=== PATIENT | male | born 1945 | race Hispanic/Latino ===

== ENCOUNTER → 2017-02-19 | Day surgery (SDC) | payer MEDICARE ==
[2017-02-13 12:33] LABS: BASOPHILS % 0.8 % (0.0-1.0); EOSINOPHILS # (AUTO) 0.1 (0.0-0.4); EOSINOPHILS % 2.3 % (0.0-6.0); HEMATOCRIT 42.3 % (38.2-49.6); HEMOGLOBIN 14.8 g/dL (14.0-18.0); LYMPHOCYTES # (AUTO) 1.1 (1.0-3.2); LYMPHOCYTES % 19.9 % (18.0-39.1); MEAN CORPUSCULAR HEMOGLOBIN 33.3 pg (28-32); MEAN CORPUSCULAR VOLUME 95.1 fL (81-99); MONOCYTES # (AUTO) 0.8 (0.2-0.8); MONOCYTES % 14.4 % (4.4-11.3); NEUTROPHILS # (AUTO) 3.3 (2.1-6.9); NEUTROPHILS % 61.8 % (38.7-80.0); PLATELET COUNT 112 x10e3/uL (140-360); RED BLOOD COUNT 4.45 x10e6/uL (4.3-5.7); RED CELL DISTRIBUTION WIDTH 12.9 % (11.7-14.4)
--- NOTE | 2017-02-13 13:04 | Diagnostic Imaging Report ---
PROCEDURE:CHEST 2 VIEWS TECHNIQUE:PA chest INDICATION:Preoperative evaluation for prostate surgery. COMPARISON:None. FINDINGS: Bibasilar subsegmental atelectasis. Upper lung zones are clear. Normal heart size, mediastinal contour, and pulmonary vasculature. Intact skeleton. CONCLUSION: No acute abnormality. Dictated by: Vikram Burnette M.D. on 02/13/2017 at 13:13 Electronically approved by: Vikram Burnette M.D. on 02/13/2017 at 13:13
[~2017-02-19] MED LIST: BELLADONNA/OPIUM 60 MG SUPP PR ONE; BUPROPION HCL100 MG PO; CEFTRIAXONE SOD 1 GM VIAL ONE; DEXAMETHASONE SOD PHOS INJ 4 MG/ML VIAL ONE; FENTANYL CITRATE/PF 100MCG/2 ML INJ ONE; GENTAMICIN 80MG/NS 100 ML 100 ML IV ONE; IOPAMIDOL 610MG/1ML 300 MG/ML VIAL IV ONE; LATUDA40 MG PO; LIDOCAINE HCL 2% LOCAL INJ 5 ML SDV VIAL INJ ONE; LORATADINE10 MG PO; METOCLOPRAMIDE10 MG PO; MIDAZOLAM HCL 2 MG/2 ML VIAL ONE; OMEPRAZOLE40 MG PO; ONDANSETRON HCL INJ 2 MG/ML VIAL ONE; PROPOFOL IV EMULSION 10 MG/ML 20 ML VIAL ONE; SEVOFLURANE INHAL SOLN 250 ML PEN BTL ONE; TAMSULOSIN HCL0.4 MG PO; TRAZODONE HCL50 MG PO; TYLENOL WITH C1 EACH PO
--- NOTE | 2017-04-22 06:51 | Operative Report ---
DATE OF PROCEDURE: February 19, 2017 PREOPERATIVE DIAGNOSES 1. Obstructive BPH. 2. Urinary tract infections. 3. History of urolithiasis. POSTOPERATIVE DIAGNOSES 1. Obstructive BPH. 2. Urinary tract infections. 3. History of urolithiasis. 4. Lesions of the prostatic urethra. OPERATIONS PERFORMED 1. Cystourethroscopy with biopsy of prostatic urethra lesion (separate procedure performed for the prostatic urethral lesion). 2. Cystourethroscopy with bilateral ureteral catheterization and retrograde ureteropyelography (separate procedure performed to evaluate the upper tracts in light of the urinary tract infections and urolithiasis). 3. Interpretation of retrograde ureteropyelography. 4. Supervision of fluoroscopy. No radiologist present. 5. Cystourethroscopy with photoselective vaporization of the prostate (separate staged procedure performed for the regrowth of BPH). ANESTHESIA: General. COMPLICATIONS: None. CLINICAL SUMMARY: Elva Lamar is a 71-year-old man with the above preoperative diagnoses. He has had previous transurethral resection of the prostate remotely and has regrowth within the prostate bed. The patient is on maximum medical therapy with Proscar and Flomax. He is brought for the above procedures. He is aware of the risks of bleeding, infection, injury to adjacent structures, need additional procedures and elected to proceed. OPERATIVE PROCEDURE IN DETAIL: Informed consent was verified. Elva Lamar was properly identified, taken to the operating room, placed on the cystoscopy table in supine position. Anesthesia was uneventfully begun. The patient was then carefully and gently repositioned in dorsal lithotomy position with all pressure points well padded. His genitalia were prepared and draped in usual sterile fashion. A 22.5-Swedish cystoscope sheath with visual obturator in place was atraumatically inserted in the patient's urethra, was guided down an unremarkable distal urethra through the normal sphincteric region into the prostate bed where we identified some nodular prostatic regrowth. The bladder neck itself was opened. There was a papillary lesion just proximal to the verumontanum that required excisional biopsy. Panendoscopy of the urinary bladder revealed grade 2 trabeculations, but no tumors, no stones and no diverticula. No suspicious mucosal lesions were identified. An 8-Swedish catheter was used to cannulate each ureter and retrograde ureteral pyelograms were performed. Interpretation retrograde ureteropyelography: Contrast was instilled in a retrograde fashion bilaterally. There were no tumors, no stones and no diverticula. Unobstructed drainage was observed bilaterally fluoroscopically. 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 Photoselective vaporization the prostate was then carried out. We lasered the residual obstructive BPH tissue. We lasered from the bladder neck tube, but never past the verumontanum. After delivering 79,145 joules of energy over a total laser time of 11 minutes and 44 seconds, the patient had a wide open prostatic bed with excellent hemostasis. The cystoscope was withdrawn. Wilburn catheter was placed. It was irrigated to and fro to ensure it worked properly and the patient was uneventfully reversed from anesthesia and taken to recovery room in stable condition. There were no complications during the procedure. He tolerated the procedure well. Plans will be to follow the patient up in the office at which point in time, we will perform uroflowmetry and bladder ultrasonography. Job#: [id number] cc:DARIEN CHOE MD
== END | disposition home or self-care (01) ==
LOC: OR 05:51
PROVIDERS: ATTEND Urology
DX: N40.1 Benign prostatic hyperplasia with lower urinary tract symptoms (principal); N36.8 Other specified disorders of urethra; N13.8 Other obstructive and reflux uropathy; N32.89 Other specified disorders of bladder; N30.80 Other cystitis without hematuria; I45.10 Unspecified right bundle-branch block; G47.33 Obstructive sleep apnea (adult) (pediatric); F17.210 Nicotine dependence, cigarettes, uncomplicated; Z01.810 Encounter for preprocedural cardiovascular examination; Z01.812 Encounter for preprocedural laboratory examination; Z01.818 Encounter for other preprocedural examination; Z87.442 Personal history of urinary calculi
CPT/HCPCS: 36415; 52005; 52204; 52648; 71020; 74420; 85025; 88305; 93005; C1758; J0696; J1100; J1580; J2001; J2250; J2405; Q9967

== ENCOUNTER → 2018-08-21 | Day surgery (SDC) | payer MEDICARE ==
[2018-08-18 14:29] LABS: BASOPHILS % 0.7 % (0.0-1.0); EOSINOPHILS # (AUTO) 0.2 (0.0-0.4); EOSINOPHILS % 3.3 % (0.0-6.0); HEMATOCRIT 41.6 % (38.2-49.6); HEMOGLOBIN 14.7 g/dL (14.0-18.0); LYMPHOCYTES # (AUTO) 1.1 (1.0-3.2); LYMPHOCYTES % 23.1 % (18.0-39.1); MEAN CORPUSCULAR HGB CONC 35.3 g/dL (31-35); MEAN CORPUSCULAR VOLUME 93.3 fL (81-99); MONOCYTES # (AUTO) 0.4 (0.2-0.8); NEUTROPHILS # (AUTO) 2.9 (2.1-6.9); NEUTROPHILS % 63.5 % (38.7-80.0); PLATELET COUNT 155 x10e3/uL (140-360); RED BLOOD COUNT 4.46 x10e6/uL (4.3-5.7); RED CELL DISTRIBUTION WIDTH 12.4 % (11.7-14.4)
[2018-08-18 14:43] LABS: ALBUMIN 3.5 g/dL (3.5-5.0); ALBUMIN/GLOBULIN RATIO 1.2 (0.8-2.0); ANION GAP 14.4 mmol/L (8-16); CREATININE, SERUM 1.45 mg/dL (0.72-1.25); POTASSIUM 3.4 mmol/L (3.5-5.1)
--- NOTE | 2018-08-18 15:54 | Diagnostic Imaging Report ---
EXAM: CHEST 2 VIEWS, PA and lateral DATE: 08/18/2018 Time stamp on exam: 2:14 PM INDICATION: Preoperative, history of renal stones COMPARISON: None FINDINGS: LINES/TUBES: None LUNGS: No consolidations or edema. PLEURA: No effusions or pneumothorax. HEART AND MEDIASTINUM: Normal size and contour. Calcification within the aorta. BONES AND SOFT TISSUES: No acute findings. Degenerative changes of the spine. IMPRESSION: No acute thoracic abnormality. Signed by: Dr. Yaya Quinonez DO on 08/18/2018 3:50 PM
--- NOTE | 2018-08-18 16:41 | Diagnostic Imaging Report ---
Abdomen, 2 views. History: Stones. Findings: The intestinal gas pattern is nonobstructive. There are small stones that overlie the lower pole of the right kidney and upper pole of the left kidney. There no masses. . Degenerative changes of the spine. IMPRESSION: Small bilateral stones. Signed by: Dr. Yaya Quinonez DO on 08/18/2018 4:38 PM
[~2018-08-21] MED LIST changes: +BELLADONNA/OPIUM 30 MG SUPP RC ONE; -BELLADONNA/OPIUM 60 MG SUPP PR ONE; -CEFTRIAXONE SOD 1 GM VIAL ONE; +CEFTRIAXONE SOD 1 GM/NS 50 ML 50 ML IV ONE; -FENTANYL CITRATE/PF 100MCG/2 ML INJ ONE; +FLOMAX0.4 MG PO; -GENTAMICIN 80MG/NS 100 ML 100 ML IV ONE; +HYDROCHLOROTHIA25 MG PO; +IBUPROFEN400 MG PO; +MECLIZINE HCL12.5 MG PO; -ONDANSETRON HCL INJ 2 MG/ML VIAL ONE; +ONDANSETRON HCL INJ 2MG/ML 2ML 2 MG/ML VIAL ONE
--- OUTSIDE RECORDS SUMMARY | 2018-08-21 09:49 | XMS REPORT | Continuity of Care Document ---
Author Author [facility] Organization [facility] Address Unknown Phone Unavailable Care Team Providers Care Mobile Engineer Name Role Phone [employer] Unavailable Unavailable Problems Problem Status Onset Date Classification Date Reported Comments Source ABDOMINAL PAIN Active 02/07/2017 [facility] FALL FROM STANDING, CLOSED FRACTURE OF M Active 02/07/2017 [facility] ABD PAIN Active 03/16/2016 [facility] ABDOMINAL PAIN, ACUTE, BILATERAL LOWER Q Active 03/16/2016 [facility] CHEST PAIN Active 10/25/2015 [facility] Discharge Diagnosis: Migraine headache 07/15/2015 07/18/2015 [facility] HEADACHE Active 07/14/2015 [facility] VOMITING, ABD PAIN Active 01/14/2015 [facility] ABDOMINAL PAIN, SYMPTOMATIC CHOLELITHIAS Active 01/14/2015 [facility] DIZZINESS Active 01/27/2014 [facility] TRANSIENT VISUAL LOSS AND TONGUE NUMBNES Active 01/27/2014 [facility] Atypical chest pain1 Active 03/23/2013 Problem 02/11/2017 Data migrated from [employer] on 07/23/14. [facility] Body mass index 30+ - obesity3 Active 03/23/2013 Problem 02/11/2017 Data migrated from [employer] on 07/23/14. [facility] Otitis externa9, 10 Resolved 03/23/2013 Problem 02/11/2017 Data migrated from [employer] on 09/10/14. Data migrated from [employer] on 09/09/14. [facility] Sleep apnea11 Active 03/23/2013 Problem 02/11/2017 Data migrated from [employer] on 07/23/14. [facility] EXERTIONAL CHEST PAIN Active 03/13/2013 [facility] CHEST PAIN/LEFT SIDE PAIN Active 03/13/2013 [facility] Cobalamin deficiency4 Active 12/09/2012 Problem 02/11/2017 Data migrated from [employer] on 07/23/14. [facility] Fatigue7 Active 12/09/2012 Problem 02/11/2017 Data migrated from [employer] on 07/23/14. [facility] Thrombocytopenic [id number] Active 12/09/2012 Problem 02/11/2017 Data migrated from [employer] on 07/23/14. [facility] Vitamin D [email or web address] Active 12/09/2012 Problem 02/11/2017 Data migrated from [employer] on 07/23/14. [facility] Cramp in lower limb5 Active 10/30/2012 Problem 02/11/2017 Data migrated from [employer] on 07/23/14. [facility] Electrolyte imbalance6 Active 10/30/2012 Problem 02/11/2017 Data migrated from [employer] on 07/23/14. [facility] TIA Active 04/13/2012 [facility] ARM/SHOULDER PAIN Active 06/01/2011 [facility] URINATION PROBLEMS Active 12/07/2010 [facility] Depression Active Problem 04/19/2012 [facility] Flank pain Active Problem 04/19/2012 [facility] Hematuria Active Problem 04/19/2012 [facility] Nausea Active Problem 04/19/2012 [facility] Stent Active Problem 04/19/2012 [facility] Vomiting Active Problem 04/19/2012 [facility] Depression Active Problem 02/11/2017 [facility] Flank pain Active Problem 02/11/2017 [facility] Hematuria Active Problem 02/11/2017 [facility] Nausea Active Problem 02/11/2017 [facility] Sleep apnea Resolved Problem 01/31/2014 [facility] Stent Active Problem 02/11/2017 [facility] Vomiting Active Problem 02/11/2017 [facility] Benign prostatic hypertrophy with outflow obstruction2 Active Problem 02/11/2017 Data migrated from [employer] on 07/23/14. [facility] Depression Resolved Problem 02/11/2017 [facility] Hyperlipidemia8 Active Problem 02/11/2017 Data migrated from [employer] on 07/23/14. [facility] TRANS CEREB ISCHEMIA NEC Active [facility] CHEST PAIN NOS Active [facility] UNSPECIFIED FALL, INITIAL ENCOUNTER Active [facility] MULTIPLE FRACTURES OF RIBS, UNSP SIDE, I Active [facility] PLEURODYNIA Active [facility] Medications Medication Details Route Status Patient Instructions Ordering Provider Order Date Source Acetaminophen 300 MG / Codeine Phosphate 30 MG Oral Tablet 1 tab, PO, Q4H, PRN Pain, X 7 day, # 42 tab, 0 Refill(s) Active 02/08/2017 [facility] morphine Sulfate 12 mg, 6 mL, Route: PO, Drug form: SOLN, Q4H, PRN Pain Score 7-10, Start date: 02/08/17 3:04:00 ORNAMENT STAPLER, Duration: 30 day, Stop date: 03/10/17 3:03:00 CSTNotes: (Same as:MORPhine Sulfate) Inactive 02/08/2017 [facility] Enoxaparin 30 mg, 0.3 mL, Route: SUB-Q, Drug form: INJ, [id number], Dosing Weight 125, kg, Start date: 02/08/17 3:00:00 ORNAMENT STAPLER, Stop date: 03/09/17 15:00:00 CSTNotes: (Same as: Lovenox) Inactive 02/08/2017 [facility] Saline Flush 0.9% 10 ml, Route: IVP, Drug Form: INJ, Dosing Weight 125, kg, PRN, PRN Line Flush, Start date: 02/08/17 2:42:00 ORNAMENT STAPLER, Duration: 30 day, Stop date: 03/10/17 2:41:00 CSTNotes: (Same as: BD Posiflush) Inactive 02/08/2017 [facility] Ondansetron 4 mg, 2 mL, Route: IVP, Drug form: INJ, Q6H, Dosing Weight 125, kg, PRN Nausea & Vomiting, Start date: 02/08/17 2:42:00 ORNAMENT STAPLER, Duration: 30 day, Stop date: 03/10/17 2:41:00 CSTNotes: (Same as: Zofran) MEDICATION WASTE Product Size: 4 mg Product Wasted: ___ mg Inactive 02/08/2017 [facility] Acetaminophen 650 mg, 2 tab, Route: PO, Drug form: TAB, Q4H, Dosing Weight 125, kg, PRN Pain 1-3/Temp > 100.4 F, Start date: 02/08/17 2:42:00 ORNAMENT STAPLER, Duration: 30 day, Stop date: 03/10/17 2:41:00 CSTNotes: Do not exc eed 4 gm/day. (Same as: Tylenol) Inactive 02/08/2017 [facility] Acetaminophen 325 MG / Hydrocodone Bitartrate 5 MG Oral Tablet 1 tab, Route: PO, Drug Form: TAB, Dosing Weight 125, kg, Q4H, PRN Pain Score 4-6, Start date: 02/08/17 2:42:00 ORNAMENT STAPLER, Duration: 30 day, Stop date: 03/10/17 2:41:00 CSTNotes: (Same as: [place] 325/5) Do not exceed 4gm/day of acetaminophen. Inactive 02/08/2017 [facility] Morphine 4 mg, Route: IVP, Q4H, Dosing Weight 125, kg, PRN Pain Score 7-10, Start date: 02/08/17 2:42:00 ORNAMENT STAPLER, Duration: 30 day, Stop date: 03/10/17 2:41:00 ORNAMENT STAPLER Inactive 02/08/2017 [facility] Trazodone Hydrochloride 100 MG Oral Tablet 100 mg=1 tab, PO, Bedtime, # 30 tab, 0 Refill(s) No Longer Active 02/08/2017 [facility] Metoclopramide 10 MG Oral Tablet 10 mg=1 tab, PO, Daily, 0 Refill(s) No Longer Active 02/08/2017 [facility] predniSONE 10 mg oral tablet 10 mg=1 tab, PO, Daily, # 30 tab, 3 Refill(s) No Longer Active 02/08/2017 [facility] omeprazole 40 mg oral delayed release capsule 40 mg=1 cap, PO, Daily, # 30 cap, 0 Refill(s) Active 02/08/2017 [facility] Bupropion 200 mg, PO, Daily, 0 Refill(s) No Longer Active 02/08/2017 [facility] tamsulosin 0.4 mg oral capsule 0.4 mg=1 cap, PO, BID, 0 Refill(s) Active 02/08/2017 [facility] Zofran 4 mg, Route: IVP, Drug form: INJ, ONCE, Dosing Weight 113.636, kg, Priority: STAT, Start date: 02/07/17 20:11:00 ORNAMENT STAPLER, Stop date: 02/07/17 20:11:00 ORNAMENT STAPLER Inactive 02/08/2017 [facility] Fentanyl 100 microgram, Route: IVP, ONCE, Dosing Weight 113.636, kg, Priority: STAT, Start date: 02/07/17 20:11:00 ORNAMENT STAPLER, Stop date: 02/07/17 20:11:00 ORNAMENT STAPLER Inactive 02/08/2017 [facility] Morphine 6 mg, Route: IVP, ONCE, Dosing Weight 113.636, kg, Priority: STAT, Start date: 02/07/17 18:39:00 ORNAMENT STAPLER, Stop date: 02/07/17 18:39:00 ORNAMENT STAPLER Inactive 02/08/2017 [facility] Morphine 6 mg, Route: IVP, ONCE, Dosing Weight 113.636, kg, Priority: STAT, Start date: 02/07/17 15:58:00 ORNAMENT STAPLER, Stop date: 02/07/17 15:58:00 ORNAMENT STAPLER Inactive 02/07/2017 [facility] Sodium Chloride 0.9% (Bolus) IV 1,000 mL, Infuse Over: 1 hr, Route: IV, ONCE, Priority: STAT, Dosing Weight 113.636 kg, Start date: 02/07/17 15:55:00 ORNAMENT STAPLER, Stop date: 02/07/17 15:55:00 ORNAMENT STAPLER Inactive 02/07/2017 [facility] Latuda 120 mg, Route: PO, Drug form: TAB, After Dinner, Dosing Weight 117.273, kg, Start date: 03/17/16 17:00:00 ORNAMENT STAPLER, Duration: 30 day, Stop date: 04/15/16 17:00:00 ORNAMENT STAPLER Inactive 03/17/2016 [facility] Latuda 120mg Latuda 120mg, 1 tab, Drug form: MISC, Route: PO, After Dinner, 03/17/16 17:00:00 ORNAMENT STAPLER, Duration: 30 day, Stop date: 04/15/16 17:00:00 ORNAMENT STAPLER Inactive 03/17/2016 [facility] tamsulosin 0.4 mg oral capsule 0.4 mg=1 cap, PO, Daily, # 30 cap, 0 Refill(s) Active 03/17/2016 [facility] Levofloxacin 500 MG Oral Tablet [Levaquin] 500 mg=1 tab, PO, Q24H, # 30 tab, 0 Refill(s) Active 03/17/2016 [facility] Escitalopram 10 mg, 1 tab, Route: PO, Drug form: TAB, Daily, Dosing Weight 117.273, kg, Start date: 03/17/16 9:00:00 ORNAMENT STAPLER, Duration: 30 day, Stop date: 04/15/16 9:00:00 CSTNotes: (Same as: Lexapro) Inactive 03/17/2016 [facility] Levaquin 500 mg, Route: PO, Drug form: TAB, [id number], Dosing Weight 117.273, kg, Start date: 03/17/16 9:00:00 ORNAMENT STAPLER, Duration: 30 day, Stop date: 04/15/16 9:00:00 ORNAMENT STAPLER No Longer Active 03/17/2016 [facility] Simvastatin 20 mg, 1 tab, Route: PO, Drug form: TAB, Bedtime, Dosing Weight 117.273, kg, Start date: 03/16/16 21:00:00 ORNAMENT STAPLER, Duration: 30 day, Stop date: 04/14/16 21:00:00 CSTNotes: (Same as: Zocor) No Longer Active 03/17/2016 [facility] ZyrTEC 10 mg, 1 tab, Route: PO, Drug form: TAB, PRN, PRN Allergies, Start date: 03/16/16 19:21:00 ORNAMENT STAPLER, Duration: 30 day, Stop date: 04/15/16 19:20:00 CSTNotes: (Same As: Zyrtec) No Longer Active 03/17/2016 [facility] Trazodone 75 mg, 1.5 tab, Route: PO, Drug form: TAB, Bedtime, Dosing Weight 117.273, kg, PRN Insomnia, Start date: 03/16/16 19:13:00 ORNAMENT STAPLER, Duration: 30 day, Stop date: 04/15/16 19:12:00 CSTNotes: (Same As: Desyrel) No Longer Active 03/17/2016 [facility] Loratadine 10 mg, Route: PO, Drug form: TAB, PRN, Dosing Weight 117.273, kg, PRN as needed for allergy symptoms, Start date: 03/16/16 19:12:00 ORNAMENT STAPLER, Duration: 30 day, Stop date: 04/15/16 19:11:00 ORNAMENT STAPLER Inactive 03/17/2016 [facility] Sodium Chloride 0.154 MEQ/ML Injectable Solution 1,000 mL, 500 ml/hr, Infuse Over: 2 hr, Route: IV, 1,000, Drug form: INJ, ONCE, Priority: STAT, Dosing Weight 117.273 kg, Start date: 03/16/16 19:11:00 ORNAMENT STAPLER, Duration: 1 doses or times, Stop date: 03/16/16 19:11:00 ORNAMENT STAPLER Inactive 03/17/2016 [facility] Levaquin 500 mg, 2 tab, Route: PO, Drug form: TAB, [id number], Dosing Weight 117.273, kg, Start date: 03/16/16 13:00:00 ORNAMENT STAPLER, Duration: 30 day, Stop date: 04/14/16 13:00:00 CSTNotes: Do not give w/antacids, dairy pdt & minerals Take 1 hr before or 2 hr after dairy pdt (Same as:Levaquin) No Longer Active 03/16/2016 [facility] Finasteride 5 mg, 1 tab, Route: PO, Drug form: TAB, Daily, Dosing Weight 117.273, kg, Start date: 03/16/16 9:00:00 ORNAMENT STAPLER, Stop date: 04/14/16 9:00:00 CSTNotes: (Same as: Proscar) "Do Not Crush" Women of c hildbearing age should not touch or handle broken tablets No Longer Active 03/16/2016 [facility] Flomax 0.4 mg, 1 cap, Route: PO, Drug form: CAP, After Breakfast, Dosing Weight 117.273, kg, Start date: 03/16/16 8:30:00 ORNAMENT STAPLER, Duration: 30 day, Stop date: 04/14/16 8:30:00 CSTNotes: (Same As: Flomax) "Do Not Crush" No Longer Active 03/16/2016 [facility] Allergy (Loratadine) 10 mg oral tablet 10 mg=1 tab, PO, PRN, 0 Refill(s) Active 03/16/2016 [facility] Ondansetron 4 mg, 2 mL, Route: IVP, Drug form: INJ, Q6H, Dosing Weight 117.273, kg, PRN Nausea & Vomiting, Start date: 03/16/16 6:02:00 ORNAMENT STAPLER, Duration: 30 day, Stop date: 04/15/16 6:01:00 CSTNotes: (Same as: Zofran) MEDICATION WASTE Product Size: 4 mg Product Wasted: ___ mg No Longer Active 03/16/2016 [facility] Acetaminophen 325 mg, 1 tab, Route: PO, Drug form: TAB, Q4H, Dosing Weight 117.273, kg, PRN Pain Score 4-6, Start date: 03/16/16 6:02:00 ORNAMENT STAPLER, Duration: 30 day, Stop date: 04/15/16 6:01:00 CSTNotes: Do not exceed 4 gm/day. (Same as: Tylenol) No Longer Active 03/16/2016 [facility] Rocephin 1 gm, Route: IVPB, Drug form: PDR/INJ, ONCE, Dosing Weight 117.273, kg, Priority: STAT, Start date: 03/16/16 3:01:00 ORNAMENT STAPLER, Stop date: 03/16/16 3:01:00 ORNAMENT STAPLER Inactive 03/16/2016 [facility] Zofran 8 mg, Route: IVP, Drug form: INJ, ONCE, Dosing Weight 117.273, kg, Priority: STAT, Start date: 03/16/16 3:00:00 ORNAMENT STAPLER, Stop date: 03/16/16 3:00:00 ORNAMENT STAPLER Inactive 03/16/2016 [facility] Sodium Chloride 0.154 MEQ/ML Injectable Solution 1,000 mL, Infuse Over: 1 hr, Route: IV, ONCE, Priority: STAT, Dosing Weight 117.273 kg, Start date: 03/16/16 3:00:00 ORNAMENT STAPLER, Duration: 1 doses or times, Stop date: 03/16/16 3:00:00 ORNAMENT STAPLER Inactive 03/16/2016 [facility] Dilaudid 1 mg, Route: IVP, ONCE, Dosing Weight 117.273, kg, Priority: STAT, Start date: 03/16/16 3:00:00 ORNAMENT STAPLER, Stop date: 03/16/16 3:00:00 ORNAMENT STAPLER Inactive 03/16/2016 [facility] Acetaminophen 650 mg, Route: PO, Drug form: TAB, ONCE, Dosing Weight 117.273, kg, Start date: 03/16/16 2:54:00 ORNAMENT STAPLER, Stop date: 03/16/16 2:54:00 ORNAMENT STAPLER Inactive 03/16/2016 [facility] Saline Flush 0.9% 10 mL, Route: IVP, Drug Form: INJ, Dosing Weight 117.273, kg, PRN, PRN Line Flush, Start date: 03/16/16 2:54:00 ORNAMENT STAPLER, Duration: 30 day, Stop date: 04/15/16 2:53:00 CSTNotes: (Same as: BD Posiflush) No Longer Active 03/16/2016 [facility] simvastatin 20 mg oral tablet 20 mg=1 tab, PO, Bedtime, # 30 tab, 0 Refill(s) Active 10/27/2015 [facility] Aspirin 81 MG Enteric Coated Tablet 81 mg=1 tab, PO, Daily, 0 Refill(s) Active 10/27/2015 [facility] Proscar 5 mg, 1 tab, Route: PO, Drug form: TAB, Daily, Start date: 10/27/15 9:00:00 CDT, Duration: 30 day, Stop date: 11/25/15 9:00:00 CDTNotes: (Same as: Proscar) "Do Not Crush" Women of childbearing age should not touch or handle broken tablets Inactive 10/27/2015 [facility] ergocalciferol 50,000 IntlUnit, 1 cap, Route: PO, Drug form: CAP, Daily, Dosing Weight 119.631, kg, Start date: 10/27/15 9:00:00 CDT, Duration: 3 day, Stop date: 10/29/15 9:00:00 CDTNotes: (Same as: Vitamin D) "Do Not Crush" Inactive 10/27/2015 [facility] Dutasteride 0.5 mg, Route: PO, Drug form: CAP, Daily, Dosing Weight 119.631, kg, Start date: 10/27/15 9:00:00 CDT, Duration: 30 day, Stop date: 11/25/15 9:00:00 CDT No Longer Active 10/27/2015 [facility] Escitalopram 10 mg, 1 tab, Route: PO, Drug form: TAB, Daily, Dosing Weight 119.631, kg, Start date: 10/27/15 9:00:00 CDT, Duration: 30 day, Stop date: 11/25/15 9:00:00 CDTNotes: (Same as: Lexapro) Inactive 10/27/2015 [facility] Zocor 20 mg, 1 tab, Route: PO, Drug form: TAB, Bedtime, Dosing Weight 119.631, kg, Start date: 10/26/15 21:00:00 CDT, Duration: 30 day, Stop date: 11/24/15 21:00:00 CDTNotes: (Same as: Zocor) No Longer Active 10/27/2015 [facility] Trazodone 150 mg, 3 tab, Route: PO, Drug form: TAB, Bedtime, Dosing Weight 119.631, kg, Start date: 10/26/15 21:00:00 CDT, Duration: 30 day, Stop date: 11/24/15 21:00:00 CDTNotes: (Same As: Desyrel) No Longer Active 10/27/2015 [facility] Lovenox 40 mg, 0.4 mL, Route: SUB-Q, Drug form: INJ, [id number], Dosing Weight 119.631, kg, Start date: 10/26/15 12:00:00 CDT, Duration: 30 day, Stop date: 11/24/15 12:00:00 CDTNotes: (Same as: Lovenox) No Longer Active 10/26/2015 [facility] Metoprolol 5 mg, 5 mL, Route: IV, Drug form: INJ, Q2H, Dosing Weight 119.631, kg, PRN Tachycardia, Start date: 10/26/15 9:46:00 CDT, Duration: 30 day, Stop date: 11/25/15 9:45:00 CDTNotes: (Same as: Lopressor) Push over 2 minutes No Longer Active 10/26/2015 [facility] Nitroglycerin 0.4 MG Sublingual Tablet [Nitrostat] 0.4 mg, 1 tab, Route: SL, Drug form: TAB, Q5Min, Dosing Weight 119.631, kg, PRN Chest Pain, Start date: 10/26/15 9:46:00 CDT, Duration: 3 doses or times, Stop date: Limited # of timesNotes: (Same as:Nitroquick, Nitrostat) "Do Not Crush" Sublingual tablet No Longer Active 10/26/2015 [facility] Morphine 2 mg, 1 mL, Route: IVP, Drug form: INJ, Q2H, Dosing Weight 119.631, kg, PRN Chest Pain, Start date: 10/26/15 9:45:00 CDT, Duration: 30 day, Stop date: 11/25/15 9:44:00 CDTNotes: (Same as:MORPhine Sulfate) No Longer Active 10/26/2015 [facility] Hydralazine 10 mg, 0.5 mL, Route: IV, Drug form: INJ, Q4H, Dosing Weight 119.631, kg, PRN Hypertension, Start date: 10/26/15 9:45:00 CDT, Duration: 30 day, Stop date: 11/25/15 9:44:00 CDTNotes: (Same as: Apresoline) Push over 5 minutes No Longer Active 10/26/2015 [facility] Aspirin 81 mg, 1 tab, Route: PO, Drug form: ECTAB, Daily, Dosing Weight 119.631, kg, Priority: NOW, Start date: 10/26/15 9:42:00 CDT, Duration: 30 day, Stop date: 11/25/15 9:00:00 CDTNotes: Do not crush or chew. (Same As: Ecotrin) No Longer Active 10/26/2015 [facility] Streptococcus pneumoniae serotype 1 capsular antigen diphtheria [id number] protein conjugate vaccine / Streptococcus pneumoniae serotype 14 capsular antigen diphtheria [id number] protein conjugate vaccine / Streptococcus pneumoniae serotype 18C capsular antigen d 0.5 mL, Route: IM, Daily, Start date: 10/26/15 9:00:00 CDT, Duration: 1 doses or times, Stop date: 10/26/15 9:00:00 CDT No Longer Active 10/26/2015 [facility] Ondansetron 4 mg, 2 mL, Route: IVP, Drug form: INJ, Q6H, Dosing Weight 119.631, kg, PRN Nausea & Vomiting, Start date: 10/25/15 21:28:00 CDT, Duration: 30 day, Stop date: 11/24/15 21:27:00 CDTNotes: (Same as: Zofran) MEDICATION WASTE Product Size: 4 mg Product Wasted: ___ mg No Longer Active 10/26/2015 [facility] Morphine 2 mg, 1 mL, Route: IVP, Drug form: INJ, Q4H, Dosing Weight 119.631, kg, PRN Pain Score 7-10, Start date: 10/25/15 21:28:00 CDT, Duration: 30 day, Stop date: 11/24/15 21:27:00 CDTNotes: (Same as:MORPhine Sulfate) No Longer Active 10/26/2015 [facility] Docusate 100 mg, 1 cap, Route: PO, Drug form: CAP, BID, Dosing Weight 119.631, kg, PRN Constipation, Start date: 10/25/15 21:28:00 CDT, Duration: 30 day, Stop date: 11/24/15 21:27:00 CDTNotes: (Same as: Colace) (Do Not Crush) No Longer Active 10/26/2015 [facility] Acetaminophen 650 mg, 2 tab, Route: PO, Drug form: TAB, Q4H, Dosing Weight 119.631, kg, PRN Pain 1-3/Temp > 100.4 F, Start date: 10/25/15 21:28:00 CDT, Duration: 30 day, Stop date: 11/24/15 21:27:00 CDTNotes: Do not exceed 4 gm/day. (Same as: Tylenol) No Longer Active 10/26/2015 [facility] dutasteride-tamsulosin 0.5 mg-0.4 mg oral capsule 1 cap, PO, Daily, 0 Refill(s) Active 10/26/2015 [facility] escitalopram 10 mg oral tablet 10 mg=1 tab, PO, Daily, # 30 tab, 0 Refill(s) Active 10/26/2015 [facility] Zofran 4 mg, Route: IVP, Drug form: INJ, ONCE, Dosing Weight 118.182, kg, Priority: STAT, Start date: 10/25/15 20:31:00 CDT, Stop date: 10/25/15 20:31:00 CDT Inactive 10/26/2015 [facility] Morphine 4 mg, Route: IVP, ONCE, Dosing Weight 118.182, kg, Priority: STAT, Start date: 10/25/15 20:31:00 CDT, Stop date: 10/25/15 20:31:00 CDT Inactive 10/26/2015 [facility] Aspirin 325 MG Oral Tablet 325 mg, Route: PO, Drug form: TAB, ONCE, Dosing Weight 118.182, kg, Priority: STAT, Start date: 10/25/15 18:41:00 CDT, Stop date: 10/25/15 18:41:00 CDT Inactive 10/25/2015 [facility] Aspirin 81 MG Chewable Tablet 324 mg, 4 tab, Route: CHEW, Drug form: CHEWTAB, ONCE, Dosing Weight 118.182, kg, Priority: STAT, Start date: 10/25/15 18:25:00 CDT, Stop date: 10/25/15 18:25:00 CDTNotes: Take with food. Inactive 10/25/2015 [facility] Saline Flush 0.9% 10 mL, Route: IVP, Drug Form: INJ, Dosing Weight 109.091, kg, PRN, PRN Line Flush, Start date: 10/25/15 16:29:00 CDT, Duration: 30 day, Stop date: 11/24/15 16:28:00 CDTNotes: (Same as: BD Posiflush) Inactive 10/25/2015 [facility] Benadryl 12.5 mg, Route: IVP, ONCE, Dosing Weight 109.091, kg, Priority: STAT, Start date: 07/15/15 0:25:00 CDT, Stop date: 07/15/15 0:25:00 CDT Inactive 07/15/2015 [facility] Reglan 5 mg, Route: IVP, Drug form: INJ, ONCE, Dosing Weight 109.091, kg, Priority: STAT, Start date: 07/15/15 0:25:00 CDT, Stop date: 07/15/15 0:25:00 CDT Inactive 07/15/2015 [facility] Tylenol 975 mg, Route: PO, Drug form: TAB, ONCE, Dosing Weight 109.091, kg, Priority: STAT, Start date: 07/15/15 0:25:00 CDT, Stop date: 07/15/15 0:25:00 CDT Inactive 07/15/2015 [facility] Sodium Chloride 0.154 MEQ/ML Injectable Solution 1,000 mL, 1,000 ml/hr, Infuse Over: 1 hr, Route: IV, ONCE, Priority: STAT, Dosing Weight 109.091 kg, Start date: 07/15/15 0:24:00 CDT, Duration: 1 doses or times, Stop date: 07/15/15 0:24:00 CDT Inactive 07/15/2015 [facility] potassium phosphate + Sodium Chloride 0.9% IV 250 mL 10 mmol, 3.33 mL, Route: IVPB, ONCE, Dosing Weight 105.455, kg, Start date: 01/16/15 7:55:00, Stop date: 01/16/15 7:55:00Notes: (Same as: K Phosphate.) 1 mMol phoshate has 1.47 mEq potassium Infuse over 4 hours Inactive 01/16/2015 [facility] potassium phosphate 10 mEq, Route: IVPB, ONCE, Dosing Weight 105.455, kg, Start date: 01/16/15 7:07:00, Stop date: 01/16/15 7:07:00 Inactive 01/16/2015 [facility] Latuda 120mg pt's own med Latuda 120mg pt's own med, 1 tablet, Drug form: MISC, Route: PO, Bedtime, 01/15/15 21:00:00, Duration: 30 day, Stop date: 02/13/15 21:00:00 No Longer Active 01/16/2015 [facility] Latuda 120 mg, Route: PO, Drug form: TAB, Bedtime, Dosing Weight 105.455, kg, Start date: 01/15/15 21:00:00, Duration: 30 day, Stop date: 02/13/15 21:00:00 Inactive 01/16/2015 [facility] Trazodone 150 mg, 3 tab, Route: PO, Drug form: TAB, Bedtime, Dosing Weight 105.455, kg, Start date: 01/15/15 21:00:00, Duration: 30 day, Stop date: 02/13/15 21:00:00Notes: (Same As: Desyrel) No Longer Active 01/16/2015 [facility] Dilaudid 2 mg, 2 mL, Route: IVP, Drug form: INJ, Q3H, Dosing Weight 105.455, kg, PRN Pain Score 7-10, Start date: 01/15/15 15:58:00, Duration: 30 day, Stop date: 02/14/15 15:57:00 No Longer Active 01/15/2015 [facility] Acetaminophen 325 MG / Hydrocodone Bitartrate 5 MG Oral Tablet 1 tab, Route: PO, Drug Form: TAB, Dosing Weight 105.455, kg, Q4H, PRN Pain Score 1-5, Start date: 01/15/15 15:58:00, Stop date: 02/14/15 15:57:00Notes: (Same as: [place] 325/5) Do not exceed 4gm/day of acetaminophen. No Longer Active 01/15/2015 [facility] Ondansetron 4 mg, 2 mL, Route: IVP, Drug form: INJ, Q6H, Dosing Weight 105.455, kg, PRN Nausea & Vomiting, Start date: 01/15/15 15:58:00, Duration: 30 day, Stop date: 02/14/15 15:57:00Notes: (Same as: Alce) MEDICATION WASTE Product Size: 4 mg Product Wasted: ___ mg No Longer Active 01/15/2015 [facility] Hydromorphone 1 mg, 1 mL, Route: IVP, Drug form: INJ, Q3H, Dosing Weight 105.455, kg, PRN Pain Score 4-6, Start date: 01/15/15 15:58:00, Duration: 30 day, Stop date: 02/14/15 15:57:00 No Longer Active 01/15/2015 [facility] Calcium Chloride 0.0014 MEQ/ML / Potassium Chloride 0.004 MEQ/ML / Sodium Chloride 0.103 MEQ/ML / Sodium Lactate 0.028 MEQ/ML Injectable Solution 1,000 mL, Rate: 75 ml/hr, Infuse over: 13.3 hr, Route: IV, Dosing Weight 105.455 kg, Total Volume: 1,000, Start date: 01/15/15 15:58:00, Duration: 30 day, Stop date: 02/14/15 15:57:00 No Longer Active 01/15/2015 [facility] Acetaminophen 325 MG / Hydrocodone Bitartrate 10 MG Oral Tablet [Flint 10/325] 1 tab, Route: PO, Drug Form: TAB, Dosing Weight 105.455, kg, Q4H, PRN Pain, Start date: 01/15/15 15:49:00, Duration: 30 day, Stop date: 02/14/15 15:48:00 Inactive 01/15/2015 [facility] Ofirmev 1,000 mg, Route: IV, Drug form: INJ, ONCE, Dosing Weight 105.455, kg, PRN Pain, for > or=50 kg, Start date: 01/15/15 15:49:00 Inactive 01/15/2015 [facility] Naloxone 0.04 mg, Route: IVP, Q2MIN, Dosing Weight 105.455, kg, PRN Narcotic Reversal, Start date: 01/15/15 15:49:00, Duration: 8 doses or times, Stop date: Limited # of times Inactive 01/15/2015 [facility] Flumazenil 0.2 mg, Route: IVP, PRN, Dosing Weight 105.455, kg, PRN Benzodiazepine Reversal, Initial dose, Start date: 01/15/15 15:49:00, Duration: 30 day, Stop date: 02/14/15 15:48:00 Inactive 01/15/2015 [facility] Hydromorphone 0.5 mg, Route: IVP, Q5Min, Dosing Weight 105.455, kg, PRN Pain Score 7-10, Start date: 01/15/15 15:49:00, Duration: 4 doses or times, Stop date: Limited # of times Inactive 01/15/2015 [facility] Fentanyl 25 microgram, Route: IVP, Q5Min, Dosing Weight 105.455, kg, PRN Pain Score 4-6, Start date: 01/15/15 15:49:00, Duration: 4 doses or times, Stop date: Limited # of times Inactive 01/15/2015 [facility] Meperidine 12.5 mg, Route: IVP, Q30Min, Dosing Weight 105.455, kg, PRN Other -See Comment, For shivering, Start date: 01/15/15 15:49:00, Duration: 2 doses or times, Stop date: Limited # of times Inactive 01/15/2015 [facility] Oxycodone 5 mg, Route: PO, Drug form: TAB, Q4H, Dosing Weight 105.455, kg, PRN Pain Score 4-6, Start date: 01/15/15 15:49:00, Duration: 30 day, Stop date: 02/14/15 15:48:00 Inactive 01/15/2015 [facility] Ondansetron 4 mg, Route: IVP, ONCE, Dosing Weight 105.455, kg, PRN Nausea & Vomiting, Start date: 01/15/15 15:49:00 Inactive 01/15/2015 [facility] Cefoxitin 20 MG/ML Injectable Solution 2 gm, Route: IV, ONCE, Dosing Weight 105.455, kg, Start date: 01/15/15 14:30:00, Stop date: 01/15/15 14:30:00 Inactive 01/15/2015 [facility] Flagyl 500 mg, 100 mL, Route: IVPB, Drug form: INJ, [id number], Dosing Weight 105.455, kg, Start date: 01/15/15 9:00:00, Duration: 30 day, Stop date: 02/14/15 1:00:00Notes: (Same as: Flagyl) Avoid alcohol. No Longer Active 01/15/2015 [facility] Levaquin 750 mg, 150 mL, Route: IVPB, Drug form: SOLN, [id number], Dosing Weight 105.455, kg, Start date: 01/15/15 9:00:00, Duration: 30 day, Stop date: 02/13/15 9:00:00Notes: (Same as:Levaquin) No Longer Active 01/15/2015 [facility] Enoxaparin 40 mg, 0.4 mL, Route: SUB-Q, Drug form: INJ, [id number], Dosing Weight 105.455, kg, Start date: 01/15/15 9:00:00, Duration: 30 day, Stop date: 02/13/15 9:00:00Notes: (Same as: Lovenox) No Longer Active 01/15/2015 [facility] Bupropion 150 mg, 1 tab, Route: PO, Drug form: ERTAB, Daily, Dosing Weight 105.455, kg, Start date: 01/15/15 9:00:00, Duration: 30 day, Stop date: 02/13/15 9:00:00Notes: (Same as: Wellbutrin XL) "Do Not Crush" No Longer Active 01/15/2015 [facility] Zofran 4 mg, 2 mL, Route: IV, Drug form: INJ, Q8H, Dosing Weight 105.455, kg, PRN Nausea, Start date: 01/15/15 8:26:00, Duration: 30 day, Stop date: 02/14/15 8:25:00Notes: (Same as: Zofran) MEDICATION WASTE Product Size: 4 mg Product Wasted: ___ mg No Longer Active 01/15/2015 [facility] Miralax 17 gm, 1 pkt, Route: PO, Drug form: PWDR, Daily, Dosing Weight 105.455, kg, PRN Constipation, Start date: 01/15/15 8:25:00, Duration: 30 day, Stop date: 02/14/15 8:24:00Notes: Dissolve in 8 oz of water or juice. (Same as: Miralax) No Longer Active 01/15/2015 [facility] Lurasidone Hydrochloride 120 MG Oral Tablet [Latuda] 120 mg=1 tab, PO, Bedtime, 0 Refill(s) Active 01/15/2015 [facility] POLYETHYLENE GLYCOL 3350 142 MG/ML Oral Solution [Miralax] 17 gm, PO, Daily, PRN Constipation, 0 Refill(s) Active 01/15/2015 [facility] buPROPion 150 mg/24 hours oral extended release tablet 150 mg=1 tab, PO, Daily, # 30 tab, 0 Refill(s) Active 01/15/2015 [facility] trazodone 150 mg oral tablet 150 mg=1 tab, PO, Bedtime, # 30 tab, 0 Refill(s) Active 01/15/2015 [facility] Sodium Chloride 0.154 MEQ/ML Injectable Solution 1,000 mL, Rate: 125 ml/hr, Infuse over: 8 hr, Route: IV, Dosing Weight 105.455 kg, Total Volume: 1,000, Start date: 01/14/15 22:44:00, Duration: 30 day, Stop date: 02/13/15 22:43:00 No Longer Active 01/15/2015 [facility] Saline Flush 0.9% 10 ml, Route: IVP, Drug Form: INJ, Dosing Weight 105.455, kg, PRN, PRN Line Flush, Start date: 01/14/15 22:44:00, Duration: 30 day, Stop date: 02/13/15 22:43:00Notes: (Same as: BD Posiflush) No Longer Active 01/15/2015 [facility] Ondansetron 4 mg, 2 mL, Route: IVP, Drug form: INJ, Q6H, Dosing Weight 105.455, kg, PRN Nausea & Vomiting, Start date: 01/14/15 22:44:00, Duration: 30 day, Stop date: 02/13/15 22:43:00Notes: (Same as: Alec) MEDICATION WASTE Product Size: 4 mg Product Wasted: ___ mg No Longer Active 01/15/2015 [facility] Morphine 2 mg, 1 mL, Route: IVP, Drug form: INJ, Q4H, Dosing Weight 105.455, kg, PRN Pain Score 7-10, Start date: 01/14/15 22:44:00, Duration: 30 day, Stop date: 02/13/15 22:43:00Notes: (Same as:MORPhine Sulfate) No Longer Active 01/15/2015 [facility] Docusate 100 mg, 1 cap, Route: PO, Drug form: CAP, BID, Dosing Weight 105.455, kg, PRN Constipation, Start date: 01/14/15 22:44:00, Duration: 30 day, Stop date: 02/13/15 22:43:00Notes: (Same as: Colace) (Do Not Crush) No Longer Active 01/15/2015 [facility] Acetaminophen 325 mg, 1 tab, Route: PO, Drug form: TAB, Q4H, Dosing Weight 105.455, kg, PRN Pain Score 4-6, Start date: 01/14/15 22:44:00, Duration: 30 day, Stop date: 02/13/15 22:43:00Notes: Do not exceed 4 gm/day. (Same as: Tylenol) No Longer Active 01/15/2015 [facility] Tylenol 975 mg, Route: PO, Drug form: TAB, ONCE, Dosing Weight 105.455, kg, Priority: STAT, Start date: 01/14/15 20:13:00, Stop date: 01/14/15 20:13:00 Inactive 01/15/2015 [facility] Zofran 4 mg, 2 mL, Route: IVP, Drug form: INJ, ONCE, Dosing Weight 105.455, kg, Priority: STAT, Start date: 01/14/15 19:33:00, Stop date: 01/14/15 19:33:00Notes: (Same as: Zofran) MEDICATION WASTE Product Size: 4 mg Product Wasted: ___ mg Inactive 01/15/2015 [facility] Morphine 4 mg, 2 mL, Route: IVP, Drug form: INJ, ONCE, Dosing Weight 105.455, kg, Priority: STAT, Start date: 01/14/15 16:56:00, Stop date: 01/14/15 16:56:00Notes: (Same as:MORPhine Sulfate) Inactive 01/14/2015 [facility] Zofran 4 mg, 2 mL, Route: IVP, Drug form: INJ, ONCE, Dosing Weight 105.455, kg, Priority: STAT, Start date: 01/14/15 16:31:00, Stop date: 01/14/15 16:31:00Notes: (Same as: Zofran) MEDICATION WASTE Product Size: 4 mg Product Wasted: ___ mg Inactive 01/14/2015 [facility] Sodium Chloride 0.154 MEQ/ML Injectable Solution 1,000 mL, 1000 ml/hr, Infuse Over: 1 hr, Route: IV, 1,000, Drug form: INJ, ONCE, Priority: STAT, Dosing Weight 105.455 kg, Start date: 01/14/15 16:30:00, Duration: 1 doses or times, Stop date: 01/14/15 16:30:00 Inactive 01/14/2015 [facility] Saline Flush 0.9% 10 mL, Route: IVP, Drug Form: INJ, Dosing Weight 105.455, kg, PRN, PRN Line Flush, Start date: 01/14/15 14:36:00, Duration: 30 day, Stop date: 02/13/15 14:35:00Notes: Same as: BD Posiflush Sterile Inactive 01/14/2015 [facility] Pt's own med LATUDA (Lurasidone ) 120 MG TAB Pt's own med LATUDA (Lurasidone ) 120 MG TAB, 1 tab, Drug form: MISC, Route: PO, Daily, 01/29/14 9:00:00, Duration: 30 day, Stop date: 02/27/14 9:00:00 No Longer Active 01/29/2014 [facility] Latuda 120 mg, Route: PO, Drug form: TAB, Daily, Dosing Weight 107.727, kg, Start date: 01/29/14 9:00:00, Duration: 30 day, Stop date: 02/27/14 9:00:00 No Longer Active 01/29/2014 [facility] Lexapro 10 mg, 1 tab, Route: PO, Drug form: TAB, Daily, Dosing Weight 107.727, kg, Start date: 01/29/14 9:00:00, Duration: 30 day, Stop date: 02/27/14 9:00:00Notes: (Same as: Lexapro) No Longer Active 01/29/2014 [facility] Trazodone 300 mg, 3 tab, Route: PO, Drug form: TAB, Bedtime, Dosing Weight 107.727, kg, Start date: 01/28/14 21:00:00, Duration: 30 day, Stop date: 02/26/14 21:00:00Notes: (Same As: Desyrel) Inactive 01/29/2014 [facility] Bupropion 150 mg, 1 tab, Route: PO, Drug form: ERTAB, Bedtime, Dosing Weight 107.727, kg, Start date: 01/28/14 21:00:00, Duration: 30 day, Stop date: 02/26/14 21:00:00Notes: (Same as: Wellbutrin XL) "Do Not Crush" Inactive 01/29/2014 [facility] RN- Bring pt's LATUDA to pharmacy for labeling. RN- Bring pt's LATUDA to pharmacy for labeling., 1, Drug form: MISC, Route: MISC, QSHIFT, 01/28/14 16:00:00, Duration: 30 day, Stop date: 02/27/14 8:00:00 Inactive 01/28/2014 [facility] Saline Flush 0.9% 10 ml, Route: IVP, Drug Form: INJ, Dosing Weight 107.727, kg, Q12H, Start date: 01/28/14 9:00:00, Duration: 30 day, Stop date: 02/26/14 21:00:00Notes: (Same as: BD Posiflush) Inactive 01/28/2014 [facility] aspirin 81 mg, 1 tab, Route: PO, Drug form: ECTAB, Daily, Dosing Weight 107.727, kg, Start date: 01/28/14 9:00:00, Duration: 30 day, Stop date: 02/26/14 9:00:00Notes: Do not crush or chew. (Same As: Ecotrin) Inactive 01/28/2014 [facility] Saline Flush 0.9% 10 ml, Route: IVP, Drug Form: INJ, Dosing Weight 107.727, kg, PRN, PRN Line Flush, Start date: 01/28/14 5:33:00, Duration: 30 day, Stop date: 02/27/14 5:32:00Notes: (Same as: BD Posiflush) Inactive 01/28/2014 [facility] Nitroglycerin 0.4 MG Sublingual Tablet 0.4 mg, 1 tab, Route: SL, Drug form: TAB, Q5Min, Dosing Weight 107.727, kg, PRN Chest Pain, Start date: 01/27/14 22:30:00, Duration: 30 day, Stop date: 02/26/14 22:29:00Notes: (Same as:Nitroquick, Nitrostat) "Do Not Crush" Sublingual tablet No Longer Active 01/28/2014 [facility] Atropine 0.5 mg, 5 mL, Route: IVP, Drug form: INJ, PRN, Dosing Weight 107.727, kg, PRN Bradycardia, Start date: 01/27/14 22:30:00, Duration: 30 day, Stop date: 02/26/14 22:29:00 No Longer Active 01/28/2014 [facility] buPROPion 150 mg/24 hours oral extended release tablet 150 mg=1 tab, PO, Bedtime On Hold 01/28/2014 [facility] Lurasidone Hydrochloride 120 MG Oral Tablet [Latuda] 120 mg=1 tab, PO, Daily On Hold 01/28/2014 [facility] Lexapro 10 mg, 1 tab, Route: PO, Drug form: TAB, Daily, Dosing Weight 110.909, kg, Start date: 03/15/13 9:00:00, Duration: 30 day, Stop date: 04/13/13 9:00:00(Same as: Lexapro) No Longer Active [facility] 03/15/2013 [facility] atorvastatin 10 mg, 1 tab, Route: PO, Drug form: TAB, QPM, Dosing Weight 110.909, kg, Start date: 03/14/13 17:00:00, Duration: 30 day, Stop date: 04/12/13 17:00:00(Same As: Lipitor) Inactive [facility] 03/14/2013 [facility] trazodone 150 mg, 3 tab, Route: PO, Drug form: TAB, Bedtime, Dosing Weight 110.909, kg, PRN Sleep, Start date: 03/14/13 12:02:00, Duration: 30 day, Stop date: 04/13/13 12:01:00, INSOM(Same As: Desyrel) Inactive [facility] 03/14/2013 [facility] ZyrTEC 10 mg, 2 tab, Route: PO, Drug form: TAB, Daily, Dosing Weight 110.909, kg, PRN Allergies, Start date: 03/14/13 11:59:00, Duration: 30 day, Stop date: 04/13/13 11:58:00(Same As: Zyrtec) Inactive [facility] 03/14/2013 [facility] pneumococcal 23-valent vaccine 0.5 ml, Route: IM, Drug Form: INJ, Start date: 03/14/13 9:00:00, Stop date: 03/14/13 9:00:00 Inactive [facility] 03/14/2013 [facility] Saline Flush 0.9% 5 ml, Route: IVP, Drug Form: INJ, Dosing Weight 110.909, kg, Q12H, Start date: 03/14/13 9:00:00, Duration: 30 day, Stop date: 04/12/13 21:00:00Same as: BD Posiflush Sterile Inactive [facility] 03/14/2013 [facility] lisinopril 5 mg, 1 tab, Route: PO, Drug form: TAB, Daily, Dosing Weight 110.909, kg, Start date: 03/14/13 9:00:00, Duration: 30 day, Stop date: 04/12/13 9:00:00(Same as: Prinivil, Zestril) Inactive [facility] 03/14/2013 [facility] aspirin 81 mg tablet, enteric coated 81 mg, 1 tab, Route: PO, Drug form: ECTAB, Daily, Dosing Weight 110.909, kg, Start date: 03/14/13 9:00:00, Duration: 30 day, Stop date: 04/12/13 9:00:00Do not crush or chew. (Same As: Ecotrin) Inactive [facility] 03/14/2013 [facility] cholecalciferol 5,000 IntlUnit, 5 tab, Route: PO, Drug form: TAB, Daily, Dosing Weight 110.909, kg, Start date: 03/14/13 9:00:00, Duration: 30 day, Stop date: 04/12/13 9:00:00Same as : Vitamin D3 Inactive [facility] 03/14/2013 [facility] Plavix 75 mg, 1 tab, Route: PO, Drug form: TAB, Daily, Dosing Weight 110.909, kg, Start date: 03/14/13 9:00:00, Duration: 30 day, Stop date: 04/12/13 9:00:00(Same As: Plavix) Inactive [facility] 03/14/2013 [facility] buPROPion 450 mg, Route: PO, Drug form: ERTAB, QAM, Dosing Weight 110.909, kg, Start date: 03/14/13 9:00:00, Duration: 30 day, Stop date: 04/12/13 9:00:00 No Longer Active [facility] 03/14/2013 [facility] Saline Flush 0.9% 5 ml, Route: IVP, Drug Form: INJ, Dosing Weight 110.909, kg, PRN, PRN Line Flush, Start date: 03/13/13 21:48:00, Duration: 30 day, Stop date: 04/12/13 21:47:00Same as: BD Posiflush Sterile No Longer Active [facility] 03/14/2013 [facility] nitroglycerin SL Tab 0.4 mg, Route: SL, Drug form: TAB, Q5Min, Dosing Weight 110.909, kg, PRN Chest Pain, Start date: 03/13/13 21:48:00, Duration: 3 doses or times, Stop date: Limited # of times Inactive [facility] 03/14/2013 [facility] aspirin 325 mg tablet 325 mg, Route: PO, Drug form: TAB, ONCE, Dosing Weight 110.909, kg, Start date: 03/13/13 21:48:00, Stop date: 03/13/13 21:48:00 Inactive [facility] 03/14/2013 [facility] atropine 0.5 mg, 5 mL, Route: IVP, Drug form: INJ, PRN, PRN Bradycardia, Start date: 03/13/13 21:38:00, Duration: 30 day, Stop date: 04/12/13 21:37:00 No Longer Active [facility] 03/14/2013 [facility] trazodone 150 mg oral tablet 150 mg=1 tab, PO, Bedtime, as needed for sleep, # 30 tab, 0 Refill(s) Active [facility] 03/14/2013 [facility] Latuda 20 mg oral tablet 20 mg=1 tab, PO, Bedtime, 0 Refill(s) Inactive 03/14/2013 [facility] Vitamin B6 100 mg oral tablet 100 mg=1 tab, PO, Daily, # 10 tab, 0 Refill(s) Inactive 03/14/2013 [facility] Lexapro 10 mg oral tablet 10 mg=1 tab, PO, Daily, # 30 tab, 0 Refill(s) Active [facility] 03/14/2013 [facility] Coreg 3.125 mg, 1 tab, Route: PO, Drug form: TAB, Q12H, Dosing Weight 110.909, kg, Start date: 03/13/13 21:00:00, Duration: 30 day, Stop date: 04/12/13 9:00:00Give with food. (Same As: Coreg) No Longer Active [facility] 03/14/2013 [facility] enoxaparin 40 mg, 0.4 mL, Route: SUB-Q, Drug form: INJ, [id number], Dosing Weight 110.909, kg, Start date: 03/13/13 21:00:00, Duration: 30 day, Stop date: 04/11/13 21:00:00(Same as: Lovenox) No Longer Active [facility] 03/14/2013 [facility] SEROquel 150 mg, 1.5 tab, Route: PO, Drug form: TAB, Bedtime, Dosing Weight 110.909, kg, Start date: 03/13/13 21:00:00, Duration: 30 day, Stop date: 04/11/13 21:00:00(Same as: SEROquel) Inactive [facility] 03/14/2013 [facility] Nitrostat 0.4 mg sublingual tablet 0.4 mg, 1 tab, Route: SL, Drug form: TAB, Q5Min, Dosing Weight 110.909, kg, PRN Chest Pain, Start date: 03/13/13 20:05:00, Duration: 3 doses or times, Stop date: Limited # of times(Same as:Nitroquick, Nitrostat) "Do Not Crush" Sublingual tablet No Longer Active [facility] 03/14/2013 [facility] morphine Sulfate 2 mg, 1 mL, Route: IVP, Drug form: INJ, Q2H, Dosing Weight 110.909, kg, PRN Chest Pain, Start date: 03/13/13 20:05:00, Duration: 30 day, Stop date: 04/12/13 20:04:00(Same as:MORPhine Sulfate) No Longer Active [facility] 03/14/2013 [facility] hydrALAZINE 10 mg, 0.5 mL, Route: IV, Drug form: INJ, Q4H, Dosing Weight 110.909, kg, PRN Hypertension, Start date: 03/13/13 20:05:00, Duration: 30 day, Stop date: 04/12/13 20:04:00(Same as: Apresoline) Push over 5 minutes No Longer Active [facility] 03/14/2013 [facility] metoprolol 5 mg/5 ml INJ 2.5 mg, 2.5 mL, Route: IV, Drug form: INJ, PRN, Dosing Weight 110.909, kg, PRN Tachycardia, Start date: 03/13/13 20:05:00, Duration: 30 day, Stop date: 04/12/13 20:04:00(Same as: Lopressor) Push over 2 minutes No Longer Active [facility] 03/14/2013 [facility] aspirin 324 mg, Route: CHEW, Drug form: CHEWTAB, ONCE, Dosing Weight 110.909, kg, Priority: STAT, Start date: 03/13/13 19:17:00, Stop date: 03/13/13 19:17:00 Inactive [facility] 03/14/2013 [facility] Saline Flush 0.9% 5 mL, Route: IVP, Drug Form: INJ, Dosing Weight 110.909, kg, Q8H, PRN Line Flush, Start date: 03/13/13 17:24:00, Duration: 30 day, Stop date: 04/12/13 17:23:00, Administer at least once every 8 hoursAdminister at least once every 8 hoursSame as: BD Posiflush Sterile Inactive [facility] 03/13/2013 [facility] Seroquel 150 mg, 1.5 tab, Route: PO, Drug form: TAB, Bedtime, Dosing Weight 106.364, kg, Start date: 04/17/12 21:00:00, Duration: 30 day, Stop date: 05/16/12 21:00:00 PO No Longer Active [facility] 04/18/2012 [facility] influenza virus vaccine, inactivated 0.5 ml, Route: IM, Drug Form: INJ, Start date: 04/17/12 9:00:00, Stop date: 04/17/12 9:00:00 Inactive [facility] 04/17/2012 [facility] pneumococcal 23-valent vaccine 0.5 ml, Route: IM, Drug Form: INJ, Start date: 04/17/12 9:00:00, Stop date: 04/17/12 9:00:00 Inactive [facility] 04/17/2012 [facility] buPROPion 450 mg, 3 tab, Route: PO, Drug form: ERTAB, QAM, Dosing Weight 106.364, kg, Start date: 04/17/12 9:00:00, Duration: 30 day, Stop date: 05/16/12 9:00:00 PO No Longer Active [facility] 04/17/2012 [facility] enoxaparin 40 mg, 0.4 mL, Route: SUB-Q, Drug form: INJ, [id number], Dosing Weight 106.364, kg, Start date: 04/17/12 2:00:00, Duration: 30 day, Stop date: 05/16/12 2:00:00 SUB-Q No Longer Active [facility] 04/17/2012 [facility] pantoprazole 40 mg, Route: IVP, Drug form: INJ, Before Dinner, Dosing Weight 100, kg, Start date: 04/16/12 16:30:00, Duration: 30 day, Stop date: 05/15/12 16:30:00 IVP No Longer Active [facility] 04/16/2012 [facility] nitroglycerin 0.4 mg sublingual tablet 0.4 mg, 1 tab, Route: SL, Drug form: TAB, Q5Min, PRN Chest Pain, Start date: 04/16/12 14:03:00, Duration: 30 day, Stop date: 05/16/12 15:02:00 SL No Longer Active [facility] 04/16/2012 [facility] atropine 0.5 mg, 5 mL, Route: IVP, Drug form: INJ, PRN, PRN Bradycardia, Start date: 04/16/12 14:02:00, Duration: 30 day, Stop date: 05/16/12 15:01:00 IVP No Longer Active [facility] 04/16/2012 [facility] Saline Flush 0.9% 5 ml, Route: IVP, Drug Form: INJ, Dosing Weight 100, kg, Q12H, Start date: 04/16/12 9:00:00, Duration: 30 day, Stop date: 05/15/12 21:00:00 IVP No Longer Active [facility] 04/16/2012 [facility] aspirin 325 mg tablet, enteric coated 325 mg, 1 tab, Route: PO, Drug form: ECTAB, Daily, Dosing Weight 100, kg, Start date: 04/16/12 9:00:00, Duration: 30 day, Stop date: 05/15/12 9:00:00 PO No Longer Active [facility] 04/16/2012 [facility] Saline Flush 0.9% 5 ml, Route: IVP, Drug Form: INJ, Dosing Weight 100, kg, PRN, PRN Line Flush, Start date: 04/16/12 5:07:00, Duration: 30 day, Stop date: 05/16/12 6:06:00 IVP No Longer Active [facility] 04/16/2012 [facility] labetalol 10 mg, 2 mL, Route: IVP, Drug form: INJ, Q10Min, Dosing Weight 100, kg, PRN Hypertension, Start date: 04/16/12 5:07:00, Duration: 30 day, Stop date: 05/16/12 6:06:00, For SBP > 180mmHg and/or DBP > 1 05mmHg IVP No Longer Active [facility] 04/16/2012 [facility] aspirin 325 mg, Route: PO, Drug form: TAB, ONCE, Dosing Weight 100, kg, Priority: STAT, Start date: 04/15/12 19:10:00, Stop date: 04/15/12 19:10:00 PO No [facility] Saline Flush 0.9% 5 ml, Route: IVP, Drug Form: INJ, Dosing Weight 100, kg, PRN, PRN Line Flush, Start date: 04/15/12 17:34:00, Duration: 30 day, Stop date: 05/15/12 18:33:00 IVP No Longer Active [facility] 04/15/2012 [facility] predniSONE 20 mg oral tablet 40 mg, 2 tab, PO, Daily, 10 tab, Substitution Allowed PO Active [facility] 06/02/2011 [facility] methylPREDNISolone SODium SUCCinate 125 mg, 2 mL, Route: IM, Drug form: INJ, ONCE, Priority: STAT, Start date: 06/02/11 4:37:00, Stop date: 06/02/11 4:37:00 IM No Longer Active [facility] 06/02/2011 [facility] Phenergan 25 mg oral tablet 25 mg, 1 tab, PO, Q6H, PRN, 15 tab, Nausea, Substitution Allowed PO Active [facility] 06/02/2011 [facility] Tylenol with Codeine #3 oral tablet 1 tab, PO, Q6H, PRN, 20 tab, for pain, Substitution Allowed, Maintenance PO Active [facility] 06/02/2011 [facility] promethazine 25 mg, 1 tab, Route: PO, Drug form: TAB, ONCE, Priority: STAT, Start date: 06/02/11 1:30:00, Stop date: 06/02/11 1:30:00 PO No Longer Active [facility] 06/02/2011 [facility] acetaminophen-codeine #3 1 tab, Route: PO, Drug Form: TAB, ONCE, STAT, Start date: 06/02/11 1:30:00, Stop date: 06/02/11 1:30:00 PO No Longer Active [facility] 06/02/2011 [facility] Vicodin 5/500 oral tablet 1 tab, PO, Q4-6H, PRN, 15 tab, for Pain, Substitution Allowed, Maintenance PO Active [facility] 12/07/2010 [facility] Ceftin 500 mg oral tablet 500 mg, 1 tab, PO, BID, 30 tab, Substitution Allowed PO Active [facility] 12/07/2010 [facility] ceftriaxone 1 gm, Route: IVPB, Drug form: PDR/INJ, ONCE, Priority: STAT, Start date: 12/07/10 18:55:00, Stop date: 12/07/10 18:55:00 IVPB No Longer Active [facility] 12/07/2010 [facility] buPROPion 150 mg oral tablet, extended release 450 mg, 3 tab, PO, QAM, Substitution Allowed PO Active 12/07/2010 [facility] Seroquel 50 mg oral tablet 150 mg, 3 tab, PO, Bedtime, Substitution Allowed PO Active 12/07/2010 [facility] ondansetron 4 mg, 2 mL, Route: IVP, Drug form: INJ, ONCE, Priority: STAT, Start date: 12/07/10 16:11:00, Stop date: 12/07/10 16:11:00 IVP No Longer Active [facility] 12/07/2010 [facility] morphine Sulfate 4 mg, 2 mL, Route: IVP, Drug form: INJ, ONCE, Priority: STAT, Start date: 12/07/10 16:11:00, Stop date: 12/07/10 16:11:00 IVP No Longer Active [facility] 12/07/2010 [facility] Sodium Chloride 0.9% (Bolus) IV 500 mL 500 mL, Rate: 500 ml/hr, Infuse over: 1 hr, Route: IV, Total Volume: 500, Bolus Dose, Priority: STAT, Start date: 12/07/10 16:10:00, Duration: 1 doses or times, Stop date: 12/07/10 17:09:00 IV No Longer Active [facility] 12/07/2010 [facility] pneumococcal 23-valent vaccine 0.5 ml, Route: IM, Drug Form: INJ, Start date: 09/29/10 9:00:00, Stop date: 09/29/10 9:00:00 Inactive [facility] 09/29/2010 [facility] Allergies, Adverse Reactions, Alerts No Known Medication Allergies Immunizations Immunization Date Given Site Status Last Updated Comments Source pneumococcal 13-valent vaccine 02/08/2017 Not Given [facility] influenza virus vaccine, inactivated 11/29/2014 completed [facility] pneumococcal 23-valent vaccine 03/14/2013 completed [facility] pneumococcal 23-valent vaccine 03/14/2013 Left Deltoid completed [facility] influenza virus vaccine, inactivated<sup>1</sup> 12/09/2012 Left Deltoid completed [facility] Result Comment: fluzone (>3 yrs.) [[id number]]. Migrated from OBS ; Data migrated from [facility] on 03/28/2015. [facility] [facility], inactivated<sup>2</sup> 12/09/2012 Left Deltoid completed GE Result Comment: fluzone (>3 yrs.) [[id number]]. Migrated from OBS ; Data migrated from [employer] on 03/28/2015. [facility] influenza virus vaccine, inactivated 04/17/2012 Not Given [facility] pneumococcal 23-valent vaccine 04/17/2012 completed [facility] pneumococcal 23-valent vaccine 04/17/2012 Left deltoid completed [facility] pneumococcal 23-valent vaccine<sup>2</sup> 12/03/2011 completed GE Result Comment: 12-03-2011. Migrated from OBS ; Data migrated from [employer] on 03/28/2015. [facility] Hx influenza vaccine-unspecified<sup>3</sup> 12/03/2011 completed GE Result Comment: 12-03-2011. Migrated from OBS ; Data migrated from [employer] on 03/28/2015. [facility] Hx influenza vaccine-unspecified<sup>1</sup> 12/03/2011 completed GE Result Comment: 12-03-2011. Migrated from OBS ; Data migrated from GE [employer] on 03/28/2015. [facility] pneumococcal 23-valent vaccine<sup>3</sup> 12/03/2011 completed GE Result Comment: 12-03-2011. Migrated from OBS ; Data migrated from [employer] on 03/28/2015. [facility] pneumococcal 23-valent vaccine 09/29/2010 Not Given [facility] Results Order Name Results Value Reference Range Date Interpretation Comments Source CHEM PANEL BUN 14 7 - 22 02/08/2017 [facility] CHEM PANEL Glucose Lvl 114 70 - 99 02/08/2017 [facility] CHEM PANEL Potassium Lvl 4.4 3.5 - 5.1 02/08/2017 [facility] CHEM PANEL Sodium Lvl 140 135 - 145 02/08/2017 [facility] CHEM PANEL Creatinine Lvl 0.60 0.50 - 1.40 02/08/2017 [facility] CHEM PANEL Calcium Lvl 8.7 8.5 - 10.5 02/08/2017 [facility] CHEM PANEL Chloride Lvl 103 95 - 109 02/08/2017 [facility] CHEM PANEL CO2 29 24 - 32 02/08/2017 [facility] CHEM PANEL eGFR 101 02/08/2017 Result Comment: The eGFR is calculated using the CKD-EPI formula. In most young, healthy individuals the eGFR will be >90 mL/min/1.73m2. The eGFR declines with age. An eGFR of 60-89 may be normal in some populations, particularly the elderly, for whom the CKD-EPI formula has not been extensively validated. Use of the eGFR is not recommended in the following populations:

Individuals with unstable creatinine concentrations, including patients and those with serious co-morbid conditions.

Patients with extremes in muscle mass or diet.

The data above are obtained from the National Kidney Disease Education Program (NKDEP) which additionally recommends that when the eGFR is used in patients with extremes of body mass index for purposes of drug dosing, the eGFR should be multiplied by the estimated BMI. [facility] CHEM PANEL AGAP 12.4 10.0 - 20.0 02/08/2017 [facility] HEMATOLOGY Segs 79.1 45.0 - 75.0 02/08/2017 [facility] Lymphocytes 11.5 20.0 - 40.0 02/08/2017 [facility] Eosinophils 0.1 0.0 - 4.0 02/08/2017 [facility] Monocytes 8.9 2.0 - 12.0 02/08/2017 [facility] HEMATOLOGY Basophils 0.4 0.0 - 1.0 02/08/2017 [facility] Segs-Bands # 5.8 1.5 - 8.1 02/08/2017 [facility] Monocytes # 0.7 0.0 - 0.8 02/08/2017 [facility] Lymphocytes # 0.8 1.0 - 5.5 02/08/2017 [facility] MCH 32.8 27.0 - 31.0 02/08/2017 [facility] RDW 14.0 11.5 - 14.5 02/08/2017 [facility] MCHC 34.2 32.0 - 36.0 02/08/2017 [facility] Platelet 127 133 - 450 02/08/2017 [facility] MPV 8.2 7.4 - 10.4 02/08/2017 [facility] WBC 7.4 3.7 - 10.4 02/08/2017 [facility] RBC 4.57 4.70 - 6.10 02/08/2017 [facility] Hgb 15.0 14.0 - 18.0 02/08/2017 [facility] Hct 43.8 42.0 - 54.0 02/08/2017 [facility] MCV 95.8 80.0 - 94.0 02/08/2017 [facility] CHEM PANEL eGFR 94 02/08/2017 Result Comment: The eGFR is calculated using the CKD-EPI formula. In most young, healthy individuals the eGFR will be >90 mL/min/1.73m2. The eGFR declines with age. An eGFR of 60-89 may be normal in some populations, particularly the elderly, for whom the CKD-EPI formula has not been extensively validated. Use of the eGFR is not recommended in the following populations:

Individuals with unstable creatinine concentrations, including patients and those with serious co-morbid conditions.

Patients with extremes in muscle mass or diet.

The data above are obtained from the National Kidney Disease Education Program (NKDEP) which additionally recommends that when the eGFR is used in patients with extremes of body mass index for purposes of drug dosing, the eGFR should be multiplied by the estimated BMI. [facility] CHEM PANEL Chloride Lvl 103 95 - 109 02/08/2017 [facility] CHEM PANEL CO2 28 24 - 32 02/08/2017 [facility] CHEM PANEL BUN 15 7 - 22 02/08/2017 [facility] CHEM PANEL Creatinine Lvl 0.73 0.50 - 1.40 02/08/2017 [facility] CHEM PANEL AGAP 11.6 10.0 - 20.0 02/08/2017 [facility] CHEM PANEL Sodium Lvl 138 135 - 145 02/08/2017 [facility] CHEM PANEL Potassium Lvl 4.6 3.5 - 5.1 02/08/2017 [facility] CHEM PANEL Calcium Lvl 8.2 8.5 - 10.5 02/08/2017 [facility] CHEM PANEL Glucose Lvl 127 70 - 99 02/08/2017 [facility] HEMATOLOGY Segs 79.3 45.0 - 75.0 02/08/2017 [facility] HEMATOLOGY Lymphocytes 10.7 20.0 - 40.0 02/08/2017 [facility] HEMATOLOGY Monocytes 9.4 2.0 - 12.0 02/08/2017 [facility] HEMATOLOGY Eosinophils 0.1 0.0 - 4.0 02/08/2017 [facility] HEMATOLOGY Basophils 0.5 0.0 - 1.0 02/08/2017 [facility] HEMATOLOGY Segs-Bands # 6.9 1.5 - 8.1 02/08/2017 [facility] HEMATOLOGY Lymphocytes # 0.9 1.0 - 5.5 02/08/2017 [facility] HEMATOLOGY Monocytes # 0.8 0.0 - 0.8 02/08/2017 [facility] HEMATOLOGY RBC 4.74 4.70 - 6.10 02/08/2017 [facility] HEMATOLOGY MCV 95.9 80.0 - 94.0 02/08/2017 [facility] HEMATOLOGY Hct 45.4 42.0 - 54.0 02/08/2017 [facility] HEMATOLOGY MCHC 34.7 32.0 - 36.0 02/08/2017 [facility] MCH 33.3 27.0 - 31.0 02/08/2017 [facility] HEMATOLOGY Platelet 134 133 - 450 02/08/2017 [facility] HEMATOLOGY RDW 13.7 11.5 - 14.5 02/08/2017 [facility] HEMATOLOGY MPV 8.5 7.4 - 10.4 02/08/2017 [facility] HEMATOLOGY WBC 8.7 3.7 - 10.4 02/08/2017 [facility] HEMATOLOGY Hgb 15.8 14.0 - 18.0 02/08/2017 [facility] CARDIAC ENZYMES Troponin-I <0.02 0.00 - 0.40 02/07/2017 [facility] CARDIAC ENZYMES CK MB 3.4 0.5 - 3.6 02/07/2017 [facility] CARDIAC ENZYMES Total CK 776 12 - 191 02/07/2017 [facility] URINE AND STOOL UA Hyal Cast 4 0 - 2 02/07/2017 [facility] URINE AND STOOL UA Bacteria Occasional /HPF None Seen /HPF 02/07/2017 [facility] URINE AND STOOL UA RBC 6 0 - 2 02/07/2017 [facility] URINE AND STOOL UA Color Ester 02/07/2017 [facility] URINE AND STOOL UA WBC 2 0 - 5 02/07/2017 [facility] URINE AND STOOL UA Sq Epi Occasional /LPF Few /LPF 02/07/2017 [facility] URINE AND STOOL UA Leuk Est Negative (02/07/17 12:56 PM) Negative 02/07/2017 [facility] URINE AND STOOL UA pH 6.0 5.0 - 8.0 02/07/2017 [facility] URINE AND STOOL UA Spec Grav 1.028 <=1.030 02/07/2017 [facility] URINE AND STOOL UA Turbidity Clear (02/07/17 12:56 PM) Clear 02/07/2017 [facility] URINE AND STOOL UA Protein 30 mg/dL Negative mg/dL 02/07/2017 [facility] URINE AND STOOL UA Glucose Negative mg/dL Negative mg/dL 02/07/2017 [facility] URINE AND STOOL UA Nitrite Negative (02/07/17 12:56 PM) Negative 02/07/2017 [facility] URINE AND STOOL UA Urobilinogen 4.0 0.1 - 1.0 02/07/2017 [facility] URINE AND STOOL UA Bili Negative *NA* (02/07/17 12:56 PM) Negative 02/07/2017 [facility] URINE AND STOOL UA Blood Small *ABN* (02/07/17 12:56 PM) Negative 02/07/2017 [facility] URINE AND STOOL UA Ketones Trace mg/dL Negative mg/dL 02/07/2017 [facility] CHEM PANEL eGFR 64 02/07/2017 Result Comment: The eGFR is calculated using the CKD-EPI formula. In most young, healthy individuals the eGFR will be >90 mL/min/1.73m2. The eGFR declines with age. An eGFR of 60-89 may be normal in some populations, particularly the elderly, for whom the CKD-EPI formula has not been extensively validated. Use of the eGFR is not recommended in the following populations:

Individuals with unstable creatinine concentrations, including patients and those with serious co-morbid conditions.

Patients with extremes in muscle mass or diet.

The data above are obtained from the National Kidney Disease Education Program (NKDEP) which additionally recommends that when the eGFR is used in patients with extremes of body mass index for purposes of drug dosing, the eGFR should be multiplied by the estimated BMI. [facility] CHEM PANEL Glucose Lvl 150 70 - 99 02/07/2017 [facility] CHEM PANEL BUN 17 7 - 22 02/07/2017 [facility] CHEM PANEL Creatinine Lvl 1.15 0.50 - 1.40 02/07/2017 [facility] CHEM PANEL Chloride Lvl 101 95 - 109 02/07/2017 [facility] CHEM PANEL Potassium Lvl 3.7 3.5 - 5.1 02/07/2017 [facility] CHEM PANEL CO2 27 24 - 32 02/07/2017 [facility] CHEM PANEL Total Protein 7.2 6.4 - 8.4 02/07/2017 [facility] CHEM PANEL Calcium Lvl 8.3 8.5 - 10.5 02/07/2017 [facility] CHEM PANEL Sodium Lvl 137 135 - 145 02/07/2017 [facility] CHEM PANEL Albumin Lvl 3.8 3.5 - 5.0 02/07/2017 [facility] CHEM PANEL ALT 53 0 - 65 02/07/2017 [facility] CHEM PANEL AST 40 0 - 37 02/07/2017 [facility] CHEM PANEL Bili Total 1.2 0.2 - 1.3 02/07/2017 [facility] CHEM PANEL Alk Phos 140 39 - 136 02/07/2017 [facility] CHEM PANEL B/C Ratio 15 6 - 25 02/07/2017 [facility] CHEM PANEL A/G Ratio 1.1 0.7 - 1.6 02/07/2017 [facility] CHEM PANEL Globulin 3.4 2.7 - 4.2 02/07/2017 [facility] CHEM PANEL AGAP 12.7 10.0 - 20.0 02/07/2017 [facility] HEMATOLOGY Basophils # 0.1 0.0 - 0.2 02/07/2017 [facility] HEMATOLOGY Monocytes # 0.9 0.0 - 0.8 02/07/2017 [facility] HEMATOLOGY Basophils 0.5 0.0 - 1.0 02/07/2017 [facility] HEMATOLOGY Lymphocytes 13.7 20.0 - 40.0 02/07/2017 [facility] HEMATOLOGY Monocytes 8.9 2.0 - 12.0 02/07/2017 [facility] HEMATOLOGY Lymphocytes # 1.4 1.0 - 5.5 02/07/2017 [facility] HEMATOLOGY Segs-Bands # 7.8 1.5 - 8.1 02/07/2017 [facility] HEMATOLOGY Eosinophils 0.4 0.0 - 4.0 02/07/2017 [facility] HEMATOLOGY Segs 76.5 45.0 - 75.0 02/07/2017 [facility] HEMATOLOGY Platelet 148 133 - 450 02/07/2017 [facility] MCHC 34.2 32.0 - 36.0 02/07/2017 [facility] RDW 13.8 11.5 - 14.5 02/07/2017 [facility] HEMATOLOGY Hct 46.8 42.0 - 54.0 02/07/2017 [facility] Hgb 16.0 14.0 - 18.0 02/07/2017 [facility] HEMATOLOGY MCV 95.1 80.0 - 94.0 02/07/2017 [facility] RBC 4.93 4.70 - 6.10 02/07/2017 [facility] MPV 8.4 7.4 - 10.4 02/07/2017 [facility] MCH 32.5 27.0 - 31.0 02/07/2017 [facility] HEMATOLOGY WBC 10.2 3.7 - 10.4 02/07/2017 [facility] CHEM PANEL Phosphorus 1.7 2.5 - 4.5 03/17/2016 [facility] CHEM PANEL Magnesium Lvl 2.0 1.8 - 2.4 03/17/2016 [facility] HEMATOLOGY Eosinophils # 0.1 0.0 - 0.5 03/17/2016 [facility] HEMATOLOGY Monocytes # 0.6 0.0 - 0.8 03/17/2016 [facility] HEMATOLOGY Lymphocytes # 0.5 1.0 - 5.5 03/17/2016 [facility] HEMATOLOGY Plt Morph Normal (03/17/16 3:50 AM) 03/17/2016 [facility] HEMATOLOGY Basophils 0.5 0.0 - 1.0 03/17/2016 [facility] HEMATOLOGY Eosinophils 1.9 0.0 - 4.0 03/17/2016 [facility] HEMATOLOGY Segs-Bands # 2.1 1.5 - 8.1 03/17/2016 [facility] HEMATOLOGY Monocytes 19.4 2.0 - 12.0 03/17/2016 [facility] HEMATOLOGY Lymphocytes 13.6 20.0 - 40.0 03/17/2016 [facility] HEMATOLOGY Segs 64.6 45.0 - 75.0 03/17/2016 [facility] HEMATOLOGY MPV 8.4 7.4 - 10.4 03/17/2016 [facility] HEMATOLOGY RDW 14.1 11.5 - 14.5 03/17/2016 [facility] HEMATOLOGY WBC 3.3 3.7 - 10.4 03/17/2016 [facility] HEMATOLOGY Hct 40.7 42.0 - 54.0 03/17/2016 [facility] MCHC 34.3 32.0 - 36.0 03/17/2016 [facility] MCH 31.9 27.0 - 31.0 03/17/2016 [facility] HEMATOLOGY Hgb 14.0 14.0 - 18.0 03/17/2016 [facility] HEMATOLOGY RBC 4.38 4.70 - 6.10 03/17/2016 [facility] HEMATOLOGY MCV 93.0 80.0 - 94.0 03/17/2016 [facility] HEMATOLOGY Platelet See Note 1 (03/17/16 3:50 AM) 133 - 450 03/17/2016 Result Comment: Platelet [id number];decreased on 03/17/2016 04:40 by vicki. [facility] HEMATOLOGY PTT 33.2 22.9 - 35.8 03/16/2016 [facility] HEMATOLOGY PT 16.3 12.0 - 14.7 03/16/2016 [facility] HEMATOLOGY INR 1.29 0.85 - 1.17 03/16/2016 [facility] CARDIAC ENZYMES CK MB Index <0.4 0.0 - 2.5 03/16/2016 [facility] CARDIAC ENZYMES Troponin-I <0.02 0.00 - 0.40 03/16/2016 [facility] CARDIAC ENZYMES CK MB <0.5 0.5 - 3.6 03/16/2016 [facility] CARDIAC ENZYMES Total CK 121 12 - 191 03/16/2016 [facility] CHEM PANEL Procalcitonin Lvl <0.05 ng/mL 0.00 - 0.10 03/16/2016 [facility] CHEM PANEL Lactic Acid Lvl 1.7 0.5 - 2.2 03/16/2016 [facility] CHEM PANEL Alk Phos 128 39 - 136 03/16/2016 [facility] CHEM PANEL Bili Total 0.9 0.2 - 1.3 03/16/2016 [facility] CHEM PANEL eGFR 78 03/16/2016 Result Comment: The eGFR is calculated using the CKD-EPI formula. In most young, healthy individuals the eGFR will be >90 mL/min/1.73m2. The eGFR declines with age. An eGFR of 60-89 may be normal in some populations, particularly the elderly, for whom the CKD-EPI formula has not been extensively validated. Use of the eGFR is not recommended in the following populations:

Individuals with unstable creatinine concentrations, including patients and those with serious co-morbid conditions.

Patients with extremes in muscle mass or diet.

The data above are obtained from the National Kidney Disease Education Program (NKDEP) which additionally recommends that when the eGFR is used in patients with extremes of body mass index for purposes of drug dosing, the eGFR should be multiplied by the estimated BMI. [facility] CHEM PANEL AST 36 0 - 37 03/16/2016 [facility] CHEM PANEL Albumin Lvl 3.9 3.5 - 5.0 03/16/2016 [facility] CHEM PANEL ALT 59 0 - 65 03/16/2016 [facility] CHEM PANEL Total Protein 7.2 6.4 - 8.4 03/16/2016 [facility] CHEM PANEL Calcium Lvl 8.6 8.5 - 10.5 03/16/2016 [facility] CHEM PANEL CO2 22 24 - 32 03/16/2016 [facility] CHEM PANEL Sodium Lvl 135 135 - 145 03/16/2016 [facility] CHEM PANEL Potassium Lvl 4.0 3.5 - 5.1 03/16/2016 [facility] CHEM PANEL Glucose Lvl 145 70 - 99 03/16/2016 [facility] CHEM PANEL BUN 10 7 - 22 03/16/2016 [facility] CHEM PANEL Creatinine Lvl 0.98 0.50 - 1.40 03/16/2016 [facility] CHEM PANEL Chloride Lvl 104 95 - 109 03/16/2016 [facility] CHEM PANEL B/C Ratio 10 6 - 25 03/16/2016 [facility] CHEM PANEL Globulin 3.3 2.7 - 4.2 03/16/2016 [facility] CHEM PANEL A/G Ratio 1.2 0.7 - 1.6 03/16/2016 [facility] CHEM PANEL AGAP 13.0 10.0 - 20.0 03/16/2016 [facility] HEMATOLOGY Lymphocytes # 0.4 1.0 - 5.5 03/16/2016 [facility] HEMATOLOGY Segs-Bands # 4.3 1.5 - 8.1 03/16/2016 [facility] HEMATOLOGY Basophils 0.8 0.0 - 1.0 03/16/2016 [facility] HEMATOLOGY Eosinophils 1.3 0.0 - 4.0 03/16/2016 [facility] HEMATOLOGY Monocytes 13.8 2.0 - 12.0 03/16/2016 [facility] HEMATOLOGY Monocytes # 0.8 0.0 - 0.8 03/16/2016 [facility] HEMATOLOGY Lymphocytes 6.4 20.0 - 40.0 03/16/2016 [facility] HEMATOLOGY Segs 77.7 45.0 - 75.0 03/16/2016 [facility] HEMATOLOGY Eosinophils # 0.1 0.0 - 0.5 03/16/2016 [facility] HEMATOLOGY Platelet 99 133 - 450 03/16/2016 [facility] RDW 14.0 11.5 - 14.5 03/16/2016 [facility] HEMATOLOGY MCV 92.8 80.0 - 94.0 03/16/2016 [facility] MCHC 34.5 32.0 - 36.0 03/16/2016 [facility] MCH 32.1 27.0 - 31.0 03/16/2016 [facility] MPV 8.8 7.4 - 10.4 03/16/2016 [facility] HEMATOLOGY Hct 46.0 42.0 - 54.0 03/16/2016 [facility] Hgb 15.9 14.0 - 18.0 03/16/2016 [facility] HEMATOLOGY RBC 4.95 4.70 - 6.10 03/16/2016 [facility] HEMATOLOGY WBC 5.5 3.7 - 10.4 03/16/2016 [facility] URINE AND STOOL UA Glucose Negative mg/dL Negative mg/dL 03/16/2016 [facility] URINE AND STOOL UA Spec Grav 1.016 <=1.030 03/16/2016 [facility] URINE AND STOOL UA Leuk Est Negative (03/16/16 3:01 AM) Negative 03/16/2016 [facility] URINE AND STOOL UA Sq Epi Occasional /LPF Few /LPF 03/16/2016 [facility] URINE AND STOOL UA Nitrite Negative (03/16/16 3:01 AM) Negative 03/16/2016 [facility] URINE AND STOOL UA Bili Negative *NA* (03/16/16 3:01 AM) Negative 03/16/2016 [facility] URINE AND STOOL UA Blood Moderate *ABN* (03/16/16 3:01 AM) Negative 03/16/2016 [facility] URINE AND STOOL UA Color Ester 03/16/2016 [facility] URINE AND STOOL UA Urobilinogen <=1.0 mg/dL 0.1 - 1.0 03/16/2016 [facility] URINE AND STOOL UA Mucus Few /LPF None Seen /LPF 03/16/2016 [facility] URINE AND STOOL UA RBC 34 0 - 2 03/16/2016 [facility] URINE AND STOOL UA WBC 2 0 - 5 03/16/2016 [facility] URINE AND STOOL UA Turbidity Clear (03/16/16 3:01 AM) Clear 03/16/2016 [facility] URINE AND STOOL UA pH 5.0 5.0 - 8.0 03/16/2016 [facility] URINE AND STOOL UA Ketones 20 mg/dL Negative mg/dL 03/16/2016 [facility] URINE AND STOOL UA Protein Negative mg/dL Negative mg/dL 03/16/2016 [facility] CHEM PANEL ALT 31 0 - 65 10/27/2015 [facility] CHEM PANEL Total Protein 6.1 6.4 - 8.4 10/27/2015 [facility] CHEM PANEL Albumin Lvl 3.2 3.5 - 5.0 10/27/2015 [facility] CHEM PANEL A/G Ratio 1.1 0.7 - 1.6 10/27/2015 [facility] CHEM PANEL Bili Indirect 0.5 0.0 - 1.0 10/27/2015 [facility] CHEM PANEL Globulin 2.9 2.7 - 4.2 10/27/2015 [facility] CHEM PANEL Bili Total 0.6 0.2 - 1.3 10/27/2015 [facility] CHEM PANEL Bili Direct 0.1 0.0 - 0.3 10/27/2015 [facility] CHEM PANEL AST 17 0 - 37 10/27/2015 [facility] CHEM PANEL Alk Phos 100 39 - 136 10/27/2015 [facility] CARDIAC ENZYMES CK MB Index 2.3 0.0 - 2.5 10/26/2015 [facility] CARDIAC ENZYMES CK MB 1.3 0.5 - 3.6 10/26/2015 [facility] CARDIAC ENZYMES Total CK 57 12 - 191 10/26/2015 [facility] CARDIAC ENZYMES Troponin-I <0.02 0.00 - 0.40 10/26/2015 [facility] CHEM PANEL Uric Acid 4.9 3.8 - 8.0 10/26/2015 [facility] CHEM PANEL Vitamin D, 25-OH, Total 27 30 - 100 10/26/2015 [facility] CHEM PANEL Phosphorus 3.3 2.5 - 4.5 10/26/2015 [facility] CHEM PANEL Magnesium Lvl 2.0 1.8 - 2.4 10/26/2015 [facility] IMMUNOLOGY Homocyst Tot 4.9 3.7 - 13.9 10/26/2015 [facility] LIPIDS Trig 67 <=149 mg/dL 10/26/2015 [facility] LIPIDS Chol 175 <=199 mg/dL 10/26/2015 [facility] LIPIDS CHD Risk 2.65 4.00 - 7.30 10/26/2015 [facility] LIPIDS HDL 66 >=61 mg/dL 10/26/2015 [facility] LIPIDS LDL (Calculated) 96 <=99 mg/dL 10/26/2015 [facility] LIPIDS VLDL 13 10/26/2015 [facility] LIPIDS VLDL 13 10/26/2015 [facility] LIPIDS LDL (Calculated) 100 <=99 mg/dL 10/26/2015 [facility] LIPIDS CHD Risk 2.79 4.00 - 7.30 10/26/2015 [facility] LIPIDS HDL 63 >=61 mg/dL 10/26/2015 [facility] LIPIDS Chol 176 <=199 mg/dL 10/26/2015 [facility] LIPIDS Trig 67 <=149 mg/dL 10/26/2015 [facility] SPECIAL CHEMISTRY Hgb A1C 4.6 <=5.6 % 10/26/2015 [facility] CARDIAC ENZYMES Troponin-I <0.02 0.00 - 0.40 10/26/2015 [facility] CARDIAC ENZYMES Total CK 62 12 - 191 10/26/2015 [facility] CARDIAC ENZYMES Troponin-I <0.02 0.00 - 0.40 10/26/2015 [facility] CARDIAC ENZYMES CK MB 0.9 0.5 - 3.6 10/26/2015 [facility] CARDIAC ENZYMES CK MB Index 1.5 0.0 - 2.5 10/26/2015 [facility] ELECTROLYTES AGAP 10.0 10.0 - 20.0 10/26/2015 [facility] ELECTROLYTES eGFR 90 10/26/2015 Result Comment: The eGFR is calculated using the CKD-EPI formula. In most young, healthy individuals the eGFR will be >90 mL/min/1.73m2. The eGFR declines with age. An eGFR of 60-89 may be normal in some populations, particularly the elderly, for whom the CKD-EPI formula has not been extensively validated. Use of the eGFR is not recommended in the following populations:

Individuals with unstable creatinine concentrations, including patients and those with serious co-morbid conditions.

Patients with extremes in muscle mass or diet.

The data above are obtained from the National Kidney Disease Education Program (NKDEP) which additionally recommends that when the eGFR is used in patients with extremes of body mass index for purposes of drug dosing, the eGFR should be multiplied by the estimated BMI. [facility] ELECTROLYTES Calcium Lvl 8.3 8.5 - 10.5 10/26/2015 [facility] ELECTROLYTES CO2 26 24 - 32 10/26/2015 [facility] ELECTROLYTES Chloride Lvl 107 95 - 109 10/26/2015 [facility] ELECTROLYTES Potassium Lvl 4.0 3.5 - 5.1 10/26/2015 [facility] ELECTROLYTES Creatinine Lvl 0.81 0.50 - 1.40 10/26/2015 [facility] ELECTROLYTES Glucose Lvl 87 70 - 99 10/26/2015 [facility] ELECTROLYTES BUN 10 7 - 22 10/26/2015 [facility] ELECTROLYTES Sodium Lvl 139 135 - 145 10/26/2015 [facility] HEMATOLOGY WBC 5.3 3.7 - 10.4 10/26/2015 [facility] HEMATOLOGY Platelet 102 133 - 450 10/26/2015 [facility] MCH 31.1 27.0 - 31.0 10/26/2015 [facility] HEMATOLOGY RDW 14.4 11.5 - 14.5 10/26/2015 [facility] MCHC 34.0 32.0 - 36.0 10/26/2015 [facility] MPV 8.5 7.4 - 10.4 10/26/2015 [facility] HEMATOLOGY MCV 91.4 80.0 - 94.0 10/26/2015 [facility] HEMATOLOGY Hct 40.8 42.0 - 54.0 10/26/2015 [facility] Hgb 13.9 14.0 - 18.0 10/26/2015 [facility] HEMATOLOGY RBC 4.47 4.70 - 6.10 10/26/2015 [facility] HEMATOLOGY Eosinophils # 0.2 0.0 - 0.5 10/26/2015 [facility] HEMATOLOGY Segs-Bands # 3.4 1.5 - 8.1 10/26/2015 [facility] HEMATOLOGY Lymphocytes # 1.2 1.0 - 5.5 10/26/2015 [facility] HEMATOLOGY Monocytes # 0.5 0.0 - 0.8 10/26/2015 [facility] HEMATOLOGY Basophils 0.9 0.0 - 1.0 10/26/2015 [facility] HEMATOLOGY Eosinophils 3.5 0.0 - 4.0 10/26/2015 [facility] HEMATOLOGY Segs 64.1 45.0 - 75.0 10/26/2015 [facility] HEMATOLOGY Lymphocytes 22.4 20.0 - 40.0 10/26/2015 [facility] HEMATOLOGY Monocytes 9.1 2.0 - 12.0 10/26/2015 [facility] CARDIAC ENZYMES CK MB 1.2 0.5 - 3.6 10/26/2015 [facility] CARDIAC ENZYMES Total CK 94 12 - 191 10/26/2015 [facility] CARDIAC ENZYMES CK MB Index 1.3 0.0 - 2.5 10/26/2015 [facility] CARDIAC ENZYMES BNP 38 <=100 pg/mL 10/25/2015 [facility] CHEM PANEL Total Protein 6.7 6.4 - 8.4 10/25/2015 [facility] CHEM PANEL Albumin Lvl 3.6 3.5 - 5.0 10/25/2015 [facility] CHEM PANEL A/G Ratio 1.2 0.7 - 1.6 10/25/2015 [facility] CHEM PANEL Globulin 3.1 2.7 - 4.2 10/25/2015 [facility] CHEM PANEL B/C Ratio 11 6 - 25 10/25/2015 [facility] CHEM PANEL ALT 35 0 - 65 10/25/2015 [facility] CHEM PANEL Bili Total 0.6 0.2 - 1.3 10/25/2015 [facility] CHEM PANEL Alk Phos 107 39 - 136 10/25/2015 [facility] CHEM PANEL AST 20 0 - 37 10/25/2015 [facility] CHEM PANEL AGAP 9.8 10.0 - 20.0 10/25/2015 [facility] CHEM PANEL eGFR 79 10/25/2015 Result Comment: The eGFR is calculated using the CKD-EPI formula. In most young, healthy individuals the eGFR will be >90 mL/min/1.73m2. The eGFR declines with age. An eGFR of 60-89 may be normal in some populations, particularly the elderly, for whom the CKD-EPI formula has not been extensively validated. Use of the eGFR is not recommended in the following populations:

Individuals with unstable creatinine concentrations, including patients and those with serious co-morbid conditions.

Patients with extremes in muscle mass or diet.

The data above are obtained from the National Kidney Disease Education Program (NKDEP) which additionally recommends that when the eGFR is used in patients with extremes of body mass index for purposes of drug dosing, the eGFR should be multiplied by the estimated BMI. [facility] CHEM PANEL BUN 11 7 - 22 10/25/2015 [facility] CHEM PANEL Creatinine Lvl 0.97 0.50 - 1.40 10/25/2015 [facility] CHEM PANEL Sodium Lvl 139 135 - 145 10/25/2015 [facility] CHEM PANEL Glucose Lvl 112 70 - 99 10/25/2015 [facility] CHEM PANEL Chloride Lvl 105 95 - 109 10/25/2015 [facility] CHEM PANEL Potassium Lvl 3.8 3.5 - 5.1 10/25/2015 [facility] CHEM PANEL CO2 28 24 - 32 10/25/2015 [facility] CHEM PANEL Calcium Lvl 8.8 8.5 - 10.5 10/25/2015 [facility] HEMATOLOGY Lymphocytes 20.2 20.0 - 40.0 10/25/2015 [facility] HEMATOLOGY Eosinophils 2.3 0.0 - 4.0 10/25/2015 [facility] HEMATOLOGY Monocytes 11.2 2.0 - 12.0 10/25/2015 [facility] HEMATOLOGY Basophils 1.1 0.0 - 1.0 10/25/2015 [facility] HEMATOLOGY Segs-Bands # 3.4 1.5 - 8.1 10/25/2015 [facility] HEMATOLOGY Lymphocytes # 1.0 1.0 - 5.5 10/25/2015 [facility] HEMATOLOGY Monocytes # 0.6 0.0 - 0.8 10/25/2015 [facility] HEMATOLOGY Segs 65.2 45.0 - 75.0 10/25/2015 [facility] HEMATOLOGY Eosinophils # 0.1 0.0 - 0.5 10/25/2015 [facility] HEMATOLOGY Basophils # 0.1 0.0 - 0.2 10/25/2015 [facility] HEMATOLOGY MCHC 33.1 32.0 - 36.0 10/25/2015 [facility] HEMATOLOGY RDW 14.3 11.5 - 14.5 10/25/2015 [facility] HEMATOLOGY MPV 8.5 7.4 - 10.4 10/25/2015 [facility] HEMATOLOGY Platelet 112 133 - 450 10/25/2015 [facility] MCH 30.9 27.0 - 31.0 10/25/2015 [facility] HEMATOLOGY Hgb 14.3 14.0 - 18.0 10/25/2015 [facility] HEMATOLOGY WBC 5.2 3.7 - 10.4 10/25/2015 [facility] HEMATOLOGY MCV 93.3 80.0 - 94.0 10/25/2015 [facility] HEMATOLOGY Hct 43.2 42.0 - 54.0 10/25/2015 [facility] RBC 4.64 4.70 - 6.10 10/25/2015 [facility] ELECTROLYTES AGAP 8.4 10.0 - 20.0 07/15/2015 [facility] ELECTROLYTES eGFR 87 07/15/2015 Result Comment: The eGFR is calculated using the CKD-EPI formula. In most young, healthy individuals the eGFR will be >90 mL/min/1.73m2. The eGFR declines with age. An eGFR of 60-89 may be normal in some populations, particularly the elderly, for whom the CKD-EPI formula has not been extensively validated. Use of the eGFR is not recommended in the following populations:

Individuals with unstable creatinine concentrations, including patients and those with serious co-morbid conditions.

Patients with extremes in muscle mass or diet.

The data above are obtained from the National Kidney Disease Education Program (NKDEP) which additionally recommends that when the eGFR is used in patients with extremes of body mass index for purposes of drug dosing, the eGFR should be multiplied by the estimated BMI. [facility] ELECTROLYTES Calcium Lvl 9.0 8.5 - 10.5 07/15/2015 [facility] ELECTROLYTES CO2 26 24 - 32 07/15/2015 [facility] ELECTROLYTES BUN 13 7 - 22 07/15/2015 [facility] ELECTROLYTES Chloride Lvl 107 95 - 109 07/15/2015 [facility] ELECTROLYTES Glucose Lvl 55 70 - 99 07/15/2015 [facility] ELECTROLYTES Sodium Lvl 138 135 - 145 07/15/2015 [facility] ELECTROLYTES Potassium Lvl 3.4 3.5 - 5.1 07/15/2015 [facility] ELECTROLYTES Creatinine Lvl 0.89 0.50 - 1.40 07/15/2015 [facility] HEMATOLOGY MPV 8.4 7.4 - 10.4 07/15/2015 [facility] HEMATOLOGY MCHC 33.3 32.0 - 36.0 07/15/2015 [facility] HEMATOLOGY MCH 31.0 27.0 - 31.0 07/15/2015 [facility] HEMATOLOGY MCV 93.1 80.0 - 94.0 07/15/2015 [facility] HEMATOLOGY Platelet 106 133 - 450 07/15/2015 [facility] HEMATOLOGY RDW 14.3 11.5 - 14.5 07/15/2015 [facility] HEMATOLOGY WBC 4.8 3.7 - 10.4 07/15/2015 [facility] HEMATOLOGY Hct 44.6 42.0 - 54.0 07/15/2015 [facility] HEMATOLOGY Hgb 14.8 14.0 - 18.0 07/15/2015 [facility] HEMATOLOGY RBC 4.79 4.70 - 6.10 07/15/2015 [facility] HEMATOLOGY Basophils # 0.1 0.0 - 0.2 07/15/2015 [facility] HEMATOLOGY Eosinophils # 0.2 0.0 - 0.5 07/15/2015 [facility] HEMATOLOGY Monocytes # 0.5 0.0 - 0.8 07/15/2015 [facility] HEMATOLOGY Basophils 1.2 0.0 - 1.0 07/15/2015 [facility] HEMATOLOGY Lymphocytes # 1.2 1.0 - 5.5 07/15/2015 [facility] HEMATOLOGY Segs-Bands # 2.8 1.5 - 8.1 07/15/2015 [facility] HEMATOLOGY Eosinophils 3.9 0.0 - 4.0 07/15/2015 [facility] HEMATOLOGY Monocytes 11.0 2.0 - 12.0 07/15/2015 [facility] HEMATOLOGY Lymphocytes 25.3 20.0 - 40.0 07/15/2015 [facility] HEMATOLOGY Segs 58.6 45.0 - 75.0 07/15/2015 [facility] CHEM PANEL Magnesium Lvl 1.8 1.8 - 2.4 01/16/2015 [facility] CHEM PANEL Phosphorus 1.4 2.5 - 4.5 01/16/2015 Result Comment: Critical Result(s) called to Lottie aquino 01/16/2015 06:30 by madnie. Read back OK. [facility] CHEM PANEL Globulin 2.4 2.0 - 4.0 01/16/2015 [facility] CHEM PANEL A/G Ratio 1.4 0.7 - 1.6 01/16/2015 [facility] CHEM PANEL AGAP 13.1 10.0 - 20.0 01/16/2015 [facility] CHEM PANEL B/C Ratio 18 6 - 25 01/16/2015 [facility] CHEM PANEL eGFR 92 01/16/2015 Result Comment: The eGFR is calculated using the CKD-EPI formula. In most young, healthy individuals the eGFR will be >90 mL/min/1.73m2. The eGFR declines with age. An eGFR of 60-89 may be normal in some populations, particularly the elderly, for whom the CKD-EPI formula has not been extensively validated. Use of the eGFR is not recommended in the following populations:

Individuals with unstable creatinine concentrations, including patients and those with serious co-morbid conditions.

Patients with extremes in muscle mass or diet.

The data above are obtained from the National Kidney Disease Education Program (NKDEP) which additionally recommends that when the eGFR is used in patients with extremes of body mass index for purposes of drug dosing, the eGFR should be multiplied by the estimated BMI. [facility] CHEM PANEL ALT 30 0 - 65 01/16/2015 [facility] CHEM PANEL AST 16 0 - 37 01/16/2015 [facility] CHEM PANEL Bili Total 1.3 0.2 - 1.3 01/16/2015 [facility] CHEM PANEL Alk Phos 79 39 - 136 01/16/2015 [facility] CHEM PANEL Glucose Lvl 109 70 - 99 01/16/2015 [facility] CHEM PANEL BUN 14 7 - 22 01/16/2015 [facility] CHEM PANEL Calcium Lvl 8.5 8.5 - 10.5 01/16/2015 [facility] CHEM PANEL Total Protein 5.7 6.4 - 8.4 01/16/2015 [facility] CHEM PANEL Albumin Lvl 3.3 3.5 - 5.0 01/16/2015 [facility] CHEM PANEL Creatinine Lvl 0.78 0.50 - 1.40 01/16/2015 [facility] CHEM PANEL Sodium Lvl 142 135 - 145 01/16/2015 [facility] CHEM PANEL Chloride Lvl 108 95 - 109 01/16/2015 [facility] CHEM PANEL CO2 25 24 - 32 01/16/2015 [facility] CHEM PANEL Potassium Lvl 4.1 3.5 - 5.1 01/16/2015 [facility] Lymphocytes # 0.9 1.0 - 5.5 01/16/2015 [facility] HEMATOLOGY Basophils 0.5 0.0 - 1.0 01/16/2015 [facility] Monocytes 13.3 2.0 - 12.0 01/16/2015 [facility] HEMATOLOGY Segs-Bands # 7.5 1.5 - 8.1 01/16/2015 [facility] HEMATOLOGY Eosinophils 0.1 0.0 - 4.0 01/16/2015 [facility] Monocytes # 1.3 0.0 - 0.8 01/16/2015 [facility] Lymphocytes 9.3 20.0 - 40.0 01/16/2015 [facility] HEMATOLOGY Segs 76.8 45.0 - 75.0 01/16/2015 [facility] MCHC 33.2 32.0 - 36.0 01/16/2015 [facility] MCH 31.6 27.0 - 31.0 01/16/2015 [facility] MCV 95.3 80.0 - 94.0 01/16/2015 [facility] MPV 9.4 7.4 - 10.4 01/16/2015 [facility] Platelet 94 133 - 450 01/16/2015 [facility] RDW 13.8 11.5 - 14.5 01/16/2015 [facility] WBC 9.8 3.7 - 10.4 01/16/2015 [facility] Hct 45.4 42.0 - 54.0 01/16/2015 [facility] Hgb 15.1 14.0 - 18.0 01/16/2015 [facility] RBC 4.76 4.70 - 6.10 01/16/2015 [facility] CHEM PANEL Creatinine Lvl 0.77 0.50 - 1.40 01/16/2015 [facility] CHEM PANEL eGFR 92 01/16/2015 Result Comment: The eGFR is calculated using the CKD-EPI formula. In most young, healthy individuals the eGFR will be >90 mL/min/1.73m2. The eGFR declines with age. An eGFR of 60-89 may be normal in some populations, particularly the elderly, for whom the CKD-EPI formula has not been extensively validated. Use of the eGFR is not recommended in the following populations:

Individuals with unstable creatinine concentrations, including patients and those with serious co-morbid conditions.

Patients with extremes in muscle mass or diet.

The data above are obtained from the National Kidney Disease Education Program (NKDEP) which additionally recommends that when the eGFR is used in patients with extremes of body mass index for purposes of drug dosing, the eGFR should be multiplied by the estimated BMI. [facility] HEMATOLOGY PTT 26.9 22.9 - 35.8 01/16/2015 [facility] HEMATOLOGY Platelet 113 133 - 450 01/16/2015 [facility] HEMATOLOGY INR 1.31 0.85 - 1.17 01/15/2015 [facility] HEMATOLOGY PT 16.6 12.0 - 14.7 01/15/2015 [facility] HEMATOLOGY PTT 32.5 22.9 - 35.8 01/15/2015 [facility] IMMUNOLOGY Hep C Ab Negative *NA* (01/15/15 11:54 AM) 01/15/2015 [facility] Hep A IgM Negative *NA* (01/15/15 11:54 AM) Negative 01/15/2015 [facility] Hep Bs Ag Negative *NA* (01/15/15 11:54 AM) Negative 01/15/2015 [facility] Hep B Core IgM Negative *NA* (01/15/15 11:54 AM) Negative 01/15/2015 [facility] CHEM PANEL A/G Ratio 1.2 0.7 - 1.6 01/15/2015 [facility] CHEM PANEL Globulin 2.9 2.0 - 4.0 01/15/2015 [facility] CHEM PANEL B/C Ratio 16 6 - 25 01/15/2015 [facility] CHEM PANEL AGAP 11.0 10.0 - 20.0 01/15/2015 [facility] CHEM PANEL eGFR 85 01/15/2015 Result Comment: The eGFR is calculated using the CKD-EPI formula. In most young, healthy individuals the eGFR will be >90 mL/min/1.73m2. The eGFR declines with age. An eGFR of 60-89 may be normal in some populations, particularly the elderly, for whom the CKD-EPI formula has not been extensively validated. Use of the eGFR is not recommended in the following populations:

Individuals with unstable creatinine concentrations, including patients and those with serious co-morbid conditions.

Patients with extremes in muscle mass or diet.

The data above are obtained from the National Kidney Disease Education Program (NKDEP) which additionally recommends that when the eGFR is used in patients with extremes of body mass index for purposes of drug dosing, the eGFR should be multiplied by the estimated BMI. [facility] CHEM PANEL Creatinine Lvl 0.92 0.50 - 1.40 01/15/2015 [facility] CHEM PANEL BUN 15 7 - 22 01/15/2015 [facility] CHEM PANEL Sodium Lvl 138 135 - 145 01/15/2015 [facility] CHEM PANEL CO2 25 24 - 32 01/15/2015 [facility] CHEM PANEL Albumin Lvl 3.6 3.5 - 5.0 01/15/2015 [facility] CHEM PANEL Total Protein 6.5 6.4 - 8.4 01/15/2015 [facility] CHEM PANEL Chloride Lvl 107 95 - 109 01/15/2015 [facility] CHEM PANEL Alk Phos 86 39 - 136 01/15/2015 [facility] CHEM PANEL Potassium Lvl 5.0 3.5 - 5.1 01/15/2015 [facility] CHEM PANEL Glucose Lvl 110 70 - 99 01/15/2015 [facility] CHEM PANEL Calcium Lvl 8.7 8.5 - 10.5 01/15/2015 [facility] CHEM PANEL AST 15 0 - 37 01/15/2015 [facility] CHEM PANEL ALT 27 0 - 65 01/15/2015 [facility] CHEM PANEL Bili Total 1.0 0.2 - 1.3 01/15/2015 [facility] HEMATOLOGY Lymphocytes # 1.1 1.0 - 5.5 01/15/2015 [facility] HEMATOLOGY Segs 82.6 45.0 - 75.0 01/15/2015 [facility] HEMATOLOGY Basophils 0.2 0.0 - 1.0 01/15/2015 [facility] HEMATOLOGY Monocytes 8.7 2.0 - 12.0 01/15/2015 [facility] HEMATOLOGY Eosinophils 0.1 0.0 - 4.0 01/15/2015 [facility] HEMATOLOGY Lymphocytes 8.4 20.0 - 40.0 01/15/2015 [facility] HEMATOLOGY Monocytes # 1.1 0.0 - 0.8 01/15/2015 [facility] HEMATOLOGY Segs-Bands # 10.5 1.5 - 8.1 01/15/2015 [facility] HEMATOLOGY RBC 5.42 4.70 - 6.10 01/15/2015 [facility] HEMATOLOGY WBC 12.7 3.7 - 10.4 01/15/2015 [facility] HEMATOLOGY MCH 31.3 27.0 - 31.0 01/15/2015 [facility] HEMATOLOGY MCV 96.2 80.0 - 94.0 01/15/2015 [facility] HEMATOLOGY Hct 52.1 42.0 - 54.0 01/15/2015 [facility] HEMATOLOGY Hgb 17.0 14.0 - 18.0 01/15/2015 [facility] HEMATOLOGY MCHC 32.6 32.0 - 36.0 01/15/2015 [facility] HEMATOLOGY Platelet 154 133 - 450 01/15/2015 [facility] HEMATOLOGY RDW 14.0 11.5 - 14.5 01/15/2015 [facility] HEMATOLOGY MPV 9.5 7.4 - 10.4 01/15/2015 [facility] URINE AND STOOL UA RBC 1 0 - 2 01/14/2015 [facility] URINE AND STOOL UA Sq Epi Occasional /LPF Few /LPF 01/14/2015 [facility] URINE AND STOOL UA WBC 2 0 - 5 01/14/2015 [facility] URINE AND STOOL UA Nitrite Negative (01/14/15 4:03 PM) Negative 01/14/2015 [facility] URINE AND STOOL UA Leuk Est Negative (01/14/15 4:03 PM) Negative 01/14/2015 [facility] URINE AND STOOL UA pH 6.0 5.0 - 8.0 01/14/2015 [facility] URINE AND STOOL UA Protein 30 mg/dL Negative mg/dL 01/14/2015 [facility] URINE AND STOOL UA Turbidity Clear (01/14/15 4:03 PM) Clear 01/14/2015 [facility] URINE AND STOOL UA Spec Grav 1.014 <=1.030 01/14/2015 [facility] URINE AND STOOL UA Color Yellow *NA* (01/14/15 4:03 PM) Yellow 01/14/2015 [facility] URINE AND STOOL UA Hyal Cast 29 0 - 2 01/14/2015 [facility] URINE AND STOOL UA Bacteria Occasional /HPF None Seen /HPF 01/14/2015 [facility] URINE AND STOOL UA Glucose Negative mg/dL Negative mg/dL 01/14/2015 [facility] URINE AND STOOL UA Blood Negative (01/14/15 4:03 PM) Negative 01/14/2015 [facility] URINE AND STOOL UA Urobilinogen 4.0 0.1 - 1.0 01/14/2015 [facility] URINE AND STOOL UA Ketones Trace mg/dL Negative mg/dL 01/14/2015 [facility] URINE AND STOOL UA Bili Negative *NA* (01/14/15 4:03 PM) Negative 01/14/2015 [facility] CHEM PANEL Lipase Lvl 134 73 - 393 01/14/2015 [facility] CHEM PANEL Amylase Lvl 47 25 - 115 01/14/2015 [facility] CHEM PANEL AST 15 0 - 37 01/14/2015 [facility] CHEM PANEL Alk Phos 101 39 - 136 01/14/2015 [facility] CHEM PANEL Bili Total 1.5 0.2 - 1.3 01/14/2015 [facility] CHEM PANEL ALT 35 0 - 65 01/14/2015 [facility] CHEM PANEL Albumin Lvl 4.2 3.5 - 5.0 01/14/2015 [facility] CHEM PANEL Total Protein 7.9 6.4 - 8.4 01/14/2015 [facility] CHEM PANEL Calcium Lvl 10.1 8.5 - 10.5 01/14/2015 [facility] CHEM PANEL Chloride Lvl 104 95 - 109 01/14/2015 [facility] CHEM PANEL Potassium Lvl 4.9 3.5 - 5.1 01/14/2015 [facility] CHEM PANEL Sodium Lvl 138 135 - 145 01/14/2015 [facility] CHEM PANEL CO2 26 24 - 32 01/14/2015 [facility] CHEM PANEL Glucose Lvl 123 70 - 99 01/14/2015 [facility] CHEM PANEL BUN 9 7 - 22 01/14/2015 [facility] CHEM PANEL Globulin 3.7 2.0 - 4.0 01/14/2015 [facility] CHEM PANEL A/G Ratio 1.1 0.7 - 1.6 01/14/2015 [facility] CHEM PANEL AGAP 12.9 10.0 - 20.0 01/14/2015 [facility] CHEM PANEL B/C Ratio 8 6 - 25 01/14/2015 [facility] HEMATOLOGY Lymphocytes 8.2 20.0 - 40.0 01/14/2015 [facility] HEMATOLOGY Basophils 0.6 0.0 - 1.0 01/14/2015 [facility] HEMATOLOGY Monocytes 5.7 2.0 - 12.0 01/14/2015 [facility] HEMATOLOGY Segs 85.2 45.0 - 75.0 01/14/2015 [facility] HEMATOLOGY Eosinophils 0.3 0.0 - 4.0 01/14/2015 [facility] HEMATOLOGY Lymphocytes # 0.8 1.0 - 5.5 01/14/2015 [facility] HEMATOLOGY Monocytes # 0.6 0.0 - 0.8 01/14/2015 [facility] HEMATOLOGY Segs-Bands # 8.5 1.5 - 8.1 01/14/2015 [facility] HEMATOLOGY Basophils # 0.1 0.0 - 0.2 01/14/2015 [facility] HEMATOLOGY RBC 5.84 4.70 - 6.10 01/14/2015 [facility] HEMATOLOGY MCH 31.6 27.0 - 31.0 01/14/2015 [facility] HEMATOLOGY MCV 95.5 80.0 - 94.0 01/14/2015 [facility] HEMATOLOGY Hct 55.8 42.0 - 54.0 01/14/2015 [facility] HEMATOLOGY Hgb 18.5 14.0 - 18.0 01/14/2015 [facility] HEMATOLOGY RDW 13.6 11.5 - 14.5 01/14/2015 [facility] HEMATOLOGY MCHC 33.1 32.0 - 36.0 01/14/2015 [facility] HEMATOLOGY MPV 9.7 7.4 - 10.4 01/14/2015 [facility] HEMATOLOGY WBC 10.0 3.7 - 10.4 01/14/2015 [facility] LIPIDS VLDL 19 01/28/2014 [facility] LIPIDS LDL (Calculated) 56 <=99 mg/dL 01/28/2014 [facility] LIPIDS HDL 48 >=61 mg/dL 01/28/2014 [facility] LIPIDS Chol 123 <=199 mg/dL 01/28/2014 [facility] LIPIDS CHD Risk 2.56 4.00 - 7.30 01/28/2014 [facility] LIPIDS Trig 94 <=149 mg/dL 01/28/2014 [facility] URINE AND STOOL UA Nitrite Negative (01/27/14 6:00 PM) Negative 01/28/2014 [facility] URINE AND STOOL UA RBC 1 0 - 2 01/28/2014 [facility] URINE AND STOOL UA Sq Epi Occasional /LPF Few /LPF 01/28/2014 [facility] URINE AND STOOL UA WBC 1 0 - 5 01/28/2014 [facility] URINE AND STOOL UA Urobilinogen 2.0 0.1 - 1.0 01/28/2014 [facility] URINE AND STOOL UA Leuk Est Negative (01/27/14 6:00 PM) Negative 01/28/2014 [facility] URINE AND STOOL UA Blood Negative (01/27/14 6:00 PM) Negative 01/28/2014 [facility] URINE AND STOOL UA Ketones Negative mg/dL Negative mg/dL 01/28/2014 [facility] URINE AND STOOL UA Protein Negative mg/dL Negative mg/dL 01/28/2014 [facility] URINE AND STOOL UA pH 6.0 5.0 - 8.0 01/28/2014 [facility] URINE AND STOOL UA Bili Negative *NA* (01/27/14 6:00 PM) Negative 01/28/2014 [facility] URINE AND STOOL UA Glucose Negative mg/dL Negative mg/dL 01/28/2014 [facility] URINE AND STOOL UA Color Yellow *NA* (01/27/14 6:00 PM) Yellow 01/28/2014 [facility] URINE AND STOOL UA Turbidity Clear (01/27/14 6:00 PM) Clear 01/28/2014 [facility] URINE AND STOOL UA Spec Grav 1.012 <=1.030 01/28/2014 [facility] CARDIAC ENZYMES Troponin-I <0.02 0.00 - 0.40 01/27/2014 [facility] CARDIAC ENZYMES CK MB 2.2 0.5 - 3.6 01/27/2014 [facility] CHEM PANEL B/C Ratio 16 6 - 25 01/27/2014 [facility] CHEM PANEL AGAP 10.7 10.0 - 20.0 01/27/2014 [facility] CHEM PANEL A/G Ratio 1.5 0.7 - 1.6 01/27/2014 [facility] CHEM PANEL Globulin 2.8 2.0 - 4.0 01/27/2014 [facility] CHEM PANEL Sodium Lvl 140 135 - 145 01/27/2014 [facility] CHEM PANEL Chloride Lvl 106 95 - 109 01/27/2014 [facility] CHEM PANEL Potassium Lvl 3.7 3.5 - 5.1 01/27/2014 [facility] CHEM PANEL eGFR 87 01/27/2014 <sup>1</sup>Result Comment: The eGFR is calculated using the CKD-EPI formula. In most young, healthy individuals the eGFR will be >90 mL/min/1.73m2. The eGFR declines with age. An eGFR of 60-89 may be normal in some populations, particularly the elderly, for whom the CKD-EPI formula has not been extensively validated. Use of the eGFR is not recommended in the following populations:& lt;br/>
Individuals with unstable creatinine concentrations, including patients and those with serious co-morbid conditions.

Patients with extremes in muscle mass or diet.

The data above are obtained from the National Kidney Disease Education Program (NKDEP) which additionally recommends that when the eGFR is used in patients with extremes of body mass index for purposes of drug dosing, the eGFR should be multiplied by the estimated BMI. [facility] CHEM PANEL ALT 27 0 - 65 01/27/2014 [facility] CHEM PANEL Albumin Lvl 4.1 3.5 - 5.0 01/27/2014 [facility] CHEM PANEL Total Protein 6.9 6.4 - 8.4 01/27/2014 [facility] CHEM PANEL Calcium Lvl 8.8 8.5 - 10.5 01/27/2014 [facility] CHEM PANEL CO2 27 24 - 32 01/27/2014 [facility] CHEM PANEL Bili Total 0.8 0.2 - 1.3 01/27/2014 [facility] CHEM PANEL Alk Phos 96 39 - 136 01/27/2014 [facility] CHEM PANEL AST 13 0 - 37 01/27/2014 [facility] CHEM PANEL Creatinine Lvl 0.9 0.5 - 1.4 01/27/2014 [facility] CHEM PANEL BUN 14 7 - 22 01/27/2014 [facility] CHEM PANEL Glucose Lvl 112 70 - 99 01/27/2014 <sup>2</sup>Interpretive Data: Adult reference range values reflect the clinical guidelines
of the [place] [employer]. [facility] CHEM PANEL Magnesium Lvl 1.9 1.8 - 2.4 01/27/2014 [facility] HEMATOLOGY MPV 9.0 7.4 - 10.4 01/27/2014 [facility] HEMATOLOGY RDW 13.9 11.5 - 14.5 01/27/2014 [facility] MCHC 33.6 32.0 - 36.0 01/27/2014 [facility] HEMATOLOGY Platelet 108 133 - 450 01/27/2014 [facility] HEMATOLOGY MCV 94.6 80.0 - 94.0 01/27/2014 [facility] HEMATOLOGY Hct 44.9 42.0 - 54.0 01/27/2014 [facility] MCH 31.8 27.0 - 31.0 01/27/2014 [facility] HEMATOLOGY RBC 4.74 4.70 - 6.10 01/27/2014 [facility] WBC 4.4 3.7 - 10.4 01/27/2014 [facility] Hgb 15.1 14.0 - 18.0 01/27/2014 [facility] Segs-Bands # 2.5 1.5 - 8.1 01/27/2014 [facility] HEMATOLOGY Lymphocytes # 1.3 1.0 - 5.5 01/27/2014 [facility] HEMATOLOGY Eosinophils 3.1 0.0 - 4.0 01/27/2014 [facility] HEMATOLOGY Basophils 1.8 0.0 - 1.0 01/27/2014 [facility] HEMATOLOGY Basophils # 0.1 0.0 - 0.2 01/27/2014 [facility] HEMATOLOGY Eosinophils # 0.1 0.0 - 0.5 01/27/2014 [facility] HEMATOLOGY Monocytes # 0.4 0.0 - 0.8 01/27/2014 [facility] HEMATOLOGY Segs 56.9 45.0 - 75.0 01/27/2014 [facility] HEMATOLOGY Monocytes 8.4 2.0 - 12.0 01/27/2014 [facility] HEMATOLOGY Lymphocytes 29.8 20.0 - 40.0 01/27/2014 [facility] HEMATOLOGY PTT 31.8 22.9 - 35.8 01/27/2014 <sup>4</sup>Interpretive Data: Heparin Therapeutic Range: 57 - 92 Seconds [facility] HEMATOLOGY INR 1.19 0.85 - 1.17 01/27/2014 <sup>3</sup>Interpretive Data: RECOMMENDED RANGES FOR PROTIME INR:
2.0-3.0 for most medical and surgical thromboembolic states.
2.5-3.5 for artificial heart valves and recurrent embolism.

INR SHOULD BE USED ONLY FOR PATIENTS ON STABLE ANTICOAGULANT THERAPY. [facility] HEMATOLOGY PT 15.2 12.0 - 14.7 01/27/2014 [facility] CHEMISTRY Troponin-I <0.02 0.00 - 0.40 03/14/2013 Normal [facility] CHEMISTRY Total CK 38 12 - 191 03/14/2013 Normal [facility] CHEMISTRY Chol 146 <=199 03/14/2013 Normal [facility] CHEMISTRY Trig 88 <=149 03/14/2013 Normal [facility] CHEMISTRY CHD Risk 2.75 4.00 - 7.30 03/14/2013 LOW [facility] CHEMISTRY HDL 53 >=61 03/14/2013 LOW [facility] CHEMISTRY LDL (Calculated) 75 <=99 03/14/2013 Normal [facility] CHEMISTRY Troponin-I <0.02 0.00 - 0.40 03/14/2013 Normal [facility] CHEMISTRY Total CK 47 12 - 191 03/14/2013 Normal [facility] CHEMISTRY Phosphorus 3.1 2.5 - 4.5 03/14/2013 Normal [facility] CHEMISTRY Magnesium Lvl 1.8 1.8 - 2.4 03/14/2013 [facility] HEMATOLOGY MPV 8.4 7.4 - 10.4 03/14/2013 Normal [facility] HEMATOLOGY Hct 38.7 42.0 - 54.0 03/14/2013 LOW [facility] HEMATOLOGY WBC X 10x3 4.4 3.7 - 10.4 03/14/2013 Normal [facility] HEMATOLOGY RBC X 10x6 4.10 4.70 - 6.10 03/14/2013 LOW [facility] HEMATOLOGY Hgb 12.9 14.0 - 18.0 03/14/2013 LOW [facility] HEMATOLOGY MCV 94.4 80.0 - 94.0 03/14/2013 [facility] HEMATOLOGY MCHC 33.4 32.0 - 36.0 03/14/2013 Normal [facility] HEMATOLOGY Platelet 121 133 - 450 03/14/2013 LOW [facility] HEMATOLOGY MCH 31.5 27.0 - 31.0 03/14/2013 [facility] HEMATOLOGY RDW 14.3 11.5 - 14.5 03/14/2013 Normal [facility] HEMATOLOGY Monocytes 10.3 2.0 - 12.0 03/14/2013 Normal [facility] HEMATOLOGY Basophils 1.0 0.0 - 1.0 03/14/2013 Normal [facility] HEMATOLOGY Lymphocytes 25.4 20.0 - 40.0 03/14/2013 Normal [facility] HEMATOLOGY Segs-Bands # 2.6 1.5 - 8.1 03/14/2013 Normal [facility] HEMATOLOGY Eosinophils 3.9 0.0 - 4.0 03/14/2013 Normal [facility] HEMATOLOGY Segs 59.4 45.0 - 75.0 03/14/2013 Normal [facility] HEMATOLOGY Eosinophils # 0.2 0.0 - 0.5 03/14/2013 Normal [facility] HEMATOLOGY Monocytes # 0.5 0.0 - 0.8 03/14/2013 Normal [facility] HEMATOLOGY Basophils # 0.0 0.0 - 0.2 03/14/2013 Normal [facility] HEMATOLOGY Lymphocytes # 1.1 1.0 - 5.5 03/14/2013 Normal [facility] URINALYSIS UA Urobilinogen <=1.0 mg/dL 0.1 - 1.0 03/14/2013 [facility] URINALYSIS UA Color Yellow *NA* (03/13/2013 18:10:00) Yellow 03/14/2013 [facility] URINALYSIS UA Turbidity Clear (03/13/2013 18:10:00) Clear 03/14/2013 Normal [facility] URINALYSIS UA Protein Negative mg/dL Negative 03/14/2013 Normal [facility] URINALYSIS UA pH 7.0 5.0 - 8.0 03/14/2013 Normal [facility] URINALYSIS UA Glucose Negative mg/dL Negative 03/14/2013 [facility] URINALYSIS UA Bacteria Occasional /HPF None Seen 03/14/2013 [facility] URINALYSIS UA Leuk Est Negative (03/13/2013 18:10:00) Negative 03/14/2013 Normal [facility] URINALYSIS UA RBC <1 0 - 2 03/14/2013 Normal [facility] URINALYSIS UA Blood Negative (03/13/2013 18:10:00) Negative 03/14/2013 Normal [facility] URINALYSIS UA Nitrite Negative (03/13/2013 18:10:00) Negative 03/14/2013 Normal [facility] URINALYSIS UA Spec Grav 1.014 <=1.030 03/14/2013 Normal [facility] URINALYSIS UA Sq Epi None Seen 03/14/2013 [facility] URINALYSIS UA Bili Negative *NA* (03/13/2013 18:10:00) Negative 03/14/2013 [facility] URINALYSIS UA Ketones Negative mg/dL Negative 03/14/2013 [facility] CHEMISTRY FTI 2.8 03/13/2013 [facility] CHEMISTRY Total CK 63 12 - 191 03/13/2013 Normal [facility] CHEMISTRY Phosphorus 2.5 2.5 - 4.5 03/13/2013 Normal [facility] CHEMISTRY BNP 62 <=100 03/13/2013 Normal <sup>4</sup>Interpretive Data: Elevated results are in line with increasing severity of
congestive heart failure. Minor elevations between 100 and 300
may be seen with Myocardial Ischemia, Sodium retaining drugs,
and compensated/treated heart failure. [facility] CHEMISTRY Magnesium Lvl 1.9 1.8 - 2.4 03/13/2013 Normal [facility] CHEMISTRY Total Protein 7.0 6.4 - 8.4 03/13/2013 Normal [facility] CHEMISTRY Alk Phos 92 39 - 136 03/13/2013 Normal [facility] CHEMISTRY A/G Ratio 1.3 0.7 - 1.6 03/13/2013 Normal [facility] CHEMISTRY Globulin 3.1 2.0 - 4.0 03/13/2013 Normal [facility] CHEMISTRY Bili Total 0.6 0.2 - 1.3 03/13/2013 Normal [facility] CHEMISTRY eGFR 92 03/13/2013 <sup>1</sup>Result Comment: The eGFR is calculated using the CKD-EPI formula. In most young, healthy individuals the eGFR will be >90 mL/min/1.73m2. The eGFR declines with age. An eGFR of 60-89 may be normal in some populations, particularly the elderly, for whom the CKD-EPI formula has not been extensively validated. Use of the eGFR is not recommended in the following populations:& lt;br/>
Individuals with unstable creatinine concentrations, including patients and those with serious co-morbid conditions.

Patients with extremes in muscle mass or diet.

The data above are obtained from the National Kidney Disease Education Program (NKDEP) which additionally recommends that when the eGFR is used in patients with extremes of body mass index for purposes of drug dosing, the eGFR should be multiplied by the estimated BMI. [facility] CHEMISTRY ALANINE AMINOTRANSFERASE 34 0 - 65 03/13/2013 Normal [facility] CHEMISTRY ASPARTATE TRANSAMINASE 16 0 - 37 03/13/2013 Normal [facility] CHEMISTRY AGAP 12.9 10.0 - 20.0 03/13/2013 Normal [facility] CHEMISTRY B/C Ratio 19 6 - 25 03/13/2013 Normal [facility] CHEMISTRY Potassium Lvl 3.9 3.5 - 5.1 03/13/2013 Normal [facility] CHEMISTRY Chloride Lvl 107 95 - 109 03/13/2013 Normal [facility] CHEMISTRY CO2 27 24 - 32 03/13/2013 Normal [facility] CHEMISTRY Glucose Lvl 101 70 - 99 03/13/2013 HI <sup>2</sup>Interpretive Data: Adult reference range values reflect the clinical guidelines
of the [place] [employer]. [facility] CHEMISTRY BUN 15 7 - 22 03/13/2013 Normal [facility] CHEMISTRY Calcium Lvl 8.4 8.5 - 10.5 03/13/2013 LOW [facility] CHEMISTRY Albumin Lvl 3.9 3.5 - 5.0 03/13/2013 Normal [facility] CHEMISTRY Creatinine Lvl 0.8 0.5 - 1.4 03/13/2013 Normal [facility] CHEMISTRY Sodium Lvl 143 135 - 145 03/13/2013 Normal [facility] CHEMISTRY CK MB <0.5 0.5 - 3.6 03/13/2013 Normal [facility] CHEMISTRY Troponin-I <0.02 0.00 - 0.40 03/13/2013 Normal [facility] CHEMISTRY Uric Acid 4.0 3.8 - 8.0 03/13/2013 Normal [facility] CHEMISTRY Vitamin D, 25-OH, Total 26 30 - 100 03/13/2013 LOW <sup>3</sup>Interpretive Data: Reference range is based on recommendations in the Endocrine
Society Clinical Practice Guideline (J Clin Endocrinol Metab
2010;96:7770-3933) [facility] CHEMISTRY Trig 119 <=149 03/13/2013 Normal [facility] CHEMISTRY Chol 173 <=199 03/13/2013 Normal [facility] CHEMISTRY LDL (Calculated) 93 <=99 03/13/2013 Normal [facility] CHEMISTRY HDL 56 >=61 03/13/2013 LOW [facility] CHEMISTRY CHD Risk 3.09 4.00 - 7.30 03/13/2013 LOW [facility] CHEMISTRY T4 9.4 4.7 - 13.3 03/13/2013 Normal [facility] CHEMISTRY T3 Uptake 30 31 - 39 03/13/2013 LOW [facility] CHEMISTRY TSH 1.430 0.360 - 3.740 03/13/2013 Normal [facility] CHEMISTRY CK-MB INDEX <0.8 0.0 - 2.5 03/13/2013 Normal [facility] HEMATOLOGY WBC X 10x3 5.0 3.7 - 10.4 03/13/2013 Normal [facility] HEMATOLOGY RBC X 10x6 4.41 4.70 - 6.10 03/13/2013 LOW [facility] HEMATOLOGY Hgb 14.1 14.0 - 18.0 03/13/2013 Normal [facility] HEMATOLOGY Hct 41.5 42.0 - 54.0 03/13/2013 LOW [facility] HEMATOLOGY MCV 94.1 80.0 - 94.0 03/13/2013 HI [facility] HEMATOLOGY MCH 32.1 27.0 - 31.0 03/13/2013 [facility] HEMATOLOGY MCHC 34.1 32.0 - 36.0 03/13/2013 Normal [facility] HEMATOLOGY Platelet 125 133 - 450 03/13/2013 LOW [facility] HEMATOLOGY RDW 13.6 11.5 - 14.5 03/13/2013 Normal [facility] HEMATOLOGY MPV 7.8 7.4 - 10.4 03/13/2013 Normal [facility] aPTT 31.4 22.9 - 35.8 03/13/2013 Normal <sup>7</sup>Interpretive Data: Heparin Therapeutic Range: 57 - 92 Seconds [facility] PROTIME 14.0 12.0 - 14.7 03/13/2013 Normal [facility] INR 1.09 0.85 - 1.17 03/13/2013 Normal <sup>5</sup>Interpretive Data: RECOMMENDED RANGES FOR PROTIME INR:
2.0-3.0 for most medical and surgical thromboembolic states.
2.5-3.5 for artificial heart valves and recurrent embolism.

INR SHOULD BE USED ONLY FOR PATIENTS ON STABLE ANTICOAGULANT THERAPY. [facility] D-Dimer 0.28 03/13/2013 <sup>6</sup>Interpretive Data: In DIC, quantitative D-Dimer is generally greater than
0.66 ug/mL FEU. Values of quantitative D-Dimer less than
0.40 ug/mL FEU have been reported to be associated with a low
probability of deep vein thrombosis/pulmonary embolism.
This test alone should not be used to rule out DVT/PE. [facility] HEMATOLOGY Basophils 0.2 0.0 - 1.0 03/13/2013 Normal [facility] Monocytes # 0.5 0.0 - 0.8 03/13/2013 Normal [facility] Eosinophils # 0.1 0.0 - 0.5 03/13/2013 Normal [facility] Basophils # 0.0 0.0 - 0.2 03/13/2013 Normal [facility] Segs-Bands # 3.3 1.5 - 8.1 03/13/2013 Normal [facility] Lymphocytes # 1.1 1.0 - 5.5 03/13/2013 Normal [facility] HEMATOLOGY Segs 65.2 45.0 - 75.0 03/13/2013 Normal [facility] Lymphocytes 22.4 20.0 - 40.0 03/13/2013 Normal [facility] Monocytes 9.5 2.0 - 12.0 03/13/2013 Normal [facility] Eosinophils 2.7 0.0 - 4.0 03/13/2013 Normal [facility] IMMUNOLOGY CRP, High Sensitivity 1.5 03/13/2013 <sup>8</sup>Interpretive Data: Low Risk: <1.0 mg/L
Average Risk: 1.0 - 3.0 mg/L
High Risk: >3.0 mg/L
Inflammation: >10.0 mg/L [facility] CHEMISTRY LDL 87 0 - 129 04/17/2012 Normal [facility] CHEMISTRY CHD Risk 3.00 4.00 - 7.30 04/17/2012 LOW [facility] CHEMISTRY HDL 54 >=35 04/17/2012 Normal [facility] CHEMISTRY Chol 162 120 - 200 04/17/2012 Normal [facility] CHEMISTRY Trig 106 0 - 200 04/17/2012 Normal [facility] CHEMISTRY eGFR 92 04/16/2012 NA <sup>2</sup>Result Comment: The eGFR is calculated using the CKD-EPI formula. In most young, healthy individuals the eGFR will be >90 mL/min/1.73m2. The eGFR declines with age. An eGFR of 60-89 may be normal in some populations, particularly the elderly, for whom the CKD-EPI formula has not been extensively validated. Use of the eGFR is not recommended in the following populations:& lt;br/>
Individuals with unstable creatinine concentrations, including patients and those with serious co-morbid conditions.

Patients with extremes in muscle mass or diet.

The data above are obtained from the National Kidney Disease Education Program (NKDEP) which additionally recommends that when the eGFR is used in patients with extremes of body mass index for purposes of drug dosing, the eGFR should be multiplied by the estimated BMI. [facility] CHEMISTRY BUN 14 7 - 22 04/16/2012 Normal [facility] CHEMISTRY Glucose Lvl 89 70 - 99 04/16/2012 Normal <sup>4</sup>Interpretive Data: Adult reference range values reflect the clinical guidelines
of the [place] [employer]. [facility] CHEMISTRY Creatinine Lvl 0.8 0.5 - 1.4 04/16/2012 Normal [facility] CHEMISTRY Sodium Lvl 144 135 - 145 04/16/2012 Normal [facility] CHEMISTRY Chloride Lvl 112 95 - 109 04/16/2012 HI [facility] CHEMISTRY Potassium Lvl 3.9 3.5 - 5.1 04/16/2012 Normal [facility] CHEMISTRY CO2 24 24 - 32 04/16/2012 Normal [facility] CHEMISTRY Calcium Lvl 8.5 8.5 - 10.5 04/16/2012 Normal [facility] CHEMISTRY AGAP 11.9 10.0 - 20.0 04/16/2012 Normal [facility] HEMATOLOGY PTT 34.8 22.9 - 35.8 04/16/2012 Normal <sup>8</sup>Interpretive Data: Heparin Therapeutic Range: 57 - 92 Seconds [facility] HEMATOLOGY PT 14.6 12.0 - 14.7 04/16/2012 Normal [facility] HEMATOLOGY INR 1.12 0.85 - 1.17 04/16/2012 Normal <sup>6</sup>Interpretive Data: RECOMMENDED RANGES FOR PROTIME INR:
2.0-3.0 for most medical and surgical thromboembolic states.
2.5-3.5 for artificial heart valves and recurrent embolism.

INR SHOULD BE USED ONLY FOR PATIENTS ON STABLE ANTICOAGULANT THERAPY. [facility] HEMATOLOGY MPV 8.4 7.4 - 10.4 04/16/2012 Normal [facility] HEMATOLOGY MCHC 33.7 32.0 - 36.0 04/16/2012 Normal [facility] HEMATOLOGY MCH 32.1 27.0 - 31.0 04/16/2012 [facility] HEMATOLOGY RBC 4.30 4.70 - 6.10 04/16/2012 LOW [facility] HEMATOLOGY MCV 95.1 80.0 - 94.0 04/16/2012 [facility] HEMATOLOGY Hct 40.9 42.0 - 54.0 04/16/2012 LOW [facility] HEMATOLOGY Platelet 110 133 - 450 04/16/2012 LOW [facility] HEMATOLOGY RDW 13.9 11.5 - 14.5 04/16/2012 Normal [facility] HEMATOLOGY WBC 4.1 3.7 - 10.4 04/16/2012 Normal [facility] HEMATOLOGY Hgb 13.8 14.0 - 18.0 04/16/2012 LOW [facility] HEMATOLOGY Monocytes # 0.5 0.0 - 0.8 04/16/2012 Normal [facility] HEMATOLOGY Lymphocytes # 1.1 1.0 - 5.5 04/16/2012 Normal [facility] HEMATOLOGY Eosinophils # 0.2 0.0 - 0.5 04/16/2012 Normal [facility] HEMATOLOGY Segs-Bands # 2.4 1.5 - 8.1 04/16/2012 Normal [facility] HEMATOLOGY Basophils 0.7 0.0 - 1.0 04/16/2012 Normal [facility] HEMATOLOGY Eosinophils 3.7 0.0 - 4.0 04/16/2012 Normal [facility] HEMATOLOGY Lymphocytes 26.2 20.0 - 40.0 04/16/2012 Normal [facility] HEMATOLOGY Segs 58.0 45.0 - 75.0 04/16/2012 Normal [facility] HEMATOLOGY Monocytes 11.4 2.0 - 12.0 04/16/2012 Normal [facility] HEMATOLOGY Basophils # 0.0 0.0 - 0.2 04/16/2012 Normal [facility] URINALYSIS UA Urobilinogen 0.1 - 1.0 04/16/2012 NA [facility] URINALYSIS UA Color Ltyellow 04/16/2012 NA [facility] URINALYSIS UA Blood Negative (04/15/2012 20:56:15) Negative 04/16/2012 Normal [facility] URINALYSIS UA Bili Negative *NA* (04/15/2012 20:56:15) Negative 04/16/2012 [facility] URINALYSIS UA Sq Epi Occasional /LPF *NA* (04/15/2012 20:56:15) Few 04/16/2012 [facility] URINALYSIS UA Leuk Est Negative (04/15/2012 20:56:15) Negative 04/16/2012 Normal [facility] URINALYSIS UA Nitrite Negative (04/15/2012 20:56:15) Negative 04/16/2012 Normal [facility] URINALYSIS UA Ketones Negative mg/dL *NA* (04/15/2012 20:56:15) Negative 04/16/2012 [facility] URINALYSIS UA Glucose Negative mg/dL *NA* (04/15/2012 20:56:15) Negative 04/16/2012 [facility] URINALYSIS UA Protein Negative mg/dL (04/15/2012 20:56:15) Negative 04/16/2012 Normal [facility] URINALYSIS UA pH 8.0 5.0 - 8.0 04/16/2012 Normal [facility] URINALYSIS UA Spec Grav 1.008 <=1.030 04/16/2012 Normal [facility] URINALYSIS UA Turbidity Clear (04/15/2012 20:56:15) Clear 04/16/2012 Normal [facility] CHEMISTRY Troponin-I <0.02 0.00 - 0.40 04/16/2012 Normal [facility] CHEMISTRY CK MB Index 1.3 0.0 - 2.5 04/15/2012 Normal [facility] CHEMISTRY Troponin-I <0.02 0.00 - 0.40 04/15/2012 Normal [facility] CHEMISTRY CK MB 1.3 0.5 - 3.6 04/15/2012 Normal [facility] CHEMISTRY Total CK 98 12 - 191 04/15/2012 Normal [facility] CHEMISTRY eGFR 88 04/15/2012 NA <sup>3</sup>Result Comment: The eGFR is calculated using the CKD-EPI formula. In most young, healthy individuals the eGFR will be >90 mL/min/1.73m2. The eGFR declines with age. An eGFR of 60-89 may be normal in some populations, particularly the elderly, for whom the CKD-EPI formula has not been extensively validated. Use of the eGFR is not recommended in the following populations:& lt;br/>
Individuals with unstable creatinine concentrations, including patients and those with serious co-morbid conditions.

Patients with extremes in muscle mass or diet.

The data above are obtained from the National Kidney Disease Education Program (NKDEP) which additionally recommends that when the eGFR is used in patients with extremes of body mass index for purposes of drug dosing, the eGFR should be multiplied by the estimated BMI. [facility] CHEMISTRY Globulin 3.4 2.0 - 4.0 04/15/2012 Normal [facility] CHEMISTRY B/C Ratio 13 6 - 25 04/15/2012 Normal [facility] CHEMISTRY A/G Ratio 1.2 0.7 - 1.6 04/15/2012 Normal [facility] CHEMISTRY Alk Phos 147 39 - 136 04/15/2012 HI [facility] CHEMISTRY Albumin Lvl 4.0 3.5 - 5.0 04/15/2012 Normal [facility] CHEMISTRY ALT 40 0 - 65 04/15/2012 Normal [facility] CHEMISTRY AST 32 0 - 37 04/15/2012 Normal [facility] CHEMISTRY Bili Total 0.4 0.2 - 1.3 04/15/2012 Normal [facility] CHEMISTRY AGAP 15.1 10.0 - 20.0 04/15/2012 Normal [facility] CHEMISTRY CO2 27 24 - 32 04/15/2012 Normal [facility] CHEMISTRY Total Protein 7.4 6.4 - 8.4 04/15/2012 Normal [facility] CHEMISTRY Calcium Lvl 8.8 8.5 - 10.5 04/15/2012 Normal [facility] CHEMISTRY Glucose Lvl 78 70 - 99 04/15/2012 Normal <sup>5</sup>Interpretive Data: Adult reference range values reflect the clinical guidelines
of the [place] [employer]. [facility] CHEMISTRY Creatinine Lvl 0.9 0.5 - 1.4 04/15/2012 Normal [facility] CHEMISTRY BUN 12 7 - 22 04/15/2012 Normal [facility] CHEMISTRY Sodium Lvl 146 135 - 145 04/15/2012 [facility] CHEMISTRY Chloride Lvl 108 95 - 109 04/15/2012 Normal [facility] CHEMISTRY Potassium Lvl 4.1 3.5 - 5.1 04/15/2012 Normal [facility] HEMATOLOGY Monocytes 8.4 2.0 - 12.0 04/15/2012 Normal [facility] HEMATOLOGY Segs-Bands # 2.7 1.5 - 8.1 04/15/2012 Normal [facility] HEMATOLOGY Lymphocytes # 1.2 1.0 - 5.5 04/15/2012 Normal [facility] HEMATOLOGY Eosinophils 3.4 0.0 - 4.0 04/15/2012 Normal [facility] HEMATOLOGY Basophils 0.6 0.0 - 1.0 04/15/2012 Normal [facility] HEMATOLOGY Lymphocytes 27.4 20.0 - 40.0 04/15/2012 Normal [facility] HEMATOLOGY Basophils # 0.0 0.0 - 0.2 04/15/2012 Normal [facility] HEMATOLOGY Monocytes # 0.4 0.0 - 0.8 04/15/2012 Normal [facility] HEMATOLOGY Eosinophils # 0.2 0.0 - 0.5 04/15/2012 Normal [facility] HEMATOLOGY Segs 60.2 45.0 - 75.0 04/15/2012 Normal [facility] HEMATOLOGY MCHC 34.0 32.0 - 36.0 04/15/2012 Normal [facility] HEMATOLOGY Platelet 124 133 - 450 04/15/2012 LOW [facility] HEMATOLOGY RDW 13.9 11.5 - 14.5 04/15/2012 Normal [facility] HEMATOLOGY MPV 8.2 7.4 - 10.4 04/15/2012 Normal [facility] HEMATOLOGY MCH 32.6 27.0 - 31.0 04/15/2012 HI [facility] HEMATOLOGY MCV 95.7 80.0 - 94.0 04/15/2012 HI [facility] HEMATOLOGY Hgb 14.9 14.0 - 18.0 04/15/2012 Normal [facility] HEMATOLOGY Hct 43.7 42.0 - 54.0 04/15/2012 Normal [facility] HEMATOLOGY WBC 4.5 3.7 - 10.4 04/15/2012 Normal [facility] HEMATOLOGY RBC 4.57 4.70 - 6.10 04/15/2012 LOW [facility] HEMATOLOGY PT 14.0 12.0 - 14.7 04/15/2012 Normal [facility] HEMATOLOGY PTT 32.1 22.9 - 35.8 04/15/2012 Normal <sup>9</sup>Interpretive Data: Heparin Therapeutic Range: 57 - 92 Seconds [facility] HEMATOLOGY INR 1.06 0.85 - 1.17 04/15/2012 Normal <sup>7</sup>Interpretive Data: RECOMMENDED RANGES FOR PROTIME INR:
2.0-3.0 for most medical and surgical thromboembolic states.
2.5-3.5 for artificial heart valves and recurrent embolism.

INR SHOULD BE USED ONLY FOR PATIENTS ON STABLE ANTICOAGULANT THERAPY. [facility] BEDSIDE GLUCOSE TESTING Gluc POC Lifscn 80 70 - 99 04/15/2012 Normal <sup>1</sup>Interpretive Data: Upper Reportable Limit: 200 mg/dL. [facility] BEDSIDE GLUCOSE TESTING Comment1 Notify RN/MD 04/15/2012 NA [facility] CHEMISTRY Alk Phos 122.0 39 - 136 12/07/2010 Normal [facility] CHEMISTRY AST 22.0 0 - 37 12/07/2010 Normal [facility] CHEMISTRY Bili Total 0.6 0.2 - 1.3 12/07/2010 Normal [facility] CHEMISTRY Chloride Lvl 110.0 95 - 109 12/07/2010 HI [facility] CHEMISTRY Potassium Lvl 4.0 3.5 - 5.1 12/07/2010 Normal [facility] CHEMISTRY CO2 23.0 24 - 32 12/07/2010 LOW [facility] CHEMISTRY BUN 12.0 7 - 22 12/07/2010 Normal [facility] CHEMISTRY Total Protein 6.7 6.4 - 8.4 12/07/2010 Normal [facility] CHEMISTRY Calcium Lvl 8.7 8.5 - 10.5 12/07/2010 Normal [facility] CHEMISTRY ALT 42.0 0 - 65 12/07/2010 Normal [facility] CHEMISTRY Albumin Lvl 3.9 3.5 - 5.0 12/07/2010 Normal [facility] CHEMISTRY Glucose Lvl 81.0 12/07/2010 NA <sup>2</sup>Interpretive Data: Reference Ranges : 0 - 7 days : 41 - 90 mg/dL 7 days - 150 yrs : 70 - 99 mg/dL (fasting), based on the clinical recommendations of the [place] [employer]. [facility] CHEMISTRY Creatinine Lvl 0.8 0.5 - 1.4 12/07/2010 Normal [facility] CHEMISTRY Sodium Lvl 142.0 135 - 145 12/07/2010 Normal [facility] CHEMISTRY AGAP 13.0 10.0 - 20.0 12/07/2010 Normal [facility] CHEMISTRY B/C Ratio 15.0 6 - 25 12/07/2010 Normal [facility] CHEMISTRY A/G Ratio 1.4 0.7 - 1.6 12/07/2010 Normal [facility] CHEMISTRY Globulin 2.8 2.0 - 4.0 12/07/2010 Normal [facility] HEMATOLOGY Basophils # 0.0 0.0 - 0.2 12/07/2010 Normal [facility] HEMATOLOGY Monocytes 10.6 2.0 - 12.0 12/07/2010 Normal [facility] HEMATOLOGY Lymphocytes 23.4 20.0 - 40.0 12/07/2010 Normal [facility] HEMATOLOGY Eosinophils 6.4 0.0 - 4.0 12/07/2010 HI [facility] HEMATOLOGY Segs 58.9 45.0 - 75.0 12/07/2010 Normal [facility] HEMATOLOGY Eosinophils # 0.3 0.0 - 0.5 12/07/2010 Normal [facility] HEMATOLOGY Monocytes # 0.5 0.0 - 0.8 12/07/2010 Normal [facility] HEMATOLOGY Basophils 0.7 0.0 - 1.0 12/07/2010 Normal [facility] HEMATOLOGY Lymphocytes # 1.0 1.0 - 5.5 12/07/2010 Normal [facility] HEMATOLOGY Segs-Bands # 2.5 1.5 - 8.1 12/07/2010 Normal [facility] HEMATOLOGY PTT 33.2 22.9 - 35.8 12/07/2010 Normal <sup>4</sup>Interpretive Data: Heparin Therapeutic Range: 57 - 92 Seconds [facility] HEMATOLOGY PT 14.9 12.0 - 14.7 12/07/2010 HI [facility] HEMATOLOGY INR 1.17 0.85 - 1.17 12/07/2010 Normal <sup>3</sup>Interpretive Data: RECOMMENDED RANGES FOR PROTIME INR: 2.0-3.0 for most medical and surgical thromboembolic states. 2.5-3.5 for artificial heart valves and recurrent embolism. INR SHOULD BE USED ONLY FOR PATIENTS ON STABLE ANTICOAGULANT THERAPY. [facility] HEMATOLOGY RBC 3.96 4.70 - 6.10 12/07/2010 LOW [facility] HEMATOLOGY Hct 37.6 42.0 - 54.0 12/07/2010 LOW [facility] HEMATOLOGY MCV 95.0 80.0 - 94.0 12/07/2010 HI [facility] HEMATOLOGY WBC 4.3 3.7 - 10.4 12/07/2010 Normal [facility] HEMATOLOGY Hgb 13.4 14.0 - 18.0 12/07/2010 LOW [facility] HEMATOLOGY MCH 34.0 27.0 - 31.0 12/07/2010 HI [facility] HEMATOLOGY MCHC 35.7 32.0 - 36.0 12/07/2010 Normal [facility] HEMATOLOGY RDW 12.9 11.5 - 14.5 12/07/2010 Normal [facility] HEMATOLOGY Platelet 133.0 133 - 450 12/07/2010 Normal [facility] HEMATOLOGY MPV 8.6 7.4 - 10.4 12/07/2010 Normal [facility] URINALYSIS UA Bili Small 1 *ABN* (12/07/2010 16:09:00) ?? >Negative 12/07/2010 ABN <sup>1</sup>Result Comment: Confirmed by [employer]. [facility] URINALYSIS UA Ketones Trace *ABN* (12/07/2010 16:09:00) ?? >Negative 12/07/2010 ABN [facility] URINALYSIS UA pH 6.0 5.0 - 8.0 12/07/2010 Normal [facility] URINALYSIS UA Glucose Negative (12/07/2010 16:09:00) ?? >Negative 12/07/2010 Normal [facility] URINALYSIS UA Protein >=300 mg/dL *ABN* (12/07/2010 16:09:00) ?? >Negative 12/07/2010 ABN [facility] URINALYSIS UA Color Red *ABN* (12/07/2010 16:09:00) ?? >Yellow 12/07/2010 [facility]N [facility] URINALYSIS UA Turbidity Cloudy *ABN* (12/07/2010 16:09:00) ?? >Clear 12/07/2010 ABN [facility] URINALYSIS UA Spec Grav >=1.030 *ABN* (12/07/2010 16:09:00) ?? <<=1.030 12/07/2010 ABN [facility] URINALYSIS UA Urobilinogen 0.2 0.1 - 1.0 12/07/2010 Normal [facility] URINALYSIS UA Blood Large *ABN* (12/07/2010 16:09:00) ?? >Negative 12/07/2010 ABN [facility] URINALYSIS UA Leuk Est Small *ABN* (12/07/2010 16:09:00) ?? >Negative 12/07/2010 ABN [facility] URINALYSIS UA Nitrite Negative (12/07/2010 16:09:00) ?? >Negative 12/07/2010 Normal [facility] URINALYSIS UA RBC Packed *ABN* (12/07/2010 16:09:00) ?? >0 - 2 12/07/2010 ABN [facility] URINALYSIS UA Bacteria Few /HPF (12/07/2010 16:09:00) ?? >None Seen 12/07/2010 Normal [facility] URINALYSIS UA Sq Epi Few /LPF (12/07/2010 16:09:00) ?? >Few 12/07/2010 Normal [facility] URINALYSIS UA WBC 21-50 /HPF *ABN* (12/07/2010 16:09:00) ?? >None Seen 12/07/2010 [facility] Microbiology Culture: Urine 12/07/2010 [facility] Pathology Reports No Data Provided for This Section Diagnostic Reports Report Value Date Source Chest wo contrast CT Study: Chest wo contrast CT Clinical Indication: ct dlp-313.79 - fall, bilateral rib pain Comparison: None TECHNIQUE: Multiple axial CT images of the chest were acquired without the administration of intravenous contrast. Coronal and sagittal reconstructions were obtained. Dose: CYA=373.79 mGy-cm FINDINGS: Heart is normal in size. Pericardium is unremarkable. Aortic annular, coronary artery, and aortic arch calcifications are seen. Calcified subcarinal and right hilar lymph nodes are noted. No pathologic mediastinal, hilar, or axillary adenopathy is seen. No endobronchial lesions are identified within the central airways. Mild bibasilar atelectasis is seen. Calcified granuloma in the right lower lobe is present. No pleural effusion or pneumothorax is seen. Acute, nondisplaced right anterior 5th through 8th rib fractures are seen. Please refer to report from CT of the abdomen and pelvis performed the same day for complete subdiaphragmatic findings. IMPRESSION: 1. Acute, nondisplaced right anterior 5th through 8th rib fractures. 2. Mild bibasilar atelectasis. SL: [facility] – [place], [place]- 02/07/2017 [facility] ED Abdomen/Pelvis IV contrast only CT Study: ED Abdomen/Pelvis IV contrast only CT Clinical Indication: 100ml omnipaque, ct dlp-2223.16 - pain s/p fall with fever Comparison: CT abdomen and pelvis from 03/16/2016 TECHNIQUE: Multiple axial CT images of the abdomen and pelvis were acquired following the administration of intravenous contrast. Sagittal and coronal reformatted images were performed. CT Radiation Dose DLP 2223.16 mGy-cm FINDINGS: Limited views of the lung bases show mild bibasilar atelectasis. Calcified granuloma in the right lower lobe is present. The liver is cirrhotic in morphology with a nodular contour. Patient is status post cholecystectomy. Pancreas, spleen, and adrenal glands are unremarkable. Multiple 1 mm and 2 mm calyceal stones throughout the bilateral kidneys are noted. No intrahepatic or extrahepatic biliary duct dilatation is seen. Urinary bladder and prostate are unremarkable. Scattered diverticula throughout the sigmoid and descending colon are seen without inflammatory change to suggest acute diverticulitis. The appendix is unremarkable. No free air, free fluid, or pathologic adenopathy is seen. Mild arterial calcifications are seen. Esophageal varices are noted. Degenerative changes of the lower lumbar spine are seen. Superficial soft tissues are unremarkable. IMPRESSION: 1. No acute intra-abdominal/pelvic abnormality. 2. Nonobstructive bilateral nephrolithiasis. 3. Cirrhotic morphology of the liver. [place] [facility] [place] [facility] Spine cervical wo contrast CT Study: Spine cervical wo contrast CT Clinical Indication: ct dlp-1126.77 - pain s/p fall Comparison: None Technique: Multiple axial CT images of the cervical spine were performed without the administration of intravenous contrast. Coronal and sagittal reconstructions were obtained. CT Radiation Dose DLP 2108.46 mGy-cm FINDINGS: No acute bony fracture is seen. Grade 1 retrolisthesis of C5 over C6 by 3 mm is seen. 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 Moderate-severe multilevel degenerative disc disease from C3-C4 through C5-C6 is seen. Moderate-severe degenerative disc disease at C7-T1 is also noted. Mild left neural foraminal narrowing at C3-C4 is seen. Mild right neural foraminal narrowing at C4-C5 is seen. Spinal canal stenosis with moderate-severe bilateral neural foraminal narrowing, left greater than right, at C5-C6 is noted. Moderate-severe bilateral neural foraminal narrowing, right greater than left, at C7-T1 is seen. Paravertebral soft tissues are unremarkable. The lung apices are clear. IMPRESSION: 1. No acute bony abnormality of the cervical spine. SL: [facility] 02/07/2017 [facility] wo contrast CT The images of this study were reviewed, and I agree with the report provided. Clinical Indication: Head pain status post fall. Comparison: CT head without contrast dated 07/14/2015 and dating back to 04/15/2012. TECHNIQUE: CT images were obtained from the foramen magnum to the vertex without the use of intravenous contrast on a multidetector CT. CT imaging was performed with exposure control parameters to reduce radiation dose. Coronal and sagittal reconstructions were obtained. CT radiation dose DLP: 2108.46 mGy-cm Some motion artifact is seen, which limits assessment. FINDINGS: BRAIN PARENCHYMA: There is generalized brain parenchymal atrophy related to the patient's age. Minimal nonspecific periventricular white matter disease changes. No focal mass lesions on this noncontrast head CT. Some unchanged nonspecific tiny scattered bilateral frontal calcifications are seen. These are nonspecific, but can be seen with cysticercosis. No mass effect, midline shift or edema. There are no intra-axial or extra-axial fluid collections, intraventricular or intraparenchymal hemorrhage. No low attenuation demarcating areas on this non-contrast CT to suggest subacute stroke. The pineal, sellar, brainstem, cerebellum and skull base regions appear unremarkable. Atherosclerotic calcifications are present within the carotid siphons and distal vertebral arteries. VENTRICLES: The lateral ventricles, third and fourth ventricles appear unremarkable. The basilar cisterns are normal. ORBITS, MASTOIDS AND PARANASAL SINUSES: The visualized orbits are unremarkable. The visualized paranasal sinuses are unremarkable. The mastoid air cells are clear. SKULL: There are no osseous abnormalities. If there is further concern for intracranial pathology or acute stroke, MRI of the brain may be performed for complete assessment. IMPRESSION: 1. No acute intracranial abnormality. 2. Generalized brain parenchymal atrophy, related to the patient's age. Associated periventricular white matter/small vessel disease related changes. No noncontrast CT evidence of mass, hemorrhage or subacute stroke. Some unchanged tiny nonspecific scattered bilateral frontal parenchymal calcifications. SL: [place] 02/07/2017 [facility] Ribs bilateral w PA chest DX 7 VIEWS BILATERAL RIBS INCLUDING PA CHEST X-RAY INDICATION: Patient fell. Chest pain. COMPARISON: 10/25/2015 chest x-ray. The lungs are clear. No pleural abnormality. Cardiomediastinal silhouette normal. Apparent fracture anterior aspect of the right seventh through ninth ribs near the costochondral junction. Remainder the bony ribs are intact. IMPRESSION: Fracture anteriorly right seventh through ninth ribs near the costochondral junction. Otherwise normal exam. END REPORT SL: [id number] 02/07/2017 [facility] Elbow 3 views DX 3 VIEWS OF THE RIGHT ELBOW HISTORY: Right elbow pain. Patient fell yesterday. COMPARISON: No priors available. Bony structures of the elbow are intact. No fracture or dislocation. Adjacent soft tissues normal. IMPRESSION: Normal exam. END REPORT SL: [id number] 02/07/2017 [facility] Humerus 2 views DX AP LATERAL VIEWS OF THE RIGHT HUMERUS HISTORY: Patient fell. Right arm pain. COMPARISON: No priors available. The bony humerus is intact, no fracture. No cortical destruction or periosteal reaction. Adjacent soft tissues normal. IMPRESSION: Normal exam. END REPORT SL: [id number] 02/07/2017 [facility] Shoulder series DX 3 VIEW RIGHT SHOULDER HISTORY: Patient fell. Right upper extremity and shoulder pain. COMPARISON: No priors available. Bony structures of the shoulder are intact. No fracture or dislocation. Subacromial space normal. Adjacent right ribs and clavicle intact. IMPRESSION: Normal exam. END REPORT SL: [id number] 02/07/2017 [facility] Hand 3 views DX Radiographs of the RIGHT hand Clinical Indication: - pain s/p fall. Comparison: None. Technique: 3 views of the hand. FINDINGS: There is no acute fracture or dislocation. There is no significant soft tissue swelling. There is no radiopaque foreign body. The joint spaces appear preserved. If there is persistent clinical concern, CT or MRI can be obtained for further evaluation. IMPRESSION: No definitive displaced fractures. SL: [id number] 02/07/2017 [facility] Abdomen/Pelvis wo IV contrast CT RENAL STONE PROTOCOL CT ABDOMEN AND PELVIS WITHOUT CONTRAST DATED 03/16/2016. CLINICAL INDICATION: Acute abdominal pain. Concern for renal stone. COMPARISON: CT abdomen dated 01/14/2015 TECHNIQUE: A renal stone protocol CT of the abdomen and pelvis was performed using helical images from the upper abdomen through the pubic symphysis without bowel or intravenous contrast. Axial and coronal reformations were performed. CT radiation dose: SCK=8785 mGy-cm FINDINGS: RENAL: Multiple bilateral calcified renal stones are identified. There is no CT evidence of acute renal collecting system obstruction or calcified ureteral stone. The kidneys appear normal in size and contour. Nonspecific stranding is noted in the perinephric fat. SOLID ORGANS: The liver demonstrates surface lobularity with relative hypertrophy of the left hepatic lobe, suggesting cirrhosis. The spleen is enlarged with a greatest craniocaudal span of [address] abnormalities of the pancreas or adrenal glands are noted. The patient is status post cholecystectomy. No significant biliary ductal dilatation is identified. BOWEL: Bowel assessment is limited by the absence of bowel contrast. Several diverticula of the distal descending and sigmoid colon are noted without CT evidence of acute diverticulitis. No intestinal dilatation is identified to suggest obstruction. The appendix is identified and does not appear acutely inflamed. PERITONEUM: There is no CT evidence of free intraperitoneal air or significant free intraperitoneal fluid. RETROPERITONEUM: The abdominal aorta is normal in caliber. No enlarged retroperitoneal lymph nodes are detected. PELVIS: Bladder assessment is limited due to the presence of a Wilburn catheter. LOWER CHEST: Atelectasis is identified in the dependent portions of both lower lobes. The noncalcified nodule in the right lower lobe (series 2, image 7) is stable when compared to the preceding exam. IMPRESSION: 1. Bilateral nephrolithiasis. No CT evidence of acute renal collecting system obstruction or calcified ureteral stone. 2. CT findings compatible with cirrhosis of the liver. The associated finding of mild splenomegaly may indicate portal hypertension. No significant ascites is identified. 3. Mild diverticulosis without CT evidence of acute diverticulitis. SL:131 03/16/2016 [facility] Cardiac SPECT multi studies [place] Cardiac SPECT multi studies [place] CLINICAL HISTORY: Chest pain; TECHNIQUE: 30 mCis of Technetium 99m Cardiolite were administered for the stress portion of the examination and 10 mCis for the resting study. The patient was given 0.4 mg of IV Lexiscan for the stress portion of the study FINDINGS: The SPECT images demonstrate mild reversibility in the septum of the left ventricle. Small fixed defect is noted in the inferior wall of left ventricle. CARDIAC PERFUSION STUDY: FINDINGS: The gated examination demonstrates no significant focal wall motion abnormality. The end-diastolic volume is estimated at 119 ml with end-systolic volume at 48 ml. The ejection fraction is calculated at 60 % . IMPRESSION: Mild reversibility in the septum of left ventricle is suggestive of stress- induced ischemia. Small fixed defect, inferior wall of left ventricle. SL: [id number] 10/27/2015 [facility] Chest 1view DX Study: Chest 1view DX Clinical Indication: Chest pain Comparison: Chest x-ray from 01/27/2014 FINDINGS: The cardiac silhouette is normal in size. The lungs are clear and without consolidation or congestion. Mild left basilar scarring is stable. No pleural effusion or pneumothorax is seen. The osseous structures are unremarkable. IMPRESSION: No acute cardiopulmonary disease. SL: [id number] 10/25/2015 [facility] Brain wo contrast CT Patient Name: ANNE GRANDA : 1945; Age: 70 years Male MR: [id number] Study: Brain wo contrast CT 07/14/2015 8:10 PM CDT Clinical Indication: Vertigo. Headache for one day, took Tylenol without relief, had similar episode earlier this week, denies trauma or injury COMPARISON: 01/27/2014. TECHNIQUE: CT images were obtained from the foramen magnum to the vertex without the use of intravenous contrast on a multidetector CT. Coronal and sagittal reconstructions were obtained. FINDINGS: BRAIN PARENCHYMA: There is generalized brain parenchymal atrophy related to the patient's age. Nonspecific periventricular white matter disease changes are noted. Atherosclerotic calcifications are present within the carotid siphons and distal vertebral arteries. There are no focal mass lesions on this noncontrast head CT. There is no mass effect, midline shift or edema. There are no intra-ax ial or extra-axial fluid collections. There is no intraventricular or intraparenchymal hemorrhage. There is no noncontrast CT evidence of a subacute stroke. The pineal, sellar, brainstem, cerebellum and skull base regions appear normal. Stable multiple dystrophic calcifications. VENTRICLES: The lateral ventricles, third and fourth ventricles appear normal. The basilar cisterns are normal. ORBITS, MASTOIDS AND PARANASAL SINUSES: The visualized orbits are normal. The visualized paranasal sinuses are normal. The mastoid air cells are clear. SKULL: There are no calvarial abnormalities seen. If there is further concern for intracranial pathology or acute stroke, MRI of the brain may be performed for complete assessment. IMPRESSION: 1. Chronic age-related and small vessel ischemic changes without mass, hemorrhage or subacute stroke. 2. Stable dystrophic calcifications which may be seen with neurocysticercosis. SL: [id number] 07/14/2015 [facility] Abdomen RUQ US Right upper quadrant ultrasound. Clinical History: Abdominal pain, acute Comparison: CT of the abdomen and pelvis from 01/14/2015 Findings: Transverse and longitudinal imaging of the right upper quadrant. The liver shows a coarse echotexture with a nodular contour, compatible with cirrhotic morphology, measuring 12.8 cm. The gallbladder is not well-visualized on this exam. The bile duct is also not well-visualized. No free fluid in Nino's pouch. Right kidney is normal in appearance without mass, hydronephrosis, or stone measuring 11.6 x 6.4 x 3.6 cm. The pancreas is not well-visualized on this exam. The main portal vein diameter is 7.8 mm, with hepatopedal flow. Impression: 1. Cirrhotic morphology of the liver. 2. Nonvisualization of the gallbladder and common bile duct. SL: 16 01/14/2015 [facility] ED Abdomen/Pelvis IV contrast only CT CT SCAN OF THE ABDOMEN AND PELVIS WITH CONTRAST. HX: Abdominal pain, acute COMPARISON: 12/07/2010 Technique: Helical CT images from domes of the diaphragms to symphysis pubis following 100 cc Omnipaque nonionic iodinated intravenous contrast. Dose: FCQ=9010 mGy-cm. ABDOMEN: The lung bases are clear. There are changes in the liver suspicious for cirrhosis. The gallbladder is contracted with gallstones in the gallbladder neck. The pancreas is grossly normal. The spleen is mildly prominent. Views of the kidney show no hydronephrosis . Bilateral nonobstructive nephrolithiasis is suspected. The bowel is normal in course and caliber. The appendix is partially visualized and is within normal limits. No free fluid or free air is noted in the peritoneal cavity. No pathologic distention of bowel. ABDOMEN CONCLUSION: 1. Cholelithiasis with stones in the gallbladder neck. 2. Cirrhosis. 3. Nonobstructive nephrolithiasis with small stones bilaterally. PELVIS: The bladder contour is smooth. There is no evidence of free fluid in the pelvis. The visualized osseous structures are grossly normal. No hernia is identified. There are some central calcifications in the prostate gland. PELVIS CONCLUSION: No acute abnormality noted. SL: 13 01/14/2015 [facility] Chest 2 views Chest 2 views. COMPARISON: 03/13/2013. FINDINGS: Minimal scarring left lung base. The lungs are otherwise clear and well inflated. There are no effusions or other pleural abnormalities. The cardiomediastinal silhouette and the pulmonary vasculature are within normal limits. No significant bony abnormality is noted. IMPRESSION: No acute abnormality is noted in the chest. SL:13 01/27/2014 [facility] Brain wo contrast CT CRANIAL CT (without contrast) HISTORY: Headache, dizziness, and giddiness. TECHNIQUE: Helical CT images were obtained from the foramen magnum to the vertex without the use of intravenous contrast. Comparison is made to 04/15/2013. FINDINGS: There is mild age-appropriate atrophy. There is otherwise normal appearance of the ventricular system and extraventricular CSF spaces. There is no evidence of mass, midline shift, hemorrhage, extra-axial fluid collection, acute infarction, or other focal abnormal attenuation within the brain parenchyma. As previously noted, there are numerous punctate calcifications throughout the brain probably the result of prior neurocysticercosis. The calvarium is intact. The visualized sinuses and mastoids are clear. CONCLUSION: 1. Acute or focal intracranial process. 2. Small intracranial calcifications, probable sequela of prior neurocysticercosis. 3. Mild atrophy. Coding: Brain wo contrast CT CPT Code: 77016 SL: 13 Tom Porter M.D. 01/27/2014 [facility] Carotid artery Doppler bilat US BILATERAL CAROTID ULTRASOUND: HISTORY: CVA. PROCEDURE: Triplex Doppler evaluation of the cervical carotid and vertebral arteries was done. Stenosis estimates are based on Consensus Panel Criteria. FINDINGS: There is mild echogenic plaque in the carotid bulbs. The peak systolic velocity in the right internal carotid artery is 80 cm/sec, with a right systolic velocity ratio of 0.8. The peak systolic velocity in the left internal carotid artery is 68 cm/sec, with a left systolic velocity ratio of 0.8. Antegrade flow is demonstrated in the vertebral arteries. IMPRESSION: No evidence of significant carotid stenosis. SL:13 01/27/2014 [facility] Chest 1view PROCEDURE: Chest 1view REASON FOR EXAM: See Clinic Indication CLINICAL INDICATION: Chest pain COMPARISON: 04/15/2012. FINDINGS: No acute process. No focal consolidation, pleural effusion, or pneumothorax. Stable cardiac silhouette and mediastinum. SL: 12 03/13/2013 [facility] Consultation Notes No Data Provided for This Section Discharge Summaries No Data Provided for This Section History and Physicals No Data Provided for This Section Vital Signs Vital Sign Value Date Comments Source Systolic (mm Hg) 146 02/08/2017 [facility] Diastolic (mm Hg) 83 02/08/2017 [facility] Respitory Rate 18 02/08/2017 [facility] Heart Rate 97 02/08/2017 [facility] Temperature Oral (F) 97.5 F 02/08/2017 [facility] Systolic (mm Hg) 154 02/08/2017 [facility] Diastolic (mm Hg) 88 02/08/2017 [facility] Respitory Rate 18 02/08/2017 [facility] Heart Rate 83 02/08/2017 [facility] Temperature Oral (F) 97.9 F 02/08/2017 [facility] Respitory Rate 18 02/08/2017 [facility] Systolic (mm Hg) 153 02/08/2017 [facility] Diastolic (mm Hg) 95 02/08/2017 [facility] Heart Rate 87 02/08/2017 [facility] Temperature Oral (F) 97.9 F 02/08/2017 [facility] Height 182.88 cm 02/08/2017 [facility] Weight 125 02/08/2017 [facility] BMI Calculated 37.37 02/08/2017 [facility] BMI Calculated 33.98 02/07/2017 [facility] Weight 113.636 02/07/2017 [facility] Height 182.88 cm 02/07/2017 [facility] Heart Rate 66 03/17/2016 [facility] Respitory Rate 17 03/17/2016 [facility] Systolic (mm Hg) 119 03/17/2016 [facility] Diastolic (mm Hg) 73 03/17/2016 [facility] Temperature Oral (F) 98.3 F 03/17/2016 [facility] Temperature Oral (F) 98.6 F 03/17/2016 [facility] Heart Rate 81 03/17/2016 [facility] Respitory Rate 18 03/17/2016 [facility] Systolic (mm Hg) 131 03/17/2016 [facility] Diastolic (mm Hg) 78 03/17/2016 [facility] Systolic (mm Hg) 146 03/17/2016 [facility] Diastolic (mm Hg) 89 03/17/2016 [facility] Temperature Oral (F) 99.4 F 03/17/2016 [facility] Respitory Rate 20 03/17/2016 [facility] Heart Rate 107 03/17/2016 [facility] Weight 117.273 03/16/2016 [facility] BMI Calculated 35.06 03/16/2016 [facility] Height 182.88 cm 03/16/2016 [facility] Weight 117.273 03/16/2016 [facility] BMI Calculated 32.32 03/16/2016 [facility] Height 190.5 cm 03/16/2016 [facility] Systolic (mm Hg) 119 10/27/2015 [facility] Diastolic (mm Hg) 74 10/27/2015 [facility] Temperature Oral (F) 97.7 F 10/27/2015 [facility] Heart Rate 61 10/27/2015 [facility] Respitory Rate 18 10/27/2015 [facility] Temperature Oral (F) 98.3 F 10/27/2015 [facility] Heart Rate 58 10/27/2015 [facility] Systolic (mm Hg) 120 10/27/2015 [facility] Diastolic (mm Hg) 78 10/27/2015 [facility] Respitory Rate 18 10/27/2015 [facility] Respitory Rate 18 10/27/2015 [facility] Systolic (mm Hg) 106 10/27/2015 [facility] Diastolic (mm Hg) 69 10/27/2015 [facility] Heart Rate 66 10/27/2015 [facility] Temperature Oral (F) 98.3 F 10/27/2015 [facility] BMI Calculated 35.77 10/26/2015 [facility] Weight 119.631 10/26/2015 [facility] Height 182.88 cm 10/26/2015 [facility] Weight 118.182 10/25/2015 [facility] Height 182.88 cm 10/25/2015 [facility] BMI Calculated 35.34 10/25/2015 [facility] Respitory Rate 24 07/15/2015 [facility] Temperature Oral (F) 98.2 F 07/15/2015 [facility] Respitory Rate 24 07/15/2015 [facility] Systolic (mm Hg) 111 07/15/2015 [facility] Diastolic (mm Hg) 60 07/15/2015 [facility] Respitory Rate 29 07/15/2015 [facility] Systolic (mm Hg) 122 07/15/2015 [facility] Diastolic (mm Hg) 57 07/15/2015 [facility] Systolic (mm Hg) 128 07/15/2015 [facility] Diastolic (mm Hg) 67 07/15/2015 [facility] Weight 109.091 07/15/2015 [facility] BMI Calculated 32.62 07/15/2015 [facility] Height 182.88 cm 07/15/2015 [facility] Heart Rate 64 07/15/2015 [facility] Temperature Oral (F) 98.1 F 07/15/2015 [facility] Systolic (mm Hg) 145 01/17/2015 [facility] Diastolic (mm Hg) 86 01/17/2015 [facility] Respitory Rate 18 01/17/2015 [facility] Heart Rate 91 01/17/2015 [facility] Temperature Oral (F) 97.5 F 01/17/2015 [facility] Rate 16 01/17/2015 [facility] Systolic (mm Hg) 127 01/17/2015 [facility] Diastolic (mm Hg) 80 01/17/2015 [facility] Temperature Oral (F) 98.1 F 01/17/2015 [facility] Heart Rate 90 01/17/2015 [facility] Systolic (mm Hg) 135 01/17/2015 [facility] Diastolic (mm Hg) 79 01/17/2015 [facility] Respitory Rate 16 01/17/2015 [facility] Heart Rate 82 01/17/2015 [facility] Temperature Oral (F) 98.5 F 01/17/2015 [facility] Height 182.88 cm 01/14/2015 [facility] Weight 105.455 01/14/2015 [facility] BMI Calculated 31.53 01/14/2015 [facility] Heart Rate 77 01/28/2014 [facility] Temperature Oral (F) 98.1 F 01/28/2014 [facility] Diastolic (mm Hg) 64 01/28/2014 [facility] Systolic (mm Hg) 103 01/28/2014 [facility] Respitory Rate 16 01/28/2014 [facility] Temperature Oral (F) 97.8 F 01/28/2014 [facility] Heart Rate 90 01/28/2014 [facility] Respitory Rate 16 01/28/2014 [facility] Diastolic (mm Hg) 70 01/28/2014 [facility] Systolic (mm Hg) 108 01/28/2014 [facility] Diastolic (mm Hg) 80 01/28/2014 [facility] Systolic (mm Hg) 120 01/28/2014 [facility] Respitory Rate 16 01/28/2014 [facility] Temperature Oral (F) 97.9 F 01/28/2014 [facility] Heart Rate 80 01/28/2014 [facility] Weight 107.727 01/28/2014 [facility] BMI Calculated 32.21 01/28/2014 [facility] Height 182.88 cm 01/28/2014 [facility] Height 182.88 cm 01/27/2014 [facility] BMI Calculated 32.21 01/27/2014 [facility] Weight 107.727 01/27/2014 [facility] Diastolic (mm Hg) 72 03/14/2013 [facility] Heart Rate 51 03/14/2013 [facility] Respitory Rate 18 03/14/2013 [facility] Systolic (mm Hg) 119 03/14/2013 [facility] Temperature Oral (F) 97.6 F 03/14/2013 [facility] Heart Rate 69 03/14/2013 [facility] Respitory Rate 18 03/14/2013 [facility] Systolic (mm Hg) 96 03/14/2013 [facility] Diastolic (mm Hg) 62 03/14/2013 [facility] Temperature Oral (F) 97.6 F 03/14/2013 [facility] Resp[facility] Rate 16 03/14/2013 [facility] Heart Rate 51 03/14/2013 [facility] Temperature Oral (F) 97.4 F 03/14/2013 [facility] Diastolic (mm Hg) 64 03/14/2013 [facility] Systolic (mm Hg) 104 03/14/2013 [facility] Weight 110.909 03/14/2013 [facility] Height 182.88 cm 03/14/2013 [facility] Weight 110.909 03/13/2013 [facility] Height 182.88 cm 03/13/2013 [facility] Systolic (mm Hg) 124 04/17/2012 [facility] Diastolic (mm Hg) 78 04/17/2012 [facility] Heart Rate 89 04/17/2012 [facility] Respitory Rate 20 04/17/2012 [facility] Temperature Oral (F) 98.1 F 04/17/2012 [facility] Diastolic (mm Hg) 71 04/17/2012 [facility] Systolic (mm Hg) 115 04/17/2012 [facility] Temperature Oral (F) 97.8 F 04/17/2012 [facility] Heart Rate 72 04/17/2012 [facility] Respitory Rate 18 04/17/2012 [facility] Systolic (mm Hg) 103 04/17/2012 [facility] Resp[facility] Rate 18 04/17/2012 [facility] Heart Rate 75 04/17/2012 [facility] Diastolic (mm Hg) 64 04/17/2012 [facility] Temperature Oral (F) 97.6 F 04/17/2012 [facility] Height 182.88 cm 04/16/2012 [facility] Weight 106.364 04/16/2012 [facility] Height 182.88 cm 04/15/2012 [facility] Weight 100 04/15/2012 [facility] Diastolic (mm Hg) 71.0 12/08/2010 [facility] Temperature Oral (F) 98.6 F 12/08/2010 [facility] Heart Rate 88.0 12/08/2010 [facility] Respitory Rate 20.0 12/08/2010 [facility] Systolic (mm Hg) 121.0 12/08/2010 [facility] Diastolic (mm Hg) 65.0 12/07/2010 [facility] Systolic (mm Hg) 110.0 12/07/2010 [facility] Respitory Rate 18.0 12/07/2010 [facility] Heart Rate 75.0 12/07/2010 [facility] Weight 114.091 12/07/2010 [facility] Height 182.88 cm 12/07/2010 [facility] Temperature Oral (F) 98.1 F 12/07/2010 [facility] Heart Rate 92.0 12/07/2010 [facility] Respitory Rate 20.0 12/07/2010 [facility] Diastolic (mm Hg) 77.0 12/07/2010 [facility] Systolic (mm Hg) 127.0 12/07/2010 [facility] Encounters Location Location Details Encounter Type Encounter Number Reason For Visit Attending Provider ADM Date DC Date Status Source [facility] Emergency [id number] URINATION PROBLEMS MARIANO CESTA 12/07/2010 12/07/2010 Active [facility] Emergency [id number] SUJATHA OROZCO 06/01/2011 06/02/2011 Discharged [facility] OU [id number] NIKOLAI TERMINELLA 04/15/2012 04/17/2012 Discharged [facility] OU [id number] EXERTIONAL CHEST PAIN LUIS A TIRADO 03/13/2013 03/14/2013 Active [facility] OBS Observation Patient [id number] Nikolai Terminella 01/27/2014 01/28/2014 [facility] OBS Observation Patient [id number] Tai Albustami 01/14/2015 01/17/2015 [facility] [id number] Martin Briones 07/15/2015 07/15/2015 [facility] Observation [id number] Tai Albustami 10/25/2015 10/27/2015 [facility] Observation [id number] Jeff Garza 03/16/2016 03/17/2016 [facility] Observation [id number] Manuel Baez 02/07/2017 02/08/2017 [facility] Procedures Procedure Code Date Perfomer Comments Source Back fusion [id number] 02/24/1983 [facility] Back fusion [id number] 02/24/1983 [facility] Lithotripsy [id number] [facility] Cholecystectomy [id number] [facility] Fusion of lumbar spine [id number] [facility] Assessment and Plan Assessment and Plan Date Source Extracted from:Title: Trauma Admission H&P Author: Manuel Baez MD Date: 02/08/17 Impression and Plan Diagnosis Fall from standing (LMT43-CX W19.XXXA, Working, Medical). Closed fracture of multiple ribs ([id number] S22.49XA, Working, Medical). Orders Discussed known rib injuries and treatment/recovery expectations. Discussed risk reduction and responsible alcohol use. Will DC home with prescription for pain medication, instructions for deep breathing exercises, and office contact info for follow-up. 02/08/2017 [facility] Extracted from:Title: Discharge Summary * Author: Jeff Garza MD Date: 03/17/16 Discharge Information Disposition to home condition is stable Medications: See med reconciliation form Discharge Plan Follow-up with your primary care physician in the 1 week Follow-up with urologist this week In the event of any worsening symptoms patient advised to come back to the ED Discharge summary took greater than 35 minutes Extracted from:Title: Clinical Document Author: Jeff Garza MD Date: 03/16/16 Patient was seen and evaluated by the night physician and a full H&P has been dictated. Patient was admitted due to having excruciating prostate pain in which urology evaluated and likely prostatitis. Per urology recommended oral Levaquin for 1 month and to DC the Wilburn and discharge home. Patient still has decreased urine output even on IV fluids. His creatinine is normal this is likely secondary to postobstructive etiology from his BPH. Vital signs stable Labs: Creatinine is normal, CMP normal, CBC normal BPH with underlying prostatitisIV antibiotics, Wilburn removed, monitor urine output, bladder scans, continue Flomax and finasteride Hypertensionstable, continue same meds Monitor overnight for urine output, if no output and positive urine per bladder scan will insert Wilburn discharge home with the Wilburn and follow-up with his outpatient urologist. Urology here signed off. Addendum by Jeff Garza MD on 03/16/2016 19:14 Patient has significant dehydration leading to underlying decreased urine outputhas normal kidney function, normal saline bolus 1 L, continue with normal saline maintenance at 150 cc an hour, encourage oral hydration 03/17/2016 [facility] Extracted from:Title: Clinical Document Author: Anastasia Joslyn Date: 10/27/15 CARDIOLOGY NOTE ATTENDING PHYSICIAN:Dr. Bowen. PRIMARY CARE PHYSICIAN:Dr. Karl Magallanes. DATE OF :1945 - 70 years of age. SUBJECTIVE BETTER SEEN IN STRESS LAB NO PROBLEMS WITH LEXISCAN STRESS NO CP OCCAS PVC PHYSICAL EXAMINATION: GENERAL: He is alert, oriented x 3. He is kind of a quasi-good historian. He did not really remember coming in 2013. Then, when I said a few things, he did remember who I was and that I was a heart doctor at that time, he said no, we did not do a stress test and I checked it up and we did not. LUNGS: Clear to auscultation and percussion. CARDIAC: Regular rate and rhythm without S3, S4 or murmur. ABDOMEN: Obese and bowel sounds are audible. EXTREMITIES: Intact with trace edema. A/P WI RULED OUT BY ENZYMES ESS NEGATIVE LEXISCAN STRESS ONLY SMALL <5% REVERSIBLE DEFECT IN THE DISTAL SEPTAL APEX ONLY SEEN ON BULLSEYE PROBABLY ARTIFACT Two types of chest pain, costochondritis ?exertional angina. obstructive sleep apnea bipolar HX KIDNEY STONES NORMAL LV SYSTOLIC AND DIASTOLIC FUNCTION. EF 64% PLAN OKAY TO DC ON ASA and STATIN OBJECTIVE ECHO 10/26/2015 1) NORMAL LV SYSTOLIC AND DIASTOLIC FUNCTION. 2) EJECTION FRACTION 64% WITH NORMAL WALL MOTION. 3) MILDLY DILATED LEFT ATRIUM. 4) TRACE MITRAL VALVE INSUFFICIENCY. 5) MILD TRICUSPID VALVE INSUFFICIENY. 6) NO VALVULAR STENOSIS. 7) NORMAL PASP=34.72 8) NO PERICARDIAL EFFUSION, THROMBI, OR VEGETATIONS. 9) NO SEPTAL DEFECTS. Vitals Tmp(F) Tmp(C) Ttype BP MAP Pulse RR SpO2 FIO2 ETCO2 10/26 07:37 98.3 36.83 oral 120/78 --- 58 18 95 --- --- 10/26 03:56 98.3 36.83 oral 106/69 --- 66 18 97 --- --- 10/26 00:12 98 36.67 oral 108/66 --- 72 -- 95 --- --- 10/25 22:04 ---- ---- ---- ----- --- --- -- 92 --- --- 10/25 22:03 ---- ---- ---- ----- --- --- 18 92 --- --- 24 Hr Tmax: 98.3F (36.83c) at 10/26 07:37 Vital Signs are the last 5 in the past 48 hours. 24 Hr Tmin: 97.6F (36.44c) at 10/25 20:40 Weights are the last 5 in 60 days, plus initial. Date Wt(kg) Wt(lb) Ht(cm) Ht(in) Method BMI 10/24 (initial) 118.18 260.00 Estimated 35.3 10/24 182.88 72.00 Stated Most Recent Scores: 10/27/15 Pain Intensity NRS (0-10) 0 10/27/15 Tristan Velázquez Fall Score 8 10/27/15 Ivan Score 20 10/26/15 Lon Coma Score 15 10/25/15 NIH Stroke Score 0 Lines, Tubes, and Drains: 10/25/2015 17:47 Peripheral Lines: Antecubital Left 20 gauge Over the needle catheter (no surgical procedures documented) I&O Record In Out Bal 10/26 24hr Tot 0 0 0 10/25 24hr Tot 4 0 4 24hr Labs 10/26 0502 Total Protein 6.1 L Albumin Lvl 3.2 L Bili Total 0.6 Bili Direct 0.1 Bili Indirect 0.5 Alk Phos 100 AST 17 ALT 31 Globulin 2.9 A/G Ratio 1.1 10/25 1015 TSH 1.740 T3 Uptake 34 T4 9.0 FTI 3.1 Vitamin D, 25-OH, Tota 27 L Homocyst Tot 4.9 Scheduled Meds (7): aspirin 81 mg PO Daily [Last Rescheduled Dt/Tm: 10/27/15 9:00:00 CDT] [eMAR Schedule: (10/27/15) 09:00] [Future Dose: 10/28/15 09:00] enoxaparin (Lovenox) 40 mg SUB-Q [id number] [eMAR Schedule: (10/27/15) 12:00] [Future Dose: 10/28/15 12:00] ergocalciferol 50,000 IntlUnit PO Daily [eMAR Schedule: (10/27/15) 09:00] [Future Dose: 10/28/15 09:00] escitalopram 10 mg PO Daily [eMAR Schedule: (10/27/15) 09:00] [Future Dose: 10/28/15 09:00] finasteride (Proscar) 5 mg PO Daily [eMAR Schedule: (10/27/15) 09:00] [Future Dose: 10/28/15 09:00] simvastatin (Zocor) 20 mg PO Bedtime [eMAR Schedule: (10/27/15) 21:00] [Future Dose: 10/28/15 21:00] trazodone 150 mg PO Bedtime [eMAR Schedule: (10/27/15) 21:00] [Future Dose: 10/28/15 21:00] Unscheduled Meds: None PRN Meds (8): acetaminophen 650 mg PO Q4H docusate 100 mg PO BID hydrALAZINE 10 mg IV Q4H metoprolol (metoprolol 5 mg/5 ml INJ) 5 mg IV Q2H morphine Sulfate 2 mg IVP Q4H morphine Sulfate 2 mg IVP Q2H nitroglycerin (Nitrostat 0.4 mg sublingual tablet) 0.4 mg SL Q5Min ondansetron 4 mg IVP Q6H One Time Meds: None Continuous Infusions: None No results 10/27/2015 [facility]ACH[facility]a Extracted from:Title: Clinical Document Author: Tai Bowen MD Date: 01/17/15 [id number] Extracted from:Title: Clinical Document Author: Tai Bowen MD Date: 01/15/15 [id number] 01/17/2015 [facility] Extracted from:Title: Clinical Document Author: Brea Whitfield MD Date: 01/28/14 Progress Note - Daily [facility] Completed: Jan, 10:12 by Brea Whitfield MD RM: 234 - 1D, SE C2A ANNE GRANDA 68y (: 1945) M Attending: Julito Montes MD Service: Internal Medicine Reason for Admission: TRANSIENT VISUAL LOSS AND TONGUE NUMBNESS R/ TIA Working DRG: None Documented Code status: Full Code [Ordered] Current diet: Isolation: None Documented Allergies: NKDA SUBJECTIVE Feels good. no further vision complaints. No weakness, numbness, shortness of breath, chest pain, dizziness. Wants to go home. OBJECTIVE 24hr Labs 01/28 0514 Chol 123 Trig 94 HDL 48 L LDL (Calculated) 56 VLDL 19 CHD Risk 2.56 L 01/27 1800 UA Color Yellow UA Turbidity Clear UA Spec Grav 1.012 UA pH 6.0 UA Protein Negative UA Glucose Negative UA Ketones Negative UA Bili Negative UA Blood Negative UA Urobilinogen 2.0 H UA Nitrite Negative UA Leuk Est Negative UA RBC 1 UA WBC 1 UA Sq Epi Occasional 01/27 1608 Sodium Lvl 140 Potassium Lvl 3.7 Chloride Lvl 106 CO2 27 AGAP 10.7 Glucose Lvl 112 H Creatinine Lvl 0.9 BUN 14 B/C Ratio 16 Total Protein 6.9 Albumin Lvl 4.1 Globulin 2.8 A/G Ratio 1.5 Calcium Lvl 8.8 ALT 27 AST 13 Alk Phos 96 Bili Total 0.8 eGFR 87 Magnesium Lvl 1.9 Troponin-I <0.02 CK MB 2.2 WBC 4.4 RBC 4.74 Hgb 15.1 Hct 44.9 MCV 94.6 H MCH 31.8 H MCHC 33.6 RDW 13.9 Platelet 108 L MPV 9.0 Segs 56.9 Monocytes 8.4 Lymphocytes 29.8 Eosinophils 3.1 Basophils 1.8 H Segs-Bands # 2.5 Lymphocytes # 1.3 Monocytes # 0.4 Eosinophils # 0.1 Basophils # 0.1 PT 15.2 H INR 1.19 H PTT 31.8 Wilburn still necessary (Yes/No): Line still necessary (Yes/No): Vitals Tmp(F) Pulse BP RR SpO2 FIO2 01/28 08:03 97.8 90 108/70 16 --- --- 01/28 04:00 97.9 80 120/80 16 --- --- 01/28 00:26 97.7 90 123/79 18 --- --- 01/27 21:07 97.7 70 149/89 16 99 --- 01/27 19:04 ---- 60 124/99 15 --- --- 24 Hr Tmax: 98.1F (36.72c) at 01/27 10:50 Vital Signs are the last 5 in the past 48 hours. Date Wt(kg) Wt(lb) Ht(cm) Ht(in) Method 01/27 (initial) 107.73 237.00 Measured 01/27 182.88 72.00 Stated I&O Record In Out Bal 01/28 24hr Tot 10 0 10 01/27 24hr Tot 0 0 0 Medications (5) Active Scheduled Meds (2): 01/28/14 aspirin 81 mg PO Daily 01/28/14 sodium chloride (Saline Flush 0.9%) 10 ml IVP Q12H Unscheduled Meds: None PRN Meds (3): 01/27/14 atropine 0.5 mg IVP PRN 01/27/14 nitroglycerin (nitroglycerin 0.4 mg sublingual tablet) 0.4 mg SL Q5Min 01/28/14 sodium chloride (Saline Flush 0.9%) 10 ml IVP PRN One Time Meds: None Continuous Infusions: None Exam GEN - NAD HEENT - NC/AT. MMM. OP clear Ext - no c/c/e Skin - no rash Neuro: Mental status: Alert and oriented x3. Language intact. Follows all commands CN: 2-12 intact Motor: 5/5 throughout Sensory: intact to LTx4 Cerebellar: intact ftn, hts Abnormal movements: none Assessment This is a 68-year-old right-handed man who presents with a transient episode of altered vision, specifically seeing spots in his vision and having some vision loss. The symptoms were very brief - lasting only a few minutes. He has also had general malaise and generalized weakness for the past couple days and he may or may not have episodes of slurred speech. He is at his neurologic baseline. Etiology of his symptoms is unclear at this time. There is no evidence of significant carotid stenosis and history does not suggest this episode was consistent with amarosis fugax. Furthermore, his BP, cholesterol, and CT brain are also unremarkable. Tele is so far unremarkable. It is possible that he may have had an episode of low blood pressure which triggered these symptoms. TIA is less likely. Would continue him on aspirin. Have advised him to keep a blood pressure log. He can follow up with me as needed upon discharge 1. Vision loss - resolved 2. Weakness - resolved. 01/28/2014 [facility] Plan of Care No Data Provided for This Section Social History Social History Date Source Social History TypeResponse Substance Abuse Use: None. Alcohol Current, Type Beer. Frequency: 1-2 times per month. Started age 16 Years. Previous treatment: None. Alcohol use interferes with work or home: No. Drinks more than intended: No. Others hurt by drinking: No. Ready to change: Yes. Household alcohol concerns: No. Smoking Status Former smoker; Type: Cigarettes; Previous treatment: None; Concerns about tobacco use in household: No; Exposure to Tobacco Smoke None; Cigarette Smoking Last 365 Days No; Reg Smoking Cessation Counseling No; Started at age: 16.0; Stopped at age: 45; 01/15/2015 [facility] Family History No Data Provided for This Section Advance Directives No Data Provided for This Section Functional Status No Data Provided for This Section
--- OUTSIDE RECORDS SUMMARY | 2018-08-21 09:50 | XMS REPORT | CCD ---
Author Author Auto Generated Organization [facility] Address Unknown Phone Unavailable Care Team Providers Care [employer] Name Role Phone Keshia Sullivan CP Unavailable Rocky Contreras CP Kinza Champagne CP Unavailable Itz Wen CP Vikram Torres CP [phone] May Mobley CP Unavailable ChartServer, Login CP Unavailable Guillermo Cherry CP Sharmaine Alvarenga CP Unavailable Bill Foreman CP Unavailable Miguel Vital CP Unavailable Mari Sharma CP Unavailable Valeriy Rascon CP Unavailable SYSTEM, SYSTEM CP Unavailable Halley Carl CP [phone] Tre Delgado CP [phone] Kevin Enriquez CP [phone] Siria Iqbal CP Unavailable Gilberto Dixon CP Roney Srivastava CP Vikram Ramírez CP Unavailable Vikram Meza CP Vikram Fu CP [phone] Allergies, Adverse Reactions, Alerts Substance Reaction Status NKDA ?? Active Problem List Condition Effective Dates Status Depression ?? Active Flank pain ?? Active Hematuria ?? Active Nausea ?? Active Stent ?? Active Vomiting ?? Active Medications Medication Instructions Start Date End Date Status Vicodin 5/500 oral 1 tab, PO, Q4-6H, PRN, 15 tab, for 12/07/2010 12/11/2010 Ordered tablet Pain, Substitution Allowed, Maintenance Ceftin 500 mg oral 500 mg, 1 tab, PO, BID, 30 tab, 12/07/2010 ?? Ordered tablet Substitution Allowed Seroquel 50 mg oral 150 mg, 3 tab, PO, Bedtime, 12/07/2010 ?? Ordered tablet Substitution Allowed ceftriaxone 1 gm, Route: IVPB, Drug form: 12/07/2010 12/07/2010 Completed PDR/INJ, ONCE, Priority: STAT, Start date: 12/07/10 18:55:00, Stop date: 12/07/10 18:55:00 ondansetron 4 mg, 2 mL, Route: IVP, Drug form: 12/07/2010 12/07/2010 Completed INJ, ONCE, Priority: STAT, Start date: 12/07/10 16:11:00, Stop date: 12/07/10 16:11:00 morphine Sulfate 4 mg, 2 mL, Route: IVP, Drug form: 12/07/2010 12/07/2010 Completed INJ, ONCE, Priority: STAT, Start date: 12/07/10 16:11:00, Stop date: 12/07/10 16:11:00 Sodium Chloride 0.9% 500 mL, Rate: 500 ml/hr, Infuse 12/07/2010 12/07/2010 Completed (Bolus) IV 500 mL over: 1 hr, Route: IV, Total Volume: 500, Bolus Dose, Priority: STAT, Start date: 12/07/10 16:10:00, Duration: 1 doses or times, Stop date: 12/07/10 17:09:00 buPROPion 150 mg 450 mg, 3 tab, PO, QAM, 12/07/2010 ?? Ordered oral tablet, Substitution Allowed extended release pneumococcal 0.5 ml, Route: IM, Drug Form: INJ, 09/29/2010 09/29/2010 Completed 23-valent vaccine Start date: 09/29/10 9:00:00, Stop date: 09/29/10 9:00:00 Immunizations Vaccine Date Status pneumococcal 23-valent vaccine 09/29/2010 Not Done Vital Signs Most recent to oldest [Reference Range]: 1 2 3 Height 182.88 cm (12/07/2010 15:48:00) ? Temperature Oral [96.4-99.1 DegF] 98.6 DegF (12/07/2010 19:35:00) ?? 98.1 DegF (12/07/2010 15:47:00) ? Systolic Blood Pressure [90-140 mmHg] 121 mmHg (12/07/2010 19:35:00) ?? 110 mmHg (12/07/2010 18:52:00) ?? 127 mmHg (12/07/2010 15:47:00) ?? Diastolic Blood Pressure [60-90 mmHg] 71 mmHg (12/07/2010 19:35:00) ?? 65 mmHg (12/07/2010 18:52:00) ?? 77 mmHg (12/07/2010 15:47:00) ?? Respiratory Rate [14-20 BRMIN] 20 BRMIN (12/07/2010 19:35:00) ?? 18 BRMIN (12/07/2010 18:52:00) ?? 20 BRMIN (12/07/2010 15:47:00) ?? Peripheral Pulse Rate [60-100 bpm] 88 bpm (12/07/2010 19:35:00) ?? 75 bpm (12/07/2010 18:52:00) ?? 92 bpm (12/07/2010 15:47:00) ?? Weight 114.091 kg (12/07/2010 15:48:00) ? Results URINALYSIS Most recent to oldest [Reference Range]: 1 UA Turbidity [>Clear] Cloudy *ABN* (12/07/2010 16:09:00) ?? UA Color [>Yellow] Red *ABN* (12/07/2010 16:09:00) ?? UA pH [5.0-8.0] 6.0 (12/07/2010 16:09:00) ?? UA Spec Grav [<<=1.030] >=1.030 *ABN* (12/07/2010 16:09:00) ?? UA Glucose [>Negative] Negative (12/07/2010 16:09:00) ?? UA Blood [>Negative] Large *ABN* (12/07/2010 16:09:00) ?? UA Ketones [>Negative] Trace *ABN* (12/07/2010 16:09:00) ?? UA Protein [>Negative mg/dL] >=300 mg/dL *ABN* (12/07/2010 16:09:00) ?? UA Urobilinogen [0.1-1.0 EU/dL] 0.2 EU/dL (12/07/2010 16:09:00) ?? UA Bili [>Negative] Small 1 *ABN* (12/07/2010 16:09:00) ?? UA Leuk Est [>Negative] Small *ABN* (12/07/2010 16:09:00) ?? UA Nitrite [>Negative] Negative (12/07/2010 16:09:00) ?? UA WBC [>None Seen /HPF] 21-50 /HPF *ABN* (12/07/2010 16:09:00) ?? UA RBC [>0-2] Packed *ABN* (12/07/2010 16:09:00) ?? UA Bacteria [>None Seen /HPF] Few /HPF (12/07/2010 16:09:00) ?? UA Sq Epi [>Few /LPF] Few /LPF (12/07/2010 16:09:00) ?? 1Result Comment: Confirmed by [employer]. CHEMISTRY Most recent to oldest [Reference Range]: 1 Sodium Lvl [135-145 mEq/L] 142 mEq/L (12/07/2010 16:20:00) ?? Potassium Lvl [3.5-5.1 mEq/L] 4.0 mEq/L (12/07/2010 16:20:00) ?? Chloride Lvl [95-109 mEq/L] 110 mEq/L *HI* (12/07/2010 16:20:00) ?? CO2 [24-32 mEq/L] 23 mEq/L *LOW* (12/07/2010 16:20:00) ?? AGAP [10.0-20.0 mEq/L] 13.0 mEq/L (12/07/2010 16:20:00) ?? Creatinine Lvl [0.5-1.4 mg/dL] 0.8 mg/dL (12/07/2010 16:20:00) ?? BUN [7-22 mg/dL] 12 mg/dL (12/07/2010 16:20:00) ?? B/C Ratio [6-25] 15 (12/07/2010 16:20:00) ?? Glucose Lvl 81 mg/dL 2 *NA* (12/07/2010 16:20:00) ?? Total Protein [6.4-8.4 g/dL] 6.7 g/dL (12/07/2010 16:20:00) ?? Albumin Lvl [3.5-5.0 g/dL] 3.9 g/dL (12/07/2010 16:20:00) ?? Globulin [2.0-4.0 g/dL] 2.8 g/dL (12/07/2010 16:20:00) ?? A/G Ratio [0.7-1.6] 1.4 (12/07/2010 16:20:00) ?? Calcium Lvl [8.5-10.5 mg/dL] 8.7 mg/dL (12/07/2010 16:20:00) ?? ALT [0-65 U/L] 42 U/L (12/07/2010 16:20:00) ?? AST [0-37 U/L] 22 U/L (12/07/2010 16:20:00) ?? Alk Phos [39-136 U/L] 122 U/L (12/07/2010 16:20:00) ?? Bili Total [0.2-1.3 mg/dL] 0.6 mg/dL (12/07/2010 16:20:00) ?? 2Interpretive Data: Reference Ranges : 0 - 7 days : 41 - 90 mg/dL7 days - 150 yrs : 70 - 99 mg/dL (fasting), based on the clinical recommendations of the [place] [employer]. HEMATOLOGY Most recent to oldest [Reference Range]: 1 WBC [3.7-10.4 K/CMM] 4.3 K/CMM (12/07/2010 16:20:00) ?? RBC [4.70-6.10 M/CMM] 3.96 M/CMM *LOW* (12/07/2010 16:20:00) ?? Hgb [14.0-18.0 g/dL] 13.4 g/dL *LOW* (12/07/2010 16:20:00) ?? Hct [42.0-54.0 %] 37.6 % *LOW* (12/07/2010 16:20:00) ?? MCV [80.0-94.0 fL] 95.0 fL *HI* (12/07/2010 16:20:00) ?? MCH [27.0-31.0 pg] 34.0 pg *HI* (12/07/2010 16:20:00) ?? MCHC [32.0-36.0 g/dL] 35.7 g/dL (12/07/2010 16:20:00) ?? RDW [11.5-14.5 %] 12.9 % (12/07/2010 16:20:00) ?? Platelet [133-450 K/CMM] 133 K/CMM (12/07/2010 16:20:00) ?? MPV [7.4-10.4 fL] 8.6 fL (12/07/2010 16:20:00) ?? Segs [45.0-75.0 %] 58.9 % (12/07/2010 16:20:00) ?? Lymphocytes [20.0-40.0 %] 23.4 % (12/07/2010 16:20:00) ?? Monocytes [2.0-12.0 %] 10.6 % (12/07/2010 16:20:00) ?? Eosinophils [0.0-4.0 %] 6.4 % *HI* (12/07/2010 16:20:00) ?? Basophils [0.0-1.0 %] 0.7 % (12/07/2010 16:20:00) ?? Segs-Bands # [1.5-8.1 K/CMM] 2.5 K/CMM (12/07/2010 16:20:00) ?? Lymphocytes # [1.0-5.5 K/CMM] 1.0 K/CMM (12/07/2010 16:20:00) ?? Monocytes # [0.0-0.8 K/CMM] 0.5 K/CMM (12/07/2010 16:20:00) ?? Eosinophils # [0.0-0.5 K/CMM] 0.3 K/CMM (12/07/2010 16:20:00) ?? Basophils # [0.0-0.2 K/CMM] 0.0 K/CMM (12/07/2010 16:20:00) ?? PT [12.0-14.7 seconds] 14.9 seconds *HI* (12/07/2010 16:20:00) ?? INR [0.85-1.17] 1.17 3 (12/07/2010 16:20:00) ?? PTT [22.9-35.8 seconds] 33.2 seconds 4 (12/07/2010 16:20:00) ?? 3Interpretive Data: RECOMMENDED RANGES FOR PROTIME INR: 2.0-3.0 for most medical and surgical thromboembolic states. 2.5-3.5 for artificial heart valves and recurrent embolism.INR SHOULD BE USED ONLY FOR PATIENTS ON STABLE ANTICOAGULANT THERAPY. 4Interpretive Data: Heparin Therapeutic Range: 57 - 92 Seconds Microbiology Reports PROCEDURE:Culture: Urine STATUS: In Progress BODY SITE: ?? COLLECTED DATE/TIME: 12/07/2010 16:09:00 SOURCE: Urine, Clean Catch FREE TEXT SOURCE: ?? PRELIMINARY REPORTS Preliminary Report No Growth; Holding
--- OUTSIDE RECORDS SUMMARY | 2018-08-21 09:50 | XMS REPORT | CCD ---
Author Author Auto Generated Organization [facility] Address Unknown Phone Unavailable Care Team Providers Care Flume Maker Name Role Phone Earl Sky CP Allergies, Adverse Reactions, Alerts Substance Reaction Status NKDA Active Problem List Condition Effective Dates Status Depression Active Flank pain Active Hematuria Active Nausea Active Stent Active Vomiting Active Medications Medication Instructions Start Date End Date Status promethazine 25 mg, 1 tab, Route: PO, Drug form: 06/02/2011 06/02/2011 Completed TAB, ONCE, Priority: STAT, Start date: 06/02/11 1:30:00, Stop date: 06/02/11 1:30:00 acetaminophen-codein 1 tab, Route: PO, Drug Form: TAB, 06/02/2011 06/02/2011 Completed e #3 ONCE, STAT, Start date: 06/02/11 1:30:00, Stop date: 06/02/11 1:30:00 Phenergan 25 mg oral 25 mg, 1 tab, PO, Q6H, PRN, 15 tab, 06/02/2011 Ordered tablet Nausea, Substitution Allowed Tylenol with Codeine 1 tab, PO, Q6H, PRN, 20 tab, for 06/02/2011 06/07/2011 Ordered #3 oral tablet pain, Substitution Allowed, Maintenance predniSONE 20 mg 40 mg, 2 tab, PO, Daily, 10 tab, 06/02/2011 06/07/2011 Ordered oral tablet Substitution Allowed methylPREDNISolone 125 mg, 2 mL, Route: IM, Drug form: 06/02/2011 06/02/2011 Completed SODium SUCCinate INJ, ONCE, Priority: STAT, Start date: 06/02/11 4:37:00, Stop date: 06/02/11 4:37:00 pneumococcal 0.5 ml, Route: IM, Drug Form: INJ, 09/29/2010 09/29/2010 Completed 23-valent vaccine Start date: 09/29/10 9:00:00, Stop date: 09/29/10 9:00:00 Immunizations Vaccine Date Status pneumococcal 23-valent vaccine 09/29/2010 Not Done
--- OUTSIDE RECORDS SUMMARY | 2018-08-21 09:50 | XMS REPORT | CCD ---
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 Name Role Phone Adam Phan CP Allergies, Adverse Reactions, Alerts Substance Reaction Status NKDA Active Problem List Condition Effective Dates Status Depression Active Flank pain Active Hematuria Active Nausea Active Sleep apnea Resolved Stent Active Vomiting Active Medications Medication Instructions Start Date End Date Status pneumococcal 0.5 ml, Route: IM, Drug Form: INJ, 03/14/2013 03/14/2013 Completed 23-valent vaccine Start date: 03/14/13 9:00:00, Stop date: 03/14/13 9:00:00 Saline Flush 0.9% 5 mL, Route: IVP, Drug Form: INJ, 03/13/2013 03/13/2013 Discontinued Dosing Weight 110.909, kg, Q8H, PRN Line Flush, Start date: 03/13/13 17:24:00, Duration: 30 day, Stop date: 04/12/13 17:23:00, Administer at least once every 8 hours Administer at least once every 8 hoursSame as: BD Posiflush Sterile ZyrTEC 10 mg, 2 tab, Route: PO, Drug form: 03/14/2013 03/14/2013 Discontinued TAB, Daily, Dosing Weight 110.909, kg, PRN Allergies, Start date: 03/14/13 11:59:00, Duration: 30 day, Stop date: 04/13/13 11:58:00(Same As: Zyrtec) trazodone 150 mg 150 mg=1 tab, PO, Bedtime, as 03/13/2013 Ordered oral tablet needed for sleep, # 30 tab, 0 Refill(s) Latuda 20 mg oral 20 mg=1 tab, PO, Bedtime, 0 03/13/2013 03/13/2013 Discontinued tablet Refill(s) Vitamin B6 100 mg 100 mg=1 tab, PO, Daily, # 10 tab, 03/13/2013 03/13/2013 Discontinued oral tablet 0 Refill(s) Lexapro 10 mg oral 10 mg=1 tab, PO, Daily, # 30 tab, 0 03/13/2013 Ordered tablet Refill(s) aspirin 324 mg, Route: CHEW, Drug form: 03/13/2013 03/13/2013 Completed CHEWTAB, ONCE, Dosing Weight 110.909, kg, Priority: STAT, Start date: 03/13/13 19:17:00, Stop date: 03/13/13 19:17:00 pneumococcal 0.5 ml, Route: IM, Drug Form: INJ, 03/14/2013 03/14/2013 Completed 23-valent vaccine Daily, Start date: 03/14/13 9:00:00, Duration: 1 doses or times, Stop date: 03/14/13 9:00:00(Same as: Pneumovax 23) Refrigerate Saline Flush 0.9% 5 ml, Route: IVP, Drug Form: INJ, 03/14/2013 03/14/2013 Discontinued Dosing Weight 110.909, kg, Q12H, Start date: 03/14/13 9:00:00, Duration: 30 day, Stop date: 04/12/13 21:00:00Same as: BD Posiflush Sterile Saline Flush 0.9% 5 ml, Route: IVP, Drug Form: INJ, 03/13/2013 03/14/2013 Discontinued Dosing Weight 110.909, kg, PRN, PRN Line Flush, Start date: 03/13/13 21:48:00, Duration: 30 day, Stop date: 04/12/13 21:47:00Same as: BD Posiflush Sterile nitroglycerin SL Tab 0.4 mg, Route: SL, Drug form: TAB, 03/13/2013 03/13/2013 Deleted Q5Min, Dosing Weight 110.909, kg, PRN Chest Pain, Start date: 03/13/13 21:48:00, Duration: 3 doses or times, Stop date: Limited # of times lisinopril 5 mg, 1 tab, Route: PO, Drug form: 03/14/2013 03/14/2013 Discontinued TAB, Daily, Dosing Weight 110.909, kg, Start date: 03/14/13 9:00:00, Duration: 30 day, Stop date: 04/12/13 9:00:00(Same as: Damaso Morochostril) aspirin 325 mg 325 mg, Route: PO, Drug form: TAB, 03/13/2013 03/13/2013 Completed tablet ONCE, Dosing Weight 110.909, kg, Start date: 03/13/13 21:48:00, Stop date: 03/13/13 21:48:00 atropine 0.5 mg, 5 mL, Route: IVP, Drug 03/13/2013 03/14/2013 Discontinued form: INJ, PRN, PRN Bradycardia, Start date: 03/13/13 21:38:00, Duration: 30 day, Stop date: 04/12/13 21:37:00 influenza virus 0.5 ml, Route: IM, Drug Form: INJ, 04/17/2012 04/17/2012 Completed vaccine, inactivated Start date: 04/17/12 9:00:00, Stop date: 04/17/12 9:00:00 pneumococcal 0.5 ml, Route: IM, Drug Form: INJ, 04/17/2012 04/17/2012 Completed 23-valent vaccine Start date: 04/17/12 9:00:00, Stop date: 04/17/12 9:00:00 aspirin 81 mg 81 mg, 1 tab, Route: PO, Drug form: 03/14/2013 03/14/2013 Discontinued tablet, enteric ECTAB, Daily, Dosing Weight coated 110.909, kg, Start date: 03/14/13 9:00:00, Duration: 30 day, Stop date: 04/12/13 9:00:00Do not crush or chew.(Same As: Ecotrin) cholecalciferol 5,000 IntlUnit, 5 tab, Route: PO, 03/14/2013 03/14/2013 Discontinued Drug form: TAB, Daily, Dosing Weight 110.909, kg, Start date: 03/14/13 9:00:00, Duration: 30 day, Stop date: 04/12/13 9:00:00Same as : Vitamin D3 Nitrostat 0.4 mg 0.4 mg, 1 tab, Route: SL, Drug 03/13/2013 03/14/2013 Discontinued sublingual tablet form: TAB, Q5Min, Dosing Weight 110.909, kg, PRN Chest Pain, Start date: 03/13/13 20:05:00, Duration: 3 doses or times, Stop date: Limited # of times(Same as:Nitroquick, Nitrostat)"Do Not Crush" Sublingual tablet atorvastatin 10 mg, 1 tab, Route: PO, Drug form: 03/14/2013 03/14/2013 Canceled TAB, QPM, Dosing Weight 110.909, kg, Start date: 03/14/13 17:00:00, Duration: 30 day, Stop date: 04/12/13 17:00:00(Same As: Lipitor) Plavix 75 mg, 1 tab, Route: PO, Drug form: 03/14/2013 03/14/2013 Discontinued TAB, Daily, Dosing Weight 110.909, kg, Start date: 03/14/13 9:00:00, Duration: 30 day, Stop date: 04/12/13 9:00:00(Same As: Plavix) lisinopril 5 mg, 1 tab, Route: PO, Drug form: 03/14/2013 03/13/2013 Deleted TAB, Daily, Dosing Weight 110.909, kg, Start date: 03/14/13 9:00:00, Duration: 30 day, Stop date: 04/12/13 9:00:00(Same as: Prinivil, Zestril) Coreg 3.125 mg, 1 tab, Route: PO, Drug 03/13/2013 03/14/2013 Discontinued form: TAB, Q12H, Dosing Weight 110.909, kg, Start date: 03/13/13 21:00:00, Duration: 30 day, Stop date: 04/12/13 9:00:00Give with food. (Same As: Coreg) morphine Sulfate 2 mg, 1 mL, Route: IVP, Drug form: 03/13/2013 03/14/2013 Discontinued INJ, Q2H, Dosing Weight 110.909, kg, PRN Chest Pain, Start date: 03/13/13 20:05:00, Duration: 30 day, Stop date: 04/12/13 20:04:00(Same as:MORPhine Sulfate) hydrALAZINE 10 mg, 0.5 mL, Route: IV, Drug 03/13/2013 03/14/2013 Discontinued form: INJ, Q4H, Dosing Weight 110.909, kg, PRN Hypertension, Start date: 03/13/13 20:05:00, Duration: 30 day, Stop date: 04/12/13 20:04:00(Same as: Apresoline)Push over 5 minutes metoprolol 5 mg/5 ml 2.5 mg, 2.5 mL, Route: IV, Drug 03/13/2013 03/14/2013 Discontinued INJ form: INJ, PRN, Dosing Weight 110.909, kg, PRN Tachycardia, Start date: 03/13/13 20:05:00, Duration: 30 day, Stop date: 04/12/13 20:04:00(Same as: Lopressor)Push over 2 minutes enoxaparin 40 mg, 0.4 mL, Route: SUB-Q, Drug 03/13/2013 03/14/2013 Discontinued form: INJ, [id number], Dosing Weight 110.909, kg, Start date: 03/13/13 21:00:00, Duration: 30 day, Stop date: 04/11/13 21:00:00(Same as: Lovenox) buPROPion 450 mg, Route: PO, Drug form: 03/14/2013 03/13/2013 Canceled ERTAB, QAM, Dosing Weight 110.909, kg, Start date: 03/14/13 9:00:00, Duration: 30 day, Stop date: 04/12/13 9:00:00 SEROquel 150 mg, 1.5 tab, Route: PO, Drug 03/13/2013 03/13/2013 Discontinued form: TAB, Bedtime, Dosing Weight 110.909, kg, Start date: 03/13/13 21:00:00, Duration: 30 day, Stop date: 04/11/13 21:00:00(Same as: SEROquel) pneumococcal 0.5 ml, Route: IM, Drug Form: INJ, 09/29/2010 09/29/2010 Completed 23-valent vaccine Start date: 09/29/10 9:00:00, Stop date: 09/29/10 9:00:00 Lexapro 10 mg, 1 tab, Route: PO, Drug form: 03/15/2013 03/14/2013 Canceled TAB, Daily, Dosing Weight 110.909, kg, Start date: 03/15/13 9:00:00, Duration: 30 day, Stop date: 04/13/13 9:00:00(Same as: Lexapro) trazodone 150 mg, 3 tab, Route: PO, Drug 03/14/2013 03/14/2013 Discontinued form: TAB, Bedtime, Dosing Weight 110.909, kg, PRN Sleep, Start date: 03/14/13 12:02:00, Duration: 30 day, Stop date: 04/13/13 12:01:00, INSOM(Same As: Desyrel) Immunizations Vaccine Date Status influenza virus vaccine, inactivated 04/17/2012 Not Done pneumococcal 23-valent vaccine 09/29/2010 Not Done pneumococcal 23-valent vaccine 04/17/2012 Auth (Verified) pneumococcal 23-valent vaccine 03/14/2013 Auth (Verified) Vital Signs Most recent to oldest [Reference Range]: 1 2 3 Height 182.88 cm (03/13/2013 23:07:00) 182.88 cm (03/13/2013 17:01:00) Temperature Oral [96.4-99.1 DegF] 97.6 DegF (03/14/2013 12:00:00) 97.6 DegF (03/14/2013 08:00:00) 97.4 DegF (03/14/2013 03:28:00) Systolic Blood Pressure [90-140 mmHg] 119 mmHg (03/14/2013 12:00:00) 96 mmHg (03/14/2013 08:00:00) 104 mmHg (03/14/2013 03:28:00) Diastolic Blood Pressure [60-90 mmHg] 72 mmHg (03/14/2013 12:00:00) 62 mmHg (03/14/2013 08:00:00) 64 mmHg (03/14/2013 03:28:00) Respiratory Rate [14-20 BRMIN] 18 BRMIN (03/14/2013 12:00:00) 18 BRMIN (03/14/2013 08:00:00) 16 BRMIN (03/14/2013 03:28:00) Peripheral Pulse Rate [60-100 bpm] 51 bpm *LOW* (03/14/2013 12:00:00) 69 bpm (03/14/2013 08:00:00) 51 bpm *LOW* (03/14/2013 03:28:00) Weight 110.909 kg (03/13/2013 23:07:00) 110.909 kg (03/13/2013 17:01:00) Results URINALYSIS Most recent to oldest [Reference Range]: 1 2 3 UA Turbidity [Clear] Clear (03/13/2013 18:10:00) UA Color [Yellow] Yellow *NA* (03/13/2013 18:10:00) UA pH [5.0-8.0] 7.0 (03/13/2013 18:10:00) UA Spec Grav [<=1.030] 1.014 (03/13/2013 18:10:00) UA Glucose [Negative mg/dL] Negative mg/dL *NA* (03/13/2013 18:10:00) UA Blood [Negative] Negative (03/13/2013 18:10:00) UA Ketones [Negative mg/dL] Negative mg/dL *NA* (03/13/2013 18:10:00) UA Protein [Negative mg/dL] Negative mg/dL (03/13/2013 18:10:00) UA Urobilinogen [0.1-1.0 mg/dL] <=1.0 mg/dL *NA* (03/13/2013 18:10:00) UA Bili [Negative] Negative *NA* (03/13/2013 18:10:00) UA Leuk Est [Negative] Negative (03/13/2013 18:10:00) UA Nitrite [Negative] Negative (03/13/2013 18:10:00) UA RBC [0-2 /HPF] <1 /HPF (03/13/2013 18:10:00) UA Bacteria [None Seen /HPF] Occasional /HPF *NA* (03/13/2013 18:10:00) UA Sq Epi None Seen *NA* (03/13/2013 18:10:00) CHEMISTRY Most recent to oldest [Reference Range]: 1 2 3 Sodium Lvl [135-145 mEq/L] 143 mEq/L (03/13/2013 17:42:00) Potassium Lvl [3.5-5.1 mEq/L] 3.9 mEq/L (03/13/201342:00) Chloride Lvl [95-109 mEq/L] 107 mEq/L (03/13/201342:00) CO2 [24-32 mEq/L] 27 mEq/L (03/13/201342:00) AGAP [10.0-20.0 mEq/L] 12.9 mEq/L (03/13/201342:00) Creatinine Lvl [0.5-1.4 mg/dL] 0.8 mg/dL (03/13/201342:00) eGFR 92 mL/min/1.73m2 1 *NA* (03/13/201342:00) BUN [7-22 mg/dL] 15 mg/dL (03/13/201342:00) B/C Ratio [6-25] 19 (03/13/201342:00) Glucose Lvl [70-99 mg/dL] 101 mg/dL 2 *HI* (03/13/201342:00) Uric Acid [3.8-8.0 mg/dL] 4.0 mg/dL (03/13/201342:00) Total Protein [6.4-8.4 g/dL] 7.0 g/dL (03/13/201342:00) Albumin Lvl [3.5-5.0 g/dL] 3.9 g/dL (03/13/201342:00) Globulin [2.0-4.0 g/dL] 3.1 g/dL (03/13/201342:00) A/G Ratio [0.7-1.6] 1.3 (03/13/201342:00) Calcium Lvl [8.5-10.5 mg/dL] 8.4 mg/dL *LOW* (03/13/201342:00) Phosphorus [2.5-4.5 mg/dL] 3.1 mg/dL (03/13/2013 23:00:00) 2.5 mg/dL (03/13/2013:42:00) Magnesium Lvl [1.8-2.4 mg/dL] 1.8 mg/dL (03/13/2013 23:00:00) 1.9 mg/dL (03/13/2013:42:00) ALT [0-65 unit/L] 34 unit/L (03/13/2013:42:00) AST [0-37 unit/L] 16 unit/L (03/13/2013:42:00) Alk Phos [39-136 unit/L] 92 unit/L (03/13/2013:42:00) Bili Total [0.2-1.3 mg/dL] 0.6 mg/dL (03/13/2013:42:00) Vitamin D, 25-OH, Total [30-100 ng/mL] 26 ng/mL 3 *LOW* (03/13/2013:42:00) Total CK [12-191 unit/L] 38 unit/L (03/14/2013 05:48:00) 47 unit/L (03/13/2013:00:00) 63 unit/L (03/13/2013:42:00) CK MB [0.5-3.6 ng/mL] <0.5 ng/mL (03/13/2013:42:00) CK MB Index [0.0-2.5] <0.8 (03/13/2013:42:00) Troponin-I [0.00-0.40 ng/mL] <0.02 ng/mL (03/14/2013 05:48:00) <0.02 ng/mL (03/13/2013 23:00:00) <0.02 ng/mL (03/13/2013:42:00) BNP [<=100 pg/mL] 62 pg/mL 4 (03/13/2013:42:00) CHD Risk [4.00-7.30] 2.75 *LOW* (03/14/2013 05:48:00) 3.09 *LOW* (03/13/2013:42:00) Chol [<=199 mg/dL] 146 mg/dL (03/14/2013 05:48:00) 173 mg/dL (03/13/2013:42:00) Trig [<=149 mg/dL] 88 mg/dL (03/14/2013 05:48:00) 119 mg/dL (03/13/2013 17:42:00) HDL [>=61 mg/dL] 53 mg/dL *LOW* (03/14/2013 05:48:00) 56 mg/dL *LOW* (03/13/2013:42:00) LDL (Calculated) [<=99 mg/dL] 75 mg/dL (03/14/2013 05:48:00) 93 mg/dL (03/13/2013:42:00) T3 Uptake [31-39 %] 30 % *LOW* (03/13/2013:42:00) T4 [4.7-13.3 ug/dl] 9.4 ug/dl (03/13/2013:42:00) FTI 2.8 *NA* (03/13/2013:42:00) TSH [0.360-3.740 uIU/mL] 1.430 uIU/mL (03/13/2013 17:42:00) 1Result Comment: The eGFR is calculated using the [...] from the National Kidney Disease Education Program ( NKDEP) which additionally recommends that when the eGFR is used in patients with extremes of body mass index for purposes of drug dosing, the eGFR should be mul tiplied by the estimated BMI. 2Interpretive Data: Adult reference range values reflect the clinical guidelines of the [place] [employer]. 3Interpretive Data: Reference range is based on recommendations in the Endocrine Society Clinical Practice Guideline (J Clin Endocrinol Metab 2011;96:9069-7798) 4Interpretive Data: Elevated results are in line with increasing severity of congestive heart failure. Minor elevations between 100 and 300 may be seen with Myocardial Ischemia, Sodium retaining drugs, and compensated/treated heart failure. HEMATOLOGY Most recent to oldest [Reference Range]: 1 2 3 WBC [3.7-10.4 K/CMM] 4.4 K/CMM (03/13/2013 23:00:00) 5.0 K/CMM (03/13/2013:42:00) RBC [4.70-6.10 M/CMM] 4.10 M/CMM *LOW* (03/13/2013 23:00:00) 4.41 M/CMM *LOW* (03/13/2013:42:00) Hgb [14.0-18.0 g/dL] 12.9 g/dL *LOW* (03/13/2013 23:00:00) 14.1 g/dL (03/13/2013 17:42:00) Hct [42.0-54.0 %] 38.7 % *LOW* (03/13/2013 23:00:00) 41.5 % *LOW* (03/13/2013:42:00) MCV [80.0-94.0 fL] 94.4 fL *HI* (03/13/2013 23:00:00) 94.1 fL *HI* (03/13/2013 17:42:00) MCH [27.0-31.0 pg] 31.5 pg *HI* (03/13/2013 23:00:00) 32.1 pg *HI* (03/13/2013:42:00) MCHC [32.0-36.0 g/dL] 33.4 g/dL (03/13/2013 23:00:00) 34.1 g/dL (03/13/2013:42:00) RDW [11.5-14.5 %] 14.3 % (03/13/2013 23:00:00) 13.6 % (03/13/2013:42:00) Platelet [133-450 K/CMM] 121 K/CMM *LOW* (03/13/2013 23:00:00) 125 K/CMM *LOW* (03/13/2013:42:00) MPV [7.4-10.4 fL] 8.4 fL (03/13/2013 23:00:00) 7.8 fL (03/13/2013 17:42:00) Segs [45.0-75.0 %] 59.4 % (03/13/2013 23:00:00) 65.2 % (03/13/2013 17:42:00) Lymphocytes [20.0-40.0 %] 25.4 % (03/13/2013 23:00:00) 22.4 % (03/13/2013 17:42:00) Monocytes [2.0-12.0 %] 10.3 % (03/13/2013 23:00:00) 9.5 % (03/13/2013 17:42:00) Eosinophils [0.0-4.0 %] 3.9 % (03/13/2013 23:00:00) 2.7 % (03/13/2013 17:42:00) Basophils [0.0-1.0 %] 1.0 % (03/13/2013 23:00:00) 0.2 % (03/13/2013 17:42:00) Segs-Bands # [1.5-8.1 K/CMM] 2.6 K/CMM (03/13/2013 23:00:00) 3.3 K/CMM (03/13/2013 17:42:00) Lymphocytes # [1.0-5.5 K/CMM] 1.1 K/CMM (03/13/2013 23:00:00) 1.1 K/CMM (03/13/2013 17:42:00) Monocytes # [0.0-0.8 K/CMM] 0.5 K/CMM (03/13/2013 23:00:00) 0.5 K/CMM (03/13/2013 17:42:00) Eosinophils # [0.0-0.5 K/CMM] 0.2 K/CMM (03/13/2013 23:00:00) 0.1 K/CMM (03/13/2013 17:42:00) Basophils # [0.0-0.2 K/CMM] 0.0 K/CMM (03/13/2013 23:00:00) 0.0 K/CMM (03/13/2013 17:42:00) PT [12.0-14.7 seconds] 14.0 seconds (03/13/2013 17:42:00) INR [0.85-1.17] 1.09 5 (03/13/2013 17:42:00) D-Dimer 0.28 ug/mL FEU 6 *NA* (03/13/2013 17:42:00) PTT [22.9-35.8 seconds] 31.4 seconds 7 (03/13/2013 17:42:00) 5Interpretive Data: RECOMMENDED RANGES FOR PROTIME INR: 2.0-3.0 for most medical and surgical thromboembolic states. 2.5-3.5 for artificial heart valves and recurrent embolism. INR SHOULD BE USED ONLY FOR PATIENTS ON STABLE ANTICOAGULANT THERAPY. 6Interpretive Data: In DIC, quantitative D-Dimer is generally greater than 0.66 ug/mL FEU. Values of quantitative D-Dimer less than 0.40 ug/mL FEU have been reported to be associated with a low probability of deep vein thrombosis/pulmonary embolism. This test alone should not be used to rule out DVT/PE. 7Interpretive Data: Heparin Therapeutic Range: 57 - 92 Seconds IMMUNOLOGY Most recent to oldest [Reference Range]: 1 2 3 CRP, High Sensitivity 1.5 mg/L 8 *NA* (03/13/2013 17:42:00) 8Interpretive Data: Low Risk: <1.0 mg/L Average Risk: 1.0 - 3.0 mg/L High Risk: >3.0 mg/L Inflammation: >10.0 mg/L Procedures Procedures Date Related Diagnosis Lithotripsy
--- OUTSIDE RECORDS SUMMARY | 2018-08-21 09:50 | XMS REPORT | CCD ---
Author Author Auto Generated Organization [facility] Address Unknown Phone Unavailable Care Team Providers Care Requirements Manager Name Role Phone Nikolai Castro CP Allergies, Adverse Reactions, Alerts Substance Reaction Status NKDA Active Problem List Condition Effective Dates Status Depression Active Flank pain Active Hematuria Active Nausea Active Stent Active Vomiting Active Medications Medication Instructions Start Date End Date Status pneumococcal 0.5 ml, Route: IM, Drug Form: INJ, 04/17/2012 04/17/2012 Completed 23-valent vaccine Daily, Start date: 04/17/12 9:00:00, Duration: 1 doses or times, Stop date: 04/17/12 9:00:00 influenza virus 0.5 ml, Route: IM, Drug Form: INJ, 04/17/2012 04/17/2012 Completed vaccine, inactivated Daily, Start date: 04/17/12 9:00:00, Duration: 1 doses or times, Stop date: 04/17/12 9:00:00 nitroglycerin 0.4 mg 0.4 mg, 1 tab, Route: SL, Drug 04/16/2012 04/17/2012 Discontinued sublingual tablet form: TAB, Q5Min, PRN Chest Pain, Start date: 04/16/12 14:03:00, Duration: 30 day, Stop date: 05/16/12 15:02:00 atropine 0.5 mg, 5 mL, Route: IVP, Drug 04/16/2012 04/17/2012 Discontinued form: INJ, PRN, PRN Bradycardia, Start date: 04/16/12 14:02:00, Duration: 30 day, Stop date: 05/16/12 15:01:00 Saline Flush 0.9% 5 ml, Route: IVP, Drug Form: INJ, 04/15/2012 04/16/2012 Discontinued Dosing Weight 100, kg, PRN, PRN Line Flush, Start date: 04/15/12 17:34:00, Duration: 30 day, Stop date: 05/15/12 18:33:00 Saline Flush 0.9% 5 ml, Route: IVP, Drug Form: INJ, 04/16/2012 04/17/2012 Discontinued Dosing Weight 100, kg, Q12H, Start date: 04/16/12 9:00:00, Duration: 30 day, Stop date: 05/15/12 21:00:00 Saline Flush 0.9% 5 ml, Route: IVP, Drug Form: INJ, 04/16/2012 04/17/2012 Discontinued Dosing Weight 100, kg, PRN, PRN Line Flush, Start date: 04/16/12 5:07:00, Duration: 30 day, Stop date: 05/16/12 6:06:00 labetalol 10 mg, 2 mL, Route: IVP, Drug form: 04/16/2012 04/17/2012 Discontinued INJ, Q10Min, Dosing Weight 100, kg, PRN Hypertension, Start date: 04/16/12 5:07:00, Duration: 30 day, Stop date: 05/16/12 6:06:00, For SBP > 180mmHg and/or DBP > 105mmHg pantoprazole 40 mg, Route: IVP, Drug form: INJ, 04/16/2012 04/17/2012 Discontinued Before Dinner, Dosing Weight 100, kg, Start date: 04/16/12 16:30:00, Duration: 30 day, Stop date: 05/15/12 16:30:00 aspirin 325 mg 325 mg, 1 tab, Route: PO, Drug 04/16/2012 04/17/2012 Discontinued tablet, enteric form: ECTAB, Daily, Dosing Weight coated 100, kg, Start date: 04/16/12 9:00:00, Duration: 30 day, Stop date: 05/15/12 9:00:00 aspirin 325 mg, Route: PO, Drug form: TAB, 04/15/2012 04/15/2012 Completed ONCE, Dosing Weight 100, kg, Priority: STAT, Start date: 04/15/12 19:10:00, Stop date: 04/15/12 19:10:00 enoxaparin 40 mg, 0.4 mL, Route: SUB-Q, Drug 04/17/2012 04/17/2012 Discontinued form: INJ, [id number], Dosing Weight 106.364, kg, Start date: 04/17/12 2:00:00, Duration: 30 day, Stop date: 05/16/12 2:00:00 Seroquel 150 mg, 1.5 tab, Route: PO, Drug 04/17/2012 04/17/2012 Canceled form: TAB, Bedtime, Dosing Weight 106.364, kg, Start date: 04/17/12 21:00:00, Duration: 30 day, Stop date: 05/16/12 21:00:00 buPROPion 450 mg, 3 tab, Route: PO, Drug 04/17/2012 04/17/2012 Discontinued form: ERTAB, QAM, Dosing Weight 106.364, kg, Start date: 04/17/12 9:00:00, Duration: 30 day, Stop date: 05/16/12 9:00:00 influenza virus 0.5 ml, Route: IM, Drug [...] date: 09/29/10 9:00:00 Immunizations Vaccine Date Status influenza virus vaccine, inactivated 04/17/2012 Not Done pneumococcal 23-valent vaccine 09/29/2010 Not Done pneumococcal 23-valent vaccine 04/17/2012 Auth (Verified) Vital Signs Most recent to oldest [Reference Range]: 1 2 3 Height 182.88 cm (04/16/2012 14:07:00) 182.88 cm (04/15/2012 17:11:00) Temperature Oral [96.4-99.1 DegF] 98.1 DegF (04/17/2012 08:00:00) 97.8 DegF (04/17/2012 04:00:00) 97.6 DegF (04/17/2012 00:00:00) Systolic Blood Pressure [90-140 mmHg] 124 mmHg (04/17/2012 08:00:00) 115 mmHg (04/17/2012 04:00:00) 103 mmHg (04/17/2012 00:00:00) Diastolic Blood Pressure [60-90 mmHg] 78 mmHg (04/17/2012 08:00:00) 71 mmHg (04/17/2012 04:00:00) 64 mmHg (04/17/2012 00:00:00) Respiratory Rate [14-20 BRMIN] 20 BRMIN (04/17/2012 08:00:00) 18 BRMIN (04/17/2012 04:00:00) 18 BRMIN (04/17/2012 00:00:00) Peripheral Pulse Rate [60-100 bpm] 89 bpm (04/17/2012 08:00:00) 72 bpm (04/17/2012 04:00:00) 75 bpm (04/17/2012 00:00:00) Weight 106.364 kg (04/16/2012 14:07:00) 100 kg (04/15/2012 17:11:00) Results BEDSIDE GLUCOSE TESTING Most recent to [Reference Range]: 1 2 Gluc POC Lifscn [70-99 mg/dL] 80 mg/dL 1 (04/15/2012 17:14:00) Comment1 Notify RN/MD *NA* (04/15/2012 17:14:00) 1Interpretive Data: Upper Reportable Limit: 200 mg/dL. URINALYSIS Most recent to oldest [Reference Range]: 1 2 UA Turbidity [Clear] Clear (04/15/2012 20:56:15) UA Color Ltyellow *NA* (04/15/2012 20:56:15) UA pH [5.0-8.0] 8.0 (04/15/2012 20:56:15) UA Spec Grav [<=1.030] 1.008 (04/15/2012 20:56:15) UA Glucose [Negative mg/dL] Negative mg/dL *NA* (04/15/2012 20:56:15) UA Blood [Negative] Negative (04/15/2012 20:56:15) UA Ketones [Negative mg/dL] Negative mg/dL *NA* (04/15/2012 20:56:15) UA Protein [Negative mg/dL] Negative mg/dL (04/15/2012 20:56:15) UA Urobilinogen [0.1-1.0 mg/dL] <=1.0 mg/dL *NA* (04/15/2012 20:56:15) UA Bili [Negative] Negative *NA* (04/15/2012 20:56:15) UA Leuk Est [Negative] Negative (04/15/2012 20:56:15) UA Nitrite [Negative] Negative (04/15/2012 20:56:15) UA Sq Epi [Few /LPF] Occasional /LPF *NA* (04/15/2012 20:56:15) CHEMISTRY Most recent to oldest [Reference Range]: 1 2 Sodium Lvl [135-145 mEq/L] 144 mEq/L (04/16/2012 05:20:00) 146 mEq/L *HI* (04/15/2012 17:34:00) Potassium Lvl [3.5-5.1 mEq/L] 3.9 mEq/L (04/16/2012 05:20:00) 4.1 mEq/L (04/15/2012 17:34:00) Chloride Lvl [95-109 mEq/L] 112 mEq/L *HI* (04/16/2012 05:20:00) 108 mEq/L (04/15/2012 17:34:00) CO2 [24-32 mEq/L] 24 mEq/L (04/16/2012 05:20:00) 27 mEq/L (04/15/2012 17:34:00) AGAP [10.0-20.0 mEq/L] 11.9 mEq/L (04/16/2012 05:20:00) 15.1 mEq/L (04/15/2012 17:34:00) Creatinine Lvl [0.5-1.4 mg/dL] 0.8 mg/dL (04/16/2012 05:20:00) 0.9 mg/dL (04/15/2012 17:34:00) eGFR 92 mL/min/1.73m2 2 *NA* (04/16/2012 05:20:00) 88 mL/min/1.73m2 3 *NA* (04/15/2012:34:00) BUN [7-22 mg/dL] 14 mg/dL (04/16/2012:20:00) 12 mg/dL (04/15/2012:34:00) B/C Ratio [6-25] 13 (04/15/2012:34:00) Glucose Lvl [70-99 mg/dL] 89 mg/dL 4 (04/16/2012:20:00) 78 mg/dL 5 (04/15/2012:34:00) Total Protein [6.4-8.4 g/dL] 7.4 g/dL (04/15/2012:) Albumin Lvl [3.5-5.0 g/dL] 4.0 g/dL (04/15/2012::00) Globulin [2.0-4.0 g/dL] 3.4 g/dL (04/15/2012:) A/G Ratio [0.7-1.6] 1.2 (04/15/2012::) Calcium Lvl [8.5-10.5 mg/dL] 8.5 mg/dL (04/16/2012:20:00) 8.8 mg/dL (04/15/2012:) ALT [0-65 unit/L] 40 unit/L (04/15/2012:34:) AST [0-37 unit/L] 32 unit/L (04/15/2012::) Alk Phos [39-136 unit/L] 147 unit/L *HI* (04/15/2012:34:00) Bili Total [0.2-1.3 mg/dL] 0.4 mg/dL (04/15/201234:00) Total CK [12-191 unit/L] 98 unit/L (04/15/2012:34:00) CK MB [0.5-3.6 ng/mL] 1.3 ng/mL (04/15/2012:34:00) CK MB Index [0.0-2.5] 1.3 (04/15/2012 17:34:00) Troponin-I [0.00-0.40 ng/mL] <0.02 ng/mL (04/15/2012 19:17:00) <0.02 ng/mL (04/15/2012 17:34:00) CHD Risk [4.00-7.30] 3.00 *LOW* (04/17/2012:53:00) Chol [120-200 mg/dL] 162 mg/dL (04/17/2012:53:00) Trig [0-200 mg/dL] 106 mg/dL (04/17/2012:53:00) HDL [>=35 mg/dL] 54 mg/dL (04/17/2012:53:00) LDL [0-129 mg/dL] 87 mg/dL (04/17/2012:53:00) 2Result Comment: The eGFR is calculated using the [...] be mul tiplied by the estimated BMI. 3Result Comment: The eGFR is calculated using the [...] be mul tiplied by the estimated BMI. 4Interpretive Data: Adult reference range values reflect the clinical guidelines of the [place] [employer]. 5Interpretive Data: Adult reference range values reflect the clinical guidelines of the [place] [employer]. HEMATOLOGY Most recent to oldest [Reference Range]: 1 2 WBC [3.7-10.4 K/CMM] 4.1 K/CMM (04/16/2012 05:20:00) 4.5 K/CMM (04/15/2012 17:34:00) RBC [4.70-6.10 M/CMM] 4.30 M/CMM *LOW* (04/16/2012 05:20:00) 4.57 M/CMM *LOW* (04/15/2012:34:00) Hgb [14.0-18.0 g/dL] 13.8 g/dL *LOW* (04/16/2012 05:20:00) 14.9 g/dL (04/15/2012:34:00) Hct [42.0-54.0 %] 40.9 % *LOW* (04/16/2012 05:20:00) 43.7 % (04/15/2012:34:00) MCV [80.0-94.0 fL] 95.1 fL *HI* (04/16/2012 05:20:00) 95.7 fL *HI* (04/15/2012:34:00) MCH [27.0-31.0 pg] 32.1 pg *HI* (04/16/2012 05:20:00) 32.6 pg *HI* (04/15/2012:34:00) MCHC [32.0-36.0 g/dL] 33.7 g/dL (04/16/2012 05:20:00) 34.0 g/dL (04/15/2012:34:00) RDW [11.5-14.5 %] 13.9 % (04/16/2012 05:20:00) 13.9 % (04/15/2012 17:34:00) Platelet [133-450 K/CMM] 110 K/CMM *LOW* (04/16/2012 05:20:00) 124 K/CMM *LOW* (04/15/2012 17:34:00) MPV [7.4-10.4 fL] 8.4 fL (04/16/2012 05:20:00) 8.2 fL (04/15/2012 17:34:00) Segs [45.0-75.0 %] 58.0 % (04/16/2012 05:20:00) 60.2 % (04/15/2012 17:34:00) Lymphocytes [20.0-40.0 %] 26.2 % (04/16/2012 05:20:00) 27.4 % (04/15/2012 17:34:00) Monocytes [2.0-12.0 %] 11.4 % (04/16/2012 05:20:00) 8.4 % (04/15/2012 17:34:00) Eosinophils [0.0-4.0 %] 3.7 % (04/16/2012 05:20:00) 3.4 % (04/15/2012 17:34:00) Basophils [0.0-1.0 %] 0.7 % (04/16/2012 05:20:00) 0.6 % (04/15/2012 17:34:00) Segs-Bands # [1.5-8.1 K/CMM] 2.4 K/CMM (04/16/2012 05:20:00) 2.7 K/CMM (04/15/2012 17:34:00) Lymphocytes # [1.0-5.5 K/CMM] 1.1 K/CMM (04/16/2012 05:20:00) 1.2 K/CMM (04/15/2012 17:34:00) Monocytes # [0.0-0.8 K/CMM] 0.5 K/CMM (04/16/2012 05:20:00) 0.4 K/CMM (04/15/2012 17:34:00) Eosinophils # [0.0-0.5 K/CMM] 0.2 K/CMM (04/16/2012 05:20:00) 0.2 K/CMM (04/15/2012 17:34:00) Basophils # [0.0-0.2 K/CMM] 0.0 K/CMM (04/16/2012 05:20:00) 0.0 K/CMM (04/15/2012 17:34:00) PT [12.0-14.7 seconds] 14.6 seconds (04/16/2012 05:20:00) 14.0 seconds (04/15/2012 17:34:00) INR [0.85-1.17] 1.12 6 (04/16/2012 05:20:00) 1.06 7 (04/15/2012 17:34:00) PTT [22.9-35.8 seconds] 34.8 seconds 8 (04/16/2012 05:20:00) 32.1 seconds 9 (04/15/2012 17:34:00) 6Interpretive Data: RECOMMENDED RANGES FOR PROTIME INR: 2.0-3.0 for most medical and surgical thromboembolic states. 2.5-3.5 for artificial heart valves and recurrent embolism. INR SHOULD BE USED ONLY FOR PATIENTS ON STABLE ANTICOAGULANT THERAPY. 7Interpretive Data: RECOMMENDED RANGES FOR PROTIME INR: 2.0-3.0 for most medical and surgical thromboembolic states. 2.5-3.5 for artificial heart valves and recurrent embolism. INR SHOULD BE USED ONLY FOR PATIENTS ON STABLE ANTICOAGULANT THERAPY. 8Interpretive Data: Heparin Therapeutic Range: 57 - 92 Seconds 9Interpretive Data: Heparin Therapeutic Range: 57 - 92 Seconds Procedures Procedures Date Related Diagnosis Back fusion 02/24/1983 00:00:00
--- OUTSIDE RECORDS SUMMARY | 2018-08-21 09:50 | XMS REPORT | Summary of Care ---
Author Author [facility] Organization [facility] Address Unknown Phone Unavailable Encounter MAHNAZ Barclay(MAKI) [id number] Date(s): 02/07/17 - 02/08/17 [facility] [id number] [place] [address]- Discharge Disposition: Home or Self Care Attending Physician: Manuel Baez MD Admitting Physician: Manuel Baez MD Vital Signs 1 2 3 Most recent to oldest [Reference Range]: 182.88 cm (02/07/17 9:14 PM) 182.88 cm (02/07/17 11:56 AM) Height 97.5 DegF (02/08/17 7:14 AM) 97.9 DegF (02/08/17 3:24 AM) 97.9 DegF (02/07/17 10:59 PM) Temperature Oral [96.4-99.1 DegF] 146/83 mmHg *HI* (02/08/17 7:14 AM) 154/88 mmHg *HI* (02/08/17 3:24 AM) 153/95 mmHg *HI* (02/07/17 10:59 PM) Blood Pressure [90-140/60-90 mmHg] 18 BRMIN (02/08/17 7:14 AM) 18 BRMIN (02/08/17 3:24 AM) 18 BRMIN (02/07/17 10:59 PM) Respiratory Rate [14-20 BRMIN] 97 bpm (02/08/17 7:14 AM) 83 bpm (02/08/17 3:24 AM) 87 bpm (02/07/17 10:59 PM) Peripheral Pulse Rate [60-100 bpm] 125 kg (02/07/17 9:14 PM) 113.636 kg (02/07/17 11:56 AM) Weight 37.37 m2 (02/07/17 9:14 PM) 33.98 m2 (02/07/17 11:56 AM) Body Mass Index Problem List Condition Effective Dates Status Health Status Informant Atypical chest pain1 03/23/13 Active Benign prostatic Active hypertrophy with outflow obstruction2 Body mass index 30+ 03/23/13 Active - obesity3 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 2Data migrated from [employer] on 07/23/14. 3Data migrated from [employer] on 07/23/14. 4Data migrated from [employer] on 07/23/14. 5Data migrated from [employer] on 07/23/14. 6Data migrated from [employer] on 07/23/14. 7Data migrated from [employer] on 07/23/14. 8Data migrated from [employer] on 07/23/14. 9Data migrated from [employer] on 09/10/14. 10Data migrated from [employer] on 09/09/14. 11Data migrated from [employer] on 07/23/14. 12Data migrated from [employer] on 07/23/14. 13Data migrated from [employer] on 07/23/14. Allergies, Adverse Reactions, Alerts Substance Reaction Severity Status NKDA Active Medications acetaminophen 650 mg, 2 tab, Route: PO, Drug form: TAB, Q4H, Dosing Weight 125, kg, PRN Pain 1 -3/Temp > 100.4 F, Start date: 02/08/17 2:42:00 RESIDENT SERVICES COORDINATOR, Duration: 30 day, Stop date: 03/10/17 2:41:00 RESIDENT SERVICES COORDINATOR Notes: Do not exceed 4 gm/day. (Same as: Tylenol) Start Date: 02/08/17 Stop Date: 02/08/17 Status: Discontinued acetaminophen-codeine 300 mg-30 mg oral tablet 1 tab, PO, Q4H, PRN Pain, X 7 day, # 42 tab, 0 Refill(s) Start Date: 02/08/17 Stop Date: 02/15/17 Status: Ordered acetaminophen-hydrocodone 325 mg-5 mg oral tablet 1 tab, Route: PO, Drug Form: TAB, Dosing Weight 125, kg, Q4H, PRN Pain Score 4-6 , Start date: 02/08/17 2:42:00 RESIDENT SERVICES COORDINATOR, Duration: 30 day, Stop date: 03/10/17 2:41:0 0 RESIDENT SERVICES COORDINATOR Notes: (Same as: Ferrum 325/5) Do not exceed 4gm/day of acetaminophen. Start Date: 02/08/17 Stop Date: 02/08/17 Status: Discontinued buPROPion 200 mg, PO, Daily, 0 Refill(s) Start Date: 02/07/17 Stop Date: 02/08/17 Status: Discontinued enoxaparin 30 mg, 0.3 mL, Route: SUB-Q, Drug form: INJ, [id number], Dosing Weight 125, kg, St art date: 02/08/17 3:00:00 RESIDENT SERVICES COORDINATOR, Stop date: 03/09/17 15:00:00 RESIDENT SERVICES COORDINATOR Notes: (Same as: Lovenox) Start Date: 02/08/17 Stop Date: 02/08/17 Status: Discontinued fentaNYL 100 microgram, Route: IVP, ONCE, Dosing Weight 113.636, kg, Priority: STAT, Star t date: 02/07/17 20:11:00 RESIDENT SERVICES COORDINATOR, Stop date: 02/07/17 20:11:00 RESIDENT SERVICES COORDINATOR Start Date: 02/07/17 Stop Date: 02/07/17 Status: Completed metoclopramide 10 mg oral tablet 10 mg=1 tab, PO, Daily, 0 Refill(s) Start Date: 02/07/17 Stop Date: 02/08/17 Status: Discontinued morphine Sulfate 6 mg, Route: IVP, ONCE, Dosing Weight 113.636, kg, Priority: STAT, Start date: 1 04/10/16 18:39:00 RESIDENT SERVICES COORDINATOR, Stop date: 02/07/17 18:39:00 RESIDENT SERVICES COORDINATOR Start Date: 02/07/17 Stop Date: 02/07/17 Status: Completed morphine Sulfate 12 mg, 6 mL, Route: PO, Drug form: SOLN, Q4H, PRN Pain Score 7-10, Start date: 04/11/16 3:04:00 RESIDENT SERVICES COORDINATOR, Duration: 30 day, Stop date: 03/10/17 3:03:00 RESIDENT SERVICES COORDINATOR Notes: (Same as:MORPhine Sulfate) Start Date: 02/08/17 Stop Date: 02/08/17 Status: Discontinued morphine Sulfate 6 mg, Route: IVP, ONCE, Dosing Weight 113.636, kg, Priority: STAT, Start date: 04/10/16 15:58:00 RESIDENT SERVICES COORDINATOR, Stop date: 02/07/17 15:58:00 RESIDENT SERVICES COORDINATOR Start Date: 02/07/17 Stop Date: 02/07/17 Status: Completed morphine Sulfate 4 mg, Route: IVP, Q4H, Dosing Weight 125, kg, PRN Pain Score 7-10, Start date: 04/11/16 2:42:00 RESIDENT SERVICES COORDINATOR, Duration: 30 day, Stop date: 03/10/17 2:41:00 RESIDENT SERVICES COORDINATOR Start Date: 02/08/17 Stop Date: 02/08/17 Status: Deleted omeprazole 40 mg oral delayed release capsule 40 mg=1 cap, PO, Daily, # 30 cap, 0 Refill(s) Start Date: 02/07/17 Status: Ordered ondansetron 4 mg, 2 mL, Route: IVP, Drug form: INJ, Q6H, Dosing Weight 125, kg, PRN Nausea & Vomiting, Start date: 02/08/17 2:42:00 RESIDENT SERVICES COORDINATOR, Duration: 30 day, Stop date: 2:41:00 RESIDENT SERVICES COORDINATOR Notes: (Same as: Alec) MEDICATION WASTE Product Size: 4 mgProduct Was jhonny: ___ mg Start Date: 02/08/17 Stop Date: 02/08/17 Status: Discontinued predniSONE 10 mg oral tablet 10 mg=1 tab, PO, Daily, # 30 tab, 3 Refill(s) Start Date: 02/07/17 Stop Date: 02/08/17 Status: Discontinued Saline Flush 0.9% 10 ml, Route: IVP, Drug Form: INJ, Dosing Weight 125, kg, PRN, PRN Line Flush, S tart date: 02/08/17 2:42:00 RESIDENT SERVICES COORDINATOR, Duration: 30 day, Stop date: 03/10/17 2:41:[address] Notes: (Same as: BD Posiflush) Start Date: 02/08/17 Stop Date: 02/08/17 Status: Discontinued Sodium Chloride 0.9% (Bolus) IV 1,000 mL, Infuse Over: 1 hr, Route: IV, ONCE, Priority: STAT, Dosing Weight 113. 636 kg, Start date: 02/07/17 15:55:00 RESIDENT SERVICES COORDINATOR, Stop date: 02/07/17 15:55:00 RESIDENT SERVICES COORDINATOR Start Date: 02/07/17 Stop Date: 02/07/17 Status: Completed tamsulosin 0.4 mg oral capsule 0.4 mg=1 cap, PO, BID, 0 Refill(s) Start Date: 02/07/17 Status: Ordered trazodone 100 mg oral tablet 100 mg=1 tab, PO, Bedtime, # 30 tab, 0 Refill(s) Start Date: 02/07/17 Stop Date: 02/08/17 Status: Discontinued Zofran 4 mg, Route: IVP, Drug form: INJ, ONCE, Dosing Weight 113.636, kg, Priority: STA T, Start date: 02/07/17 20:11:00 RESIDENT SERVICES COORDINATOR, Stop date: 02/07/17 20:11:00 RESIDENT SERVICES COORDINATOR Start Date: 02/07/17 Stop Date: 02/07/17 Status: Completed Results ELECTROLYTES 1 2 3 Most recent to oldest [Reference Range]: 140 mEq/L (02/08/17 8:40 AM) 138 mEq/L (02/08/17 3:32 AM) 137 mEq/L (02/07/17 12:13 PM) Sodium Lvl [135-145 mEq/L] 4.4 mEq/L (02/08/17 8:40 AM) 4.6 mEq/L (02/08/17 3:32 AM) 3.7 mEq/L (02/07/17 12:13 PM) Potassium Lvl [3.5-5.1 mEq/L] 103 mEq/L (02/08/17 8:40 AM) 103 mEq/L (02/08/17 3:32 AM) 101 mEq/L (02/07/17 12:13 PM) Chloride Lvl [95-109 mEq/L] 29 mEq/L (02/08/17 8:40 AM) 28 mEq/L (02/08/17 3:32 AM) 27 mEq/L (02/07/17 12:13 PM) CO2 [24-32 mEq/L] 12.4 mEq/L (02/08/17 8:40 AM) 11.6 mEq/L (02/08/17 3:32 AM) 12.7 mEq/L (02/07/17 12:13 PM) AGAP [10.0-20.0 mEq/L] CHEM PANEL 1 2 3 Most recent to oldest [Reference Range]: 0.60 mg/dL (02/08/17 8:40 AM) 0.73 mg/dL (02/08/17 3:32 AM) 1.15 mg/dL (02/07/17 12:13 PM) Creatinine Lvl [0.50-1.40 mg/dL] 101 mL/min/1.73m2 1 *NA* (02/08/17 8:40 AM) 94 mL/min/1.73m2 2 *NA* (02/08/17 3:32 AM) 64 mL/min/1.73m2 3 *NA* (02/07/17 12:13 PM) eGFR 14 mg/dL (02/08/17 8:40 AM) 15 mg/dL (02/08/17 3:32 AM) 17 mg/dL (02/07/17 12:13 PM) BUN [7-22 mg/dL] 15 (02/07/17 12:13 PM) B/C Ratio [6-25] 114 mg/dL *HI* (02/08/17 8:40 AM) 127 mg/dL *HI* (02/08/17 3:32 AM) 150 mg/dL *HI* (02/07/17 12:13 PM) Glucose Lvl [70-99 mg/dL] 7.2 g/dL (02/07/17 12:13 PM) Total Protein [6.4-8.4 g/dL] 3.8 g/dL (02/07/17 12:13 PM) Albumin Lvl [3.5-5.0 g/dL] 3.4 g/dL (02/07/17 12:13 PM) Globulin [2.7-4.2 g/dL] 1.1 (02/07/17 12:13 PM) A/G Ratio [0.7-1.6] 8.7 mg/dL (02/08/17 8:40 AM) 8.2 mg/dL *LOW* (02/08/17 3:32 AM) 8.3 mg/dL *LOW* (02/07/17 12:13 PM) Calcium Lvl [8.5-10.5 mg/dL] 53 unit/L (02/07/17 12:13 PM) ALT [0-65 unit/L] 40 unit/L *HI* (02/07/17 12:13 PM) AST [0-37 unit/L] 140 unit/L *HI* (02/07/17 12:13 PM) Alk Phos [39-136 unit/L] 1.2 mg/dL (02/07/17 12:13 PM) Bili Total [0.2-1.3 mg/dL] 1Result Comment: The eGFR is calculated using [...] be mul tiplied by the estimated BMI. 2Result Comment: The eGFR is calculated using [...] be mul tiplied by the estimated BMI. CARDIAC ENZYMES 1 2 3 Most recent to oldest [Reference Range]: 776 unit/L *HI* (02/07/17 4:23 PM) Total CK [12-191 unit/L] 3.4 ng/mL (02/07/17 4:23 PM) CK MB [0.5-3.6 ng/mL] <0.02 ng/mL (02/07/17 4:23 PM) Troponin-I [0.00-0.40 ng/mL] URINE AND STOOL 1 2 3 Most recent to oldest [Reference Range]: Clear (02/07/17 12:56 PM) UA Turbidity [Clear] Ester *NA* (02/07/17 12:56 PM) UA Color 6.0 (02/07/17 12:56 PM) UA pH [5.0-8.0] 1.028 (02/07/17 12:56 PM) UA Spec Grav [<=1.030] Negative mg/dL *NA* (02/07/17 12:56 PM) UA Glucose [Negative mg/dL] Small *ABN* (02/07/17 12:56 PM) UA Blood [Negative] Trace mg/dL *ABN* (02/07/17 12:56 PM) UA Ketones [Negative mg/dL] 30 mg/dL *ABN* (02/07/17 12:56 PM) UA Protein [Negative mg/dL] 4.0 mg/dL *HI* (02/07/17 12:56 PM) UA Urobilinogen [0.1-1.0 mg/dL] Negative *NA* (02/07/17 12:56 PM) UA Bili [Negative] Negative (02/07/17 12:56 PM) UA Leuk Est [Negative] Negative (02/07/17 12:56 PM) UA Nitrite [Negative] 2 /HPF (02/07/17 12:56 PM) UA WBC [0-5 /HPF] 6 /HPF *HI* (02/07/17 12:56 PM) UA RBC [0-2 /HPF] Occasional /HPF *NA* (02/07/17 12:56 PM) UA Bacteria [None Seen /HPF] Occasional /LPF *NA* (02/07/17 12:56 PM) UA Sq Epi [Few /LPF] 4 /LPF *HI* (02/07/17 12:56 PM) UA Hyal Cast [0-2 /LPF] HEMATOLOGY 1 2 3 Most recent to oldest [Reference Range]: 7.4 K/CMM (02/08/17 8:40 AM) 8.7 K/CMM (02/08/17 3:32 AM) 10.2 K/CMM (02/07/17 12:13 PM) WBC [3.7-10.4 K/CMM] 4.57 M/CMM *LOW* (02/08/17 8:40 AM) 4.74 M/CMM (02/08/17 3:32 AM) 4.93 M/CMM (02/07/17 12:13 PM) RBC [4.70-6.10 M/CMM] 15.0 g/dL (02/08/17 8:40 AM) 15.8 g/dL (02/08/17 3:32 AM) 16.0 g/dL (02/07/17 12:13 PM) Hgb [14.0-18.0 g/dL] 43.8 % (02/08/17 8:40 AM) 45.4 % (02/08/17 3:32 AM) 46.8 % (02/07/17 12:13 PM) Hct [42.0-54.0 %] 95.8 fL *HI* (02/08/17 8:40 AM) 95.9 fL *HI* (02/08/17 3:32 AM) 95.1 fL *HI* (02/07/17 12:13 PM) MCV [80.0-94.0 fL] 32.8 pg *HI* (02/08/17 8:40 AM) 33.3 pg *HI* (02/08/17 3:32 AM) 32.5 pg *HI* (02/07/17 12:13 PM) MCH [27.0-31.0 pg] 34.2 g/dL (02/08/17 8:40 AM) 34.7 g/dL (02/08/17 3:32 AM) 34.2 g/dL (02/07/17 12:13 PM) MCHC [32.0-36.0 g/dL] 14.0 % (02/08/17 8:40 AM) 13.7 % (02/08/17 3:32 AM) 13.8 % (02/07/17 12:13 PM) RDW [11.5-14.5 %] 127 K/CMM *LOW* (02/08/17 8:40 AM) 134 K/CMM (02/08/17 3:32 AM) 148 K/CMM (02/07/17 12:13 PM) Platelet [133-450 K/CMM] 8.2 fL (02/08/17 8:40 AM) 8.5 fL (02/08/17 3:32 AM) 8.4 fL (02/07/17 12:13 PM) MPV [7.4-10.4 fL] 79.1 % *HI* (02/08/17 8:40 AM) 79.3 % *HI* (02/08/17 3:32 AM) 76.5 % *HI* (02/07/17 12:13 PM) Segs [45.0-75.0 %] 11.5 % *LOW* (02/08/17 8:40 AM) 10.7 % *LOW* (02/08/17 3:32 AM) 13.7 % *LOW* (02/07/17 12:13 PM) Lymphocytes [20.0-40.0 %] 8.9 % (02/08/17 8:40 AM) 9.4 % (02/08/17 3:32 AM) 8.9 % (02/07/17 12:13 PM) Monocytes [2.0-12.0 %] 0.1 % (02/08/17 8:40 AM) 0.1 % (02/08/17 3:32 AM) 0.4 % (02/07/17 12:13 PM) Eosinophils [0.0-4.0 %] 0.4 % (02/08/17 8:40 AM) 0.5 % (02/08/17 3:32 AM) 0.5 % (02/07/17 12:13 PM) Basophils [0.0-1.0 %] 5.8 K/CMM (02/08/17 8:40 AM) 6.9 K/CMM (02/08/17 3:32 AM) 7.8 K/CMM (02/07/17 12:13 PM) Segs-Bands # [1.5-8.1 K/CMM] 0.8 K/CMM *LOW* (02/08/17 8:40 AM) 0.9 K/CMM *LOW* (02/08/17 3:32 AM) 1.4 K/CMM (02/07/17 12:13 PM) Lymphocytes # [1.0-5.5 K/CMM] 0.7 K/CMM (02/08/17 8:40 AM) 0.8 K/CMM (02/08/17 3:32 AM) 0.9 K/CMM *HI* (02/07/17 12:13 PM) Monocytes # [0.0-0.8 K/CMM] 0.1 K/CMM (02/07/17 12:13 PM) Basophils # [0.0-0.2 K/CMM] Immunizations Given and Recorded Vaccine Date Status Refusal Reason influenza virus vaccine, inactivated 11/29/14 Given influenza virus vaccine, inactivated1 12/09/12 Given pneumococcal 23-valent vaccine 03/14/13 Given pneumococcal 23-valent vaccine 04/17/12 Given pneumococcal 23-valent vaccine2 12/03/11 Given Hx influenza vaccine-unspecified3 12/03/11 Given Not Given Vaccine Date Status Refusal Reason pneumococcal 13-valent vaccine 02/08/17 Not Given Patient Refuses 1Result Comment: fluzone (>3 yrs.) [[id number]]. Migrated from OBS ; Data migrated from [employer] on 03/28/2015. 2Result Comment: 12-03-2011. Migrated from OBS ; Data migrated from [employer] on 03/28/2015. 3Result Comment: 12-03-2011. Migrated from OBS ; Data migrated from [employer] on 03/28/2015. Procedures Procedure Date Related Diagnosis Body Site Back fusion 02/24/83 Cholecystectomy Fusion of lumbar spine Lithotripsy Social History Social History Type Response Substance Abuse Use: None. Alcohol Current, Type [...] at age: 16.0; Stopped at age: 45; Assessment and Plan Extracted from: Title: Trauma Admission H&P Author: Manuel Baez MD Date: 02/08/17 Impression and Plan Diagnosis Fall from standing ([id number] W19.XXXA, Working, Medical). Closed fracture of multiple ribs ([id number] S22.49XA, Working, Medical). Orders Discussed known rib injuries and treatment/recovery expectations. Discussed risk reduction and responsible alcohol use. Will DC home with prescription for pain medication, instructions for deep breathing exercises, and office contact info for follow-up.
--- OUTSIDE RECORDS SUMMARY | 2018-08-21 09:51 | XMS REPORT | Summary of Care ---
Author Author [facility] Organization [facility] Address Unknown Phone Unavailable Encounter MAHNAZ Barclay(MAKI) [id number] Date(s): 01/14/15 - 01/17/15 [facility] [address] [place] [address]- Discharge Disposition: Home Attending Physician: Tai Bowen MD Admitting Physician: Tai Bowen MD Vital Signs 1 2 3 Most recent to oldest [Reference Range]: 182.88 cm (01/14/15 2:33 PM) Height 97.5 DegF (01/17/15 8:19 AM) 98.1 DegF (01/17/15 4:52 AM) 98.5 DegF (01/17/15 12:07 AM) Temperature Oral [96.4-99.1 DegF] 145/86 mmHg *HI* (01/17/15 8:19 AM) 127/80 mmHg (01/17/15 4:52 AM) 135/79 mmHg (01/17/15 12:07 AM) Blood Pressure [90-140/60-90 mmHg] 18 BRMIN (01/17/15 8:19 AM) 16 BRMIN (01/17/15 4:52 AM) 16 BRMIN (01/17/15 12:07 AM) Respiratory Rate [14-20 BRMIN] 91 bpm (01/17/15 8:19 AM) 90 bpm (01/17/15 4:52 AM) 82 bpm (01/17/15 12:07 AM) Peripheral Pulse Rate [60-100 bpm] 105.455 kg (01/14/15 2:33 PM) Weight 31.53 m2 (01/14/15 2:33 PM) Body Mass Index Problem List Condition Effective [...] 03/23/13 Active Stent(Confirmed) Active Thrombocytopenic 12/09/12 Active [id number] Vitamin D 12/09/12 Active [id number] Vomiting(Confirmed) Active 1Data migrated from [employer] [...] Reaction Severity Status NKDA Active Medications acetaminophen 325 mg, 1 tab, Route: PO, Drug form: TAB, Q4H, Dosing Weight 105.455, kg, PRN Pa in Score 4-6, Start date: 01/14/15 22:44:00, Duration: 30 day, Stop date: 22:43:00 Notes: Do not exceed 4 gm/day. (Same as: Tylenol) Start Date: 01/14/15 Stop Date: 01/17/15 Status: Discontinued acetaminophen-hydrocodone 325 mg-5 mg oral tablet 1 tab, Route: PO, Drug Form: TAB, Dosing Weight 105.455, kg, Q4H, PRN Pain Score 1-5, Start date: 01/15/15 15:58:00, Stop date: 02/14/15 15:57:00 Notes: (Same as: Luckey 325/5) Do not exceed 4gm/day of acetaminophen. Start Date: 01/15/15 Stop Date: 01/17/15 Status: Discontinued buPROPion 150 mg, 1 tab, Route: PO, Drug form: ERTAB, Daily, Dosing Weight 105.455, kg, St art date: 01/15/15 9:00:00, Duration: 30 day, Stop date: 02/13/15 9:00:00 Notes: (Same as: Wellbutrin XL)"Do Not Crush" Start Date: 01/15/15 Stop Date: 01/17/15 Status: Discontinued buPROPion 150 mg/24 hours oral extended release tablet 150 mg=1 tab, PO, Daily, # 30 tab, 0 Refill(s) Start Date: 01/14/15 Status: Ordered cefOXitin (SCIP) 2 gm, Route: IV, ONCE, Dosing Weight 105.455, kg, Start date: 01/15/15 14:30:00, Stop date: 01/15/15 14:30:00 Start Date: 01/15/15 Stop Date: 01/15/15 Status: Completed Dilaudid 2 mg, 2 mL, Route: IVP, Drug form: INJ, Q3H, Dosing Weight 105.455, kg, PRN Pain Score 7-10, Start date: 01/15/15 15:58:00, Duration: 30 day, Stop date: 02/14/15 15:57:00 Start Date: 01/15/15 Stop Date: 01/17/15 Status: Discontinued docusate 100 mg, 1 cap, Route: PO, Drug form: CAP, BID, Dosing Weight 105.455, kg, PRN Co nstipation, Start date: 01/14/15 22:44:00, Duration: 30 day, Stop date: 02/13/15 22:43:00 Notes: (Same as: Colace) (Do Not Crush) Start Date: 01/14/15 Stop Date: 01/17/15 Status: Discontinued enoxaparin 40 mg, 0.4 mL, Route: SUB-Q, Drug form: INJ, [id number], Dosing Weight 105.455, kg , Start date: 01/15/15 9:00:00, Duration: 30 day, Stop date: 02/13/15 9:00:00 Notes: (Same as: Lovenox) Start Date: 01/15/15 Stop Date: 01/17/15 Status: Discontinued fentaNYL 25 microgram, Route: IVP, Q5Min, Dosing Weight 105.455, kg, PRN Pain Score 4-6, Start date: 01/15/15 15:49:00, Duration: 4 doses or times, Stop date: Limited # of times Start Date: 01/15/15 Stop Date: 01/15/15 Status: Discontinued Flagyl 500 mg, 100 mL, Route: IVPB, Drug form: INJ, [id number], Dosing Weight 105.455, kg, Start date: 01/15/15 9:00:00, Duration: 30 day, Stop date: 02/14/15 1:00:00 Notes: (Same as: Flagyl) Avoid alcohol. Start Date: 01/15/15 Stop Date: 01/16/15 Status: Discontinued flumazenil 0.2 mg, Route: IVP, PRN, Dosing Weight 105.455, kg, PRN Benzodiazepine Reversal, Initial dose, Start date: 01/15/15 15:49:00, Duration: 30 day, Stop date: 02/14 15:48:00 Start Date: 01/15/15 Stop Date: 01/15/15 Status: Discontinued hydromorphone 0.5 mg, Route: IVP, Q5Min, Dosing Weight 105.455, kg, PRN Pain Score 7-10, Start date: 01/15/15 15:49:00, Duration: 4 doses or times, Stop date: Limited # of ti mes Start Date: 01/15/15 Stop Date: 01/15/15 Status: Discontinued hydromorphone 1 mg, 1 mL, Route: IVP, Drug form: INJ, Q3H, Dosing Weight 105.455, kg, PRN Pain Score 4-6, Start date: 01/15/15 15:58:00, Duration: 30 day, Stop date: 02/14/15 15:57:00 Start Date: 01/15/15 Stop Date: 01/17/15 Status: Discontinued Lactated Ringers Injection IV 1,000 mL 1,000 mL, Rate: 75 ml/hr, Infuse over: 13.3 hr, Route: IV, Dosing Weight 105.455 kg, Total Volume: 1,000, Start date: 01/15/15 15:58:00, Duration: 30 day, Stop date: 02/14/15 15:57:00 Start Date: 01/15/15 Stop Date: 01/16/15 Status: Discontinued Latuda 120 mg, Route: PO, Drug form: TAB, Bedtime, Dosing Weight 105.455, kg, Start rajat e: 01/15/15 21:00:00, Duration: 30 day, Stop date: 02/13/15 21:00:00 Start Date: 01/15/15 Stop Date: 01/15/15 Status: Deleted Latuda 120 mg oral tablet 120 mg=1 tab, PO, Bedtime, 0 Refill(s) Start Date: 01/14/15 Status: Ordered Latuda 120mg pt's own med Latuda 120mg pt's own med, 1 tablet, Drug form: MISC, Route: PO, Bedtime, 21:00:00, Duration: 30 day, Stop date: 02/13/15 21:00:00 Start Date: 01/15/15 Stop Date: 01/17/15 Status: Discontinued Levaquin 750 mg, 150 mL, Route: IVPB, Drug form: SOLN, [id number], Dosing Weight 105.455, kg , Start date: 01/15/15 9:00:00, Duration: 30 day, Stop date: 02/13/15 9:00:00 Notes: (Same as:Levaquin) Start Date: 01/15/15 Stop Date: 01/16/15 Status: Discontinued meperidine 12.5 mg, Route: IVP, Q30Min, Dosing Weight 105.455, kg, PRN Other -See Comment, For shivering, Start date: 01/15/15 15:49:00, Duration: 2 doses or times, Stop d ate: Limited # of times Start Date: 01/15/15 Stop Date: 01/15/15 Status: Discontinued MiraLax 17 gm, 1 pkt, Route: PO, Drug form: PWDR, Daily, Dosing Weight 105.455, kg, PRN Constipation, Start date: 01/15/15 8:25:00, Duration: 30 day, Stop date: 5 8:24:00 Notes: Dissolve in 8 oz of water or juice.(Same as: Miralax) Start Date: 01/15/15 Stop Date: 01/17/15 Status: Discontinued MiraLax oral powder for reconstitution 17 gm, PO, Daily, PRN Constipation, 0 Refill(s) Start Date: 01/14/15 Status: Ordered morphine Sulfate 4 mg, 2 mL, Route: IVP, Drug form: INJ, ONCE, Dosing Weight 105.455, kg, Priorit y: STAT, Start date: 01/14/15 16:56:00, Stop date: 01/14/15 16:56:00 Notes: (Same as:MORPhine Sulfate) Start Date: 01/14/15 Stop Date: 01/14/15 Status: Completed morphine Sulfate 2 mg, 1 mL, Route: IVP, Drug form: INJ, Q4H, Dosing Weight 105.455, kg, PRN Pain Score 7-10, Start date: 01/14/15 22:44:00, Duration: 30 day, Stop date: 02/13/15 22:43:00 Notes: (Same as:MORPhine Sulfate) Start Date: 01/14/15 Stop Date: 01/17/15 Status: Discontinued naloxone 0.04 mg, Route: IVP, Q2MIN, Dosing Weight 105.455, kg, PRN Narcotic Reversal, St art date: 01/15/15 15:49:00, Duration: 8 doses or times, Stop date: Limited # of times Start Date: 01/15/15 Stop Date: 01/15/15 Status: Discontinued Luckey 10/325 oral tablet 1 tab, Route: PO, Drug Form: TAB, Dosing Weight 105.455, kg, Q4H, PRN Pain, Star t date: 01/15/15 15:49:00, Duration: 30 day, Stop date: 02/14/15 15:48:00 Start Date: 01/15/15 Stop Date: 01/15/15 Status: Discontinued Ofirmev 1,000 mg, Route: IV, Drug form: INJ, ONCE, Dosing Weight 105.455, kg, PRN Pain, for > or=50 kg, Start date: 01/15/15 15:49:00 Start Date: 01/15/15 Stop Date: 01/15/15 Status: Discontinued ondansetron 4 mg, Route: IVP, ONCE, Dosing Weight 105.455, kg, PRN Nausea & Vomiting, Start date: 01/15/15 15:49:00 Start Date: 01/15/15 Stop Date: 01/15/15 Status: Discontinued ondansetron 4 mg, 2 mL, Route: IVP, Drug form: INJ, Q6H, Dosing Weight 105.455, kg, PRN Naus ea & Vomiting, Start date: 01/15/15 15:58:00, Duration: 30 day, Stop date: 02/14/15 15:57:00 Notes: (Same as: Alec) MEDICATION WASTE Product Size: 4 mgProduct Was jhonny: ___ mg Start Date: 01/15/15 Stop Date: 01/17/15 Status: Discontinued ondansetron 4 mg, 2 mL, Route: IVP, Drug form: INJ, Q6H, Dosing Weight 105.455, kg, PRN Naus ea & Vomiting, Start date: 01/14/15 22:44:00, Duration: 30 day, Stop date: 02/13/15 22:43:00 Notes: (Same as: Alec) MEDICATION WASTE Product Size: 4 mgProduct Was jhonny: ___ mg Start Date: 01/14/15 Stop Date: 01/17/15 Status: Discontinued oxyCODONE 5 mg, Route: PO, Drug form: TAB, Q4H, Dosing Weight 105.455, kg, PRN Pain Score 4-6, Start date: 01/15/15 15:49:00, Duration: 30 day, Stop date: 02/14/15 15:48: 00 Start Date: 01/15/15 Stop Date: 01/15/15 Status: Discontinued potassium phosphate 10 mEq, Route: IVPB, ONCE, Dosing Weight 105.455, kg, Start date: 01/16/15 7:07: 00, Stop date: 01/16/15 7:07:00 Start Date: 01/16/15 Stop Date: 01/16/15 Status: Discontinued potassium phosphate + Sodium Chloride 0.9% IV 250 mL 10 mmol, 3.33 mL, Route: IVPB, ONCE, Dosing Weight 105.455, kg, Start date: 12/26 05/08 7:55:00, Stop date: 01/16/15 7:55:00 Notes: (Same as: K Phosphate.) 1 mMol phoshate has 1.47 mEq potassium Infuse o imani 4 hours Start Date: 01/16/15 Stop Date: 01/16/15 Status: Completed Saline Flush 0.9% 10 mL, Route: IVP, Drug Form: INJ, Dosing Weight 105.455, kg, PRN, PRN Line Flus h, Start date: 01/14/15 14:36:00, Duration: 30 day, Stop date: 02/13/15 14:35:00 Notes: Same as: BD Posiflush Sterile Start Date: 01/14/15 Stop Date: 01/14/15 Status: Discontinued Saline Flush 0.9% 10 ml, Route: IVP, Drug Form: INJ, Dosing Weight 105.455, kg, PRN, PRN Line Flus h, Start date: 01/14/15 22:44:00, Duration: 30 day, Stop date: 02/13/15 22:43:00 Notes: (Same as: BD Posiflush) Start Date: 01/14/15 Stop Date: 01/17/15 Status: Discontinued Sodium Chloride 0.9% (Bolus) IV 1,000 mL, 1000 ml/hr, Infuse Over: 1 hr, Route: IV, 1,000, Drug form: INJ, ONCE, Priority: STAT, Dosing Weight 105.455 kg, Start date: 01/14/15 16:30:00, Durati on: 1 doses or times, Stop date: 01/14/15 16:30:00 Start Date: 01/14/15 Stop Date: 01/14/15 Status: Completed Sodium Chloride 0.9% IV 1,000 mL 1,000 mL, Rate: 125 ml/hr, Infuse over: 8 hr, Route: IV, Dosing Weight 105.455 k g, Total Volume: 1,000, Start date: 01/14/15 22:44:00, Duration: 30 day, Stop da te: 02/13/15 22:43:00 Start Date: 01/14/15 Stop Date: 01/17/15 Status: Discontinued trazodone 150 mg, 3 tab, Route: PO, Drug form: TAB, Bedtime, Dosing Weight 105.455, kg, St art date: 01/15/15 21:00:00, Duration: 30 day, Stop date: 02/13/15 21:00:00 Notes: (Same As: Tiffanie) Start Date: 01/15/15 Stop Date: 01/17/15 Status: Discontinued trazodone 150 mg oral tablet 150 mg=1 tab, PO, Bedtime, # 30 tab, 0 Refill(s) Start Date: 01/14/15 Status: Ordered Tylenol 975 mg, Route: PO, Drug form: TAB, ONCE, Dosing Weight 105.455, kg, Priority: ST AT, Start date: 01/14/15 20:13:00, Stop date: 01/14/15 20:13:00 Start Date: 01/14/15 Stop Date: 01/14/15 Status: Completed Zofran 4 mg, 2 mL, Route: IVP, Drug form: INJ, ONCE, Dosing Weight 105.455, kg, Priorit y: STAT, Start date: 01/14/15 16:31:00, Stop date: 01/14/15 16:31:00 Notes: (Same as: Zofran) MEDICATION WASTE Product Size: 4 mgProduct Was jhonny: ___ mg Start Date: 01/14/15 Stop Date: 01/14/15 Status: Completed Zofran 4 mg, 2 mL, Route: IV, Drug form: INJ, Q8H, Dosing Weight 105.455, kg, PRN Nause a, Start date: 01/15/15 8:26:00, Duration: 30 day, Stop date: 02/14/15 8:25:00 Notes: (Same as: Zofran) MEDICATION WASTE Product Size: 4 mgProduct Was jhonny: ___ mg Start Date: 01/15/15 Stop Date: 01/17/15 Status: Discontinued Zofran 4 mg, 2 mL, Route: IVP, Drug form: INJ, ONCE, Dosing Weight 105.455, kg, Priorit y: STAT, Start date: 01/14/15 19:33:00, Stop date: 01/14/15 19:33:00 Notes: (Same as: Alec) MEDICATION WASTE Product Size: 4 mgProduct Was jhonny: ___ mg Start Date: 01/14/15 Stop Date: 01/14/15 Status: Completed Results ELECTROLYTES 1 2 3 Most recent to oldest [Reference Range]: 142 mEq/L (01/16/15 5:27 AM) 138 mEq/L (01/15/15 3:23 AM) 138 mEq/L (01/14/15 2:56 PM) Sodium Lvl [135-145 mEq/L] 4.1 mEq/L (01/16/15 5:27 AM) 5.0 mEq/L (01/15/15 3:23 AM) 4.9 mEq/L (01/14/15 2:56 PM) Potassium Lvl [3.5-5.1 mEq/L] 108 mEq/L (01/16/15 5:27 AM) 107 mEq/L (01/15/15 3:23 AM) 104 mEq/L (01/14/15 2:56 PM) Chloride Lvl [95-109 mEq/L] 25 mEq/L (01/16/15 5:27 AM) 25 mEq/L (01/15/15 3:23 AM) 26 mEq/L (01/14/15 2:56 PM) CO2 [24-32 mEq/L] 13.1 mEq/L (01/16/15 5:27 AM) 11.0 mEq/L (01/15/15 3:23 AM) 12.9 mEq/L (01/14/15 2:56 PM) AGAP [10.0-20.0 mEq/L] CHEM PANEL 1 2 3 Most recent to oldest [Reference Range]: 0.78 mg/dL (01/16/15 5:27 AM) 0.77 mg/dL (01/15/15 8:55 PM) 0.92 mg/dL (01/15/15 3:23 AM) Creatinine Lvl [0.50-1.40 mg/dL] 92 mL/min/1.73m2 1 *NA* (01/16/15 5:27 AM) 92 mL/min/1.73m2 2 *NA* (01/15/15 8:55 PM) 85 mL/min/1.73m2 3 *NA* (01/15/15 3:23 AM) eGFR 14 mg/dL (01/16/15 5:27 AM) 15 mg/dL (01/15/15 3:23 AM) 9 mg/dL (01/14/15 2:56 PM) BUN [7-22 mg/dL] 18 (01/16/15 5:27 AM) 16 (01/15/15 3:23 AM) 8 (01/14/15 2:56 PM) B/C Ratio [6-25] 109 mg/dL *HI* (01/16/15 5:27 AM) 110 mg/dL *HI* (01/15/15 3:23 AM) 123 mg/dL *HI* (01/14/15 2:56 PM) Glucose Lvl [70-99 mg/dL] 5.7 g/dL *LOW* (01/16/15 5:27 AM) 6.5 g/dL (01/15/15 3:23 AM) 7.9 g/dL (01/14/15 2:56 PM) Total Protein [6.4-8.4 g/dL] 3.3 g/dL *LOW* (01/16/15 5:27 AM) 3.6 g/dL (01/15/15 3:23 AM) 4.2 g/dL (01/14/15 2:56 PM) Albumin Lvl [3.5-5.0 g/dL] 2.4 g/dL (01/16/15 5:27 AM) 2.9 g/dL (01/15/15 3:23 AM) 3.7 g/dL (01/14/15 2:56 PM) Globulin [2.0-4.0 g/dL] 1.4 (01/16/15 5:27 AM) 1.2 (01/15/15 3:23 AM) 1.1 (01/14/15 2:56 PM) A/G Ratio [0.7-1.6] 8.5 mg/dL (01/16/15 5:27 AM) 8.7 mg/dL (01/15/15 3:23 AM) 10.1 mg/dL (01/14/15 2:56 PM) Calcium Lvl [8.5-10.5 mg/dL] 1.4 mg/dL 4 *CRIT* (01/16/15 5:27 AM) Phosphorus [2.5-4.5 mg/dL] 1.8 mg/dL (01/16/15 5:27 AM) Magnesium Lvl [1.8-2.4 mg/dL] 30 unit/L (01/16/15 5:27 AM) 27 unit/L (01/15/15 3:23 AM) 35 unit/L (01/14/15 2:56 PM) ALT [0-65 unit/L] 16 unit/L (01/16/15 5:27 AM) 15 unit/L (01/15/15 3:23 AM) 15 unit/L (01/14/15 2:56 PM) AST [0-37 unit/L] 79 unit/L (01/16/15 5:27 AM) 86 unit/L (01/15/15 3:23 AM) 101 unit/L (01/14/15 2:56 PM) Alk Phos [39-136 unit/L] 1.3 mg/dL (01/16/15 5:27 AM) 1.0 mg/dL (01/15/15 3:23 AM) 1.5 mg/dL *HI* (01/14/15 2:56 PM) Bili Total [0.2-1.3 mg/dL] 47 unit/L (01/14/15 2:56 PM) Amylase Lvl [25-115 unit/L] 134 unit/L (01/14/15 2:56 PM) Lipase Lvl [73-393 unit/L] 1Result Comment: The eGFR is calculated using [...] be mul tiplied by the estimated BMI. 4Result Comment: Critical Result(s) called to Lottie Ellison_ at 01/16/2015 06:30 by mandie. Read back OK. URINE AND STOOL 1 2 3 Most recent to oldest [Reference Range]: Clear (01/14/15 4:03 PM) UA Turbidity [Clear] Yellow *NA* (01/14/15 4:03 PM) UA Color [Yellow] 6.0 (01/14/15 4:03 PM) UA pH [5.0-8.0] 1.014 (01/14/15 4:03 PM) UA Spec Grav [<=1.030] Negative mg/dL *NA* (01/14/15 4:03 PM) UA Glucose [Negative mg/dL] Negative (01/14/15 4:03 PM) UA Blood [Negative] Trace mg/dL *ABN* (01/14/15 4:03 PM) UA Ketones [Negative mg/dL] 30 mg/dL *ABN* (01/14/15 4:03 PM) UA Protein [Negative mg/dL] 4.0 mg/dL *HI* (01/14/15 4:03 PM) UA Urobilinogen [0.1-1.0 mg/dL] Negative *NA* (01/14/15 4:03 PM) UA Bili [Negative] Negative (01/14/15 4:03 PM) UA Leuk Est [Negative] Negative (01/14/15 4:03 PM) UA Nitrite [Negative] 2 /HPF (01/14/15 4:03 PM) UA WBC [0-5 /HPF] 1 /HPF (01/14/15 4:03 PM) UA RBC [0-2 /HPF] Occasional /HPF *NA* (01/14/15 4:03 PM) UA Bacteria [None Seen /HPF] Occasional /LPF *NA* (01/14/15 4:03 PM) UA Sq Epi [Few /LPF] 29 /LPF *HI* (01/14/15 4:03 PM) UA Hyal Cast [0-2 /LPF] IMMUNOLOGY 1 2 3 Most recent to oldest [Reference Range]: Negative *NA* (01/15/15 11:54 AM) Hep Bs Ag [Negative] Negative *NA* (01/15/15 11:54 AM) Hep B Core IgM [Negative] Negative *NA* (01/15/15 11:54 AM) Hep A IgM [Negative] Negative *NA* (01/15/15 11:54 AM) Hep C Ab HEMATOLOGY 1 2 3 Most recent to oldest [Reference Range]: 9.8 K/CMM (01/16/15 5:27 AM) 12.7 K/CMM *HI* (01/15/15 3:23 AM) 10.0 K/CMM (01/14/15 2:56 PM) WBC [3.7-10.4 K/CMM] 4.76 M/CMM (01/16/15 5:27 AM) 5.42 M/CMM (01/15/15 3:23 AM) 5.84 M/CMM (01/14/15 2:56 PM) RBC [4.70-6.10 M/CMM] 15.1 g/dL (01/16/15 5:27 AM) 17.0 g/dL (01/15/15 3:23 AM) 18.5 g/dL *HI* (01/14/15 2:56 PM) Hgb [14.0-18.0 g/dL] 45.4 % (01/16/15 5:27 AM) 52.1 % (01/15/15 3:23 AM) 55.8 % *HI* (01/14/15 2:56 PM) Hct [42.0-54.0 %] 95.3 fL *HI* (01/16/15 5:27 AM) 96.2 fL *HI* (01/15/15 3:23 AM) 95.5 fL *HI* (01/14/15 2:56 PM) MCV [80.0-94.0 fL] 31.6 pg *HI* (01/16/15 5:27 AM) 31.3 pg *HI* (01/15/15 3:23 AM) 31.6 pg *HI* (01/14/15 2:56 PM) MCH [27.0-31.0 pg] 33.2 g/dL (01/16/15 5:27 AM) 32.6 g/dL (01/15/15 3:23 AM) 33.1 g/dL (01/14/15 2:56 PM) MCHC [32.0-36.0 g/dL] 13.8 % (01/16/15 5:27 AM) 14.0 % (01/15/15 3:23 AM) 13.6 % (01/14/15 2:56 PM) RDW [11.5-14.5 %] 94 K/CMM *LOW* (01/16/15 5:27 AM) 113 K/CMM *LOW* (01/15/15 8:55 PM) 154 K/CMM (01/15/15 3:23 AM) Platelet [133-450 K/CMM] 9.4 fL (01/16/15 5:27 AM) 9.5 fL (01/15/15 3:23 AM) 9.7 fL (01/14/15 2:56 PM) MPV [7.4-10.4 fL] 76.8 % *HI* (01/16/15 5:27 AM) 82.6 % *HI* (01/15/15 3:23 AM) 85.2 % *HI* (01/14/15 2:56 PM) Segs [45.0-75.0 %] 9.3 % *LOW* (01/16/15 5:27 AM) 8.4 % *LOW* (01/15/15 3:23 AM) 8.2 % *LOW* (01/14/15 2:56 PM) Lymphocytes [20.0-40.0 %] 13.3 % *HI* (01/16/15 5:27 AM) 8.7 % (01/15/15 3:23 AM) 5.7 % (01/14/15 2:56 PM) Monocytes [2.0-12.0 %] 0.1 % (01/16/15 5:27 AM) 0.1 % (01/15/15 3:23 AM) 0.3 % (01/14/15 2:56 PM) Eosinophils [0.0-4.0 %] 0.5 % (01/16/15 5:27 AM) 0.2 % (01/15/15 3:23 AM) 0.6 % (01/14/15 2:56 PM) Basophils [0.0-1.0 %] 7.5 K/CMM (01/16/15 5:27 AM) 10.5 K/CMM *HI* (01/15/15 3:23 AM) 8.5 K/CMM *HI* (01/14/15 2:56 PM) Segs-Bands # [1.5-8.1 K/CMM] 0.9 K/CMM *LOW* (01/16/15 5:27 AM) 1.1 K/CMM (01/15/15 3:23 AM) 0.8 K/CMM *LOW* (01/14/15 2:56 PM) Lymphocytes # [1.0-5.5 K/CMM] 1.3 K/CMM *HI* (01/16/15 5:27 AM) 1.1 K/CMM *HI* (01/15/15 3:23 AM) 0.6 K/CMM (01/14/15 2:56 PM) Monocytes # [0.0-0.8 K/CMM] 0.1 K/CMM (01/14/15 2:56 PM) Basophils # [0.0-0.2 K/CMM] 16.6 seconds *HI* (01/15/15 11:54 AM) PT [12.0-14.7 seconds] 1.31 *HI* (01/15/15 11:54 AM) INR [0.85-1.17] 26.9 seconds (01/15/15 8:55 PM) 32.5 seconds (01/15/15 11:54 AM) PTT [22.9-35.8 seconds] Immunizations Vaccine Date Refusal Reason influenza virus vaccine, inactivated 11/29/14 pneumococcal 23-valent vaccine 03/14/13 pneumococcal 23-valent vaccine 04/17/12 Procedures Procedure Date Related Diagnosis Body Site Back fusion 02/24/83 Fusion of lumbar spine Lithotripsy Social History Social History Type Response Substance Abuse Use: None. Alcohol Never Smoking Status Never smoker; Previous treatment: None; Concerns about tobacco use in household: No; Exposure to Tobacco Smoke None; Cigarette Smoking Last 365 Days No; Reg Smoking Cessation Counseling No Assessment and Plan Extracted from: Title: Clinical Document Author: Tai Bowen MD Date: 01/17/15 [id number] Extracted from: Title: Clinical Document Author: Tai Bowen MD Date: 01/15/15 [id number]
--- OUTSIDE RECORDS SUMMARY | 2018-08-21 09:51 | XMS REPORT | Summary of Care ---
Author Organization Unknown Address Unknown Phone Unavailable Encounter HQ Deny(MAKI) [id number] Date(s): 01/27/14 - 01/28/14 [facility] [address] Discharge Disposition: Against Medical Advise Physician Attending: Nikolai Castro MD Physician Admitting: Nikolai Castro MD Reason for Visit TRANSIENT VISUAL LOSS AND TONGUE NUMBNESS R/ TIA Vital Signs 1 2 3 Most recent to oldest [Reference Range]: 182.88 cm (01/27/14 9:57 PM) 182.88 cm (01/27/14 10:50 AM) Height 98.1 DegF (01/28/14 12:15 PM) 97.8 DegF (01/28/14 8:03 AM) 97.9 DegF (01/28/14 4:00 AM) Temperature Oral [96.4-99.1 DegF] 103 mmHg (01/28/14 12:15 PM) 108 mmHg (01/28/14 8:03 AM) 120 mmHg (01/28/14 4:00 AM) Systolic Blood Pressure [90-140 mmHg] 64 mmHg (01/28/14 12:15 PM) 70 mmHg (01/28/14 8:03 AM) 80 mmHg (01/28/14 4:00 AM) Diastolic Blood Pressure [60-90 mmHg] 16 BRMIN (01/28/14 12:15 PM) 16 BRMIN (01/28/14 8:03 AM) 16 BRMIN (01/28/14 4:00 AM) Respiratory Rate [14-20 BRMIN] 77 bpm (01/28/14 12:15 PM) 90 bpm (01/28/14 8:03 AM) 80 bpm (01/28/14 4:00 AM) Peripheral Pulse Rate [60-100 bpm] 107.727 kg (01/27/14 9:57 PM) 107.727 kg (01/27/14 10:50 AM) Weight 32.21 m2 (01/27/14 9:57 PM) 32.21 m2 (01/27/14 10:50 AM) Body Mass Index Problem List Condition Effective Dates Status Health Status Informant Depression(Confirmed Resolved ) Depression(Confirmed Active ) Flank Active pain(Confirmed) Hematuria(Confirmed) Active Nausea(Confirmed) Active Sleep Resolved apnea(Confirmed) Stent(Confirmed) Active Vomiting(Confirmed) Active Allergies, Adverse Reactions, Alerts Substance Reaction Severity Status NKDA Active Medications Pt's own med LATUDA (Lurasidone ) 120 MG TAB Pt's own med LATUDA (Lurasidone ) 120 MG TAB, 1 tab, Drug form: MISC, Rout e: PO, Daily, 01/29/14 9:00:00, Duration: 30 day, Stop date: 02/27/14 9:00:00 Start Date: 01/29/14 Stop Date: 01/28/14 Status: Canceled aspirin 81 mg, 1 tab, Route: PO, Drug form: ECTAB, Daily, Dosing Weight 107.727, kg, Sta rt date: 01/28/14 9:00:00, Duration: 30 day, Stop date: 02/26/14 9:00:00 Notes: Do not crush or chew.(Same As: Ecotrin) Start Date: 01/28/14 Stop Date: 01/28/14 Status: Discontinued atropine 0.5 mg, 5 mL, Route: IVP, Drug form: INJ, PRN, Dosing Weight 107.727, kg, PRN Br adycardia, Start date: 01/27/14 22:30:00, Duration: 30 day, Stop date: 02/26/14 22:29:00 Start Date: 01/27/14 Stop Date: 01/28/14 Status: Discontinued buPROPion 150 mg, 1 tab, Route: PO, Drug form: ERTAB, Bedtime, Dosing Weight 107.727, kg, Start date: 01/28/14 21:00:00, Duration: 30 day, Stop date: 02/26/14 21:00:00 Notes: (Same as: Wellbutrin XL)"Do Not Crush" Start Date: 01/28/14 Stop Date: 01/28/14 Status: Canceled buPROPion 150 mg/24 hours oral extended release tablet 150 mg=1 tab, PO, Bedtime Start Date: 01/27/14 Status: Suspended Latuda 120 mg, Route: PO, Drug form: TAB, Daily, Dosing Weight 107.727, kg, Start date: 01/29/14 9:00:00, Duration: 30 day, Stop date: 02/27/14 9:00:00 Start Date: 01/29/14 Stop Date: 01/28/14 Status: Deleted Latuda 120 mg oral tablet 120 mg=1 tab, PO, Daily Start Date: 01/27/14 Status: Suspended Lexapro 10 mg, 1 tab, Route: PO, Drug form: TAB, Daily, Dosing Weight 107.727, kg, Start date: 01/29/14 9:00:00, Duration: 30 day, Stop date: 02/27/14 9:00:00 Notes: (Same as: Lexapro) Start Date: 01/29/14 Stop Date: 01/28/14 Status: Canceled nitroglycerin 0.4 mg sublingual tablet 0.4 mg, 1 tab, Route: SL, Drug form: TAB, Q5Min, Dosing Weight 107.727, kg, PRN Chest Pain, Start date: 01/27/14 22:30:00, Duration: 30 day, Stop date: 02/26/14 22:29:00 Notes: (Same as:Nitroquick, Nitrostat)"Do Not Crush" Sublingual tablet Start Date: 01/27/14 Stop Date: 01/28/14 Status: Discontinued RN- Bring pt's LATUDA to pharmacy for labeling. RN- Bring pt's LATUDA to pharmacy for labeling., 1, Drug form: MISC, Route: MISC , QSHIFT, 01/28/14 16:00:00, Duration: 30 day, Stop date: 02/27/14 8:00:00 Start Date: 01/28/14 Stop Date: 01/28/14 Status: Discontinued Saline Flush 0.9% 10 ml, Route: IVP, Drug Form: INJ, Dosing Weight 107.727, kg, PRN, PRN Line Flus h, Start date: 01/28/14 5:33:00, Duration: 30 day, Stop date: 02/27/14 5:32:00 Notes: (Same as: BD Posiflush) Start Date: 01/28/14 Stop Date: 01/28/14 Status: Discontinued Saline Flush 0.9% 10 ml, Route: IVP, Drug Form: INJ, Dosing Weight 107.727, kg, Q12H, Start date: 01/28/14 9:00:00, Duration: 30 day, Stop date: 02/26/14 21:00:00 Notes: (Same as: BD Posiflush) Start Date: 01/28/14 Stop Date: 01/28/14 Status: Discontinued trazodone 300 mg, 3 tab, Route: PO, Drug form: TAB, Bedtime, Dosing Weight 107.727, kg, St art date: 01/28/14 21:00:00, Duration: 30 day, Stop date: 02/26/14 21:00:00 Notes: (Same As: Desyrel) Start Date: 01/28/14 Stop Date: 01/28/14 Status: Canceled Results ELECTROLYTES Most recent to 1 oldest [Reference Range]: Sodium Lvl [135-145 140 mEq/L mEq/L] (01/27/14 4:08 PM) Potassium Lvl 3.7 mEq/L [3.5-5.1 mEq/L] (01/27/14 4:08 PM) Chloride Lvl [95-109 106 mEq/L mEq/L] (01/27/14 4:08 PM) CO2 [24-32 mEq/L] 27 mEq/L (01/27/14 4:08 PM) AGAP [10.0-20.0 10.7 mEq/L mEq/L] (01/27/14 4:08 PM) CHEM PANEL Most recent to 1 oldest [Reference Range]: Creatinine Lvl 0.9 mg/dL [0.5-1.4 mg/dL] (01/27/14 4:08 PM) eGFR 87 mL/min/1.73m2 1 *NA* (01/27/14 4:08 PM) BUN [7-22 mg/dL] 14 mg/dL (01/27/14 4:08 PM) B/C Ratio [6-25] 16 (01/27/14 4:08 PM) Glucose Lvl [70-99 112 mg/dL 2 mg/dL] *HI* (01/27/14 4:08 PM) Total Protein 6.9 g/dL [6.4-8.4 g/dL] (01/27/14 4:08 PM) Albumin Lvl [3.5-5.0 4.1 g/dL g/dL] (01/27/14 4:08 PM) Globulin [2.0-4.0 2.8 g/dL g/dL] (01/27/14 4:08 PM) A/G Ratio [0.7-1.6] 1.5 (01/27/14 4:08 PM) Calcium Lvl 8.8 mg/dL [8.5-10.5 mg/dL] (01/27/14 4:08 PM) Magnesium Lvl 1.9 mg/dL [1.8-2.4 mg/dL] (01/27/14 4:08 PM) ALT [0-65 unit/L] 27 unit/L (01/27/14 4:08 PM) AST [0-37 unit/L] 13 unit/L (01/27/14 4:08 PM) Alk Phos [39-136 96 unit/L unit/L] (01/27/14 4:08 PM) Bili Total [0.2-1.3 0.8 mg/dL mg/dL] (01/27/14 4:08 PM) 1Result Comment: The eGFR is calculated using [...] values reflect the clinical guidelines of the [place] [employer]. CARDIAC ENZYMES Most recent to 1 oldest [Reference Range]: CK MB [0.5-3.6 2.2 ng/mL ng/mL] (01/27/14 4:08 PM) Troponin-I <0.02 ng/mL [0.00-0.40 ng/mL] (01/27/14 4:08 PM) LIPIDS Most recent to 1 oldest [Reference Range]: CHD Risk [4.00-7.30] 2.56 *LOW* (01/28/14 5:14 AM) Chol [<=199 mg/dL] 123 mg/dL (01/28/14 5:14 AM) Trig [<=149 mg/dL] 94 mg/dL (01/28/14 5:14 AM) HDL [>=61 mg/dL] 48 mg/dL *LOW* (01/28/14 5:14 AM) LDL (Calculated) 56 mg/dL [<=99 mg/dL] (01/28/14 5:14 AM) VLDL 19 *NA* (01/28/14 5:14 AM) URINE AND STOOL Most recent to 1 oldest [Reference Range]: UA Turbidity [Clear] Clear (01/27/14 6:00 PM) UA Color [Yellow] Yellow *NA* (01/27/14 6:00 PM) UA pH [5.0-8.0] 6.0 (01/27/14 6:00 PM) UA Spec Grav 1.012 [<=1.030] (01/27/14 6:00 PM) UA Glucose [Negative Negative mg/dL mg/dL] *NA* (01/27/14 6:00 PM) UA Blood [Negative] Negative (01/27/14 6:00 PM) UA Ketones [Negative Negative mg/dL mg/dL] *NA* (01/27/14 6:00 PM) UA Protein [Negative Negative mg/dL mg/dL] (01/27/14 6:00 PM) UA Urobilinogen 2.0 mg/dL [0.1-1.0 mg/dL] *HI* (01/27/14 6:00 PM) UA Bili [Negative] Negative *NA* (01/27/14 6:00 PM) UA Leuk Est Negative [Negative] (01/27/14 6:00 PM) UA Nitrite Negative [Negative] (01/27/14 6:00 PM) UA WBC [0-5 /HPF] 1 /HPF (01/27/14 6:00 PM) UA RBC [0-2 /HPF] 1 /HPF (01/27/14 6:00 PM) UA Sq Epi [Few /LPF] Occasional /LPF *NA* (01/27/14 6:00 PM) HEMATOLOGY Most recent to 1 oldest [Reference Range]: WBC [3.7-10.4 K/CMM] 4.4 K/CMM (01/27/14 4:08 PM) RBC [4.70-6.10 4.74 M/CMM M/CMM] (01/27/14 4:08 PM) Hgb [14.0-18.0 g/dL] 15.1 g/dL (01/27/14 4:08 PM) Hct [42.0-54.0 %] 44.9 % (01/27/14 4:08 PM) MCV [80.0-94.0 fL] 94.6 fL *HI* (01/27/14 4:08 PM) MCH [27.0-31.0 pg] 31.8 pg *HI* (01/27/14 4:08 PM) MCHC [32.0-36.0 33.6 g/dL g/dL] (01/27/14 4:08 PM) RDW [11.5-14.5 %] 13.9 % (01/27/14 4:08 PM) Platelet [133-450 108 K/CMM K/CMM] *LOW* (01/27/14 4:08 PM) MPV [7.4-10.4 fL] 9.0 fL (01/27/14 4:08 PM) Segs [45.0-75.0 %] 56.9 % (01/27/14 4:08 PM) Lymphocytes 29.8 % [20.0-40.0 %] (01/27/14 4:08 PM) Monocytes [2.0-12.0 8.4 % %] (01/27/14 4:08 PM) Eosinophils [0.0-4.0 3.1 % %] (01/27/14 4:08 PM) Basophils [0.0-1.0 1.8 % %] *HI* (01/27/14 4:08 PM) Segs-Bands # 2.5 K/CMM [1.5-8.1 K/CMM] (01/27/14 4:08 PM) Lymphocytes # 1.3 K/CMM [1.0-5.5 K/CMM] (01/27/14 4:08 PM) Monocytes # [0.0-0.8 0.4 K/CMM K/CMM] (01/27/14 4:08 PM) Eosinophils # 0.1 K/CMM [0.0-0.5 K/CMM] (01/27/14 4:08 PM) Basophils # [0.0-0.2 0.1 K/CMM K/CMM] (01/27/14 4:08 PM) PT [12.0-14.7 15.2 seconds seconds] *HI* (01/27/14 4:08 PM) INR [0.85-1.17] 1.19 3 *HI* (01/27/14 4:08 PM) PTT [22.9-35.8 31.8 seconds 4 seconds] (01/27/14 4:08 PM) 3Interpretive Data: RECOMMENDED RANGES FOR PROTIME INR: 2.0-3.0 for most medical and surgical thromboembolic states. 2.5-3.5 for artificial heart valves and recurrent embolism. INR SHOULD BE USED ONLY FOR PATIENTS ON STABLE ANTICOAGULANT THERAPY. 4Interpretive Data: Heparin Therapeutic Range: 57 - 92 Seconds Medications Administered During Your Visit No data available for this section Immunizations Vaccine Date Refusal Reason pneumococcal 23-valent vaccine 03/14/13 pneumococcal 23-valent vaccine 04/17/12 Procedures Procedure Type Body Site Date of Procedure Related Diagnosis Fusion of lumbar spine Social History Social History Type Response Smoking Status Never smoker, Previous treatment: None, Concerns about tobacco use in household: No, Exposure to Tobacco Smoke None, Cigarette Smoking Last 365 Days No, Reg Smoking Cessation Counseling No Assessment and Plan Extracted from: Title: Clinical Document Author: Brea Whitfield MD Date: 01/28/14 Progress Note - Daily [facility] Completed: Jan, 10:12 by Brea Whitfield MD RM: 234 - 1D, SE [id number], [id number] (: 1945) Attending: Julito Monteshone: Service: Internal Medicine Reason for Admission: TRANSIENT VISUAL LOSS AND TONGUE NUMBNESS R/ TIA Working DRG: None Documented Code status: Full Code [Ordered]Current diet: Isolation: None Documented Allergies: NKDA SUBJECTIVE Feels good. no further vision complaints. No weakness, numbness, shortness of breath, chest pain, dizziness. Wants to go home. OBJECTIVE 24hr Labs 01/28 0514 Vdai750 Trig94 HDL48 L LDL (Calculated)56 VLDL19 CHD Risk2.56 L 01/27 1800 UA ColorYellow UA TurbidityClear UA Spec Grav1.012 UA pH6.0 UA ProteinNegative UA GlucoseNegative UA KetonesNegative UA BiliNegative UA BloodNegative UA Urobilinogen2.0 H UA NitriteNegative UA Leuk EstNegative UA RBC1 UA WBC1 UA Sq EpiOccasional 01/27 1608 Sodium Vgr677 Potassium Lvl3.7 Chloride Sri516 CO227 AGAP10.7 Glucose Wax561 H Creatinine Lvl0.9 BUN14 B/C Ratio16 Total Protein6.9 Albumin Lvl4.1 Globulin2.8 A/G Ratio1.5 Calcium Lvl8.8 ALT27 AST13 Alk Phos96 Bili Total0.8 eGFR87 Magnesium Lvl1.9 Troponin-I<0.02 CK MB2.2 WBC4.4 RBC4.74 Hgb15.1 Hct44.9 MCV94.6 H MCH31.8 H MCHC33.6 RDW13.9 Tvzoluze133 L MPV9.0 Segs56.9 Monocytes8.4 Drkhvlpsqyd40.8 Eosinophils3.1 Basophils1.8 H Segs-Bands #2.5 Lymphocytes #1.3 Monocytes #0.4 Eosinophils #0.1 Basophils #0.1 PT15.2 H INR1.19 H PTT31.8 Wilburn still necessary (Yes/No): Line still necessary (Yes/No): VitalsTmp(F)[id number] 01/28 08:0397.181995/7016------ 01/28 04:0097.837066/8016------ 01/28 00:2697.885861/7918------ 01/27 21:0797.067796/294159--- 01/27 19:04----22099/9915------ 24 Hr Tmax: 98.1F (36.72c) at 01/27 10:50Vital Signs are the last 5 in the past 48 hours. DateWt(kg)Wt(lb)Ht(cm)Ht(in)Method 01/27 (initial)107.73 237.00Measured 82.88 72.00Stated I&ORecordInOutBal 01/524hr Tot 10 0 10 01/424hr Tot 0 0 0 Medications (5) Active [...]
--- OUTSIDE RECORDS SUMMARY | 2018-08-21 09:51 | XMS REPORT | Summary of Care ---
Author Author [facility] Organization [facility] Address Unknown Phone Unavailable Encounter MAHNAZ Barclay(MAKI) [id number] Date(s): 07/14/15 - 07/15/15 [facility] [address] [place] [address]- [phone] Discharge Diagnosis: Migraine headache Discharge Disposition: Home Attending Physician: Martin Briones MD Vital Signs 1 2 3 Most recent to oldest [Reference Range]: 182.88 cm (07/14/15 8:09 PM) Height 98.2 DegF (07/15/15 2:58 AM) 98.1 DegF (07/14/15 8:09 PM) Temperature Oral [96.4-99.1 DegF] 111/60 mmHg (07/15/15 2:30 AM) 122/57 mmHg (07/15/15 1:30 AM) 128/67 mmHg (07/14/15 11:00 PM) Blood Pressure [90-140/60-90 mmHg] 24 BRMIN *HI* (07/15/15 2:58 AM) 24 BRMIN *HI* (07/15/15 2:30 AM) 29 BRMIN *HI* (07/15/15 1:30 AM) Respiratory Rate [14-20 BRMIN] 64 bpm (07/14/15 8:09 PM) Peripheral Pulse Rate [60-100 bpm] 109.091 kg (07/14/15 8:09 PM) Weight 32.62 m2 (07/14/15 8:09 PM) Body Mass Index Problem List Condition [...] 03/23/13 Active Stent(Confirmed) Active Thrombocytopenic 12/09/12 Active [id number] Vitamin D 12/09/12 Active [id number] Vomiting(Confirmed) Active 1Data migrated from [employer] [...] Substance Reaction Severity Status NKDA Active Medications Benadryl 12.5 mg, Route: IVP, ONCE, Dosing Weight 109.091, kg, Priority: STAT, Start date : 07/15/15 0:25:00 CDT, Stop date: 07/15/15 0:25:00 CDT Start Date: 07/15/15 Stop Date: 07/15/15 Status: Completed NS (Bolus) IV 1,000 mL, 1,000 ml/hr, Infuse Over: 1 hr, Route: IV, ONCE, Priority: STAT, Dosin g Weight 109.091 kg, Start date: 07/15/15 0:24:00 CDT, Duration: 1 doses or time s, Stop date: 07/15/15 0:24:00 CDT Start Date: 07/15/15 Stop Date: 07/15/15 Status: Completed Reglan 5 mg, Route: IVP, Drug form: INJ, ONCE, Dosing Weight 109.091, kg, Priority: STA T, Start date: 07/15/15 0:25:00 CDT, Stop date: 07/15/15 0:25:00 CDT Start Date: 07/15/15 Stop Date: 07/15/15 Status: Completed Tylenol 975 mg, Route: PO, Drug form: TAB, ONCE, Dosing Weight 109.091, kg, Priority: ST AT, Start date: 07/15/15 0:25:00 CDT, Stop date: 07/15/15 0:25:00 CDT Start Date: 07/15/15 Stop Date: 07/15/15 Status: Completed Results ELECTROLYTES Most recent to 1 oldest [Reference Range]: Sodium Lvl [135-145 138 mEq/L mEq/L] (07/15/15 12:28 AM) Potassium Lvl 3.4 mEq/L [3.5-5.1 mEq/L] *LOW* (07/15/15 12:28 AM) Chloride Lvl [95-109 107 mEq/L mEq/L] (07/15/15 12:28 AM) CO2 [24-32 mEq/L] 26 mEq/L (07/15/15 12:28 AM) AGAP [10.0-20.0 8.4 mEq/L mEq/L] *LOW* (07/15/15 12:28 AM) CHEM PANEL Most recent to 1 oldest [Reference Range]: Creatinine Lvl 0.89 mg/dL [0.50-1.40 mg/dL] (07/15/15 12:28 AM) eGFR 87 mL/min/1.73m2 1 *NA* (07/15/15 12:28 AM) BUN [7-22 mg/dL] 13 mg/dL (07/15/15 12:28 AM) Glucose Lvl [70-99 55 mg/dL mg/dL] *LOW* (07/15/15 12:28 AM) Calcium Lvl 9.0 mg/dL [8.5-10.5 mg/dL] (07/15/15 12:28 AM) 1Result Comment: The eGFR is calculated using [...] be mul tiplied by the estimated BMI. HEMATOLOGY Most recent to 1 oldest [Reference Range]: WBC [3.7-10.4 K/CMM] 4.8 K/CMM (07/15/15 12:28 AM) RBC [4.70-6.10 4.79 M/CMM M/CMM] (07/15/15: AM) Hgb [14.0-18.0 g/dL] 14.8 g/dL (07/15/15 AM) Hct [42.0-54.0 %] 44.6 % (07/15/15: AM) MCV [80.0-94.0 fL] 93.1 fL (07/15/15:28 AM) MCH [27.0-31.0 pg] 31.0 pg (07/15/15 AM) MCHC [32.0-36.0 33.3 g/dL g/dL] (07/15/15 AM) RDW [11.5-14.5 %] 14.3 % (07/15/15: AM) Platelet [133-450 106 K/CMM K/CMM] *LOW* (07/15/15 AM) MPV [7.4-10.4 fL] 8.4 fL (07/15/15:28 AM) Segs [45.0-75.0 %] 58.6 % (07/15/15 12: AM) Lymphocytes 25.3 % [20.0-40.0 %] (07/15/15 12:28 AM) Monocytes [2.0-12.0 11.0 % %] (5/21/16 12:28 AM) Eosinophils [0.0-4.0 3.9 % %] (07/15/15 12:28 AM) Basophils [0.0-1.0 1.2 % %] *HI* (07/15/15 12:28 AM) Segs-Bands # 2.8 K/CMM [1.5-8.1 K/CMM] (07/15/15 12:28 AM) Lymphocytes # 1.2 K/CMM [1.0-5.5 K/CMM] (07/15/15 12:28 AM) Monocytes # [0.0-0.8 0.5 K/CMM K/CMM] (07/15/15 12:28 AM) Eosinophils # 0.2 K/CMM [0.0-0.5 K/CMM] (07/15/15 12:28 AM) Basophils # [0.0-0.2 0.1 K/CMM K/CMM] (07/15/15 12:28 AM) Immunizations Vaccine Date Refusal Reason Hx influenza vaccine-unspecified1 12/03/11 influenza virus vaccine, inactivated 11/29/14 influenza virus vaccine, inactivated2 12/09/12 pneumococcal 23-valent vaccine 03/14/13 pneumococcal 23-valent vaccine 04/17/12 pneumococcal 23-valent vaccine3 12/03/11 1Result Comment: 12-03-2011. Migrated from OBS ; Data migrated from [employer] on 03/28/2015. 2Result Comment: fluzone (>3 yrs.) [[id number]]. Migrated from OBS ; Data migrated from [employer] on 03/28/2015. 3Result Comment: 12-03-2011. Migrated from OBS ; Data migrated from [employer] on 03/28/2015. Procedures Procedure Date Related Diagnosis Body Site Back fusion 02/24/83 Fusion of lumbar spine Lithotripsy Social History Social History Type Response Substance Abuse Use: None. Alcohol Never Smoking Status Never smoker; Previous treatment: None; Concerns about tobacco use in household: No; Exposure to Tobacco Smoke None; Cigarette Smoking Last 365 Days No; Reg Smoking Cessation Counseling No Assessment and Plan No data available for this section
--- OUTSIDE RECORDS SUMMARY | 2018-08-21 09:51 | XMS REPORT | Summary of Care ---
Author Author [facility] Organization [facility] Address Unknown Phone Unavailable Encounter [facility]y(MAKI) [id number] Date(s): 10/25/15 - 10/27/15 [facility] [address] [place] [address]- Discharge Disposition: Home or Self Care Attending Physician: Tai Bowen MD Admitting Physician: Tai Bowen MD Vital Signs 1 2 3 Most recent to oldest [Reference Range]: 182.88 cm (10/25/15 9:11 PM) 182.88 cm (10/25/15 4:32 PM) Height 97.7 DegF (10/27/15 3:06 PM) 98.3 DegF (10/27/15 7:37 AM) 98.3 DegF (10/27/15 3:56 AM) Temperature Oral [96.4-99.1 DegF] 119/74 mmHg (10/27/15 3:06 PM) 120/78 mmHg (10/27/15 7:37 AM) 106/69 mmHg (10/27/15 3:56 AM) Blood Pressure [90-140/60-90 mmHg] 18 BRMIN (10/27/15 3:06 PM) 18 BRMIN (10/27/15 7:37 AM) 18 BRMIN (10/27/15 3:56 AM) Respiratory Rate [14-20 BRMIN] 61 bpm (10/27/15 3:06 PM) 58 bpm *LOW* (10/27/15 7:37 AM) 66 bpm (10/27/15 3:56 AM) Peripheral Pulse Rate [60-100 bpm] 119.631 kg (10/25/15 9:11 PM) 118.182 kg (10/25/15 4:32 PM) Weight 35.77 m2 (10/25/15 9:11 PM) 35.34 m2 (10/25/15 4:32 PM) Body Mass Index Problem List Condition [...] Thrombocytopenic 12/09/12 Active Vitamin D 12/09/12 Active [id number] Vomiting(Confirmed) Active 1Data migrated from [employer] [...] TAB, Q4H, Dosing Weight 119.631, kg, PRN Pa in 1-3/Temp > 100.4 F, Start date: 10/25/15 21:28:00 CDT, Duration: 30 day, Stop date: 11/24/15 21:27:00 CDT Notes: Do not exceed 4 gm/day. (Same as: Tylenol) Start Date: 10/25/15 Stop Date: 10/27/15 Status: Discontinued aspirin 81 mg, 1 tab, Route: PO, Drug form: ECTAB, Daily, Dosing Weight 119.631, kg, [place] ority: NOW, Start date: 10/26/15 9:42:00 CDT, Duration: 30 day, Stop date: 11/24 9:00:00 CDT Notes: Do not crush or chew.(Same As: Ecotrin) Start Date: 10/26/15 Stop Date: 10/27/15 Status: Discontinued aspirin 325 mg tablet 325 mg, Route: PO, Drug form: TAB, ONCE, Dosing Weight 118.182, kg, Priority: ST AT, Start date: 10/25/15 18:41:00 CDT, Stop date: 10/25/15 18:41:00 CDT Start Date: 10/25/15 Stop Date: 10/25/15 Status: Completed aspirin 81 mg tablet, chewable 324 mg, 4 tab, Route: CHEW, Drug form: CHEWTAB, ONCE, Dosing Weight 118.182, kg, Priority: STAT, Start date: 10/25/15 18:25:00 CDT, Stop date: 10/25/15 18:25:00 CDT Notes: Take with food. Start Date: 10/25/15 Stop Date: 10/25/15 Status: Completed aspirin 81 mg tablet, enteric coated 81 mg=1 tab, PO, Daily, 0 Refill(s) Start Date: 10/27/15 Status: Ordered docusate 100 mg, 1 cap, Route: PO, Drug form: CAP, BID, Dosing Weight 119.631, kg, PRN Co nstipation, Start date: 10/25/15 21:28:00 CDT, Duration: 30 day, Stop date: 10/27 21:27:00 CDT Notes: (Same as: Colace) (Do Not Crush) Start Date: 10/25/15 Stop Date: 10/27/15 Status: Discontinued dutasteride 0.5 mg, Route: PO, Drug form: CAP, Daily, Dosing Weight 119.631, kg, Start date: 10/27/15 9:00:00 CDT, Duration: 30 day, Stop date: 11/25/15 9:00:00 CDT Start Date: 10/27/15 Stop Date: 10/26/15 Status: Deleted dutasteride-tamsulosin 0.5 mg-0.4 mg oral capsule 1 cap, PO, Daily, 0 Refill(s) Start Date: 10/25/15 Status: Ordered ergocalciferol 50,000 IntlUnit, 1 cap, Route: PO, Drug form: CAP, Daily, Dosing Weight 119.631, kg, Start date: 10/27/15 9:00:00 CDT, Duration: 3 day, Stop date: 10/29/15 9:00 :00 CDT Notes: (Same as: Vitamin D) "Do Not Crush" Start Date: 10/27/15 Stop Date: 10/27/15 Status: Discontinued escitalopram 10 mg, 1 tab, Route: PO, Drug form: TAB, Daily, Dosing Weight 119.631, kg, Start date: 10/27/15 9:00:00 CDT, Duration: 30 day, Stop date: 11/25/15 9:00:00 CDT Notes: (Same as: Lexapro) Start Date: 10/27/15 Stop Date: 10/27/15 Status: Discontinued escitalopram 10 mg oral tablet 10 mg=1 tab, PO, Daily, # 30 tab, 0 Refill(s) Start Date: 10/25/15 Status: Ordered hydrALAZINE 10 mg, 0.5 mL, Route: IV, Drug form: INJ, Q4H, Dosing Weight 119.631, kg, PRN Hy pertension, Start date: 10/26/15 9:45:00 CDT, Duration: 30 day, Stop date: 11/24 9:44:00 CDT Notes: (Same as: Apresoline)Push over 5 minutes Start Date: 10/26/15 Stop Date: 10/27/15 Status: Discontinued Lovenox 40 mg, 0.4 mL, Route: SUB-Q, Drug form: INJ, [id number], Dosing Weight 119.631, kg , Start date: 10/26/15 12:00:00 CDT, Duration: 30 day, Stop date: 11/24/15 12:00 :00 CDT Notes: (Same as: Lovenox) Start Date: 10/26/15 Stop Date: 10/27/15 Status: Discontinued metoprolol 5 mg/5 ml INJ 5 mg, 5 mL, Route: IV, Drug form: INJ, Q2H, Dosing Weight 119.631, kg, PRN Tachy cardia, Start date: 10/26/15 9:46:00 CDT, Duration: 30 day, Stop date: 11/25/15 9:45:00 CDT Notes: (Same as: Lopressor)Push over 2 minutes Start Date: 10/26/15 Stop Date: 10/27/15 Status: Discontinued morphine Sulfate 4 mg, Route: IVP, ONCE, Dosing Weight 118.182, kg, Priority: STAT, Start date: 0 10/25/15 20:31:00 CDT, Stop date: 10/25/15 20:31:00 CDT Start Date: 10/25/15 Stop Date: 10/25/15 Status: Completed morphine Sulfate 2 mg, 1 mL, Route: IVP, Drug form: INJ, Q2H, Dosing Weight 119.631, kg, PRN Ches t Pain, Start date: 10/26/15 9:45:00 CDT, Duration: 30 day, Stop date: 11/25/15 9:44:00 CDT Notes: (Same as:MORPhine Sulfate) Start Date: 10/26/15 Stop Date: 10/27/15 Status: Discontinued morphine Sulfate 2 mg, 1 mL, Route: IVP, Drug form: INJ, Q4H, Dosing Weight 119.631, kg, PRN Pain Score 7-10, Start date: 10/25/15 21:28:00 CDT, Duration: 30 day, Stop date: 21:27:00 CDT Notes: (Same as:MORPhine Sulfate) Start Date: 10/25/15 Stop Date: 10/27/15 Status: Discontinued Nitrostat 0.4 mg sublingual tablet 0.4 mg, 1 tab, Route: SL, Drug form: TAB, Q5Min, Dosing Weight 119.631, kg, PRN Chest Pain, Start date: 10/26/15 9:46:00 CDT, Duration: 3 doses or times, Stop d ate: Limited # of times Notes: (Same as:Nitroquick, Nitrostat)"Do Not Crush" Sublingual tablet Start Date: 10/26/15 Stop Date: 10/27/15 Status: Discontinued ondansetron 4 mg, 2 mL, Route: IVP, Drug form: INJ, Q6H, Dosing Weight 119.631, kg, PRN Naus ea & Vomiting, Start date: 10/25/15 21:28:00 CDT, Duration: 30 day, Stop date: 11/24/15 21:27:00 CDT Notes: (Same as: Alec) MEDICATION WASTE Product Size: 4 mgProduct Was jhonny: ___ mg Start Date: 10/25/15 Stop Date: 10/27/15 Status: Discontinued pneumococcal 13-valent vaccine 0.5 mL, Route: IM, Daily, Start date: 10/26/15 9:00:00 CDT, Duration: 1 doses or times, Stop date: 10/26/15 9:00:00 CDT Start Date: 10/26/15 Stop Date: 10/25/15 Status: Deleted Proscar 5 mg, 1 tab, Route: PO, Drug form: TAB, Daily, Start date: 10/27/15 9:00:00 CDT, Duration: 30 day, Stop date: 11/25/15 9:00:00 CDT Notes: (Same as: Proscar) "Do Not Crush"Women of childbearing age should not oscar ch or handle broken tablets Start Date: 10/27/15 Stop Date: 10/27/15 Status: Discontinued Saline Flush 0.9% 10 mL, Route: IVP, Drug Form: INJ, Dosing Weight 109.091, kg, PRN, PRN Line Flus h, Start date: 10/25/15 16:29:00 CDT, Duration: 30 day, Stop date: 11/24/15 16:2 8:00 CDT Notes: (Same as: BD Posiflush) Start Date: 10/25/15 Stop Date: 10/25/15 Status: Discontinued simvastatin 20 mg oral tablet 20 mg=1 tab, PO, Bedtime, # 30 tab, 0 Refill(s) Start Date: 10/27/15 Stop Date: 11/26/15 Status: Ordered trazodone 150 mg, 3 tab, Route: PO, Drug form: TAB, Bedtime, Dosing Weight 119.631, kg, St art date: 10/26/15 21:00:00 CDT, Duration: 30 day, Stop date: 11/24/15 21:00:00 CDT Notes: (Same As: Desyrel) Start Date: 10/26/15 Stop Date: 10/27/15 Status: Discontinued Zocor 20 mg, 1 tab, Route: PO, Drug form: TAB, Bedtime, Dosing Weight 119.631, kg, Sta rt date: 10/26/15 21:00:00 CDT, Duration: 30 day, Stop date: 11/24/15 21:00:00 C DT Notes: (Same as: Zocor) Start Date: 10/26/15 Stop Date: 10/27/15 Status: Discontinued Zofran 4 mg, Route: IVP, Drug form: INJ, ONCE, Dosing Weight 118.182, kg, Priority: STA T, Start date: 10/25/15 20:31:00 CDT, Stop date: 10/25/15 20:31:00 CDT Start Date: 10/25/15 Stop Date: 10/25/15 Status: Completed Results ELECTROLYTES 1 2 3 Most recent to oldest [Reference Range]: 139 mEq/L (10/26/15 12:17 AM) 139 mEq/L (10/25/15 5:46 PM) Sodium Lvl [135-145 mEq/L] 4.0 mEq/L (10/26/15 12:17 AM) 3.8 mEq/L (10/25/15 5:46 PM) Potassium Lvl [3.5-5.1 mEq/L] 107 mEq/L (10/26/15 12:17 AM) 105 mEq/L (10/25/15 5:46 PM) Chloride Lvl [95-109 mEq/L] 26 mEq/L (10/26/15 12:17 AM) 28 mEq/L (10/25/15 5:46 PM) CO2 [24-32 mEq/L] 10.0 mEq/L (10/26/15 12:17 AM) 9.8 mEq/L *LOW* (10/25/15 5:46 PM) AGAP [10.0-20.0 mEq/L] CHEM PANEL 1 2 3 Most recent to oldest [Reference Range]: 0.81 mg/dL (10/26/15 12:17 AM) 0.97 mg/dL (10/25/15 5:46 PM) Creatinine Lvl [0.50-1.40 mg/dL] 90 mL/min/1.73m2 1 *NA* (10/26/15 12:17 AM) 79 mL/min/1.73m2 2 *NA* (10/25/15 5:46 PM) eGFR 10 mg/dL (10/26/15 12:17 AM) 11 mg/dL (10/25/15 5:46 PM) BUN [7-22 mg/dL] 11 (10/25/15 5:46 PM) B/C Ratio [6-25] 87 mg/dL (10/26/15 12:17 AM) 112 mg/dL *HI* (10/25/15 5:46 PM) Glucose Lvl [70-99 mg/dL] 4.9 mg/dL (10/26/15 10:15 AM) Uric Acid [3.8-8.0 mg/dL] 6.1 g/dL *LOW* (10/27/15 5:02 AM) 6.7 g/dL (10/25/15 5:46 PM) Total Protein [6.4-8.4 g/dL] 3.2 g/dL *LOW* (10/27/15 5:02 AM) 3.6 g/dL (10/25/15 5:46 PM) Albumin Lvl [3.5-5.0 g/dL] 2.9 g/dL (10/27/15 5:02 AM) 3.1 g/dL (10/25/15 5:46 PM) Globulin [2.7-4.2 g/dL] 1.1 (10/27/15 5:02 AM) 1.2 (10/25/15 5:46 PM) A/G Ratio [0.7-1.6] 8.3 mg/dL *LOW* (10/26/15 12:17 AM) 8.8 mg/dL (10/25/15 5:46 PM) Calcium Lvl [8.5-10.5 mg/dL] 3.3 mg/dL (10/26/15 10:15 AM) Phosphorus [2.5-4.5 mg/dL] 2.0 mg/dL (10/26/15 10:15 AM) Magnesium Lvl [1.8-2.4 mg/dL] 31 unit/L (10/27/15 5:02 AM) 35 unit/L (10/25/15 5:46 PM) ALT [0-65 unit/L] 17 unit/L (10/27/15 5:02 AM) 20 unit/L (10/25/15 5:46 PM) AST [0-37 unit/L] 100 unit/L (10/27/15 5:02 AM) 107 unit/L (10/25/15 5:46 PM) Alk Phos [39-136 unit/L] 0.6 mg/dL (10/27/15 5:02 AM) 0.6 mg/dL (10/25/15 5:46 PM) Bili Total [0.2-1.3 mg/dL] 0.1 mg/dL (10/27/15 5:02 AM) Bili Direct [0.0-0.3 mg/dL] 0.5 mg/dL (10/27/15 5:02 AM) Bili Indirect [0.0-1.0 mg/dL] 27 ng/mL *LOW* (10/26/15 10:15 AM) Vitamin D, 25-OH, Total [30-100 ng/mL] 1Result Comment: The eGFR is calculated using [...] 3 Most recent to oldest [Reference Range]: 57 unit/L (10/26/15 10:15 AM) 62 unit/L (10/26/15 4:49 AM) 94 unit/L (10/25/15 9:56 PM) Total CK [12-191 unit/L] 1.3 ng/mL (10/26/15 10:15 AM) 0.9 ng/mL (10/26/15 4:49 AM) 1.2 ng/mL (10/25/15 9:56 PM) CK MB [0.5-3.6 ng/mL] 2.3 (10/26/15 10:15 AM) 1.5 (10/26/15 4:49 AM) 1.3 (10/25/15 9:56 PM) CK MB Index [0.0-2.5] <0.02 ng/mL (10/26/15 10:15 AM) <0.02 ng/mL (10/26/15 4:49 AM) <0.02 ng/mL (10/26/15 4:49 AM) Troponin-I [0.00-0.40 ng/mL] 38 pg/mL (10/25/15 5:46 PM) BNP [<=100 pg/mL] LIPIDS 1 2 3 Most recent to oldest [Reference Range]: 2.65 *LOW* (10/26/15 10:15 AM) 2.79 *LOW* (10/26/15 10:15 AM) CHD Risk [4.00-7.30] 175 mg/dL (10/26/15 10:15 AM) 176 mg/dL (10/26/15 10:15 AM) Chol [<=199 mg/dL] 67 mg/dL (10/26/15 10:15 AM) 67 mg/dL (10/26/15 10:15 AM) Trig [<=149 mg/dL] 66 mg/dL (10/26/15 10:15 AM) 63 mg/dL (10/26/15 10:15 AM) HDL [>=61 mg/dL] 96 mg/dL (10/26/15 10:15 AM) 100 mg/dL *HI* (10/26/15 10:15 AM) LDL (Calculated) [<=99 mg/dL] 13 *NA* (10/26/15 10:15 AM) 13 *NA* (10/26/15 10:15 AM) VLDL SPECIAL CHEMISTRY 1 2 3 Most recent to oldest [Reference Range]: 4.6 % (10/26/15 10:15 AM) Hgb A1C [<=5.6 %] IMMUNOLOGY 1 2 3 Most recent to oldest [Reference Range]: 4.9 uMol/L (10/26/15 10:15 AM) Homocyst Tot [3.7-13.9 uMol/L] HEMATOLOGY 1 2 3 Most recent to oldest [Reference Range]: 5.3 K/CMM (10/26/15 12:17 AM) 5.2 K/CMM (10/25/15 5:46 PM) WBC [3.7-10.4 K/CMM] 4.47 M/CMM *LOW* (10/26/15 12:17 AM) 4.64 M/CMM *LOW* (10/25/15 5:46 PM) RBC [4.70-6.10 M/CMM] 13.9 g/dL *LOW* (10/26/15 12:17 AM) 14.3 g/dL (10/25/15 5:46 PM) Hgb [14.0-18.0 g/dL] 40.8 % *LOW* (10/26/15 12:17 AM) 43.2 % (10/25/15 5:46 PM) Hct [42.0-54.0 %] 91.4 fL (10/26/15 12:17 AM) 93.3 fL (10/25/15 5:46 PM) MCV [80.0-94.0 fL] 31.1 pg *HI* (10/26/15 12:17 AM) 30.9 pg (10/25/15 5:46 PM) MCH [27.0-31.0 pg] 34.0 g/dL (10/26/15 12:17 AM) 33.1 g/dL (10/25/15 5:46 PM) MCHC [32.0-36.0 g/dL] 14.4 % (10/26/15 12:17 AM) 14.3 % (10/25/15 5:46 PM) RDW [11.5-14.5 %] 102 K/CMM *LOW* (10/26/15 12:17 AM) 112 K/CMM *LOW* (10/25/15 5:46 PM) Platelet [133-450 K/CMM] 8.5 fL (10/26/15 12:17 AM) 8.5 fL (10/25/15 5:46 PM) MPV [7.4-10.4 fL] 64.1 % (10/26/15 12:17 AM) 65.2 % (10/25/15 5:46 PM) Segs [45.0-75.0 %] 22.4 % (10/26/15 12:17 AM) 20.2 % (10/25/15 5:46 PM) Lymphocytes [20.0-40.0 %] 9.1 % (10/26/15 12:17 AM) 11.2 % (10/25/15 5:46 PM) Monocytes [2.0-12.0 %] 3.5 % (10/26/15 12:17 AM) 2.3 % (10/25/15 5:46 PM) Eosinophils [0.0-4.0 %] 0.9 % (10/26/15 12:17 AM) 1.1 % *HI* (10/25/15 5:46 PM) Basophils [0.0-1.0 %] 3.4 K/CMM (10/26/15 12:17 AM) 3.4 K/CMM (10/25/15 5:46 PM) Segs-Bands # [1.5-8.1 K/CMM] 1.2 K/CMM (10/26/15 12:17 AM) 1.0 K/CMM (10/25/15 5:46 PM) Lymphocytes # [1.0-5.5 K/CMM] 0.5 K/CMM (10/26/15 12:17 AM) 0.6 K/CMM (10/25/15 5:46 PM) Monocytes # [0.0-0.8 K/CMM] 0.2 K/CMM (10/26/15 12:17 AM) 0.1 K/CMM (10/25/15 5:46 PM) Eosinophils # [0.0-0.5 K/CMM] 0.1 K/CMM (10/25/15 5:46 PM) Basophils # [0.0-0.2 K/CMM] Immunizations Given and Recorded Vaccine Date Status Refusal Reason Hx influenza vaccine-unspecified1 12/03/11 Given influenza virus vaccine, inactivated 11/29/14 Given influenza virus vaccine, inactivated2 12/09/12 Given pneumococcal 23-valent vaccine 03/14/13 Given pneumococcal 23-valent vaccine 04/17/12 Given pneumococcal 23-valent vaccine3 12/03/11 Given 1Result Comment: 12-03-2011. Migrated from OBS ; Data migrated from [employer] on 03/28/2015. 2Result Comment: fluzone (>3 yrs.) [[id number]]. Migrated from OBS ; Data migrated from [employer] on 03/28/2015. 3Result Comment: 12-03-2011. Migrated from OBS ; Data migrated from [employer] on 03/28/2015. Procedures Procedure Date Related Diagnosis Body Site Back fusion 02/24/83 Cholecystectomy Fusion of lumbar spine Lithotripsy Social History Social History Type Response Substance Abuse Use: None. Alcohol Never Smoking Status Cigarette Smoking Last 365 Days No; Reg Smoking Cessation Counseling No; Never smoker; Previous treatment: None; Concerns about tobacco use in household: No; Exposure to Tobacco Smoke None Assessment and Plan Extracted from: Title: Clinical Document Author: Luz Elena Oconnor DO Date: 10/27/15 CARDIOLOGY NOTE ATTENDING PHYSICIAN:Dr. Bowen. [...] audible. EXTREMITIES: Intact with trace edema. A/P MD RULED OUT BY ENZYMES ESS NEGATIVE LEXISCAN STRESS ONLY SMALL <5% REVERSIBLE DEFECT IN THE DISTAL SEPTAL APEX ONLY SEEN ON [place] PROBABLY ARTIFACT Two types of chest pain, costochondritis ?exertional angina. obstructive sleep apnea bipolar HX KIDNEY STONES NORMAL LV SYSTOLIC AND DIASTOLIC FUNCTION. EF 64% PLAN OKAY TO DC ON ASA & STATIN OBJECTIVE ECHO 10/26/2015 1) NORMAL LV SYSTOLIC AND DIASTOLIC FUNCTION. 2) EJECTION FRACTION 64% WITH NORMAL WALL MOTION. 3) MILDLY DILATED LEFT ATRIUM. 4) TRACE MITRAL VALVE INSUFFICIENCY. 5) MILD TRICUSPID VALVE INSUFFICIENY. 6) NO VALVULAR STENOSIS. 7) NORMAL PASP=34.72 8) NO PERICARDIAL EFFUSION, THROMBI, OR VEGETATIONS. 9) NO SEPTAL DEFECTS. VitalsTmp(F)Tmp(C)[id number] 10/26 07:3798.336.64vubz228/78---[id number]------ 10/26 03:5698.336.32kcdd874/69---[id number]------ 10/26 00:875922.38tzzr484/66---72--95------ 10/25 22:04 92------ 10/25 22:03 1892------ 24 Hr Tmax: 98.3F (36.83c) at 10/26 07:37Vital Signs are the last 5 in the past 48 hours. 24 Hr Tmin: 97.6F (36.44c) at 10/25 20:40Weights are the last 5 in 60 days, plus initial. DateWt(kg)Wt(lb)Ht(cm)Ht(in)MethodBMI 10/24 (initial)118.18 260.00Estimated 35.3 80504.88 72.00Stated Most Recent Scores: 10/27/15Pain Intensity NRS (0-10)0 10/27/15Johns Velázquez Fall Score8 10/27/15Braden Score20 10/26/15Glasgow Coma Score15 10/25/15NIH Stroke Score0 Lines, Tubes, and Drains: 10/25/2015 17:47 Peripheral Lines: Antecubital Left 20 gauge Over the needle catheter (no surgical procedures documented) I&ORecordInOutBal 4hr Tot 0 0 0 4hr Tot 4 0 4 24hr Labs 10/26 0502 Total Protein6.1 L Albumin Lvl3.2 L Bili Total0.6 Bili Direct0.1 Bili Indirect0.5 Alk Lvuc119 AST17 ALT31 Globulin2.9 A/G Ratio1.1 10/25 1015 TSH1.740 T3 Rxsdag51 T49.0 FTI3.1 Vitamin D, 25-OH, Tota27 L Homocyst Tot4.9 Scheduled Meds (7): aspirin 81 mg PO Daily [Last Rescheduled Dt/Tm: 10/27/15 9:00:00 CDT] [eMAR Schedule: (10/27/15) 09:00] [Future Dose: 10/28/15 09:00] enoxaparin (Lovenox) 40 mg SUB-Q [id number] [eMAR Schedule: (10/27/15) 12:00] [Future Dose: 10/28/15 [...]
--- OUTSIDE RECORDS SUMMARY | 2018-08-21 09:52 | XMS REPORT | Summary of Care ---
Author Author [facility] Organization [facility] Address Unknown Phone Unavailable Encounter MAHNAZ Barclay(MAKI) [id number] Date(s): 03/16/16 - 03/17/16 [facility] [address] [place] [address]- Discharge Disposition: Home or Self Care Attending Physician: Jeff Garza MD Admitting Physician: Jeff Garza MD Vital Signs 1 2 3 Most recent to oldest [Reference Range]: 182.88 cm (03/16/16 8:03 AM) 190.5 cm (03/16/16 2:29 AM) Height 98.3 DegF (03/17/16 11:45 AM) 98.6 DegF (03/17/16 8:17 AM) 99.4 DegF *HI* (03/17/16 3:54 AM) Temperature Oral [96.4-99.1 DegF] 119/73 mmHg (03/17/16 11:45 AM) 131/78 mmHg (03/17/16 8:17 AM) 146/89 mmHg *HI* (03/17/16 3:54 AM) Blood Pressure [90-140/60-90 mmHg] 17 BRMIN (03/17/16 11:45 AM) 18 BRMIN (03/17/16 8:17 AM) 20 BRMIN (03/17/16 3:54 AM) Respiratory Rate [14-20 BRMIN] 66 bpm (03/17/16 11:45 AM) 81 bpm (03/17/16 8:17 AM) 107 bpm *HI* (03/17/16 3:54 AM) Peripheral Pulse Rate [60-100 bpm] 117.273 kg (03/16/16 8:03 AM) 117.273 kg (03/16/16 2:29 AM) Weight 35.06 m2 (03/16/16 8:03 AM) 32.32 m2 (03/16/16 2:29 AM) Body Mass Index Problem List Condition [...] 03/23/13 Active Stent(Confirmed) Active Thrombocytopenic 12/09/12 Active [id number] Vitamin D 12/09/12 Active [id number] Vomiting(Confirmed) Active 1Data migrated from [employer] [...] TAB, Q4H, Dosing Weight 117.273, kg, PRN Pa in Score 4-6, Start date: 03/16/16 6:02:00 HOLE DIGGER OPERATOR, Duration: 30 day, Stop date: 6:01:00 HOLE DIGGER OPERATOR Notes: Do not exceed 4 gm/day. (Same as: Tylenol) Start Date: 03/16/16 Stop Date: 03/17/16 Status: Discontinued acetaminophen 650 mg, Route: PO, Drug form: TAB, ONCE, Dosing Weight 117.273, kg, Start date: 03/16/16 2:54:00 HOLE DIGGER OPERATOR, Stop date: 03/16/16 2:54:00 HOLE DIGGER OPERATOR Start Date: 03/16/16 Stop Date: 03/16/16 Status: Completed Allergy (Loratadine) 10 mg oral tablet 10 mg=1 tab, PO, PRN, 0 Refill(s) Start Date: 03/16/16 Status: Ordered Dilaudid 1 mg, Route: IVP, ONCE, Dosing Weight 117.273, kg, Priority: STAT, Start date: 0 03/16/16 3:00:00 HOLE DIGGER OPERATOR, Stop date: 03/16/16 3:00:00 HOLE DIGGER OPERATOR Start Date: 03/16/16 Stop Date: 03/16/16 Status: Completed escitalopram 10 mg, 1 tab, Route: PO, Drug form: TAB, Daily, Dosing Weight 117.273, kg, Start date: 03/17/16 9:00:00 HOLE DIGGER OPERATOR, Duration: 30 day, Stop date: 04/15/16 9:00:00 HOLE DIGGER OPERATOR Notes: (Same as: Lexapro) Start Date: 03/17/16 Stop Date: 03/17/16 Status: Discontinued finasteride 5 mg, 1 tab, Route: PO, Drug form: TAB, Daily, Dosing Weight 117.273, kg, Start date: 03/16/16 9:00:00 HOLE DIGGER OPERATOR, Stop date: 04/14/16 9:00:00 HOLE DIGGER OPERATOR Notes: (Same as: Proscar) "Do Not Crush"Women of childbearing age should not oscar ch or handle broken tablets Start Date: 03/16/16 Stop Date: 03/17/16 Status: Discontinued Flomax 0.4 mg, 1 cap, Route: PO, Drug form: CAP, After Breakfast, Dosing Weight 117.273 , kg, Start date: 03/16/16 8:30:00 HOLE DIGGER OPERATOR, Duration: 30 day, Stop date: 04/14/16 8: 30:00 HOLE DIGGER OPERATOR Notes: (Same As: Flomax) "Do Not Crush" Start Date: 03/16/16 Stop Date: 03/17/16 Status: Discontinued Latuda 120 mg, Route: PO, Drug form: TAB, After Dinner, Dosing Weight 117.273, kg, Star t date: 03/17/16 17:00:00 HOLE DIGGER OPERATOR, Duration: 30 day, Stop date: 04/15/16 17:00:00 CS T Start Date: 03/17/16 Stop Date: 03/17/16 Status: Discontinued Latuda 120mg Latuda 120mg, 1 tab, Drug form: MISC, Route: PO, After Dinner, 03/17/16 17:00:00 HOLE DIGGER OPERATOR, Duration: 30 day, Stop date: 04/15/16 17:00:00 HOLE DIGGER OPERATOR Start Date: 03/17/16 Stop Date: 03/17/16 Status: Discontinued Levaquin 500 mg, 2 tab, Route: PO, Drug form: TAB, [id number], Dosing Weight 117.273, kg, St art date: 03/16/16 13:00:00 HOLE DIGGER OPERATOR, Duration: 30 day, Stop date: 04/14/16 13:00:00 HOLE DIGGER OPERATOR Notes: Do not give w/antacids, dairy pdt & minerals Take 1 hr before or 2 hr after dairy pdt (Same as:Levaquin) Start Date: 03/16/16 Stop Date: 03/17/16 Status: Discontinued Levaquin 500 mg, Route: PO, Drug form: TAB, [id number], Dosing Weight 117.273, kg, Start rajat e: 03/17/16 9:00:00 HOLE DIGGER OPERATOR, Duration: 30 day, Stop date: 04/15/16 9:00:00 HOLE DIGGER OPERATOR Start Date: 03/17/16 Stop Date: 03/16/16 Status: Deleted Levaquin 500 mg, Route: PO, Drug form: TAB, [id number], Dosing Weight 117.273, kg, Start rajat e: 03/16/16 13:00:00 HOLE DIGGER OPERATOR, Duration: 30 day, Stop date: 04/14/16 13:00:00 HOLE DIGGER OPERATOR Start Date: 03/16/16 Stop Date: 03/16/16 Status: Canceled Levaquin 500 mg, Route: PO, Drug form: TAB, [id number], Dosing Weight 117.273, kg, Start rajat e: 03/16/16 13:00:00 HOLE DIGGER OPERATOR, Duration: 30 day, Stop date: 04/14/16 13:00:00 HOLE DIGGER OPERATOR Start Date: 03/16/16 Stop Date: 03/16/16 Status: Deleted Levaquin 500 mg oral tablet 500 mg=1 tab, PO, Q24H, # 30 tab, 0 Refill(s) Start Date: 03/17/16 Status: Ordered loratadine 10 mg, Route: PO, Drug form: TAB, PRN, Dosing Weight 117.273, kg, PRN as needed for allergy symptoms, Start date: 03/16/16 19:12:00 HOLE DIGGER OPERATOR, Duration: 30 day, Stop date: 04/15/16 19:11:00 HOLE DIGGER OPERATOR Start Date: 03/16/16 Stop Date: 03/16/16 Status: Deleted NS (Bolus) IV 1,000 mL, 500 ml/hr, Infuse Over: 2 hr, Route: IV, 1,000, Drug form: INJ, ONCE, Priority: STAT, Dosing Weight 117.273 kg, Start date: 03/16/16 19:11:00 HOLE DIGGER OPERATOR, Dur ation: 1 doses or times, Stop date: 03/16/16 19:11:00 HOLE DIGGER OPERATOR Start Date: 03/16/16 Stop Date: 03/16/16 Status: Completed ondansetron 4 mg, 2 mL, Route: IVP, Drug form: INJ, Q6H, Dosing Weight 117.273, kg, PRN Naus ea & Vomiting, Start date: 03/16/16 6:02:00 HOLE DIGGER OPERATOR, Duration: 30 day, Stop date: 04/15/16 6:01:00 HOLE DIGGER OPERATOR Notes: (Same as: Zofran) MEDICATION WASTE Product Size: 4 mgProduct Was jhonny: ___ mg Start Date: 03/16/16 Stop Date: 03/17/16 Status: Discontinued Rocephin 1 gm, Route: IVPB, Drug form: PDR/INJ, ONCE, Dosing Weight 117.273, kg, Priority : STAT, Start date: 03/16/16 3:01:00 HOLE DIGGER OPERATOR, Stop date: 03/16/16 3:01:00 HOLE DIGGER OPERATOR Start Date: 03/16/16 Stop Date: 03/16/16 Status: Completed Saline Flush 0.9% 10 mL, Route: IVP, Drug Form: INJ, Dosing Weight 117.273, kg, PRN, PRN Line Flus h, Start date: 03/16/16 2:54:00 HOLE DIGGER OPERATOR, Duration: 30 day, Stop date: 04/15/16 2:53: 00 HOLE DIGGER OPERATOR Notes: (Same as: BD Posiflush) Start Date: 03/16/16 Stop Date: 03/17/16 Status: Discontinued simvastatin 20 mg, 1 tab, Route: PO, Drug form: TAB, Bedtime, Dosing Weight 117.273, kg, Sta rt date: 03/16/16 21:00:00 HOLE DIGGER OPERATOR, Duration: 30 day, Stop date: 04/14/16 21:00:[address] Notes: (Same as: Zocor) Start Date: 03/16/16 Stop Date: 03/17/16 Status: Discontinued Sodium Chloride 0.9% (Bolus) IV 1,000 mL, Infuse Over: 1 hr, Route: IV, ONCE, Priority: STAT, Dosing Weight 117. 273 kg, Start date: 03/16/16 3:00:00 HOLE DIGGER OPERATOR, Duration: 1 doses or times, Stop date: 03/16/16 3:00:00 HOLE DIGGER OPERATOR Start Date: 03/16/16 Stop Date: 03/16/16 Status: Completed sodium chloride 0.9% 1000 ml INJ 1,000 mL 1,000 mL, Rate: 150 ml/hr, Infuse over: 6.7 hr, Route: IV, Dosing Weight 117.273 kg, Total Volume: 1,000, Start date: 03/16/16 3:00:00 HOLE DIGGER OPERATOR, Duration: 30 day, St op date: 04/15/16 2:59:00 HOLE DIGGER OPERATOR Start Date: 03/16/16 Stop Date: 03/17/16 Status: Discontinued tamsulosin 0.4 mg oral capsule 0.4 mg=1 cap, PO, Daily, # 30 cap, 0 Refill(s) Start Date: 03/17/16 Status: Ordered trazodone 75 mg, 1.5 tab, Route: PO, Drug form: TAB, Bedtime, Dosing Weight 117.273, kg, P RN Insomnia, Start date: 03/16/16 19:13:00 HOLE DIGGER OPERATOR, Duration: 30 day, Stop date: 19:12:00 HOLE DIGGER OPERATOR Notes: (Same As: Desyrel) Start Date: 03/16/16 Stop Date: 03/17/16 Status: Discontinued Zofran 8 mg, Route: IVP, Drug form: INJ, ONCE, Dosing Weight 117.273, kg, Priority: STA T, Start date: 03/16/16 3:00:00 HOLE DIGGER OPERATOR, Stop date: 03/16/16 3:00:00 HOLE DIGGER OPERATOR Start Date: 03/16/16 Stop Date: 03/16/16 Status: Completed ZyrTEC 10 mg, 1 tab, Route: PO, Drug form: TAB, PRN, PRN Allergies, Start date: 7 19:21:00 HOLE DIGGER OPERATOR, Duration: 30 day, Stop date: 04/15/16 19:20:00 HOLE DIGGER OPERATOR Notes: (Same As: Zyrtec) Start Date: 03/16/16 Stop Date: 03/17/16 Status: Discontinued Results ELECTROLYTES Most recent to 1 2 oldest [Reference Range]: Sodium Lvl [135-145 135 mEq/L mEq/L] (03/16/16 3:01 AM) Potassium Lvl 4.0 mEq/L [3.5-5.1 mEq/L] (03/16/16 3:01 AM) Chloride Lvl [95-109 104 mEq/L mEq/L] (03/16/16 3:01 AM) CO2 [24-32 mEq/L] 22 mEq/L *LOW* (03/16/16 3:01 AM) AGAP [10.0-20.0 13.0 mEq/L mEq/L] (03/16/16 3:01 AM) CHEM PANEL Most recent to 1 2 oldest [Reference Range]: Creatinine Lvl 0.98 mg/dL [0.50-1.40 mg/dL] (03/16/16 3:01 AM) eGFR 78 mL/min/1.73m2 1 *NA* (03/16/16 3:01 AM) BUN [7-22 mg/dL] 10 mg/dL (03/16/16 3:01 AM) B/C Ratio [6-25] 10 (03/16/16 3:01 AM) Glucose Lvl [70-99 145 mg/dL mg/dL] *HI* (03/16/16 3:01 AM) Total Protein 7.2 g/dL [6.4-8.4 g/dL] (03/16/16 3:01 AM) Albumin Lvl [3.5-5.0 3.9 g/dL g/dL] (03/16/16 3:01 AM) Globulin [2.7-4.2 3.3 g/dL g/dL] (03/16/16 3:01 AM) A/G Ratio [0.7-1.6] 1.2 (03/16/16 3:01 AM) Calcium Lvl 8.6 mg/dL [8.5-10.5 mg/dL] (03/16/16 3:01 AM) Phosphorus [2.5-4.5 1.7 mg/dL mg/dL] *LOW* (03/17/16 3:50 AM) Magnesium Lvl 2.0 mg/dL [1.8-2.4 mg/dL] (03/17/16 3:50 AM) ALT [0-65 unit/L] 59 unit/L (03/16/16 3:01 AM) AST [0-37 unit/L] 36 unit/L (03/16/16 3:01 AM) Alk Phos [39-136 128 unit/L unit/L] (03/16/16 3:01 AM) Bili Total [0.2-1.3 0.9 mg/dL mg/dL] (03/16/16 3:01 AM) Lactic Acid Lvl 1.7 mMol/L [0.5-2.2 mMol/L] (03/16/16 3:01 AM) Procalcitonin Lvl <0.05 ng/mL [0.00-0.10 ng/mL] (03/16/16 3:01 AM) 1Result Comment: The eGFR is calculated [...] tiplied by the estimated BMI. CARDIAC ENZYMES Most recent to 1 2 oldest [Reference Range]: Total CK [12-191 121 unit/L unit/L] (03/16/16 3:01 AM) CK MB [0.5-3.6 <0.5 ng/mL ng/mL] (03/16/16 3:01 AM) CK MB Index <0.4 [0.0-2.5] (03/16/16 3:01 AM) Troponin-I <0.02 ng/mL [0.00-0.40 ng/mL] (03/16/16 3:01 AM) URINE AND STOOL Most recent to 1 2 oldest [Reference Range]: UA Turbidity [Clear] Clear (03/16/16 3:01 AM) UA Color Ester *NA* (03/16/16 3:01 AM) UA pH [5.0-8.0] 5.0 (03/16/16 3:01 AM) UA Spec Grav 1.016 [<=1.030] (03/16/16 3:01 AM) UA Glucose [Negative Negative mg/dL mg/dL] *NA* (03/16/16 3:01 AM) UA Blood [Negative] Moderate *ABN* (03/16/16 3:01 AM) UA Ketones [Negative 20 mg/dL mg/dL] *ABN* (03/16/16 3:01 AM) UA Protein [Negative Negative mg/dL mg/dL] (03/16/16 3:01 AM) UA Urobilinogen <=1.0 mg/dL [0.1-1.0 mg/dL] *NA* (03/16/16 3:01 AM) UA Bili [Negative] Negative *NA* (03/16/16 3:01 AM) UA Leuk Est Negative [Negative] (03/16/16 3:01 AM) UA Nitrite Negative [Negative] (03/16/16 3:01 AM) UA WBC [0-5 /HPF] 2 /HPF (03/16/16 3:01 AM) UA RBC [0-2 /HPF] 34 /HPF *HI* (03/16/16 3:01 AM) UA Sq Epi [Few /LPF] Occasional /LPF *NA* (03/16/16 3:01 AM) UA Mucus [None Seen Few /LPF /LPF] *NA* (03/16/16 3:01 AM) HEMATOLOGY Most recent to 1 2 oldest [Reference Range]: WBC [3.7-10.4 K/CMM] 3.3 K/CMM 5.5 K/CMM *LOW* (03/16/16 3:01 AM) (03/17/16 3:50 AM) RBC [4.70-6.10 4.38 M/CMM 4.95 M/CMM M/CMM] *LOW* (03/16/16 3:01 AM) (03/17/16 3:50 AM) Hgb [14.0-18.0 g/dL] 14.0 g/dL 15.9 g/dL (03/17/16 3:50 AM) (03/16/16 3:01 AM) Hct [42.0-54.0 %] 40.7 % 46.0 % *LOW* (03/16/16 3:01 AM) (03/17/16 3:50 AM) MCV [80.0-94.0 fL] 93.0 fL 92.8 fL (03/17/16 3:50 AM) (03/16/16 3:01 AM) MCH [27.0-31.0 pg] 31.9 pg 32.1 pg *HI* *HI* (03/17/16 3:50 AM) (03/16/16 3:01 AM) MCHC [32.0-36.0 34.3 g/dL 34.5 g/dL g/dL] (03/17/16 3:50 AM) (03/16/16 3:01 AM) RDW [11.5-14.5 %] 14.1 % 14.0 % (03/17/16 3:50 AM) (03/16/16 3:01 AM) Platelet [133-450] See Note 1 (03/17/16 3:50 AM) Platelet [133-450 99 K/CMM K/CMM] *LOW* (03/16/16 3:01 AM) MPV [7.4-10.4 fL] 8.4 fL 8.8 fL (03/17/16 3:50 AM) (03/16/16 3:01 AM) Segs [45.0-75.0 %] 64.6 % 77.7 % (03/17/16 3:50 AM) *HI* (03/16/16 3:01 AM) Lymphocytes 13.6 % 6.4 % [20.0-40.0 %] *LOW* *LOW* (03/17/16 3:50 AM) (03/16/16 3:01 AM) Monocytes [2.0-12.0 19.4 % 13.8 % %] *HI* *HI* (03/17/16 3:50 AM) (03/16/16 3:01 AM) Eosinophils [0.0-4.0 1.9 % 1.3 % %] (03/17/16 3:50 AM) (03/16/16 3:01 AM) Basophils [0.0-1.0 0.5 % 0.8 % %] (03/17/16 3:50 AM) (03/16/16 3:01 AM) Segs-Bands # 2.1 K/CMM 4.3 K/CMM [1.5-8.1 K/CMM] (03/17/16 3:50 AM) (03/16/16 3:01 AM) Lymphocytes # 0.5 K/CMM 0.4 K/CMM [1.0-5.5 K/CMM] *LOW* *LOW* (03/17/16 3:50 AM) (03/16/16 3:01 AM) Monocytes # [0.0-0.8 0.6 K/CMM 0.8 K/CMM K/CMM] (03/17/16 3:50 AM) (03/16/16 3:01 AM) Eosinophils # 0.1 K/CMM 0.1 K/CMM [0.0-0.5 K/CMM] (03/17/16 3:50 AM) (03/16/16 3:01 AM) Plt Morph Normal (03/17/16 3:50 AM) PT [12.0-14.7 16.3 seconds seconds] *HI* (03/16/16 3:29 AM) INR [0.85-1.17] 1.29 *HI* (03/16/16 3:29 AM) PTT [22.9-35.8 33.2 seconds seconds] (03/16/16 3:29 AM) 1Result Comment: Platelet [id number];decreased on 03/17/2016 04:40 by pj. Immunizations Given and Recorded Vaccine Date Status Refusal Reason Hx influenza vaccine-unspecified1 12/03/11 Given influenza virus vaccine, inactivated 11/29/14 Given influenza virus vaccine, inactivated2 12/09/12 Given pneumococcal 23-valent vaccine 03/14/13 Given pneumococcal 23-valent vaccine 04/17/12 Given pneumococcal 23-valent vaccine3 12/03/11 Given 1Result Comment: 12-03-2011. Migrated from OBS ; Data migrated from [employer] on 03/28/2015. 2Result Comment: fluzone (>3 yrs.) [[id number]]. Migrated from OBS ; Data migrated from [employer] on 03/28/2015. 3Result Comment: 12-03-2011. Migrated from OBS ; Data migrated from [employer] on 03/28/2015. Procedures Procedure Date Related Diagnosis [...] No. Smoking Status Former smoker; Type: Cigarettes; Started at age: 16.0; Stopped at age: 45; Previous treatment: None; Concerns about tobacco use in household: No; Exposure to Tobacco Smoke None; Cigarette Smoking Last 365 Days No; Reg Smoking Cessation Counseling No Assessment and Plan Extracted from: Title: Discharge Summary * Author: Jeff Garza MD Date: 03/17/16 Discharge Information Disposition to home condition is stable Medications: See med reconciliation form Discharge Plan Follow-up with your primary care physician in the 1 week Follow-up with urologist this week In the event of any worsening symptoms patient advised to come back to the ED Discharge summary took greater than 35 minutes Extracted from: Title: Clinical Document Author: Jeff Garza MD Date: [...] CMP normal, CBC normal BPH with underlying prostatitis IV antibiotics, Wilburn removed, monitor urine output, bladder scans, continue Flomax and finasteride Hypertension stable, continue same meds Monitor overnight for urine output, if no output and positive urine per bladder scan will insert Wilburn discharge home with the Wilburn and follow-up with his outpatient urologist. Urology here signed off. Addendum Patient has significant dehydration leading to underlying decreased urine output by Dahu, has normal kidney function, normal saline bolus 1 Jiries L, continue with normal saline maintenance at 150 cc an hour, encourage oral hydration Saturnino DONOHUE on 03/16/2016 19:14
--- OUTSIDE RECORDS SUMMARY | 2018-08-21 09:52 | XMS REPORT ---
Author Author [facility] Address Unknown Phone Unavailable Care Team Providers Care Acupressurist Name Role Phone PADMAJA PETERSON Unavailable Unavailable Problems This patient has no known problems. Allergies, Adverse Reactions, Alerts This patient has no known allergies or adverse reactions. Medications This patient has no known medications. Results Test Description Test Time Test Comments Text Results Atomic Results Result Comments ABDOMEN-1VIEW ([facility]) 2018-08-18 16:36:00 [place] [address] Patient Name: ANNE GRANDA MR #: [id number] : 1945 Age/Sex: 73/M Req #: [id number] Adm Physician: Ordered by: PADMAJA PETERSON MD Report #: [id number] Location: OR Room/Bed: Procedure: [id number] DX/ABDOMEN-1VIEW ([facility]) Exam Date: 08/18/18 Exam Time: 1410 REPORT STATUS: Signed Abdomen, 2 views. History: Stones. Findings: The intestinal gas pattern is nonobstructive. There are small stones that overlie the lower pole of the right kidney and upper pole of the left kidney. There no masses. . Degenerative changes of the spine. IMPRESSION: Small bilateral stones. Signed by: Dr. Destinee Quinonez DO on 08/18/2018 4:38 PM Dictated By: DESTINEE QUINONEZ DO 1638 Transcribed By: MARY ANN on 08/18/181637 COPY TO: PADMAJA PETERSON MD CHEST 2 VIEWS 2018-08-18 15:49:00 [place] [address] Patient Name: ANNE GRANDA MR #: [id number] : 1945 Age/Sex: 73/M Req #: [id number] Adm Physician: Ordered by: PADMAJA PETERSON MD Report #: [id number] Location: OR Room/Bed: Procedure: [id number] DX/CHEST 2 VIEWS Exam Date: 08/18/18 Exam Time: 1410 REPORT STATUS: Signed EXAM: CHEST 2 VIEWS, PA and lateral DATE: 08/18/2018 Time stamp on exam: 2:14 PM INDICATION: Preoperative, history of renal stones COMPARISON: None FINDINGS: LINES/TUBES: None LUNGS: No consolidations or edema. PLEURA: No effusions or pneumothorax. HEART AND MEDIASTINUM: Normal size and contour. Calcification within the aorta. BONES AND SOFT TISSUES: No acute findings. Degenerative changes of the spine. IMPRESSION: No acute thoracic abnormality. Signed by: Dr. Destinee Quinonez DO on 08/18/2018 3:50 PM Dictated By: DESTINEE QUINONEZ DO 49 Transcribed By: MARY ANN on 08/18/181549 COPY TO: PADMAJA PETERSON MD CHEST 2 VIEWS [place] [address] Patient Name: ANNE GRANDA MR #: [id number] : 1945 Age/Sex: 71/M Req #: [id number] [facility] Physician: Ordered by: PADMAJA PETERSON MD Report #: [id number] Location: OR Room/Bed: Procedure: [id number] DX/CHEST 2 VIEWS Exam Date: 02/13/17 Exam Time: 1230 REPORT STATUS: Signed PROCEDURE: CHEST 2 VIEWS TECHNIQUE: PA chest INDICATION: Preoperative evaluation for prostate surgery. COMPARISON: None. FINDINGS: Bibasilar subsegmental atelectasis. Upper lung zones are clear. Normal heart size, mediastinal contour, and pulmonary vasculature. Intact skeleton. CONCLUSION: No acute abnormality. Dictated by: Alysha Burnette M.D. on 02/13/2017 at 13:13 Electronically approved by: Alysha Burnette M.D. on 02/13/2017 at 13:13 Dictated By: ALYSHA BURNETTE MD 1313 Transcribed By: MILLI on 02/13/17 1313 COPY TO: PADMAJA PETERSON MD
[2018-08-21 15:30] VITALS: BP 147/75
--- NOTE | 2018-10-09 03:10 | Operative Report ---
DATE OF PROCEDURE: 08/21/2018 SURGEON: Crow Sotomayor MD PREOPERATIVE DIAGNOSES: 1. Bilateral nephrolithiasis. 2. Obstructive benign prostatic hypertrophy. POSTOPERATIVE DIAGNOSES: 1. Bilateral nephrolithiasis. 2. Obstructive benign prostatic hypertrophy. OPERATION PERFORMED: Note, these were all staged procedures as a part of multi-stege, multi-step process in managing the patient's urolithiasis. 1. Right-sided extracorporeal shockwave lithotripsy (separate procedure performed to match the right nephrolithiasis, done from separate approach). 2. Cystourethroscopy with bilateral ureteral catheterization and retrograde ureteropyelography (separate procedure performed to evaluate the urinary tract in light of the obstructive benign prostatic hypertrophy). 3. Interpretation of retrograde ureteropyelography. 4. Supervision of fluoroscopy, no radiologist present. ANESTHESIA: General. COMPLICATIONS: None. CLINICAL SUMMARY: Mr. Lamar is a 73-year-old man with bilateral nephrolithiasis. He has BPH. He has had previous transurethral resection. He was brought for the above procedures. He is aware of the risks of bleeding, infection, injury to adjacent structures, need for additional procedures, and elected to proceed. OPERATIVE PROCEDURE IN DETAIL: Informed consent was verified. Mr. Lamar was properly identified, taken to the operating room, placed on the lithotripsy table in supine position. Anesthesia was uneventfully begun. The patient's right nephrolithiasis was localized with biplanar fluoroscopy. A total of 3000 shocks were delivered with fragmentation noted. The patient was then carefully and gently repositioned in dorsal lithotomy position with all pressure points well padded. His genitalia were prepared and draped in usual sterile fashion. The cystoscope sheath with the visual obturator in place was atraumatically inserted and the patient's urethra was guided down the normal distal urethra through some wide caliber probably not clinically significant stricture disease at the bulbar region, went through the normal sphincteric region, went through the prostate bed which was wide open, being status post transurethral resection. Epithelialization of the prostatic urethra was good. Went to the patient's bladder and panendoscopy revealed grade 3 trabeculations with cellule formation, but no tumors, no stones, no diverticula, no suspicious mucosal lesions. Ureteral catheter was used to cannulate each ureter and retrograde pyelograms were performed. Interpretation of retrograde ureteropyelography with contrast was instilled in retrograde fashion bilaterally. There were no tumors. There were no suspicious lesions. There was no hydronephrosis. Unobstructed drainage was observed fluoroscopically bilaterally. There were filling defects in the right mid calyx corresponding to blood clots and stone debris remaining from the performed lithotripsy. Unobstructed drainage was observed bilaterally fluoroscopically. The patient's bladder was drained. Cystoscope was withdrawn. A belladonna and opium suppository were placed revealing a large prostate, smooth and nonfluctuant without any nodules. The patient was uneventfully reversed from anesthesia and taken to recovery room in stable condition. There were no complications to the procedure. The patient tolerated the procedure well. Explicit postop instructions were given. We will plan on returning the patient back to the operating room for a left ESWL. Crow Sotomayor MD OH/MODL /[id number] cc: Karl Magallanes MD
== END | disposition home or self-care (01) ==
LOC: OR 09:36
PROVIDERS: ATTEND Urology
DX: N20.0 Calculus of kidney (principal); N40.1 Benign prostatic hyperplasia with lower urinary tract symptoms; N13.8 Other obstructive and reflux uropathy; R35.0 Frequency of micturition; R39.14 Feeling of incomplete bladder emptying; R35.1 Nocturia; R33.8 Other retention of urine; R39.12 Poor urinary stream; N32.89 Other specified disorders of bladder; N39.0 Urinary tract infection, site not specified; Q54.9 Hypospadias, unspecified; N32.81 Overactive bladder; N39.41 Urge incontinence; R97.20 Elevated prostate specific antigen [PSA]; G47.33 Obstructive sleep apnea (adult) (pediatric); E66.9 Obesity, unspecified; Z01.810 Encounter for preprocedural cardiovascular examination; Z01.812 Encounter for preprocedural laboratory examination; Z01.818 Encounter for other preprocedural examination
CPT/HCPCS: 36415; 50590; 71046; 74018; 80053; 83970; 84550; 85025; 93005; C1758; J0696; J1100; J2001; J2250; J2405; J2704; Q9967

== ENCOUNTER → 2018-10-02 | Day surgery (SDC) | payer MEDICARE ==
--- NOTE | 2018-09-28 15:12 | Diagnostic Imaging Report ---
Exam: KUB - 2 views Clinical History: Preoperative Comparison: KUB of 08/18/2018 Findings: 4 mm calcific density overlying the lower pole of the right renal silhouette appears unchanged from the prior KUB of 08/18/2018. No new radiopaque renal calculi. Nonobstructive bowel gas pattern. No free air. The osseous structures appear unremarkable. Impression: Unchanged 4 mm calcific density overlying the lower pole the right kidney. Signed by: Marlo Sal MD on 09/28/2018 3:09 PM
[2018-09-28 16:56] LABS: BASOPHILS % 0.9 % (0.0-1.0); EOSINOPHILS # (AUTO) 0.1 (0.0-0.4); EOSINOPHILS % 2.4 % (0.0-6.0); HEMATOCRIT 39.6 % (38.2-49.6); HEMOGLOBIN 13.1 g/dL (14.0-18.0); LYMPHOCYTES # (AUTO) 0.8 (1.0-3.2); LYMPHOCYTES % 25.2 % (18.0-39.1); MEAN CORPUSCULAR HEMOGLOBIN 32.3 pg (28-32); MEAN CORPUSCULAR HGB CONC 33.1 g/dL (31-35); MEAN CORPUSCULAR VOLUME 97.5 fL (81-99); MONOCYTES # (AUTO) 0.3 (0.2-0.8); MONOCYTES % 10.3 % (4.4-11.3); NEUTROPHILS % 60.9 % (38.7-80.0); PLATELET COUNT 109 x10e3/uL (140-360); RED BLOOD COUNT 4.06 x10e6/uL (4.3-5.7); RED CELL DISTRIBUTION WIDTH 13.2 % (11.7-14.4)
[~2018-10-02] MED LIST changes: -BELLADONNA/OPIUM 30 MG SUPP RC ONE; -DEXAMETHASONE SOD PHOS INJ 4 MG/ML VIAL ONE; +EPHEDRINE SULFATE INJ 50 MG/10 ML SYR ONE; +FENTANYL CITRATE/PF 100MCG/2 ML INJ ONE; -IOPAMIDOL 610MG/1ML 300 MG/ML VIAL IV ONE; +LIDOCAINE HCL 2% JELLY 5 ML TUBE ONE
--- OUTSIDE RECORDS SUMMARY | 2018-10-02 05:14 | XMS REPORT | Continuity of Care Document ---
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 Name Role Phone [employer] Information [employer] Unavailable Unavailable Problems Problem Status Onset Date Classification Date Reported Comments Source ABDOMINAL PAIN Active 02/07/2017 [facility] FALL FROM STANDING, CLOSED FRACTURE OF M Active 02/07/2017 [facility] ABD PAIN Active 03/16/2016 [facility] ABDOMINAL PAIN, ACUTE, BILATERAL LOWER Q Active 03/16/2016 [facility] CHEST PAIN Active 10/25/2015 [facility] Discharge Diagnosis: Migraine headache 07/15/2015 07/18/2015 [facility] HEADACHE Active 07/14/2015 [facility] VOMITING, ABD PAIN Active 01/14/2015 [facility] ABDOMINAL PAIN, SYMPTOMATIC CHOLELITHIAS Active 01/14/2015 [facility] DIZZINESS Active 01/27/2014 [facility] TRANSIENT VISUAL LOSS AND TONGUE NUMBNES Active 01/27/2014 [facility] Atypical chest pain1 Active 03/23/2013 Problem 02/11/2017 Data migrated from [employer] on 07/23/14. [facility] Body mass index 30+ - obesity3 Active 03/23/2013 Problem 02/11/2017 Data migrated from [employer] on 07/23/14. [facility] Otitis externa9, 10 Resolved 03/23/2013 Problem 02/11/2017 Data migrated from [employer] on 09/10/14. Data migrated from [employer] on 09/09/14. [facility] Sleep apnea11 Active 03/23/2013 Problem 02/11/2017 Data migrated from [employer] on 07/23/14. [facility] EXERTIONAL CHEST PAIN Active 03/13/2013 [facility] CHEST PAIN/LEFT SIDE PAIN Active 03/13/2013 [facility] Cobalamin deficiency4 Active 12/09/2012 Problem 02/11/2017 Data migrated from [employer] on 07/23/14. [facility] Fatigue7 Active 12/09/2012 Problem 02/11/2017 Data migrated from [employer] on 07/23/14. [facility] Thrombocytopenic Active 12/09/2012 Problem 02/11/2017 Data migrated from [employer] on 07/23/14. [facility] Vitamin D [id number] Active 12/09/2012 Problem 02/11/2017 Data migrated from [employer] on 07/23/14. [facility] Cramp in lower limb5 Active 10/30/2012 Problem 02/11/2017 Data migrated from [employer] on 07/23/14. [facility] Electrolyte imbalance6 Active 10/30/2012 Problem 02/11/2017 Data migrated from [employer] on 07/23/14. [facility] TIA Active 04/13/2012 [facility] [...] Problem 02/11/2017 [facility] Nausea Active Problem 02/11/2017 [facility] Sleep apnea Resolved Problem 01/31/2014 [facility] Stent Active Problem 02/11/2017 [facility] Vomiting Active Problem 02/11/2017 [facility] Benign prostatic hypertrophy with outflow obstruction2 Active Problem 02/11/2017 Data migrated from [employer] [place] on 07/23/14. [facility] Depression Resolved Problem 02/11/2017 [facility] Hyperlipidemia8 Active Problem 02/11/2017 Data migrated from [employer] [place] on 07/23/14. [facility] TRANS CEREB ISCHEMIA NEC Active [facility] CHEST PAIN NOS Active [facility] UNSPECIFIED FALL, INITIAL ENCOUNTER Active [facility] MULTIPLE FRACTURES OF RIBS, UNSP SIDE, I Active [facility] PLEURODYNIA Active [facility] Medications Medication Details Route Status Patient Instructions Ordering Provider Order Date Source Acetaminophen 300 MG / Codeine Phosphate 30 MG Oral Tablet 1 tab, PO, Q4H, PRN Pain, X 7 day, # 42 tab, 0 Refill(s) Active 02/08/2017 [facility] morphine Sulfate 12 mg, 6 mL, Route: PO, Drug form: SOLN, Q4H, PRN Pain Score 7-10, Start date: 02/08/17 3:04:00 TOE SEWER, Duration: 30 day, Stop date: 03/10/17 3:03:00 CSTNotes: (Same as:MORPhine Sulfate) Inactive 02/08/2017 [facility] Enoxaparin 30 mg, 0.3 mL, Route: SUB-Q, Drug form: INJ, [id number], Dosing Weight 125, kg, Start date: 02/08/17 3:00:00 TOE SEWER, Stop date: 03/09/17 15:00:00 CSTNotes: (Same as: Lovenox) Inactive 02/08/2017 [facility] Saline Flush 0.9% 10 ml, Route: IVP, Drug Form: INJ, Dosing Weight 125, kg, PRN, PRN Line Flush, Start date: 02/08/17 2:42:00 TOE SEWER, Duration: 30 day, Stop date: 03/10/17 2:41:00 CSTNotes: (Same as: BD Posiflush) Inactive 02/08/2017 [facility] Ondansetron 4 mg, 2 mL, Route: IVP, Drug form: INJ, Q6H, Dosing Weight 125, kg, PRN Nausea & Vomiting, Start date: 02/08/17 2:42:00 TOE SEWER, Duration: 30 day, Stop date: 03/10/17 2:41:00 CSTNotes: (Same as: Zofran) MEDICATION WASTE Product Size: 4 mg Product Wasted: ___ mg Inactive 02/08/2017 [facility] Acetaminophen 650 mg, 2 tab, Route: PO, Drug form: TAB, Q4H, Dosing Weight 125, kg, PRN Pain 1-3/Temp > 100.4 F, Start date: 02/08/17 2:42:00 TOE SEWER, Duration: 30 day, Stop date: 03/10/17 2:41:00 CSTNotes: Do not exc eed 4 gm/day. (Same as: Tylenol) Inactive 02/08/2017 [facility] Acetaminophen 325 MG / Hydrocodone Bitartrate 5 MG Oral Tablet 1 tab, Route: PO, Drug Form: TAB, Dosing Weight 125, kg, Q4H, PRN Pain Score 4-6, Start date: 02/08/17 2:42:00 TOE SEWER, Duration: 30 day, Stop date: 03/10/17 2:41:00 CSTNotes: (Same as: [place] 325/5) Do not exceed 4gm/day of acetaminophen. Inactive 02/08/2017 [facility] Morphine 4 mg, Route: IVP, Q4H, Dosing Weight 125, kg, PRN Pain Score 7-10, Start date: 02/08/17 2:42:00 TOE SEWER, Duration: 30 day, Stop date: 03/10/17 2:41:00 TOE SEWER Inactive 02/08/2017 [facility] Trazodone Hydrochloride 100 MG Oral Tablet 100 mg=1 tab, PO, Bedtime, # 30 tab, 0 Refill(s) No Longer Active 02/08/2017 [facility] Metoclopramide 10 MG Oral Tablet 10 mg=1 tab, PO, Daily, 0 Refill(s) No Longer Active 02/08/2017 [facility] predniSONE 10 mg oral tablet 10 mg=1 tab, PO, Daily, # 30 tab, 3 Refill(s) No Longer Active 02/08/2017 [facility] omeprazole 40 mg oral delayed release capsule 40 mg=1 cap, PO, Daily, # 30 cap, 0 Refill(s) Active 02/08/2017 [facility] Bupropion 200 mg, PO, Daily, 0 Refill(s) No Longer Active 02/08/2017 [facility] tamsulosin 0.4 mg oral capsule 0.4 mg=1 cap, PO, BID, 0 Refill(s) Active 02/08/2017 [facility] Zofran 4 mg, Route: IVP, Drug form: INJ, ONCE, Dosing Weight 113.636, kg, Priority: STAT, Start date: 02/07/17 20:11:00 TOE SEWER, Stop date: 02/07/17 20:11:00 TOE SEWER Inactive 02/08/2017 [facility] Fentanyl 100 microgram, Route: IVP, ONCE, Dosing Weight 113.636, kg, Priority: STAT, Start date: 02/07/17 20:11:00 TOE SEWER, Stop date: 02/07/17 20:11:00 TOE SEWER Inactive 02/08/2017 [facility] Morphine 6 mg, Route: IVP, ONCE, Dosing Weight 113.636, kg, Priority: STAT, Start date: 02/07/17 18:39:00 TOE SEWER, Stop date: 02/07/17 18:39:00 TOE SEWER Inactive 02/08/2017 [facility] Morphine 6 mg, Route: IVP, ONCE, Dosing Weight 113.636, kg, Priority: STAT, Start date: 02/07/17 15:58:00 TOE SEWER, Stop date: 02/07/17 15:58:00 TOE SEWER Inactive 02/07/2017 [facility] Sodium Chloride 0.9% (Bolus) IV 1,000 mL, Infuse Over: 1 hr, Route: IV, ONCE, Priority: STAT, Dosing Weight 113.636 kg, Start date: 02/07/17 15:55:00 TOE SEWER, Stop date: 02/07/17 15:55:00 TOE SEWER Inactive 02/07/2017 [facility] Latuda 120 mg, Route: PO, Drug form: TAB, After Dinner, Dosing Weight 117.273, kg, Start date: 03/17/16 17:00:00 TOE SEWER, Duration: 30 day, Stop date: 04/15/16 17:00:00 TOE SEWER Inactive 03/17/2016 [facility] Latuda 120mg Latuda 120mg, 1 tab, Drug form: MISC, Route: PO, After Dinner, 03/17/16 17:00:00 TOE SEWER, Duration: 30 day, Stop date: 04/15/16 17:00:00 TOE SEWER Inactive 03/17/2016 [facility] tamsulosin 0.4 mg oral capsule 0.4 mg=1 cap, PO, Daily, # 30 cap, 0 Refill(s) Active 03/17/2016 [facility] Levofloxacin 500 MG Oral Tablet [Levaquin] 500 mg=1 tab, PO, Q24H, # 30 tab, 0 Refill(s) Active 03/17/2016 [facility] Escitalopram 10 mg, 1 tab, Route: PO, Drug form: TAB, Daily, Dosing Weight 117.273, kg, Start date: 03/17/16 9:00:00 TOE SEWER, Duration: 30 day, Stop date: 04/15/16 9:00:00 CSTNotes: (Same as: Lexapro) Inactive 03/17/2016 [facility] Levaquin 500 mg, Route: PO, Drug form: TAB, [id number], Dosing Weight 117.273, kg, Start date: 03/17/16 9:00:00 TOE SEWER, Duration: 30 day, Stop date: 04/15/16 9:00:00 TOE SEWER No Longer Active 03/17/2016 [facility] Simvastatin 20 mg, 1 tab, Route: PO, Drug form: TAB, Bedtime, Dosing Weight 117.273, kg, Start date: 03/16/16 21:00:00 TOE SEWER, Duration: 30 day, Stop date: 04/14/16 21:00:00 CSTNotes: (Same as: Zocor) No Longer Active 03/17/2016 [facility] ZyrTEC 10 mg, 1 tab, Route: PO, Drug form: TAB, PRN, PRN Allergies, Start date: 03/16/16 19:21:00 TOE SEWER, Duration: 30 day, Stop date: 04/15/16 19:20:00 CSTNotes: (Same As: Zyrtec) No Longer Active 03/17/2016 [facility] Trazodone 75 mg, 1.5 tab, Route: PO, Drug form: TAB, Bedtime, Dosing Weight 117.273, kg, PRN Insomnia, Start date: 03/16/16 19:13:00 TOE SEWER, Duration: 30 day, Stop date: 04/15/16 19:12:00 CSTNotes: (Same As: Desyrel) No Longer Active 03/17/2016 [facility] Loratadine 10 mg, Route: PO, Drug form: TAB, PRN, Dosing Weight 117.273, kg, PRN as needed for allergy symptoms, Start date: 03/16/16 19:12:00 TOE SEWER, Duration: 30 day, Stop date: 04/15/16 19:11:00 TOE SEWER Inactive 03/17/2016 [facility] Sodium Chloride 0.154 MEQ/ML Injectable Solution 1,000 mL, 500 ml/hr, Infuse Over: 2 hr, Route: IV, 1,000, Drug form: INJ, ONCE, Priority: STAT, Dosing Weight 117.273 kg, Start date: 03/16/16 19:11:00 TOE SEWER, Duration: 1 doses or times, Stop date: 03/16/16 19:11:00 TOE SEWER Inactive 03/17/2016 [facility] Levaquin 500 mg, 2 tab, Route: PO, Drug form: TAB, [id number], Dosing Weight 117.273, kg, Start date: 03/16/16 13:00:00 TOE SEWER, Duration: 30 day, Stop date: 04/14/16 13:00:00 CSTNotes: Do not give w/antacids, dairy pdt & minerals Take 1 hr before or 2 hr after dairy pdt (Same as:Levaquin) No Longer Active 03/16/2016 [facility] Finasteride 5 mg, 1 tab, Route: PO, Drug form: TAB, Daily, Dosing Weight 117.273, kg, Start date: 03/16/16 9:00:00 TOE SEWER, Stop date: 04/14/16 9:00:00 CSTNotes: (Same as: Proscar) "Do Not Crush" Women of c hildbearing age should not touch or handle broken tablets No Longer Active 03/16/2016 [facility] Flomax 0.4 mg, 1 cap, Route: PO, Drug form: CAP, After Breakfast, Dosing Weight 117.273, kg, Start date: 03/16/16 8:30:00 TOE SEWER, Duration: 30 day, Stop date: 04/14/16 8:30:00 CSTNotes: (Same As: Flomax) "Do Not Crush" No Longer Active 03/16/2016 [facility] Allergy (Loratadine) 10 mg oral tablet 10 mg=1 tab, PO, PRN, 0 Refill(s) Active 03/16/2016 [facility] Ondansetron 4 mg, 2 mL, Route: IVP, Drug form: INJ, Q6H, Dosing Weight 117.273, kg, PRN Nausea & Vomiting, Start date: 03/16/16 6:02:00 TOE SEWER, Duration: 30 day, Stop date: 04/15/16 6:01:00 CSTNotes: (Same as: Zofran) MEDICATION WASTE Product Size: 4 mg Product Wasted: ___ mg No Longer Active 03/16/2016 [facility] Acetaminophen 325 mg, 1 tab, Route: PO, Drug form: TAB, Q4H, Dosing Weight 117.273, kg, PRN Pain Score 4-6, Start date: 03/16/16 6:02:00 TOE SEWER, Duration: 30 day, Stop date: 04/15/16 6:01:00 CSTNotes: Do not exceed 4 gm/day. (Same as: Tylenol) No Longer Active 03/16/2016 [facility] Rocephin 1 gm, Route: IVPB, Drug form: PDR/INJ, ONCE, Dosing Weight 117.273, kg, Priority: STAT, Start date: 03/16/16 3:01:00 TOE SEWER, Stop date: 03/16/16 3:01:00 TOE SEWER Inactive 03/16/2016 [facility] Zofran 8 mg, Route: IVP, Drug form: INJ, ONCE, Dosing Weight 117.273, kg, Priority: STAT, Start date: 03/16/16 3:00:00 TOE SEWER, Stop date: 03/16/16 3:00:00 TOE SEWER Inactive 03/16/2016 [facility] Sodium Chloride 0.154 MEQ/ML Injectable Solution 1,000 mL, Infuse Over: 1 hr, Route: IV, ONCE, Priority: STAT, Dosing Weight 117.273 kg, Start date: 03/16/16 3:00:00 TOE SEWER, Duration: 1 doses or times, Stop date: 03/16/16 3:00:00 TOE SEWER Inactive 03/16/2016 [facility] Dilaudid 1 mg, Route: IVP, ONCE, Dosing Weight 117.273, kg, Priority: STAT, Start date: 03/16/16 3:00:00 TOE SEWER, Stop date: 03/16/16 3:00:00 TOE SEWER Inactive 03/16/2016 [facility] Acetaminophen 650 mg, Route: PO, Drug form: TAB, ONCE, Dosing Weight 117.273, kg, Start date: 03/16/16 2:54:00 TOE SEWER, Stop date: 03/16/16 2:54:00 TOE SEWER Inactive 03/16/2016 [facility] Saline Flush 0.9% 10 mL, Route: IVP, Drug Form: INJ, Dosing Weight 117.273, kg, PRN, PRN Line Flush, Start date: 03/16/16 2:54:00 TOE SEWER, Duration: 30 day, Stop date: 04/15/16 2:53:00 CSTNotes: (Same as: BD Posiflush) No Longer Active 03/16/2016 [facility] simvastatin 20 mg oral tablet 20 mg=1 tab, PO, Bedtime, # 30 tab, 0 Refill(s) Active 10/27/2015 [facility] Aspirin 81 MG Enteric Coated Tablet 81 mg=1 tab, PO, Daily, 0 Refill(s) Active 10/27/2015 [facility] Proscar 5 mg, 1 tab, Route: PO, Drug form: TAB, Daily, Start date: 10/27/15 9:00:00 CDT, Duration: 30 day, Stop date: 11/25/15 9:00:00 CDTNotes: (Same as: Proscar) "Do Not Crush" Women of childbearing age should not touch or handle broken tablets Inactive 10/27/2015 [facility] ergocalciferol 50,000 IntlUnit, 1 cap, Route: PO, Drug form: CAP, Daily, Dosing Weight 119.631, kg, Start date: 10/27/15 9:00:00 CDT, Duration: 3 day, Stop date: 10/29/15 9:00:00 CDTNotes: (Same as: Vitamin D) "Do Not Crush" Inactive 10/27/2015 [facility] Dutasteride 0.5 mg, Route: PO, Drug form: CAP, Daily, Dosing Weight 119.631, kg, Start date: 10/27/15 9:00:00 CDT, Duration: 30 day, Stop date: 11/25/15 9:00:00 CDT No Longer Active 10/27/2015 [facility] Escitalopram 10 mg, 1 tab, Route: PO, Drug form: TAB, Daily, Dosing Weight 119.631, kg, Start date: 10/27/15 9:00:00 CDT, Duration: 30 day, Stop date: 11/25/15 9:00:00 CDTNotes: (Same as: Lexapro) Inactive 10/27/2015 [facility] Zocor 20 mg, 1 tab, Route: PO, Drug form: TAB, Bedtime, Dosing Weight 119.631, kg, Start date: 10/26/15 21:00:00 CDT, Duration: 30 day, Stop date: 11/24/15 21:00:00 CDTNotes: (Same as: Zocor) No Longer Active 10/27/2015 [facility] Trazodone 150 mg, 3 tab, Route: PO, Drug form: TAB, Bedtime, Dosing Weight 119.631, kg, Start date: 10/26/15 21:00:00 CDT, Duration: 30 day, Stop date: 11/24/15 21:00:00 CDTNotes: (Same As: Desyrel) No Longer Active 10/27/2015 [facility] Lovenox 40 mg, 0.4 mL, Route: SUB-Q, Drug form: INJ, [id number], Dosing Weight 119.631, kg, Start date: 10/26/15 12:00:00 CDT, Duration: 30 day, Stop date: 11/24/15 12:00:00 CDTNotes: (Same as: Lovenox) No Longer Active 10/26/2015 [facility] Metoprolol 5 mg, 5 mL, Route: IV, Drug form: INJ, Q2H, Dosing Weight 119.631, kg, PRN Tachycardia, Start date: 10/26/15 9:46:00 CDT, Duration: 30 day, Stop date: 11/25/15 9:45:00 CDTNotes: (Same as: Lopressor) Push over 2 minutes No Longer Active 10/26/2015 [facility] Nitroglycerin 0.4 MG Sublingual Tablet [Nitrostat] 0.4 mg, 1 tab, Route: SL, Drug form: TAB, Q5Min, Dosing Weight 119.631, kg, PRN Chest Pain, Start date: 10/26/15 9:46:00 CDT, Duration: 3 doses or times, Stop date: Limited # of timesNotes: (Same as:Nitroquick, Nitrostat) "Do Not Crush" Sublingual tablet No Longer Active 10/26/2015 [facility] Morphine 2 mg, 1 mL, Route: IVP, Drug form: INJ, Q2H, Dosing Weight 119.631, kg, PRN Chest Pain, Start date: 10/26/15 9:45:00 CDT, Duration: 30 day, Stop date: 11/25/15 9:44:00 CDTNotes: (Same as:MORPhine Sulfate) No Longer Active 10/26/2015 [facility] Hydralazine 10 mg, 0.5 mL, Route: IV, Drug form: INJ, Q4H, Dosing Weight 119.631, kg, PRN Hypertension, Start date: 10/26/15 9:45:00 CDT, Duration: 30 day, Stop date: 11/25/15 9:44:00 CDTNotes: (Same as: Apresoline) Push over 5 minutes No Longer Active 10/26/2015 [facility] Aspirin 81 mg, 1 tab, Route: PO, Drug form: ECTAB, Daily, Dosing Weight 119.631, kg, Priority: NOW, Start date: 10/26/15 9:42:00 CDT, Duration: 30 day, Stop date: 11/25/15 9:00:00 CDTNotes: Do not crush or chew. (Same As: Ecotrin) No Longer Active 10/26/2015 [facility] Streptococcus pneumoniae serotype 1 capsular antigen diphtheria [id number] protein conjugate vaccine / Streptococcus pneumoniae serotype 14 capsular antigen diphtheria [id number] protein conjugate vaccine / Streptococcus pneumoniae serotype 18C capsular antigen d 0.5 mL, Route: IM, Daily, Start date: 10/26/15 9:00:00 CDT, Duration: 1 doses or times, Stop date: 10/26/15 9:00:00 CDT No Longer Active 10/26/2015 [facility] Ondansetron 4 mg, 2 mL, Route: IVP, Drug form: INJ, Q6H, Dosing Weight 119.631, kg, PRN Nausea & Vomiting, Start date: 10/25/15 21:28:00 CDT, Duration: 30 day, Stop date: 11/24/15 21:27:00 CDTNotes: (Same as: Zofran) MEDICATION WASTE Product Size: 4 mg Product Wasted: ___ mg No Longer Active 10/26/2015 [facility] Morphine 2 mg, 1 mL, Route: IVP, Drug form: INJ, Q4H, Dosing Weight 119.631, kg, PRN Pain Score 7-10, Start date: 10/25/15 21:28:00 CDT, Duration: 30 day, Stop date: 11/24/15 21:27:00 CDTNotes: (Same as:MORPhine Sulfate) No Longer Active 10/26/2015 [facility] Docusate 100 mg, 1 cap, Route: PO, Drug form: CAP, BID, Dosing Weight 119.631, kg, PRN Constipation, Start date: 10/25/15 21:28:00 CDT, Duration: 30 day, Stop date: 11/24/15 21:27:00 CDTNotes: (Same as: Colace) (Do Not Crush) No Longer Active 10/26/2015 [facility] Acetaminophen 650 mg, 2 tab, Route: PO, Drug form: TAB, Q4H, Dosing Weight 119.631, kg, PRN Pain 1-3/Temp > 100.4 F, Start date: 10/25/15 21:28:00 CDT, Duration: 30 day, Stop date: 11/24/15 21:27:00 CDTNotes: Do not exceed 4 gm/day. (Same as: Tylenol) No Longer Active 10/26/2015 [facility] dutasteride-tamsulosin 0.5 mg-0.4 mg oral capsule 1 cap, PO, Daily, 0 Refill(s) Active 10/26/2015 [facility] escitalopram 10 mg oral tablet 10 mg=1 tab, PO, Daily, # 30 tab, 0 Refill(s) Active 10/26/2015 [facility] Zofran 4 mg, Route: IVP, Drug form: INJ, ONCE, Dosing Weight 118.182, kg, Priority: STAT, Start date: 10/25/15 20:31:00 CDT, Stop date: 10/25/15 20:31:00 CDT Inactive 10/26/2015 [facility] Morphine 4 mg, Route: IVP, ONCE, Dosing Weight 118.182, kg, Priority: STAT, Start date: 10/25/15 20:31:00 CDT, Stop date: 10/25/15 20:31:00 CDT Inactive 10/26/2015 [facility] Aspirin 325 MG Oral Tablet 325 mg, Route: PO, Drug form: TAB, ONCE, Dosing Weight 118.182, kg, Priority: STAT, Start date: 10/25/15 18:41:00 CDT, Stop date: 10/25/15 18:41:00 CDT Inactive 10/25/2015 [facility] Aspirin 81 MG Chewable Tablet 324 mg, 4 tab, Route: CHEW, Drug form: CHEWTAB, ONCE, Dosing Weight 118.182, kg, Priority: STAT, Start date: 10/25/15 18:25:00 CDT, Stop date: 10/25/15 18:25:00 CDTNotes: Take with food. Inactive 10/25/2015 [facility] Saline Flush 0.9% 10 mL, Route: IVP, Drug Form: INJ, Dosing Weight 109.091, kg, PRN, PRN Line Flush, Start date: 10/25/15 16:29:00 CDT, Duration: 30 day, Stop date: 11/24/15 16:28:00 CDTNotes: (Same as: BD Posiflush) Inactive 10/25/2015 [facility] Benadryl 12.5 mg, Route: IVP, ONCE, Dosing Weight 109.091, kg, Priority: STAT, Start date: 07/15/15 0:25:00 CDT, Stop date: 07/15/15 0:25:00 CDT Inactive 07/15/2015 [facility] Reglan 5 mg, Route: IVP, Drug form: INJ, ONCE, Dosing Weight 109.091, kg, Priority: STAT, Start date: 07/15/15 0:25:00 CDT, Stop date: 07/15/15 0:25:00 CDT Inactive 07/15/2015 [facility] Tylenol 975 mg, Route: PO, Drug form: TAB, ONCE, Dosing Weight 109.091, kg, Priority: STAT, Start date: 07/15/15 0:25:00 CDT, Stop date: 07/15/15 0:25:00 CDT Inactive 07/15/2015 [facility] Sodium Chloride 0.154 MEQ/ML Injectable Solution 1,000 mL, 1,000 ml/hr, Infuse Over: 1 hr, Route: IV, ONCE, Priority: STAT, Dosing Weight 109.091 kg, Start date: 07/15/15 0:24:00 CDT, Duration: 1 doses or times, Stop date: 07/15/15 0:24:00 CDT Inactive 07/15/2015 [facility] potassium phosphate + Sodium Chloride 0.9% IV 250 mL 10 mmol, 3.33 mL, Route: IVPB, ONCE, Dosing Weight 105.455, kg, Start date: 01/16/15 7:55:00, Stop date: 01/16/15 7:55:00Notes: (Same as: K Phosphate.) 1 mMol phoshate has 1.47 mEq potassium Infuse over 4 hours Inactive 01/16/2015 [facility] potassium phosphate 10 mEq, Route: IVPB, ONCE, Dosing Weight 105.455, kg, Start date: 01/16/15 7:07:00, Stop date: 01/16/15 7:07:00 Inactive 01/16/2015 [facility] Latuda 120mg pt's own med Latuda 120mg pt's own med, 1 tablet, Drug form: MISC, Route: PO, Bedtime, 01/15/15 21:00:00, Duration: 30 day, Stop date: 02/13/15 21:00:00 No Longer Active 01/16/2015 [facility] Latuda 120 mg, Route: PO, Drug form: TAB, Bedtime, Dosing Weight 105.455, kg, Start date: 01/15/15 21:00:00, Duration: 30 day, Stop date: 02/13/15 21:00:00 Inactive 01/16/2015 [facility] Trazodone 150 mg, 3 tab, Route: PO, Drug form: TAB, Bedtime, Dosing Weight 105.455, kg, Start date: 01/15/15 21:00:00, Duration: 30 day, Stop date: 02/13/15 21:00:00Notes: (Same As: Desyrel) No Longer Active 01/16/2015 [facility] Dilaudid 2 mg, 2 mL, Route: IVP, Drug form: INJ, Q3H, Dosing Weight 105.455, kg, PRN Pain Score 7-10, Start date: 01/15/15 15:58:00, Duration: 30 day, Stop date: 02/14/15 15:57:00 No Longer Active 01/15/2015 [facility] Acetaminophen 325 MG / Hydrocodone Bitartrate 5 MG Oral Tablet 1 tab, Route: PO, Drug Form: TAB, Dosing Weight 105.455, kg, Q4H, PRN Pain Score 1-5, Start date: 01/15/15 15:58:00, Stop date: 02/14/15 15:57:00Notes: (Same as: [place] 325/5) Do not exceed 4gm/day of acetaminophen. No Longer Active 01/15/2015 [facility] Ondansetron 4 mg, 2 mL, Route: IVP, Drug form: INJ, Q6H, Dosing Weight 105.455, kg, PRN Nausea & Vomiting, Start date: 01/15/15 15:58:00, Duration: 30 day, Stop date: 02/14/15 15:57:00Notes: (Same as: Alec) MEDICATION WASTE Product Size: 4 mg Product Wasted: ___ mg No Longer Active 01/15/2015 [facility] Hydromorphone 1 mg, 1 mL, Route: IVP, Drug form: INJ, Q3H, Dosing Weight 105.455, kg, PRN Pain Score 4-6, Start date: 01/15/15 15:58:00, Duration: 30 day, Stop date: 02/14/15 15:57:00 No Longer Active 01/15/2015 [facility] Calcium Chloride 0.0014 MEQ/ML / Potassium Chloride 0.004 MEQ/ML / Sodium Chloride 0.103 MEQ/ML / Sodium Lactate 0.028 MEQ/ML Injectable Solution 1,000 mL, Rate: 75 ml/hr, Infuse over: 13.3 hr, Route: IV, Dosing Weight 105.455 kg, Total Volume: 1,000, Start date: 01/15/15 15:58:00, Duration: 30 day, Stop date: 02/14/15 15:57:00 No Longer Active 01/15/2015 [facility] Acetaminophen 325 MG / Hydrocodone Bitartrate 10 MG Oral Tablet [[place] 10/325] 1 tab, Route: PO, Drug Form: TAB, Dosing Weight 105.455, kg, Q4H, PRN Pain, Start date: 01/15/15 15:49:00, Duration: 30 day, Stop date: 02/14/15 15:48:00 Inactive 01/15/2015 [facility] Ofirmev 1,000 mg, Route: IV, Drug form: INJ, ONCE, Dosing Weight 105.455, kg, PRN Pain, for > or=50 kg, Start date: 01/15/15 15:49:00 Inactive 01/15/2015 [facility] Naloxone 0.04 mg, Route: IVP, Q2MIN, Dosing Weight 105.455, kg, PRN Narcotic Reversal, Start date: 01/15/15 15:49:00, Duration: 8 doses or times, Stop date: Limited # of times Inactive 01/15/2015 [facility] Flumazenil 0.2 mg, Route: IVP, PRN, Dosing Weight 105.455, kg, PRN Benzodiazepine Reversal, Initial dose, Start date: 01/15/15 15:49:00, Duration: 30 day, Stop date: 02/14/15 15:48:00 Inactive 01/15/2015 [facility] Hydromorphone 0.5 mg, Route: IVP, Q5Min, Dosing Weight 105.455, kg, PRN Pain Score 7-10, Start date: 01/15/15 15:49:00, Duration: 4 doses or times, Stop date: Limited # of times Inactive 01/15/2015 [facility] Fentanyl 25 microgram, Route: IVP, Q5Min, Dosing Weight 105.455, kg, PRN Pain Score 4-6, Start date: 01/15/15 15:49:00, Duration: 4 doses or times, Stop date: Limited # of times Inactive 01/15/2015 [facility] Meperidine 12.5 mg, Route: IVP, Q30Min, Dosing Weight 105.455, kg, PRN Other -See Comment, For shivering, Start date: 01/15/15 15:49:00, Duration: 2 doses or times, Stop date: Limited # of times Inactive 01/15/2015 [facility] Oxycodone 5 mg, Route: PO, Drug form: TAB, Q4H, Dosing Weight 105.455, kg, PRN Pain Score 4-6, Start date: 01/15/15 15:49:00, Duration: 30 day, Stop date: 02/14/15 15:48:00 Inactive 01/15/2015 [facility] Ondansetron 4 mg, Route: IVP, ONCE, Dosing Weight 105.455, kg, PRN Nausea & Vomiting, Start date: 01/15/15 15:49:00 Inactive 01/15/2015 [facility] Cefoxitin 20 MG/ML Injectable Solution 2 gm, Route: IV, ONCE, Dosing Weight 105.455, kg, Start date: 01/15/15 14:30:00, Stop date: 01/15/15 14:30:00 Inactive 01/15/2015 [facility] Flagyl 500 mg, 100 mL, Route: IVPB, Drug form: INJ, [id number], Dosing Weight 105.455, kg, Start date: 01/15/15 9:00:00, Duration: 30 day, Stop date: 02/14/15 1:00:00Notes: (Same as: Flagyl) Avoid alcohol. No Longer Active 01/15/2015 [facility] Levaquin 750 mg, 150 mL, Route: IVPB, Drug form: SOLN, [id number], Dosing Weight 105.455, kg, Start date: 01/15/15 9:00:00, Duration: 30 day, Stop date: 02/13/15 9:00:00Notes: (Same as:Levaquin) No Longer Active 01/15/2015 [facility] Enoxaparin 40 mg, 0.4 mL, Route: SUB-Q, Drug form: INJ, [id number], Dosing Weight 105.455, kg, Start date: 01/15/15 9:00:00, Duration: 30 day, Stop date: 02/13/15 9:00:00Notes: (Same as: Lovenox) No Longer Active 01/15/2015 [facility] Bupropion 150 mg, 1 tab, Route: PO, Drug form: ERTAB, Daily, Dosing Weight 105.455, kg, Start date: 01/15/15 9:00:00, Duration: 30 day, Stop date: 02/13/15 9:00:00Notes: (Same as: Wellbutrin XL) "Do Not Crush" No Longer Active 01/15/2015 [facility] Zofran 4 mg, 2 mL, Route: IV, Drug form: INJ, Q8H, Dosing Weight 105.455, kg, PRN Nausea, Start date: 01/15/15 8:26:00, Duration: 30 day, Stop date: 02/14/15 8:25:00Notes: (Same as: Zofran) MEDICATION WASTE Product Size: 4 mg Product Wasted: ___ mg No Longer Active 01/15/2015 [facility] Miralax 17 gm, 1 pkt, Route: PO, Drug form: PWDR, Daily, Dosing Weight 105.455, kg, PRN Constipation, Start date: 01/15/15 8:25:00, Duration: 30 day, Stop date: 02/14/15 8:24:00Notes: Dissolve in 8 oz of water or juice. (Same as: Miralax) No Longer Active 01/15/2015 [facility] Lurasidone Hydrochloride 120 MG Oral Tablet [Latuda] 120 mg=1 tab, PO, Bedtime, 0 Refill(s) Active 01/15/2015 [facility] POLYETHYLENE GLYCOL 3350 142 MG/ML Oral Solution [Miralax] 17 gm, PO, Daily, PRN Constipation, 0 Refill(s) Active 01/15/2015 [facility] buPROPion 150 mg/24 hours oral extended release tablet 150 mg=1 tab, PO, Daily, # 30 tab, 0 Refill(s) Active 01/15/2015 [facility] trazodone 150 mg oral tablet 150 mg=1 tab, PO, Bedtime, # 30 tab, 0 Refill(s) Active 01/15/2015 [facility] Sodium Chloride 0.154 MEQ/ML Injectable Solution 1,000 mL, Rate: 125 ml/hr, Infuse over: 8 hr, Route: IV, Dosing Weight 105.455 kg, Total Volume: 1,000, Start date: 01/14/15 22:44:00, Duration: 30 day, Stop date: 02/13/15 22:43:00 No Longer Active 01/15/2015 [facility] Saline Flush 0.9% 10 ml, Route: IVP, Drug Form: INJ, Dosing Weight 105.455, kg, PRN, PRN Line Flush, Start date: 01/14/15 22:44:00, Duration: 30 day, Stop date: 02/13/15 22:43:00Notes: (Same as: BD Posiflush) No Longer Active 01/15/2015 [facility] Ondansetron 4 mg, 2 mL, Route: IVP, Drug form: INJ, Q6H, Dosing Weight 105.455, kg, PRN Nausea & Vomiting, Start date: 01/14/15 22:44:00, Duration: 30 day, Stop date: 02/13/15 22:43:00Notes: (Same as: Alec) MEDICATION WASTE Product Size: 4 mg Product Wasted: ___ mg No Longer Active 01/15/2015 [facility] Morphine 2 mg, 1 mL, Route: IVP, Drug form: INJ, Q4H, Dosing Weight 105.455, kg, PRN Pain Score 7-10, Start date: 01/14/15 22:44:00, Duration: 30 day, Stop date: 02/13/15 22:43:00Notes: (Same as:MORPhine Sulfate) No Longer Active 01/15/2015 [facility] Docusate 100 mg, 1 cap, Route: PO, Drug form: CAP, BID, Dosing Weight 105.455, kg, PRN Constipation, Start date: 01/14/15 22:44:00, Duration: 30 day, Stop date: 02/13/15 22:43:00Notes: (Same as: Colace) (Do Not Crush) No Longer Active 01/15/2015 [facility] Acetaminophen 325 mg, 1 tab, Route: PO, Drug form: TAB, Q4H, Dosing Weight 105.455, kg, PRN Pain Score 4-6, Start date: 01/14/15 22:44:00, Duration: 30 day, Stop date: 02/13/15 22:43:00Notes: Do not exceed 4 gm/day. (Same as: Tylenol) No Longer Active 01/15/2015 [facility] Tylenol 975 mg, Route: PO, Drug form: TAB, ONCE, Dosing Weight 105.455, kg, Priority: STAT, Start date: 01/14/15 20:13:00, Stop date: 01/14/15 20:13:00 Inactive 01/15/2015 [facility] Zofran 4 mg, 2 mL, Route: IVP, Drug form: INJ, ONCE, Dosing Weight 105.455, kg, Priority: STAT, Start date: 01/14/15 19:33:00, Stop date: 01/14/15 19:33:00Notes: (Same as: Zofran) MEDICATION WASTE Product Size: 4 mg Product Wasted: ___ mg Inactive 01/15/2015 [facility] Morphine 4 mg, 2 mL, Route: IVP, Drug form: INJ, ONCE, Dosing Weight 105.455, kg, Priority: STAT, Start date: 01/14/15 16:56:00, Stop date: 01/14/15 16:56:00Notes: (Same as:MORPhine Sulfate) Inactive 01/14/2015 [facility] Zofran 4 mg, 2 mL, Route: IVP, Drug form: INJ, ONCE, Dosing Weight 105.455, kg, Priority: STAT, Start date: 01/14/15 16:31:00, Stop date: 01/14/15 16:31:00Notes: (Same as: Zofran) MEDICATION WASTE Product Size: 4 mg Product Wasted: ___ mg Inactive 01/14/2015 [facility] Sodium Chloride 0.154 MEQ/ML Injectable Solution 1,000 mL, 1000 ml/hr, Infuse Over: 1 hr, Route: IV, 1,000, Drug form: INJ, ONCE, Priority: STAT, Dosing Weight 105.455 kg, Start date: 01/14/15 16:30:00, Duration: 1 doses or times, Stop date: 01/14/15 16:30:00 Inactive 01/14/2015 [facility] Saline Flush 0.9% 10 mL, Route: IVP, Drug Form: INJ, Dosing Weight 105.455, kg, PRN, PRN Line Flush, Start date: 01/14/15 14:36:00, Duration: 30 day, Stop date: 02/13/15 14:35:00Notes: Same as: BD Posiflush Sterile Inactive 01/14/2015 [facility] Pt's own med LATUDA (Lurasidone ) 120 MG TAB Pt's own med LATUDA (Lurasidone ) 120 MG TAB, 1 tab, Drug form: MISC, Route: PO, Daily, 01/29/14 9:00:00, Duration: 30 day, Stop date: 02/27/14 9:00:00 No Longer Active 01/29/2014 [facility] Latuda 120 mg, Route: PO, Drug form: TAB, Daily, Dosing Weight 107.727, kg, Start date: 01/29/14 9:00:00, Duration: 30 day, Stop date: 02/27/14 9:00:00 No Longer Active 01/29/2014 [facility] Lexapro 10 mg, 1 tab, Route: PO, Drug form: TAB, Daily, Dosing Weight 107.727, kg, Start date: 01/29/14 9:00:00, Duration: 30 day, Stop date: 02/27/14 9:00:00Notes: (Same as: Lexapro) No Longer Active 01/29/2014 [facility] Trazodone 300 mg, 3 tab, Route: PO, Drug form: TAB, Bedtime, Dosing Weight 107.727, kg, Start date: 01/28/14 21:00:00, Duration: 30 day, Stop date: 02/26/14 21:00:00Notes: (Same As: Desyrel) Inactive 01/29/2014 [facility] Bupropion 150 mg, 1 tab, Route: PO, Drug form: ERTAB, Bedtime, Dosing Weight 107.727, kg, Start date: 01/28/14 21:00:00, Duration: 30 day, Stop date: 02/26/14 21:00:00Notes: (Same as: Wellbutrin XL) "Do Not Crush" Inactive 01/29/2014 [facility] RN- Bring pt's LATUDA to pharmacy for labeling. RN- Bring pt's LATUDA to pharmacy for labeling., 1, Drug form: MISC, Route: MISC, QSHIFT, 01/28/14 16:00:00, Duration: 30 day, Stop date: 02/27/14 8:00:00 Inactive 01/28/2014 [facility] Saline Flush 0.9% 10 ml, Route: IVP, Drug Form: INJ, Dosing Weight 107.727, kg, Q12H, Start date: 01/28/14 9:00:00, Duration: 30 day, Stop date: 02/26/14 21:00:00Notes: (Same as: BD Posiflush) Inactive 01/28/2014 [facility] aspirin 81 mg, 1 tab, Route: PO, Drug form: ECTAB, Daily, Dosing Weight 107.727, kg, Start date: 01/28/14 9:00:00, Duration: 30 day, Stop date: 02/26/14 9:00:00Notes: Do not crush or chew. (Same As: Ecotrin) Inactive 01/28/2014 [facility] Saline Flush 0.9% 10 ml, Route: IVP, Drug Form: INJ, Dosing Weight 107.727, kg, PRN, PRN Line Flush, Start date: 01/28/14 5:33:00, Duration: 30 day, Stop date: 02/27/14 5:32:00Notes: (Same as: BD Posiflush) Inactive 01/28/2014 [facility] Nitroglycerin 0.4 MG Sublingual Tablet 0.4 mg, 1 tab, Route: SL, Drug form: TAB, Q5Min, Dosing Weight 107.727, kg, PRN Chest Pain, Start date: 01/27/14 22:30:00, Duration: 30 day, Stop date: 02/26/14 22:29:00Notes: (Same as:Nitroquick, Nitrostat) "Do Not Crush" Sublingual tablet No Longer Active 01/28/2014 [facility] Atropine 0.5 mg, 5 mL, Route: IVP, Drug form: INJ, PRN, Dosing Weight 107.727, kg, PRN Bradycardia, Start date: 01/27/14 22:30:00, Duration: 30 day, Stop date: 02/26/14 22:29:00 No Longer Active 01/28/2014 [facility] buPROPion 150 mg/24 hours oral extended release tablet 150 mg=1 tab, PO, Bedtime On Hold 01/28/2014 [facility] Lurasidone Hydrochloride 120 MG Oral Tablet [Latuda] 120 mg=1 tab, PO, Daily On Hold 01/28/2014 [facility] Lexapro 10 mg, 1 tab, Route: PO, Drug form: TAB, Daily, Dosing Weight 110.909, kg, Start date: 03/15/13 9:00:00, Duration: 30 day, Stop date: 04/13/13 9:00:00(Same as: Lexapro) No Longer Active [facility] 03/15/2013 [facility] atorvastatin 10 mg, 1 tab, Route: PO, Drug form: TAB, QPM, Dosing Weight 110.909, kg, Start date: 03/14/13 17:00:00, Duration: 30 day, Stop date: 04/12/13 17:00:00(Same As: Lipitor) Inactive [facility] 03/14/2013 [facility] trazodone 150 mg, 3 tab, Route: PO, Drug form: TAB, Bedtime, Dosing Weight 110.909, kg, PRN Sleep, Start date: 03/14/13 12:02:00, Duration: 30 day, Stop date: 04/13/13 12:01:00, INSOM(Same As: Desyrel) Inactive [facility] 03/14/2013 [facility] ZyrTEC 10 mg, 2 tab, Route: PO, Drug form: TAB, Daily, Dosing Weight 110.909, kg, PRN Allergies, Start date: 03/14/13 11:59:00, Duration: 30 day, Stop date: 04/13/13 11:58:00(Same As: Zyrtec) Inactive [facility] 03/14/2013 [facility] pneumococcal 23-valent vaccine 0.5 ml, Route: IM, Drug Form: INJ, Start date: 03/14/13 9:00:00, Stop date: 03/14/13 9:00:00 Inactive [facility] 03/14/2013 [facility] Saline Flush 0.9% 5 ml, Route: IVP, Drug Form: INJ, Dosing Weight 110.909, kg, Q12H, Start date: 03/14/13 9:00:00, Duration: 30 day, Stop date: 04/12/13 21:00:00Same as: BD Posiflush Sterile Inactive [facility] 03/14/2013 [facility] lisinopril 5 mg, 1 tab, Route: PO, Drug form: TAB, Daily, Dosing Weight 110.909, kg, Start date: 03/14/13 9:00:00, Duration: 30 day, Stop date: 04/12/13 9:00:00(Same as: Prinivil, Zestril) Inactive [facility] 03/14/2013 [facility] aspirin 81 mg tablet, enteric coated 81 mg, 1 tab, Route: PO, Drug form: ECTAB, Daily, Dosing Weight 110.909, kg, Start date: 03/14/13 9:00:00, Duration: 30 day, Stop date: 04/12/13 9:00:00Do not crush or chew. (Same As: Ecotrin) Inactive [facility] 03/14/2013 [facility] cholecalciferol 5,000 IntlUnit, 5 tab, Route: PO, Drug form: TAB, Daily, Dosing Weight 110.909, kg, Start date: 03/14/13 9:00:00, Duration: 30 day, Stop date: 04/12/13 9:00:00Same as : Vitamin D3 Inactive [facility] 03/14/2013 [facility] Plavix 75 mg, 1 tab, Route: PO, Drug form: TAB, Daily, Dosing Weight 110.909, kg, Start date: 03/14/13 9:00:00, Duration: 30 day, Stop date: 04/12/13 9:00:00(Same As: Plavix) Inactive [facility] 03/14/2013 [facility] buPROPion 450 mg, Route: PO, Drug form: ERTAB, QAM, Dosing Weight 110.909, kg, Start date: 03/14/13 9:00:00, Duration: 30 day, Stop date: 04/12/13 9:00:00 No Longer Active [facility] 03/14/2013 [facility] Saline Flush 0.9% 5 ml, Route: IVP, Drug Form: INJ, Dosing Weight 110.909, kg, PRN, PRN Line Flush, Start date: 03/13/13 21:48:00, Duration: 30 day, Stop date: 04/12/13 21:47:00Same as: BD Posiflush Sterile No Longer Active [facility] 03/14/2013 [facility] nitroglycerin SL Tab 0.4 mg, Route: SL, Drug form: TAB, Q5Min, Dosing Weight 110.909, kg, PRN Chest Pain, Start date: 03/13/13 21:48:00, Duration: 3 doses or times, Stop date: Limited # of times Inactive [facility] 03/14/2013 [facility] aspirin 325 mg tablet 325 mg, Route: PO, Drug form: TAB, ONCE, Dosing Weight 110.909, kg, Start date: 03/13/13 21:48:00, Stop date: 03/13/13 21:48:00 Inactive [facility] 03/14/2013 [facility] atropine 0.5 mg, 5 mL, Route: IVP, Drug form: INJ, PRN, PRN Bradycardia, Start date: 03/13/13 21:38:00, Duration: 30 day, Stop date: 04/12/13 21:37:00 No Longer Active [facility] 03/14/2013 [facility] trazodone 150 mg oral tablet 150 mg=1 tab, PO, Bedtime, as needed for sleep, # 30 tab, 0 Refill(s) Active [facility] 03/14/2013 [facility] Latuda 20 mg oral tablet 20 mg=1 tab, PO, Bedtime, 0 Refill(s) Inactive 03/14/2013 [facility] Vitamin B6 100 mg oral tablet 100 mg=1 tab, PO, Daily, # 10 tab, 0 Refill(s) Inactive 03/14/2013 [facility] Lexapro 10 mg oral tablet 10 mg=1 tab, PO, Daily, # 30 tab, 0 Refill(s) Active [facility] 03/14/2013 [facility] Coreg 3.125 mg, 1 tab, Route: PO, Drug form: TAB, Q12H, Dosing Weight 110.909, kg, Start date: 03/13/13 21:00:00, Duration: 30 day, Stop date: 04/12/13 9:00:00Give with food. (Same As: Coreg) No Longer Active [facility] 03/14/2013 [facility] enoxaparin 40 mg, 0.4 mL, Route: SUB-Q, Drug form: INJ, [id number], Dosing Weight 110.909, kg, Start date: 03/13/13 21:00:00, Duration: 30 day, Stop date: 04/11/13 21:00:00(Same as: Lovenox) No Longer Active [facility] 03/14/2013 [facility] SEROquel 150 mg, 1.5 tab, Route: PO, Drug form: TAB, Bedtime, Dosing Weight 110.909, kg, Start date: 03/13/13 21:00:00, Duration: 30 day, Stop date: 04/11/13 21:00:00(Same as: SEROquel) Inactive [facility] 03/14/2013 [facility] Nitrostat 0.4 mg sublingual tablet 0.4 mg, 1 tab, Route: SL, Drug form: TAB, Q5Min, Dosing Weight 110.909, kg, PRN Chest Pain, Start date: 03/13/13 20:05:00, Duration: 3 doses or times, Stop date: Limited # of times(Same as:Nitroquick, Nitrostat) "Do Not Crush" Sublingual tablet No Longer Active [facility] 03/14/2013 [facility] morphine Sulfate 2 mg, 1 mL, Route: IVP, Drug form: INJ, Q2H, Dosing Weight 110.909, kg, PRN Chest Pain, Start date: 03/13/13 20:05:00, Duration: 30 day, Stop date: 04/12/13 20:04:00(Same as:MORPhine Sulfate) No Longer Active [facility] 03/14/2013 [facility] hydrALAZINE 10 mg, 0.5 mL, Route: IV, Drug form: INJ, Q4H, Dosing Weight 110.909, kg, PRN Hypertension, Start date: 03/13/13 20:05:00, Duration: 30 day, Stop date: 04/12/13 20:04:00(Same as: Apresoline) Push over 5 minutes No Longer Active [facility] 03/14/2013 [facility] metoprolol 5 mg/5 ml INJ 2.5 mg, 2.5 mL, Route: IV, Drug form: INJ, PRN, Dosing Weight 110.909, kg, PRN Tachycardia, Start date: 03/13/13 20:05:00, Duration: 30 day, Stop date: 04/12/13 20:04:00(Same as: Lopressor) Push over 2 minutes No Longer Active [facility] 03/14/2013 [facility] aspirin 324 mg, Route: CHEW, Drug form: CHEWTAB, ONCE, Dosing Weight 110.909, kg, Priority: STAT, Start date: 03/13/13 19:17:00, Stop date: 03/13/13 19:17:00 Inactive [facility] 03/14/2013 [facility] Saline Flush 0.9% 5 mL, Route: IVP, Drug Form: INJ, Dosing Weight 110.909, kg, Q8H, PRN Line Flush, Start date: 03/13/13 17:24:00, Duration: 30 day, Stop date: 04/12/13 17:23:00, Administer at least once every 8 hoursAdminister at least once every 8 hoursSame as: BD Posiflush Sterile Inactive [facility] 03/13/2013 [facility] Seroquel 150 mg, 1.5 tab, Route: PO, Drug form: TAB, Bedtime, Dosing Weight 106.364, kg, Start date: 04/17/12 21:00:00, Duration: 30 day, Stop date: 05/16/12 21:00:00 PO No Longer Active [facility] 04/18/2012 [facility] influenza virus vaccine, inactivated 0.5 ml, Route: IM, Drug Form: INJ, Start date: 04/17/12 9:00:00, Stop date: 04/17/12 9:00:00 Inactive [facility] 04/17/2012 [facility] pneumococcal 23-valent vaccine 0.5 ml, Route: IM, Drug Form: INJ, Start date: 04/17/12 9:00:00, Stop date: 04/17/12 9:00:00 Inactive [facility] 04/17/2012 [facility] buPROPion 450 mg, 3 tab, Route: PO, Drug form: ERTAB, QAM, Dosing Weight 106.364, kg, Start date: 04/17/12 9:00:00, Duration: 30 day, Stop date: 05/16/12 9:00:00 PO No Longer Active [facility] 04/17/2012 [facility] enoxaparin 40 mg, 0.4 mL, Route: SUB-Q, Drug form: INJ, [id number], Dosing Weight 106.364, kg, Start date: 04/17/12 2:00:00, Duration: 30 day, Stop date: 05/16/12 2:00:00 SUB-Q No Longer Active [facility] 04/17/2012 [facility] pantoprazole 40 mg, Route: IVP, Drug form: INJ, Before Dinner, Dosing Weight 100, kg, Start date: 04/16/12 16:30:00, Duration: 30 day, Stop date: 05/15/12 16:30:00 IVP [facility] nitroglycerin 0.4 mg sublingual tablet 0.4 mg, 1 tab, Route: SL, Drug form: TAB, Q5Min, PRN Chest Pain, Start date: 04/16/12 14:03:00, Duration: 30 day, Stop date: 05/16/12 15:02:00 SL [facility] atropine 0.5 mg, 5 mL, Route: IVP, Drug form: INJ, PRN, PRN Bradycardia, Start date: 04/16/12 14:02:00, Duration: 30 day, Stop date: 05/16/12 15:01:00 IVP No Longer Active [facility] 04/16/2012 [facility] Saline Flush 0.9% 5 ml, Route: IVP, Drug Form: INJ, Dosing Weight 100, kg, Q12H, Start date: 04/16/12 9:00:00, Duration: 30 day, Stop date: 05/15/12 21:00:00 IVP No Longer [place] [facility] [place]2012 [facility] aspirin 325 mg tablet, enteric coated 325 mg, 1 tab, Route: PO, Drug form: ECTAB, Daily, Dosing Weight 100, kg, Start date: 04/16/12 9:00:00, Duration: 30 day, Stop date: 05/15/12 9:00:00 PO No Longer Active [facility] 04/16/2012 [facility] Saline Flush 0.9% 5 ml, Route: IVP, Drug Form: INJ, Dosing Weight 100, kg, PRN, PRN Line Flush, Start date: 04/16/12 5:07:00, Duration: 30 day, Stop date: 05/16/12 6:06:00 IVP No Longer Active [facility] 04/16/2012 [facility] labetalol 10 mg, 2 mL, Route: IVP, Drug form: INJ, Q10Min, Dosing Weight 100, kg, PRN Hypertension, Start date: 04/16/12 5:07:00, Duration: 30 day, Stop date: 05/16/12 6:06:00, For SBP > 180mmHg and/or DBP > 1 05mmHg IVP No Longer Active [facility] [place]/16/2012 [facility] aspirin 325 mg, Route: PO, Drug form: TAB, ONCE, Dosing Weight 100, kg, Priority: STAT, Start date: 04/15/12 19:10:00, Stop date: 04/15/12 19:10:00 [facility] Saline Flush 0.9% 5 ml, Route: IVP, Drug Form: INJ, Dosing Weight 100, kg, PRN, PRN Line Flush, Start date: 04/15/12 17:34:00, Duration: 30 day, Stop date: 05/15/12 18:33:00 IVP No Longer Active [facility] 04/15/2012 [facility] predniSONE 20 mg oral tablet 40 mg, 2 tab, PO, Daily, 10 tab, Substitution Allowed PO Active [facility] 06/02/2011 [facility] methylPREDNISolone SODium SUCCinate 125 mg, 2 mL, Route: IM, Drug form: INJ, ONCE, Priority: STAT, Start date: 06/02/11 4:37:00, Stop date: 06/02/11 4:37:00 IM No Longer Active [facility] 06/02/2011 [facility] Phenergan 25 mg oral tablet 25 mg, 1 tab, PO, Q6H, PRN, 15 tab, Nausea, Substitution Allowed PO Active [facility] 06/02/2011 [facility] Tylenol with Codeine #3 oral tablet 1 tab, PO, Q6H, PRN, 20 tab, for pain, Substitution Allowed, Maintenance PO Active [facility] 06/02/2011 [facility] promethazine 25 mg, 1 tab, Route: PO, Drug form: TAB, ONCE, Priority: STAT, Start date: 06/02/11 1:30:00, Stop date: 06/02/11 1:30:00 PO No Longer Active [facility] 06/02/2011 [facility] acetaminophen-codeine #3 1 tab, Route: PO, Drug Form: TAB, ONCE, STAT, Start date: 06/02/11 1:30:00, Stop date: 06/02/11 1:30:00 PO No Longer Active [facility] 06/02/2011 [facility] Vicodin 5/500 oral tablet 1 tab, PO, Q4-6H, PRN, 15 tab, for Pain, Substitution Allowed, Maintenance PO Active [facility] 12/07/2010 [facility] Ceftin 500 mg oral tablet 500 mg, 1 tab, PO, BID, 30 tab, Substitution Allowed PO Active [facility] 12/07/2010 [facility] ceftriaxone 1 gm, Route: IVPB, Drug form: PDR/INJ, ONCE, Priority: STAT, Start date: 12/07/10 18:55:00, Stop date: 12/07/10 18:55:00 IVPB No Longer Active [facility] 12/07/2010 [facility] buPROPion 150 mg oral tablet, extended release 450 mg, 3 tab, PO, QAM, Substitution Allowed PO Active 12/07/2010 [facility] Seroquel 50 mg oral tablet 150 mg, 3 tab, PO, Bedtime, Substitution Allowed PO Active 12/07/2010 [facility] ondansetron 4 mg, 2 mL, Route: IVP, Drug form: INJ, ONCE, Priority: STAT, Start date: 12/07/10 16:11:00, Stop date: 12/07/10 16:11:00 IVP No Longer Active [facility] 12/07/2010 [facility] morphine Sulfate 4 mg, 2 mL, Route: IVP, Drug form: INJ, ONCE, Priority: STAT, Start date: 12/07/10 16:11:00, Stop date: 12/07/10 16:11:00 IVP No Longer Active [facility] 12/07/2010 [facility] Sodium Chloride 0.9% (Bolus) IV 500 mL 500 mL, Rate: 500 ml/hr, Infuse over: 1 hr, Route: IV, Total Volume: 500, Bolus Dose, Priority: STAT, Start date: 12/07/10 16:10:00, Duration: 1 doses or times, Stop date: 12/07/10 17:09:00 IV No Longer Active [facility] 12/07/2010 [facility] pneumococcal 23-valent vaccine 0.5 ml, Route: IM, Drug Form: INJ, Start date: 09/29/10 9:00:00, Stop date: 09/29/10 9:00:00 Inactive [facility] 09/29/2010 [facility] Allergies, Adverse Reactions, Alerts No Known Medication Allergies Immunizations Immunization Date Given Site Status Last Updated Comments Source pneumococcal 13-valent vaccine 02/08/2017 Not Given [facility] influenza virus vaccine, inactivated 11/29/2014 completed [facility] pneumococcal 23-valent vaccine 03/14/2013 completed [facility] pneumococcal 23-valent vaccine 03/14/2013 Left Deltoid completed [facility] influenza virus vaccine, inactivated<sup>1</sup> 12/09/2012 Left Deltoid completed [facility] Result Comment: fluzone (>3 yrs.) [[id number]]. Migrated from OBS ; Data migrated from [employer] on 03/28/2015. [facility] influenza virus vaccine, inactivated<sup>2</sup> 12/09/2012 Left Deltoid completed [facility] Result Comment: fluzone (>3 yrs.) [[id number]]. Migrated from OBS ; Data migrated from [employer] on 03/28/2015. [facility] influenza virus vaccine, inactivated 04/17/2012 Not Given [facility] pneumococcal 23-valent vaccine 04/17/2012 completed [facility] pneumococcal 23-valent vaccine 04/17/2012 Left deltoid completed [facility] pneumococcal 23-valent vaccine<sup>2</sup> 12/03/2011 completed [facility] Result Comment: 12-03-2011. Migrated from OBS ; Data migrated from [employer] on 03/28/2015. [facility] Hx influenza vaccine-unspecified<sup>3</sup> 12/03/2011 completed [facility] Result Comment: 12-03-2011. Migrated from OBS ; Data migrated from [employer] on 03/28/2015. [facility] Hx influenza vaccine-unspecified<sup>1</sup> 12/03/2011 completed [facility] Result Comment: 12-03-2011. Migrated from OBS ; Data migrated from [employer] on 03/28/2015. [facility] pneumococcal 23-valent vaccine<sup>3</sup> 12/03/2011 completed [facility] Result Comment: 12-03-2011. Migrated from OBS ; Data migrated from [employer] on 03/28/2015. [facility] pneumococcal 23-valent vaccine 09/29/2010 Not Given Far[facility] Results Order Name Results Value Reference Range Date Interpretation Comments Source CHEM PANEL BUN 14 7 - 22 02/08/2017 [facility] CHEM PANEL Glucose Lvl 114 70 - 99 02/08/2017 [facility] CHEM PANEL Potassium Lvl 4.4 3.5 - 5.1 02/08/2017 [facility] CHEM PANEL Sodium Lvl 140 135 - 145 02/08/2017 [facility] CHEM PANEL Creatinine Lvl 0.60 0.50 - 1.40 02/08/2017 [facility] CHEM PANEL Calcium Lvl 8.7 8.5 - 10.5 02/08/2017 [facility] CHEM PANEL Chloride Lvl 103 95 - 109 02/08/2017 [facility] CHEM PANEL CO2 29 24 - 32 02/08/2017 [facility] CHEM PANEL eGFR 101 02/08/2017 Result [...] should be multiplied by the estimated BMI. [facility] CHEM PANEL AGAP 12.4 10.0 - 20.0 02/08/2017 [facility] HEMATOLOGY Segs 79.1 45.0 - 75.0 02/08/2017 [facility] Lymphocytes 11.5 20.0 - 40.0 02/08/2017 [facility] Eosinophils 0.1 0.0 - 4.0 02/08/2017 [facility] Monocytes 8.9 2.0 - 12.0 02/08/2017 [facility] HEMATOLOGY Basophils 0.4 0.0 - 1.0 02/08/2017 [facility] Segs-Bands # 5.8 1.5 - 8.1 02/08/2017 [facility] Monocytes # 0.7 0.0 - 0.8 02/08/2017 [facility] Lymphocytes # 0.8 1.0 - 5.5 02/08/2017 [facility] MCH 32.8 27.0 - 31.0 02/08/2017 [facility] RDW 14.0 11.5 - 14.5 02/08/2017 [facility] MCHC 34.2 32.0 - 36.0 02/08/2017 [facility] Platelet 127 133 - 450 02/08/2017 [facility] MPV 8.2 7.4 - 10.4 02/08/2017 [facility] WBC 7.4 3.7 - 10.4 02/08/2017 [facility] RBC 4.57 4.70 - 6.10 02/08/2017 [facility] Hgb 15.0 14.0 - 18.0 02/08/2017 [facility] Hct 43.8 42.0 - 54.0 02/08/2017 [facility] MCV 95.8 80.0 - 94.0 02/08/2017 [facility] CHEM PANEL eGFR 94 02/08/2017 Result [...] should be multiplied by the estimated BMI. [facility] CHEM PANEL Chloride Lvl 103 95 - 109 02/08/2017 [facility] CHEM PANEL CO2 28 24 - 32 02/08/2017 [facility] CHEM PANEL BUN 15 7 - 22 02/08/2017 [facility] CHEM PANEL Creatinine Lvl 0.73 0.50 - 1.40 02/08/2017 [facility] CHEM PANEL AGAP 11.6 10.0 - 20.0 02/08/2017 [facility] CHEM PANEL Sodium Lvl 138 135 - 145 02/08/2017 [facility] CHEM PANEL Potassium Lvl 4.6 3.5 - 5.1 02/08/2017 [facility] CHEM PANEL Calcium Lvl 8.2 8.5 - 10.5 02/08/2017 [facility] CHEM PANEL Glucose Lvl 127 70 - 99 02/08/2017 [facility] HEMATOLOGY Segs 79.3 45.0 - 75.0 02/08/2017 [facility] HEMATOLOGY Lymphocytes 10.7 20.0 - 40.0 02/08/2017 [facility] HEMATOLOGY Monocytes 9.4 2.0 - 12.0 02/08/2017 [facility] HEMATOLOGY Eosinophils 0.1 0.0 - 4.0 02/08/2017 [facility] HEMATOLOGY Basophils 0.5 0.0 - 1.0 02/08/2017 [facility] HEMATOLOGY Segs-Bands # 6.9 1.5 - 8.1 02/08/2017 [facility] HEMATOLOGY Lymphocytes # 0.9 1.0 - 5.5 02/08/2017 [facility] HEMATOLOGY Monocytes # 0.8 0.0 - 0.8 02/08/2017 [facility] HEMATOLOGY RBC 4.74 4.70 - 6.10 02/08/2017 [facility] HEMATOLOGY MCV 95.9 80.0 - 94.0 02/08/2017 [facility] HEMATOLOGY Hct 45.4 42.0 - 54.0 02/08/2017 [facility] HEMATOLOGY MCHC 34.7 32.0 - 36.0 02/08/2017 [facility] MCH 33.3 27.0 - 31.0 02/08/2017 [facility] HEMATOLOGY Platelet 134 133 - 450 02/08/2017 [facility] HEMATOLOGY RDW 13.7 11.5 - 14.5 02/08/2017 [facility] HEMATOLOGY MPV 8.5 7.4 - 10.4 02/08/2017 [facility] HEMATOLOGY WBC 8.7 3.7 - 10.4 02/08/2017 [facility] HEMATOLOGY Hgb 15.8 14.0 - 18.0 02/08/2017 [facility] CARDIAC ENZYMES Troponin-I <0.02 0.00 - 0.40 02/07/2017 [facility] CARDIAC ENZYMES CK MB 3.4 0.5 - 3.6 02/07/2017 [facility] CARDIAC ENZYMES Total CK 776 12 - 191 02/07/2017 [facility] URINE AND STOOL UA Hyal Cast 4 0 - 2 02/07/2017 [facility] URINE AND STOOL UA Bacteria Occasional /HPF None Seen /HPF 02/07/2017 [facility] URINE AND STOOL UA RBC 6 0 - 2 02/07/2017 [facility] URINE AND STOOL UA Color Ester 02/07/2017 [facility] URINE AND STOOL UA WBC 2 0 - 5 02/07/2017 [facility] URINE AND STOOL UA Sq Epi Occasional /LPF Few /LPF 02/07/2017 [facility] URINE AND STOOL UA Leuk Est Negative (02/07/17 12:56 PM) Negative 02/07/2017 [facility] URINE AND STOOL UA pH 6.0 5.0 - 8.0 02/07/2017 [facility] URINE AND STOOL UA Spec Grav 1.028 <=1.030 02/07/2017 [facility] URINE AND STOOL UA Turbidity Clear (02/07/17 12:56 PM) Clear 02/07/2017 [facility] URINE AND STOOL UA Protein 30 mg/dL Negative mg/dL 02/07/2017 [facility] URINE AND STOOL UA Glucose Negative mg/dL Negative mg/dL 02/07/2017 [facility] URINE AND STOOL UA Nitrite Negative (02/07/17 12:56 PM) Negative 02/07/2017 [facility] URINE AND STOOL UA Urobilinogen 4.0 0.1 - 1.0 02/07/2017 [facility] URINE AND STOOL UA Bili Negative *NA* (02/07/17 12:56 PM) Negative 02/07/2017 [facility] URINE AND STOOL UA Blood Small *ABN* (02/07/17 12:56 PM) Negative 02/07/2017 [facility] URINE AND STOOL UA Ketones Trace mg/dL Negative mg/dL 02/07/2017 [facility] CHEM PANEL eGFR 64 02/07/2017 Result [...] PANEL AGAP 12.7 10.0 - 20.0 02/07/2017 [facility] HEMATOLOGY Basophils # 0.1 0.0 - 0.2 02/07/2017 [facility] HEMATOLOGY Monocytes # 0.9 0.0 - 0.8 02/07/2017 [facility] HEMATOLOGY Basophils 0.5 0.0 - 1.0 02/07/2017 [facility] HEMATOLOGY Lymphocytes 13.7 20.0 - 40.0 02/07/2017 [facility] HEMATOLOGY Monocytes 8.9 2.0 - 12.0 02/07/2017 [facility] HEMATOLOGY Lymphocytes # 1.4 1.0 - 5.5 02/07/2017 [facility] HEMATOLOGY Segs-Bands # 7.8 1.5 - 8.1 02/07/2017 [facility] HEMATOLOGY Eosinophils 0.4 0.0 - 4.0 02/07/2017 [facility] HEMATOLOGY Segs 76.5 45.0 - 75.0 02/07/2017 [facility] HEMATOLOGY Platelet 148 133 - 450 02/07/2017 [facility] MCHC 34.2 32.0 - 36.0 02/07/2017 [facility] RDW 13.8 11.5 - 14.5 02/07/2017 [facility] HEMATOLOGY Hct 46.8 42.0 - 54.0 02/07/2017 [facility] Hgb 16.0 14.0 - 18.0 02/07/2017 [facility] HEMATOLOGY MCV 95.1 80.0 - 94.0 02/07/2017 [facility] RBC 4.93 4.70 - 6.10 02/07/2017 [facility] MPV 8.4 7.4 - 10.4 02/07/2017 [facility] MCH 32.5 27.0 - 31.0 02/07/2017 [facility] HEMATOLOGY WBC 10.2 3.7 - 10.4 02/07/2017 [facility] CHEM PANEL Phosphorus 1.7 2.5 - 4.5 03/17/2016 [facility] CHEM PANEL Magnesium Lvl 2.0 1.8 - 2.4 03/17/2016 [facility] HEMATOLOGY Eosinophils # 0.1 0.0 - 0.5 03/17/2016 [facility] HEMATOLOGY Monocytes # 0.6 0.0 - 0.8 03/17/2016 [facility] HEMATOLOGY Lymphocytes # 0.5 1.0 - 5.5 03/17/2016 [facility] HEMATOLOGY Plt Morph Normal (03/17/16 3:50 AM) 03/17/2016 [facility] HEMATOLOGY Basophils 0.5 0.0 - 1.0 03/17/2016 [facility] HEMATOLOGY Eosinophils 1.9 0.0 - 4.0 03/17/2016 [facility] HEMATOLOGY Segs-Bands # 2.1 1.5 - 8.1 03/17/2016 [facility] HEMATOLOGY Monocytes 19.4 2.0 - 12.0 03/17/2016 [facility] HEMATOLOGY Lymphocytes 13.6 20.0 - 40.0 03/17/2016 [facility] HEMATOLOGY Segs 64.6 45.0 - 75.0 03/17/2016 [facility] HEMATOLOGY MPV 8.4 7.4 - 10.4 03/17/2016 [facility] HEMATOLOGY RDW 14.1 11.5 - 14.5 03/17/2016 [facility] HEMATOLOGY WBC 3.3 3.7 - 10.4 03/17/2016 [facility] HEMATOLOGY Hct 40.7 42.0 - 54.0 03/17/2016 [facility] MCHC 34.3 32.0 - 36.0 03/17/2016 [facility] MCH 31.9 27.0 - 31.0 03/17/2016 [facility] HEMATOLOGY Hgb 14.0 14.0 - 18.0 03/17/2016 [facility] HEMATOLOGY RBC 4.38 4.70 - 6.10 03/17/2016 [facility] HEMATOLOGY MCV 93.0 80.0 - 94.0 03/17/2016 [facility] HEMATOLOGY Platelet See Note 1 (03/17/16 3:50 AM) 133 - 450 03/17/2016 Result Comment: Platelet [id number];decreased on 03/17/2016 04:40 by vicki. [facility] HEMATOLOGY PTT 33.2 22.9 - 35.8 03/16/2016 [facility] HEMATOLOGY PT 16.3 12.0 - 14.7 03/16/2016 [facility] HEMATOLOGY INR 1.29 0.85 - 1.17 03/16/2016 [facility] CARDIAC ENZYMES CK MB Index <0.4 0.0 - 2.5 03/16/2016 [facility] CARDIAC ENZYMES Troponin-I <0.02 0.00 - 0.40 03/16/2016 [facility] CARDIAC ENZYMES CK MB <0.5 0.5 - 3.6 03/16/2016 [facility] CARDIAC ENZYMES Total CK 121 12 - 191 03/16/2016 [facility] CHEM PANEL Procalcitonin Lvl <0.05 ng/mL 0.00 - 0.10 03/16/2016 [facility] CHEM PANEL Lactic Acid Lvl 1.7 0.5 - 2.2 03/16/2016 [facility] CHEM PANEL Alk Phos 128 39 - 136 03/16/2016 [facility] CHEM PANEL Bili Total 0.9 0.2 - 1.3 03/16/2016 [facility] CHEM PANEL eGFR 78 03/16/2016 Result [...] Albumin Lvl 3.9 3.5 - 5.0 03/16/2016 [facility] CHEM PANEL ALT 59 0 - [...] PANEL BUN 10 7 - 22 03/16/2016 [facility] CHEM PANEL Creatinine Lvl 0.98 0.50 - 1.40 03/16/2016 [facility] CHEM PANEL Chloride Lvl 104 95 - 109 03/16/2016 [facility] CHEM PANEL B/C Ratio 10 6 - 25 03/16/2016 [facility] CHEM PANEL Globulin 3.3 2.7 - 4.2 03/16/2016 [facility] CHEM PANEL A/G Ratio 1.2 0.7 - 1.6 03/16/2016 [facility] CHEM PANEL AGAP 13.0 10.0 - 20.0 03/16/2016 [facility] HEMATOLOGY Lymphocytes # 0.4 1.0 - 5.5 03/16/2016 [facility] HEMATOLOGY Segs-Bands # 4.3 1.5 - 8.1 03/16/2016 [facility] HEMATOLOGY Basophils 0.8 0.0 - 1.0 03/16/2016 [facility] HEMATOLOGY Eosinophils 1.3 0.0 - 4.0 03/16/2016 [facility] HEMATOLOGY Monocytes 13.8 2.0 - 12.0 03/16/2016 [facility] HEMATOLOGY Monocytes # 0.8 0.0 - 0.8 03/16/2016 [facility] HEMATOLOGY Lymphocytes 6.4 20.0 - 40.0 03/16/2016 [facility] HEMATOLOGY Segs 77.7 45.0 - 75.0 03/16/2016 [facility] HEMATOLOGY Eosinophils # 0.1 0.0 - 0.5 03/16/2016 [facility] HEMATOLOGY Platelet 99 133 - 450 03/16/2016 [facility] RDW 14.0 11.5 - 14.5 03/16/2016 [facility] HEMATOLOGY MCV 92.8 80.0 - 94.0 03/16/2016 [facility] MCHC 34.5 32.0 - 36.0 03/16/2016 [facility] MCH 32.1 27.0 - 31.0 03/16/2016 [facility] MPV 8.8 7.4 - 10.4 03/16/2016 [facility] HEMATOLOGY Hct 46.0 42.0 - 54.0 03/16/2016 [facility] Hgb 15.9 14.0 - 18.0 03/16/2016 [facility] HEMATOLOGY RBC 4.95 4.70 - 6.10 03/16/2016 [facility] HEMATOLOGY WBC 5.5 3.7 - 10.4 03/16/2016 [facility] URINE AND STOOL UA Glucose Negative mg/dL Negative mg/dL 03/16/2016 [facility] URINE AND STOOL UA Spec Grav 1.016 <=1.030 03/16/2016 [facility] URINE AND STOOL UA Leuk Est [...] UA RBC 34 0 - 2 03/16/2016 [facility] URINE AND STOOL UA WBC 2 0 - 5 03/16/2016 [facility] URINE AND STOOL UA Turbidity Clear (03/16/16 3:01 AM) Clear 03/16/2016 [facility] URINE AND STOOL UA pH 5.0 5.0 - 8.0 03/16/2016 [facility] URINE AND STOOL UA Ketones 20 mg/dL Negative mg/dL 03/16/2016 [facility] URINE AND STOOL UA Protein Negative mg/dL Negative mg/dL 03/16/2016 [facility] CHEM PANEL ALT 31 0 - 65 10/27/2015 [facility] CHEM PANEL Total Protein 6.1 6.4 - 8.4 10/27/2015 [facility] CHEM PANEL Albumin Lvl 3.2 3.5 - 5.0 10/27/2015 [facility] CHEM PANEL A/G Ratio 1.1 0.7 - 1.6 10/27/2015 [facility] CHEM PANEL Bili Indirect 0.5 0.0 - 1.0 10/27/2015 [facility] CHEM PANEL Globulin 2.9 2.7 - 4.2 10/27/2015 [facility] CHEM PANEL Bili Total 0.6 0.2 - 1.3 10/27/2015 [facility] CHEM PANEL Bili Direct 0.1 0.0 - 0.3 10/27/2015 [facility] CHEM PANEL AST 17 0 - 37 10/27/2015 [facility] CHEM PANEL Alk Phos 100 39 - 136 10/27/2015 [facility] CARDIAC ENZYMES CK MB Index 2.3 0.0 - 2.5 10/26/2015 [facility] CARDIAC ENZYMES CK MB 1.3 0.5 - 3.6 10/26/2015 [facility] CARDIAC ENZYMES Total CK 57 12 - 191 10/26/2015 [facility] CARDIAC ENZYMES Troponin-I <0.02 0.00 - 0.40 10/26/2015 [facility] CHEM PANEL Uric Acid 4.9 3.8 - 8.0 10/26/2015 [facility] CHEM PANEL Vitamin D, 25-OH, Total 27 30 - 100 10/26/2015 [facility] CHEM PANEL Phosphorus 3.3 2.5 - 4.5 10/26/2015 [facility] CHEM PANEL Magnesium Lvl 2.0 1.8 - 2.4 10/26/2015 [facility] IMMUNOLOGY Homocyst Tot 4.9 3.7 - 13.9 10/26/2015 [facility] LIPIDS Trig 67 <=149 mg/dL 10/26/2015 [facility] LIPIDS Chol 175 <=199 mg/dL 10/26/2015 [facility] LIPIDS CHD Risk 2.65 4.00 - 7.30 10/26/2015 [facility] LIPIDS HDL 66 >=61 mg/dL 10/26/2015 [facility] LIPIDS LDL (Calculated) 96 <=99 mg/dL 10/26/2015 [facility] LIPIDS VLDL 13 10/26/2015 [facility] LIPIDS VLDL 13 10/26/2015 [facility] LIPIDS LDL (Calculated) 100 <=99 mg/dL 10/26/2015 [facility] LIPIDS CHD Risk 2.79 4.00 - 7.30 10/26/2015 [facility] LIPIDS HDL 63 >=61 mg/dL 10/26/2015 [facility] LIPIDS Chol 176 <=199 mg/dL 10/26/2015 [facility] LIPIDS Trig 67 <=149 mg/dL 10/26/2015 [facility] SPECIAL CHEMISTRY Hgb A1C 4.6 <=5.6 % 10/26/2015 [facility] CARDIAC ENZYMES Troponin-I <0.02 0.00 - 0.40 10/26/2015 [facility] CARDIAC ENZYMES Total CK 62 12 - 191 10/26/2015 [facility] CARDIAC ENZYMES Troponin-I <0.02 0.00 - 0.40 10/26/2015 [facility] CARDIAC ENZYMES CK MB 0.9 0.5 - 3.6 10/26/2015 [facility] CARDIAC ENZYMES CK MB Index 1.5 0.0 - 2.5 10/26/2015 [facility] ELECTROLYTES AGAP 10.0 10.0 - 20.0 10/26/2015 [facility] ELECTROLYTES eGFR 90 10/26/2015 Result Comment: [...] should be multiplied by the estimated BMI. [facility] ELECTROLYTES Calcium Lvl 8.3 8.5 - 10.5 10/26/2015 [facility] ELECTROLYTES CO2 26 24 - 32 10/26/2015 [facility] ELECTROLYTES Chloride Lvl 107 95 - 109 10/26/2015 [facility] ELECTROLYTES Potassium Lvl 4.0 3.5 - 5.1 10/26/2015 [facility] ELECTROLYTES Creatinine Lvl 0.81 0.50 - 1.40 10/26/2015 [facility] ELECTROLYTES Glucose Lvl 87 70 - 99 10/26/2015 [facility] ELECTROLYTES BUN 10 7 - 22 10/26/2015 [facility] ELECTROLYTES Sodium Lvl 139 135 - 145 10/26/2015 [facility] HEMATOLOGY WBC 5.3 3.7 - 10.4 10/26/2015 [facility] HEMATOLOGY Platelet 102 133 - 450 10/26/2015 [facility] MCH 31.1 27.0 - 31.0 10/26/2015 [facility] HEMATOLOGY RDW 14.4 11.5 - 14.5 10/26/2015 [facility] MCHC 34.0 32.0 - 36.0 10/26/2015 [facility] MPV 8.5 7.4 - 10.4 10/26/2015 [facility] HEMATOLOGY MCV 91.4 80.0 - 94.0 10/26/2015 [facility] HEMATOLOGY Hct 40.8 42.0 - 54.0 10/26/2015 [facility] Hgb 13.9 14.0 - 18.0 10/26/2015 [facility] HEMATOLOGY RBC 4.47 4.70 - 6.10 10/26/2015 [facility] HEMATOLOGY Eosinophils # 0.2 0.0 - 0.5 10/26/2015 [facility] HEMATOLOGY Segs-Bands # 3.4 1.5 - 8.1 10/26/2015 [facility] HEMATOLOGY Lymphocytes # 1.2 1.0 - 5.5 10/26/2015 [facility] HEMATOLOGY Monocytes # 0.5 0.0 - 0.8 10/26/2015 [facility] HEMATOLOGY Basophils 0.9 0.0 - 1.0 10/26/2015 [facility] HEMATOLOGY Eosinophils 3.5 0.0 - 4.0 10/26/2015 [facility] HEMATOLOGY Segs 64.1 45.0 - 75.0 10/26/2015 [facility] HEMATOLOGY Lymphocytes 22.4 20.0 - 40.0 10/26/2015 [facility] HEMATOLOGY Monocytes 9.1 2.0 - 12.0 10/26/2015 [facility] CARDIAC ENZYMES CK MB 1.2 0.5 - 3.6 10/26/2015 [facility] CARDIAC ENZYMES Total CK 94 12 - 191 10/26/2015 [facility] CARDIAC ENZYMES CK MB Index 1.3 0.0 - 2.5 10/26/2015 [facility] CARDIAC ENZYMES BNP 38 <=100 pg/mL 10/25/2015 [facility] CHEM PANEL Total Protein 6.7 6.4 - 8.4 10/25/2015 [facility] CHEM PANEL Albumin Lvl 3.6 3.5 - 5.0 10/25/2015 [facility] CHEM PANEL A/G Ratio 1.2 0.7 - 1.6 10/25/2015 [facility] CHEM PANEL Globulin 3.1 2.7 - 4.2 10/25/2015 [facility] CHEM PANEL B/C Ratio 11 6 - 25 10/25/2015 [facility] CHEM PANEL ALT 35 0 - 65 10/25/2015 [facility] CHEM PANEL Bili Total 0.6 0.2 - 1.3 10/25/2015 [facility] CHEM PANEL Alk Phos 107 39 - 136 10/25/2015 [facility] CHEM PANEL AST 20 0 - 37 10/25/2015 [facility] CHEM PANEL AGAP 9.8 10.0 - 20.0 10/25/2015 [facility] CHEM PANEL eGFR 79 10/25/2015 Result [...] should be multiplied by the estimated BMI. [facility] CHEM PANEL BUN 11 7 - 22 10/25/2015 [facility] CHEM PANEL Creatinine Lvl 0.97 0.50 - 1.40 10/25/2015 [facility] CHEM PANEL Sodium Lvl 139 135 - 145 10/25/2015 [facility] [facility] CHEM PANEL Glucose Lvl 112 70 - 99 10/25/2015 [facility] CHEM PANEL Chloride Lvl 105 95 - 109 10/25/2015 [facility] CHEM PANEL Potassium Lvl 3.8 3.5 - 5.1 10/25/2015 [facility] CHEM PANEL CO2 28 24 - 32 10/25/2015 [facility] CHEM PANEL Calcium Lvl 8.8 8.5 - 10.5 10/25/2015 [facility] HEMATOLOGY Lymphocytes 20.2 20.0 - 40.0 10/25/2015 [facility] HEMATOLOGY Eosinophils 2.3 0.0 - 4.0 10/25/2015 [facility] HEMATOLOGY Monocytes 11.2 2.0 - 12.0 10/25/2015 [facility] HEMATOLOGY Basophils 1.1 0.0 - 1.0 10/25/2015 [facility] HEMATOLOGY Segs-Bands # 3.4 1.5 - 8.1 10/25/2015 [facility] HEMATOLOGY Lymphocytes # 1.0 1.0 - 5.5 10/25/2015 [facility] HEMATOLOGY Monocytes # 0.6 0.0 - 0.8 10/25/2015 [facility] HEMATOLOGY Segs 65.2 45.0 - 75.0 10/25/2015 [facility] HEMATOLOGY Eosinophils # 0.1 0.0 - 0.5 10/25/2015 [facility] HEMATOLOGY Basophils # 0.1 0.0 - 0.2 10/25/2015 [facility] HEMATOLOGY MCHC 33.1 32.0 - 36.0 10/25/2015 [facility] HEMATOLOGY RDW 14.3 11.5 - 14.5 10/25/2015 [facility] HEMATOLOGY MPV 8.5 7.4 - 10.4 10/25/2015 [facility] HEMATOLOGY Platelet 112 133 - 450 10/25/2015 [facility] MCH 30.9 27.0 - 31.0 10/25/2015 [facility] HEMATOLOGY Hgb 14.3 14.0 - 18.0 10/25/2015 [facility] HEMATOLOGY WBC 5.2 3.7 - 10.4 10/25/2015 [facility] HEMATOLOGY MCV 93.3 80.0 - 94.0 10/25/2015 [facility] HEMATOLOGY Hct 43.2 42.0 - 54.0 10/25/2015 [facility] RBC 4.64 4.70 - 6.10 10/25/2015 [facility] ELECTROLYTES AGAP 8.4 10.0 - 20.0 07/15/2015 [facility] ELECTROLYTES eGFR 87 07/15/2015 Result Comment: [...] should be multiplied by the estimated BMI. [facility] ELECTROLYTES Calcium Lvl 9.0 8.5 - 10.5 07/15/2015 [facility] ELECTROLYTES CO2 26 24 - 32 07/15/2015 [facility] ELECTROLYTES BUN 13 7 - 22 07/15/2015 [facility] ELECTROLYTES Chloride Lvl 107 95 - 109 07/15/2015 [facility] ELECTROLYTES Glucose Lvl 55 70 - 99 07/15/2015 [facility] ELECTROLYTES Sodium Lvl 138 135 - 145 07/15/2015 [facility] ELECTROLYTES Potassium Lvl 3.4 3.5 - 5.1 07/15/2015 [facility] ELECTROLYTES Creatinine Lvl 0.89 0.50 - 1.40 07/15/2015 [facility] HEMATOLOGY MPV 8.4 7.4 - 10.4 07/15/2015 [facility] HEMATOLOGY MCHC 33.3 32.0 - 36.0 07/15/2015 [facility] HEMATOLOGY MCH 31.0 27.0 - 31.0 07/15/2015 [facility] HEMATOLOGY MCV 93.1 80.0 - 94.0 07/15/2015 [facility] HEMATOLOGY Platelet 106 133 - 450 07/15/2015 [facility] HEMATOLOGY RDW 14.3 11.5 - 14.5 07/15/2015 [facility] HEMATOLOGY WBC 4.8 3.7 - 10.4 07/15/2015 [facility] HEMATOLOGY Hct 44.6 42.0 - 54.0 07/15/2015 [facility] HEMATOLOGY Hgb 14.8 14.0 - 18.0 07/15/2015 [facility] HEMATOLOGY RBC 4.79 4.70 - 6.10 07/15/2015 [facility] HEMATOLOGY Basophils # 0.1 0.0 - 0.2 07/15/2015 [facility] HEMATOLOGY Eosinophils # 0.2 0.0 - 0.5 07/15/2015 [facility] HEMATOLOGY Monocytes # 0.5 0.0 - 0.8 07/15/2015 [facility] HEMATOLOGY Basophils 1.2 0.0 - 1.0 07/15/2015 [facility] HEMATOLOGY Lymphocytes # 1.2 1.0 - 5.5 07/15/2015 [facility] HEMATOLOGY Segs-Bands # 2.8 1.5 - 8.1 07/15/2015 [facility] HEMATOLOGY Eosinophils 3.9 0.0 - 4.0 07/15/2015 [facility] HEMATOLOGY Monocytes 11.0 2.0 - 12.0 07/15/2015 [facility] HEMATOLOGY Lymphocytes 25.3 20.0 - 40.0 07/15/2015 [facility] HEMATOLOGY Segs 58.6 45.0 - 75.0 07/15/2015 [facility] CHEM PANEL Magnesium Lvl 1.8 1.8 - 2.4 01/16/2015 [facility] CHEM PANEL Phosphorus 1.4 2.5 - 4.5 01/16/2015 Result Comment: Critical Result(s) called to Lottie aquino 01/16/2015 06:30 by mandie. Read back OK. [facility] CHEM PANEL Globulin 2.4 2.0 - 4.0 01/16/2015 [facility] CHEM PANEL A/G Ratio 1.4 0.7 - 1.6 01/16/2015 [facility] CHEM PANEL AGAP 13.1 10.0 - 20.0 01/16/2015 [facility] CHEM PANEL B/C Ratio 18 6 - 25 01/16/2015 [facility] CHEM PANEL eGFR 92 01/16/2015 Result [...] should be multiplied by the estimated BMI. [facility] CHEM PANEL ALT 30 0 - 65 01/16/2015 [facility] CHEM PANEL AST 16 0 - 37 01/16/2015 [facility] CHEM PANEL Bili Total 1.3 0.2 - 1.3 01/16/2015 [facility] CHEM PANEL Alk Phos 79 39 - 136 01/16/2015 [facility] CHEM PANEL Glucose Lvl 109 70 - 99 01/16/2015 [facility] CHEM PANEL BUN 14 7 - 22 01/16/2015 [facility] CHEM PANEL Calcium Lvl 8.5 8.5 - 10.5 01/16/2015 [facility] CHEM PANEL Total Protein 5.7 6.4 - 8.4 01/16/2015 [facility] CHEM PANEL Albumin Lvl 3.3 3.5 - 5.0 01/16/2015 [facility] CHEM PANEL Creatinine Lvl 0.78 0.50 - 1.40 01/16/2015 [facility] CHEM PANEL Sodium Lvl 142 135 - 145 01/16/2015 [facility] CHEM PANEL Chloride Lvl 108 95 - 109 01/16/2015 [facility] CHEM PANEL CO2 25 24 - 32 01/16/2015 [facility] CHEM PANEL Potassium Lvl 4.1 3.5 - 5.1 01/16/2015 [facility] Lymphocytes # 0.9 1.0 - 5.5 01/16/2015 [facility] HEMATOLOGY Basophils 0.5 0.0 - 1.0 01/16/2015 [facility] Monocytes 13.3 2.0 - 12.0 01/16/2015 [facility] HEMATOLOGY Segs-Bands # 7.5 1.5 - 8.1 01/16/2015 [facility] HEMATOLOGY Eosinophils 0.1 0.0 - 4.0 01/16/2015 [facility] Monocytes # 1.3 0.0 - 0.8 01/16/2015 [facility] Lymphocytes 9.3 20.0 - 40.0 01/16/2015 [facility] HEMATOLOGY Segs 76.8 45.0 - 75.0 01/16/2015 [facility] MCHC 33.2 32.0 - 36.0 01/16/2015 [facility] MCH 31.6 27.0 - 31.0 01/16/2015 [facility] MCV 95.3 80.0 - 94.0 01/16/2015 [facility] MPV 9.4 7.4 - 10.4 01/16/2015 [facility] Platelet 94 133 - 450 01/16/2015 [facility] RDW 13.8 11.5 - 14.5 01/16/2015 [facility] WBC 9.8 3.7 - 10.4 01/16/2015 [facility] Hct 45.4 42.0 - 54.0 01/16/2015 [facility] Hgb 15.1 14.0 - 18.0 01/16/2015 [facility] RBC 4.76 4.70 - 6.10 01/16/2015 [facility] CHEM PANEL Creatinine Lvl 0.77 0.50 - 1.40 01/16/2015 [facility] CHEM PANEL eGFR 92 01/16/2015 Result [...] should be multiplied by the estimated BMI. [facility] HEMATOLOGY PTT 26.9 22.9 - 35.8 01/16/2015 [facility] HEMATOLOGY Platelet 113 133 - 450 01/16/2015 [facility] HEMATOLOGY INR 1.31 0.85 - 1.17 01/15/2015 [facility] HEMATOLOGY PT 16.6 12.0 - 14.7 01/15/2015 [facility] HEMATOLOGY PTT 32.5 22.9 - 35.8 01/15/2015 [facility] IMMUNOLOGY Hep C Ab Negative *NA* (01/15/15 11:54 AM) 01/15/2015 [facility] Hep A IgM Negative *NA* (01/15/15 11:54 AM) Negative 01/15/2015 [facility] Hep Bs Ag Negative *NA* (01/15/15 11:54 AM) Negative 01/15/2015 [facility] Hep B Core IgM Negative *NA* (01/15/15 11:54 AM) Negative 01/15/2015 [facility] CHEM PANEL A/G Ratio 1.2 0.7 - 1.6 01/15/2015 [facility] CHEM PANEL Globulin 2.9 2.0 - 4.0 01/15/2015 [facility] CHEM PANEL B/C Ratio 16 6 - 25 01/15/2015 [facility] CHEM PANEL AGAP 11.0 10.0 - 20.0 01/15/2015 [facility] CHEM PANEL eGFR 85 01/15/2015 Result [...] should be multiplied by the estimated BMI. [facility] CHEM PANEL Creatinine Lvl 0.92 0.50 - 1.40 01/15/2015 [facility] CHEM PANEL BUN 15 7 - 22 01/15/2015 [facility] CHEM PANEL Sodium Lvl 138 135 - 145 01/15/2015 [facility] CHEM PANEL CO2 25 24 - 32 01/15/2015 [facility] CHEM PANEL Albumin Lvl 3.6 3.5 - 5.0 01/15/2015 [facility] CHEM PANEL Total Protein 6.5 6.4 - 8.4 01/15/2015 [facility] CHEM PANEL Chloride Lvl 107 95 - 109 01/15/2015 [facility] CHEM PANEL Alk Phos 86 39 - 136 01/15/2015 [facility] CHEM PANEL Potassium Lvl 5.0 3.5 - 5.1 01/15/2015 [facility] CHEM PANEL Glucose Lvl 110 70 - 99 01/15/2015 [facility] CHEM PANEL Calcium Lvl 8.7 8.5 - 10.5 01/15/2015 [facility] CHEM PANEL AST 15 0 - 37 01/15/2015 [facility] CHEM PANEL ALT 27 0 - 65 01/15/2015 [facility] CHEM PANEL Bili Total 1.0 0.2 - 1.3 01/15/2015 [facility] HEMATOLOGY Lymphocytes # 1.1 1.0 - 5.5 01/15/2015 [facility] HEMATOLOGY Segs 82.6 45.0 - 75.0 01/15/2015 [facility] HEMATOLOGY Basophils 0.2 0.0 - 1.0 01/15/2015 [facility] HEMATOLOGY Monocytes 8.7 2.0 - 12.0 01/15/2015 [facility] HEMATOLOGY Eosinophils 0.1 0.0 - 4.0 01/15/2015 [facility] HEMATOLOGY Lymphocytes 8.4 20.0 - 40.0 01/15/2015 [facility] HEMATOLOGY Monocytes # 1.1 0.0 - 0.8 01/15/2015 [facility] HEMATOLOGY Segs-Bands # 10.5 1.5 - 8.1 01/15/2015 [facility] HEMATOLOGY RBC 5.42 4.70 - 6.10 01/15/2015 [facility] HEMATOLOGY WBC 12.7 3.7 - 10.4 01/15/2015 [facility] HEMATOLOGY MCH 31.3 27.0 - 31.0 01/15/2015 [facility] HEMATOLOGY MCV 96.2 80.0 - 94.0 01/15/2015 [facility] HEMATOLOGY Hct 52.1 42.0 - 54.0 01/15/2015 [facility] HEMATOLOGY Hgb 17.0 14.0 - 18.0 01/15/2015 [facility] HEMATOLOGY MCHC 32.6 32.0 - 36.0 01/15/2015 [facility] HEMATOLOGY Platelet 154 133 - 450 01/15/2015 [facility] HEMATOLOGY RDW 14.0 11.5 - 14.5 01/15/2015 [facility] HEMATOLOGY MPV 9.5 7.4 - 10.4 01/15/2015 [facility] URINE AND STOOL UA RBC 1 0 - 2 01/14/2015 [facility] URINE AND STOOL UA Sq Epi Occasional /LPF Few /LPF 01/14/2015 [facility] URINE AND STOOL UA WBC 2 0 - 5 01/14/2015 [facility] URINE AND STOOL UA Nitrite Negative (01/14/15 4:03 PM) Negative 01/14/2015 [facility] URINE AND STOOL UA Leuk Est Negative (01/14/15 4:03 PM) Negative 01/14/2015 [facility] URINE AND STOOL UA pH 6.0 5.0 - 8.0 01/14/2015 [facility] URINE AND STOOL UA Protein 30 mg/dL Negative mg/dL 01/14/2015 [facility] URINE AND STOOL UA Turbidity Clear (01/14/15 4:03 PM) Clear 01/14/2015 [facility] URINE AND STOOL UA Spec Grav 1.014 <=1.030 01/14/2015 [facility] URINE AND STOOL UA Color Yellow *NA* (01/14/15 4:03 PM) Yellow 01/14/2015 [facility] URINE AND STOOL UA Hyal Cast 29 0 - 2 01/14/2015 [facility] URINE AND STOOL UA Bacteria Occasional /HPF None Seen /HPF 01/14/2015 [facility] URINE AND STOOL UA Glucose Negative mg/dL Negative mg/dL 01/14/2015 [facility] URINE AND STOOL UA Blood Negative (01/14/15 4:03 PM) Negative 01/14/2015 [facility] URINE AND STOOL UA Urobilinogen 4.0 0.1 - 1.0 01/14/2015 [facility] URINE AND STOOL UA Ketones Trace mg/dL Negative mg/dL 01/14/2015 [facility] URINE AND STOOL UA Bili Negative [...] Albumin Lvl 4.2 3.5 - 5.0 01/14/2015 [facility] CHEM PANEL Total Protein 7.9 6.4 [...] PANEL Globulin 3.7 2.0 - 4.0 01/14/2015 [facility] CHEM PANEL A/G Ratio 1.1 0.7 - 1.6 01/14/2015 [facility] CHEM PANEL AGAP 12.9 10.0 - 20.0 01/14/2015 [facility] CHEM PANEL B/C Ratio 8 6 - 25 01/14/2015 [facility] HEMATOLOGY Lymphocytes 8.2 20.0 - 40.0 01/14/2015 [facility] HEMATOLOGY Basophils 0.6 0.0 - 1.0 01/14/2015 [facility] HEMATOLOGY Monocytes 5.7 2.0 - 12.0 01/14/2015 [facility] HEMATOLOGY Segs 85.2 45.0 - 75.0 01/14/2015 [facility] HEMATOLOGY Eosinophils 0.3 0.0 - 4.0 01/14/2015 [facility] HEMATOLOGY Lymphocytes # 0.8 1.0 - 5.5 01/14/2015 [facility] HEMATOLOGY Monocytes # 0.6 0.0 - 0.8 01/14/2015 [facility] HEMATOLOGY Segs-Bands # 8.5 1.5 - 8.1 01/14/2015 [facility] HEMATOLOGY Basophils # 0.1 0.0 - 0.2 01/14/2015 [facility] HEMATOLOGY RBC 5.84 4.70 - 6.10 01/14/2015 [facility] HEMATOLOGY MCH 31.6 27.0 - 31.0 01/14/2015 [facility] HEMATOLOGY MCV 95.5 80.0 - 94.0 01/14/2015 [facility] HEMATOLOGY Hct 55.8 42.0 - 54.0 01/14/2015 [facility] HEMATOLOGY Hgb 18.5 14.0 - 18.0 01/14/2015 [facility] HEMATOLOGY RDW 13.6 11.5 - 14.5 01/14/2015 [facility] HEMATOLOGY MCHC 33.1 32.0 - 36.0 01/14/2015 [facility] HEMATOLOGY MPV 9.7 7.4 - 10.4 01/14/2015 [facility] HEMATOLOGY WBC 10.0 3.7 - 10.4 01/14/2015 [facility] LIPIDS VLDL 19 01/28/2014 [facility] LIPIDS LDL (Calculated) 56 <=99 mg/dL 01/28/2014 [facility] LIPIDS HDL 48 >=61 mg/dL 01/28/2014 [facility] LIPIDS Chol 123 <=199 mg/dL 01/28/2014 [facility] LIPIDS CHD Risk 2.56 4.00 - 7.30 01/28/2014 [facility] LIPIDS Trig 94 <=149 mg/dL 01/28/2014 [facility] URINE AND STOOL UA Nitrite Negative (01/27/14 6:00 PM) Negative 01/28/2014 [facility] URINE AND STOOL UA RBC 1 0 - 2 01/28/2014 [facility] URINE AND STOOL UA Sq Epi Occasional /LPF Few /LPF 01/28/2014 [facility] URINE AND STOOL UA WBC 1 0 - 5 01/28/2014 [facility] URINE AND STOOL UA Urobilinogen 2.0 0.1 - 1.0 01/28/2014 [facility] URINE AND STOOL UA Leuk Est Negative (01/27/14 6:00 PM) Negative 01/28/2014 [facility] URINE AND STOOL UA Blood Negative (01/27/14 6:00 PM) Negative 01/28/2014 [facility] URINE AND STOOL UA Ketones Negative mg/dL Negative mg/dL 01/28/2014 [facility] URINE AND STOOL UA Protein Negative mg/dL Negative mg/dL 01/28/2014 [facility] URINE AND STOOL UA pH 6.0 5.0 - 8.0 01/28/2014 [facility] URINE AND STOOL UA Bili Negative *NA* (01/27/14 6:00 PM) Negative 01/28/2014 [facility] URINE AND STOOL UA Glucose Negative mg/dL Negative mg/dL 01/28/2014 [facility] URINE AND STOOL UA Color Yellow *NA* (01/27/14 6:00 PM) Yellow 01/28/2014 [facility] URINE AND STOOL UA Turbidity Clear (01/27/14 6:00 PM) Clear 01/28/2014 [facility] URINE AND STOOL UA Spec Grav 1.012 <=1.030 01/28/2014 [facility] CARDIAC ENZYMES Troponin-I <0.02 0.00 - 0.40 01/27/2014 [facility] CARDIAC ENZYMES CK MB 2.2 0.5 - 3.6 01/27/2014 [facility] CHEM PANEL B/C Ratio 16 6 - 25 01/27/2014 [facility] CHEM PANEL AGAP 10.7 10.0 - 20.0 01/27/2014 [facility] CHEM PANEL A/G Ratio 1.5 0.7 - 1.6 01/27/2014 [facility] CHEM PANEL Globulin 2.8 2.0 - 4.0 01/27/2014 [facility] CHEM PANEL Sodium Lvl 140 135 - 145 01/27/2014 [facility] CHEM PANEL Chloride Lvl 106 95 - 109 01/27/2014 [facility] CHEM PANEL Potassium Lvl 3.7 3.5 - 5.1 01/27/2014 [facility] CHEM PANEL eGFR 87 01/27/2014 <sup>1</sup>Result [...] should be multiplied by the estimated BMI. [facility] CHEM PANEL ALT 27 0 - 65 01/27/2014 [facility] CHEM PANEL Albumin Lvl 4.1 3.5 - 5.0 01/27/2014 [facility] CHEM PANEL Total Protein 6.9 6.4 - 8.4 01/27/2014 [facility] CHEM PANEL Calcium Lvl 8.8 8.5 - 10.5 01/27/2014 [facility] CHEM PANEL CO2 27 24 - 32 01/27/2014 [facility] CHEM PANEL Bili Total 0.8 0.2 - 1.3 01/27/2014 [facility] CHEM PANEL Alk Phos 96 39 - 136 01/27/2014 [facility] CHEM PANEL AST 13 0 - 37 01/27/2014 [facility] CHEM PANEL Creatinine Lvl 0.9 0.5 - 1.4 01/27/2014 [facility] CHEM PANEL BUN 14 7 - 22 01/27/2014 [facility] CHEM PANEL Glucose Lvl 112 70 - 99 01/27/2014 <sup>2</sup>Interpretive Data: Adult reference range values reflect the clinical guidelines
of the [employer]. [facility] CHEM PANEL Magnesium Lvl 1.9 1.8 - 2.4 01/27/2014 [facility] HEMATOLOGY MPV 9.0 7.4 - 10.4 01/27/2014 [facility] HEMATOLOGY RDW 13.9 11.5 - 14.5 01/27/2014 [facility] MCHC 33.6 32.0 - 36.0 01/27/2014 [facility] HEMATOLOGY Platelet 108 133 - 450 01/27/2014 [facility] HEMATOLOGY MCV 94.6 80.0 - 94.0 01/27/2014 [facility] HEMATOLOGY Hct 44.9 42.0 - 54.0 01/27/2014 [facility] MCH 31.8 27.0 - 31.0 01/27/2014 [facility] HEMATOLOGY RBC 4.74 4.70 - 6.10 01/27/2014 [facility] WBC 4.4 3.7 - 10.4 01/27/2014 [facility] Hgb 15.1 14.0 - 18.0 01/27/2014 [facility] Segs-Bands # 2.5 1.5 - 8.1 01/27/2014 [facility] HEMATOLOGY Lymphocytes # 1.3 1.0 - 5.5 01/27/2014 [facility] HEMATOLOGY Eosinophils 3.1 0.0 - 4.0 01/27/2014 [facility] HEMATOLOGY Basophils 1.8 0.0 - 1.0 01/27/2014 [facility] HEMATOLOGY Basophils # 0.1 0.0 - 0.2 01/27/2014 [facility] HEMATOLOGY Eosinophils # 0.1 0.0 - 0.5 01/27/2014 [facility] HEMATOLOGY Monocytes # 0.4 0.0 - 0.8 01/27/2014 [facility] HEMATOLOGY Segs 56.9 45.0 - 75.0 01/27/2014 [facility] HEMATOLOGY Monocytes 8.4 2.0 - 12.0 01/27/2014 [facility] HEMATOLOGY Lymphocytes 29.8 20.0 - 40.0 01/27/2014 [facility] HEMATOLOGY PTT 31.8 22.9 - 35.8 01/27/2014 <sup>4</sup>Interpretive Data: Heparin Therapeutic Range: 57 - 92 Seconds [facility] HEMATOLOGY INR 1.19 0.85 - 1.17 01/27/2014 <sup>3</sup>Interpretive Data: RECOMMENDED RANGES FOR PROTIME INR:
2.0-3.0 for most medical and surgical thromboembolic states.
2.5-3.5 for artificial heart valves and recurrent embolism.

INR SHOULD BE USED ONLY FOR PATIENTS ON STABLE ANTICOAGULANT THERAPY. [facility] HEMATOLOGY PT 15.2 12.0 - 14.7 01/27/2014 [facility] CHEMISTRY Troponin-I <0.02 0.00 - 0.40 03/14/2013 Normal [facility] CHEMISTRY Total CK 38 12 - 191 03/14/2013 Normal [facility] CHEMISTRY Chol 146 <=199 03/14/2013 Normal [facility] CHEMISTRY Trig 88 <=149 03/14/2013 Normal [facility] CHEMISTRY CHD Risk 2.75 4.00 - 7.30 03/14/2013 LOW [facility] CHEMISTRY HDL 53 >=61 03/14/2013 LOW [facility] CHEMISTRY LDL (Calculated) 75 <=99 03/14/2013 Normal [facility] CHEMISTRY Troponin-I <0.02 0.00 - 0.40 03/14/2013 Normal [facility] CHEMISTRY Total CK 47 12 - 191 03/14/2013 Normal [facility] CHEMISTRY Phosphorus 3.1 2.5 - 4.5 03/14/2013 Normal [facility] CHEMISTRY Magnesium Lvl 1.8 1.8 - 2.4 03/14/2013 Normal [facility] HEMATOLOGY MPV 8.4 7.4 - 10.4 03/14/2013 Normal [facility] HEMATOLOGY Hct 38.7 42.0 - 54.0 03/14/2013 LOW [facility] HEMATOLOGY WBC X 10x3 4.4 3.7 - 10.4 03/14/2013 Normal [facility] HEMATOLOGY RBC X 10x6 4.10 4.70 - 6.10 03/14/2013 LOW [facility] HEMATOLOGY Hgb 12.9 14.0 - 18.0 03/14/2013 LOW [facility] HEMATOLOGY MCV 94.4 80.0 - 94.0 03/14/2013 [facility] HEMATOLOGY MCHC 33.4 32.0 - 36.0 03/14/2013 Normal [facility] HEMATOLOGY Platelet 121 133 - 450 03/14/2013 LOW [facility] HEMATOLOGY MCH 31.5 27.0 - 31.0 03/14/2013 [facility] HEMATOLOGY RDW 14.3 11.5 - 14.5 03/14/2013 Normal [facility] HEMATOLOGY Monocytes 10.3 2.0 - 12.0 03/14/2013 Normal [facility] HEMATOLOGY Basophils 1.0 0.0 - 1.0 03/14/2013 Normal [facility] HEMATOLOGY Lymphocytes 25.4 20.0 - 40.0 03/14/2013 Normal [facility] HEMATOLOGY Segs-Bands # 2.6 1.5 - 8.1 03/14/2013 Normal [facility] HEMATOLOGY Eosinophils 3.9 0.0 - 4.0 03/14/2013 Normal [facility] HEMATOLOGY Segs 59.4 45.0 - 75.0 03/14/2013 Normal [facility] HEMATOLOGY Eosinophils # 0.2 0.0 - 0.5 03/14/2013 Normal [facility] HEMATOLOGY Monocytes # 0.5 0.0 - 0.8 03/14/2013 Normal [facility] HEMATOLOGY Basophils # 0.0 0.0 - 0.2 03/14/2013 Normal [facility] HEMATOLOGY Lymphocytes # 1.1 1.0 - 5.5 03/14/2013 Normal [facility] URINALYSIS UA Urobilinogen <=1.0 mg/dL 0.1 - 1.0 03/14/2013 [facility] URINALYSIS UA Color Yellow *NA* (03/13/2013 18:10:00) Yellow 03/14/2013 [facility] URINALYSIS UA Turbidity Clear (03/13/2013 18:10:00) Clear 03/14/2013 [facility] [facility]IN[facility]IS UA Protein Negative mg/dL Negative 03/14/2013 Normal [facility] URINALYSIS UA pH 7.0 5.0 - 8.0 03/14/2013 Normal [facility] URINALYSIS UA Glucose Negative mg/dL Negative 03/14/2013 [facility] URINALYSIS UA Bacteria Occasional /HPF None Seen 03/14/2013 [facility] URINALYSIS UA Leuk Est Negative (03/13/2013 18:10:00) Negative 03/14/2013 Normal [facility] URINALYSIS UA RBC <1 0 - 2 03/14/2013 Normal [facility] URINALYSIS UA Blood Negative (03/13/2013 18:10:00) Negative 03/14/2013 Normal [facility] URINALYSIS UA Nitrite Negative (03/13/2013 18:10:00) Negative 03/14/2013 Normal [facility] URINALYSIS UA Spec Grav 1.014 <=1.030 03/14/2013 Normal [facility] URINALYSIS UA Sq Epi None Seen 03/14/2013 [facility] URINALYSIS UA Bili Negative *NA* (03/13/2013 18:10:00) Negative 03/14/2013 [facility] URINALYSIS UA Ketones Negative mg/dL Negative 03/14/2013 [facility] CHEMISTRY FTI 2.8 03/13/2013 [facility] CHEMISTRY Total CK 63 12 - 191 03/13/2013 Normal [facility] CHEMISTRY Phosphorus 2.5 2.5 - 4.5 03/13/2013 Normal [facility] CHEMISTRY BNP 62 <=100 03/13/2013 Normal <sup>4</sup>Interpretive Data: Elevated results are in line with increasing severity of
congestive heart failure. Minor elevations between 100 and 300
may be seen with Myocardial Ischemia, Sodium retaining drugs,
and compensated/treated heart failure. [facility] CHEMISTRY Magnesium Lvl 1.9 1.8 - 2.4 03/13/2013 Normal [facility] CHEMISTRY Total Protein 7.0 6.4 - 8.4 03/13/2013 Normal [facility] CHEMISTRY Alk Phos 92 39 - 136 03/13/2013 Normal [facility] CHEMISTRY A/G Ratio 1.3 0.7 - 1.6 03/13/2013 Normal [facility] CHEMISTRY Globulin 3.1 2.0 - 4.0 03/13/2013 Normal [facility] CHEMISTRY Bili Total 0.6 0.2 - 1.3 03/13/2013 Normal [facility] CHEMISTRY eGFR 92 03/13/2013 <sup>1</sup>Result Comment: [...] should be multiplied by the estimated BMI. [facility] CHEMISTRY ALANINE AMINOTRANSFERASE 34 0 - 65 03/13/2013 Normal [facility] CHEMISTRY ASPARTATE TRANSAMINASE 16 0 - 37 03/13/2013 Normal [facility] CHEMISTRY AGAP 12.9 10.0 - 20.0 03/13/2013 Normal [facility] CHEMISTRY B/C Ratio 19 6 - 25 03/13/2013 Normal [facility] CHEMISTRY Potassium Lvl 3.9 3.5 - 5.1 03/13/2013 Normal [facility] CHEMISTRY Chloride Lvl 107 95 - 109 03/13/2013 Normal [facility] CHEMISTRY CO2 27 24 - 32 03/13/2013 Normal [facility] CHEMISTRY Glucose Lvl 101 70 - 99 03/13/2013 HI <sup>2</sup>Interpretive Data: Adult reference range values reflect the clinical guidelines
of the [place] [employer]. [facility] CHEMISTRY BUN 15 7 - 22 03/13/2013 Normal [facility] CHEMISTRY Calcium Lvl 8.4 8.5 - 10.5 03/13/2013 LOW [facility] CHEMISTRY Albumin Lvl 3.9 3.5 - 5.0 03/13/2013 Normal [facility] CHEMISTRY Creatinine Lvl 0.8 0.5 - 1.4 03/13/2013 Normal [facility] CHEMISTRY Sodium Lvl 143 135 - 145 03/13/2013 Normal [facility] CHEMISTRY CK MB <0.5 0.5 - 3.6 03/13/2013 Normal [facility] CHEMISTRY Troponin-I <0.02 0.00 - 0.40 03/13/2013 Normal [facility] CHEMISTRY Uric Acid 4.0 3.8 - 8.0 03/13/2013 Normal [facility] CHEMISTRY Vitamin D, 25-OH, Total 26 30 - 100 03/13/2013 LOW <sup>3</sup>Interpretive Data: Reference range is based on recommendations in the [employer] Clinical Practice Guideline (J Clin Endocrinol Metab
2010;96:[id number]) [facility] CHEMISTRY Trig 119 <=149 03/13/2013 Normal [facility] CHEMISTRY Chol 173 <=199 03/13/2013 Normal [facility] CHEMISTRY LDL (Calculated) 93 <=99 03/13/2013 Normal [facility] CHEMISTRY HDL 56 >=61 03/13/2013 LOW [facility] CHEMISTRY CHD Risk 3.09 4.00 - 7.30 03/13/2013 LOW [facility] CHEMISTRY T4 9.4 4.7 - 13.3 03/13/2013 Normal [facility] CHEMISTRY T3 Uptake 30 31 - 39 03/13/2013 LOW [facility] CHEMISTRY TSH 1.430 0.360 - 3.740 03/13/2013 Normal [facility] CHEMISTRY CK-MB INDEX <0.8 0.0 - 2.5 03/13/2013 Normal [facility] HEMATOLOGY WBC X 10x3 5.0 3.7 - 10.4 03/13/2013 Normal [facility] HEMATOLOGY RBC X 10x6 4.41 4.70 - 6.10 03/13/2013 LOW [facility] HEMATOLOGY Hgb 14.1 14.0 - 18.0 03/13/2013 Normal [facility] HEMATOLOGY Hct 41.5 42.0 - 54.0 03/13/2013 LOW [facility] HEMATOLOGY MCV 94.1 80.0 - 94.0 03/13/2013 HI [facility] HEMATOLOGY MCH 32.1 27.0 - 31.0 03/13/2013 [facility] HEMATOLOGY MCHC 34.1 32.0 - 36.0 03/13/2013 Normal [facility] HEMATOLOGY Platelet 125 133 - 450 03/13/2013 LOW [facility] HEMATOLOGY RDW 13.6 11.5 - 14.5 03/13/2013 Normal [facility] HEMATOLOGY MPV 7.8 7.4 - 10.4 03/13/2013 Normal [facility] aPTT 31.4 22.9 - 35.8 03/13/2013 Normal <sup>7</sup>Interpretive Data: Heparin Therapeutic Range: 57 - 92 Seconds [facility] PROTIME 14.0 12.0 - 14.7 03/13/2013 Normal [facility] INR 1.09 0.85 - 1.17 03/13/2013 Normal <sup>5</sup>Interpretive Data: RECOMMENDED RANGES FOR PROTIME INR:
2.0-3.0 for most medical and surgical thromboembolic states.
2.5-3.5 for artificial heart valves and recurrent embolism.

INR SHOULD BE USED ONLY FOR PATIENTS ON STABLE ANTICOAGULANT THERAPY. [facility] D-Dimer 0.28 03/13/2013 <sup>6</sup>Interpretive Data: In DIC, quantitative D-Dimer is generally greater than
0.66 ug/mL FEU. Values of quantitative D-Dimer less than
0.40 ug/mL FEU have been reported to be associated with a low
probability of deep vein thrombosis/pulmonary embolism.
This test alone should not be used to rule out DVT/PE. [facility] HEMATOLOGY Basophils 0.2 0.0 - 1.0 03/13/2013 Normal [facility] Monocytes # 0.5 0.0 - 0.8 03/13/2013 Normal [facility] Eosinophils # 0.1 0.0 - 0.5 03/13/2013 Normal [facility] Basophils # 0.0 0.0 - 0.2 03/13/2013 Normal [facility] Segs-Bands # 3.3 1.5 - 8.1 03/13/2013 Normal [facility] Lymphocytes # 1.1 1.0 - 5.5 03/13/2013 Normal [facility] HEMATOLOGY Segs 65.2 45.0 - 75.0 03/13/2013 Normal [facility] Lymphocytes 22.4 20.0 - 40.0 03/13/2013 Normal [facility] Monocytes 9.5 2.0 - 12.0 03/13/2013 Normal [facility] Eosinophils 2.7 0.0 - 4.0 03/13/2013 Normal [facility] IMMUNOLOGY CRP, High Sensitivity 1.5 03/13/2013 <sup>8</sup>Interpretive Data: Low Risk: <1.0 mg/L
Average Risk: 1.0 - 3.0 mg/L
High Risk: >3.0 mg/L
Inflammation: >10.0 mg/L [facility] CHEMISTRY LDL 87 0 - 129 04/17/2012 Normal [facility] CHEMISTRY CHD Risk 3.00 4.00 - 7.30 04/17/2012 LOW [facility] CHEMISTRY HDL 54 >=35 04/17/2012 Normal [facility] CHEMISTRY Chol 162 120 - 200 04/17/2012 Normal [facility] CHEMISTRY Trig 106 0 - 200 04/17/2012 Normal [facility] CHEMISTRY eGFR 92 04/16/2012 NA <sup>2</sup>Result [...] should be multiplied by the estimated BMI. [facility] CHEMISTRY BUN 14 7 - 22 04/16/2012 Normal [facility] CHEMISTRY Glucose Lvl 89 70 - 99 04/16/2012 Normal <sup>4</sup>Interpretive Data: Adult reference range values reflect the clinical guidelines
of the [place] [employer]. [facility] CHEMISTRY Creatinine Lvl 0.8 0.5 - 1.4 04/16/2012 Normal [facility] CHEMISTRY Sodium Lvl 144 135 - 145 04/16/2012 Normal [facility] CHEMISTRY Chloride Lvl 112 95 - 109 04/16/2012 HI [facility] CHEMISTRY Potassium Lvl 3.9 3.5 - 5.1 04/16/2012 Normal [facility] CHEMISTRY CO2 24 24 - 32 04/16/2012 Normal [facility] CHEMISTRY Calcium Lvl 8.5 8.5 - 10.5 04/16/2012 Normal [facility] CHEMISTRY AGAP 11.9 10.0 - 20.0 04/16/2012 Normal [facility] HEMATOLOGY PTT 34.8 22.9 - 35.8 04/16/2012 Normal <sup>8</sup>Interpretive Data: Heparin Therapeutic Range: 57 - 92 Seconds [facility] HEMATOLOGY PT 14.6 12.0 - 14.7 04/16/2012 Normal [facility] HEMATOLOGY INR 1.12 0.85 - 1.17 04/16/2012 Normal <sup>6</sup>Interpretive Data: RECOMMENDED RANGES FOR PROTIME INR:
2.0-3.0 for most medical and surgical thromboembolic states.
2.5-3.5 for artificial heart valves and recurrent embolism.

INR SHOULD BE USED ONLY FOR PATIENTS ON STABLE ANTICOAGULANT THERAPY. [facility] HEMATOLOGY MPV 8.4 7.4 - 10.4 04/16/2012 Normal [facility] HEMATOLOGY MCHC 33.7 32.0 - 36.0 04/16/2012 Normal [facility] HEMATOLOGY MCH 32.1 27.0 - 31.0 04/16/2012 [facility] HEMATOLOGY RBC 4.30 4.70 - 6.10 04/16/2012 LOW [facility] HEMATOLOGY MCV 95.1 80.0 - 94.0 04/16/2012 [facility] HEMATOLOGY Hct 40.9 42.0 - 54.0 04/16/2012 LOW [facility] HEMATOLOGY Platelet 110 133 - 450 04/16/2012 LOW [facility] HEMATOLOGY RDW 13.9 11.5 - 14.5 04/16/2012 Normal [facility] HEMATOLOGY WBC 4.1 3.7 - 10.4 04/16/2012 Normal [facility] HEMATOLOGY Hgb 13.8 14.0 - 18.0 04/16/2012 LOW [facility] HEMATOLOGY Monocytes # 0.5 0.0 - 0.8 04/16/2012 Normal [facility] HEMATOLOGY Lymphocytes # 1.1 1.0 - 5.5 04/16/2012 Normal [facility] HEMATOLOGY Eosinophils # 0.2 0.0 - 0.5 04/16/2012 Normal [facility] HEMATOLOGY Segs-Bands # 2.4 1.5 - 8.1 04/16/2012 Normal [facility] HEMATOLOGY Basophils 0.7 0.0 - 1.0 04/16/2012 Normal [facility] HEMATOLOGY Eosinophils 3.7 0.0 - 4.0 04/16/2012 Normal [facility] HEMATOLOGY Lymphocytes 26.2 20.0 - 40.0 04/16/2012 Normal [facility] HEMATOLOGY Segs 58.0 45.0 - 75.0 04/16/2012 Normal [facility] HEMATOLOGY Monocytes 11.4 2.0 - 12.0 04/16/2012 Normal [facility] HEMATOLOGY Basophils # 0.0 0.0 - 0.2 04/16/2012 Normal [facility] URINALYSIS UA Urobilinogen 0.1 - 1.0 04/16/2012 NA [facility] URINALYSIS UA Color Ltyellow 04/16/2012 NA [facility] URINALYSIS UA Blood Negative (04/15/2012 20:56:15) Negative 04/16/2012 Normal [facility] URINALYSIS UA Bili Negative *NA* (04/15/2012 20:56:15) Negative 04/16/2012 [facility] URINALYSIS UA Sq Epi Occasional /LPF *NA* (04/15/2012 20:56:15) Few 04/16/2012 [facility] URINALYSIS UA Leuk Est Negative (04/15/2012 20:56:15) Negative 04/16/2012 Normal [facility] URINALYSIS UA Nitrite Negative (04/15/2012 20:56:15) Negative 04/16/2012 Normal [facility] URINALYSIS UA Ketones Negative mg/dL *NA* (04/15/2012 20:56:15) Negative 04/16/2012 [facility] URINALYSIS UA Glucose Negative mg/dL *NA* (04/15/2012 20:56:15) Negative 04/16/2012 [facility] URINALYSIS UA Protein Negative mg/dL (04/15/2012 20:56:15) Negative 04/16/2012 Normal [facility] URINALYSIS UA pH 8.0 5.0 - 8.0 04/16/2012 Normal [facility] URINALYSIS UA Spec Grav 1.008 <=1.030 04/16/2012 Normal [facility] URINALYSIS UA Turbidity Clear (04/15/2012 20:56:15) Clear 04/16/2012 Normal [facility] CHEMISTRY Troponin-I <0.02 0.00 - 0.40 04/16/2012 Normal [facility] CHEMISTRY CK MB Index 1.3 0.0 - 2.5 04/15/2012 Normal [facility] CHEMISTRY Troponin-I <0.02 0.00 - 0.40 04/15/2012 Normal [facility] CHEMISTRY CK MB 1.3 0.5 - 3.6 04/15/2012 Normal [facility] CHEMISTRY Total CK 98 12 - 191 04/15/2012 Normal [facility] CHEMISTRY eGFR 88 04/15/2012 NA <sup>3</sup>Result [...] should be multiplied by the estimated BMI. [facility] CHEMISTRY Globulin 3.4 2.0 - 4.0 04/15/2012 Normal [facility] CHEMISTRY B/C Ratio 13 6 - 25 04/15/2012 Normal [facility] CHEMISTRY A/G Ratio 1.2 0.7 - 1.6 04/15/2012 Normal [facility] CHEMISTRY Alk Phos 147 39 - 136 04/15/2012 HI [facility] CHEMISTRY Albumin Lvl 4.0 3.5 - 5.0 04/15/2012 Normal [facility] CHEMISTRY ALT 40 0 - 65 04/15/2012 Normal [facility] CHEMISTRY AST 32 0 - 37 04/15/2012 Normal [facility] CHEMISTRY Bili Total 0.4 0.2 - 1.3 04/15/2012 Normal [facility] CHEMISTRY AGAP 15.1 10.0 - 20.0 04/15/2012 Normal [facility] CHEMISTRY CO2 27 24 - 32 04/15/2012 Normal [facility] CHEMISTRY Total Protein 7.4 6.4 - 8.4 04/15/2012 Normal [facility] CHEMISTRY Calcium Lvl 8.8 8.5 - 10.5 04/15/2012 Normal [facility] CHEMISTRY Glucose Lvl 78 70 - 99 04/15/2012 Normal <sup>5</sup>Interpretive Data: Adult reference range values reflect the clinical guidelines
of the [place] [employer]. [facility] CHEMISTRY Creatinine Lvl 0.9 0.5 - 1.4 04/15/2012 Normal [facility] CHEMISTRY BUN 12 7 - 22 04/15/2012 Normal [facility] CHEMISTRY Sodium Lvl 146 135 - 145 04/15/2012 [facility] CHEMISTRY Chloride Lvl 108 95 - 109 04/15/2012 Normal [facility] CHEMISTRY Potassium Lvl 4.1 3.5 - 5.1 04/15/2012 Normal [facility] HEMATOLOGY Monocytes 8.4 2.0 - 12.0 04/15/2012 Normal [facility] HEMATOLOGY Segs-Bands # 2.7 1.5 - 8.1 04/15/2012 Normal [facility] HEMATOLOGY Lymphocytes # 1.2 1.0 - 5.5 04/15/2012 Normal [facility] HEMATOLOGY Eosinophils 3.4 0.0 - 4.0 04/15/2012 Normal [facility] HEMATOLOGY Basophils 0.6 0.0 - 1.0 04/15/2012 Normal [facility] HEMATOLOGY Lymphocytes 27.4 20.0 - 40.0 04/15/2012 Normal [facility] HEMATOLOGY Basophils # 0.0 0.0 - 0.2 04/15/2012 Normal [facility] HEMATOLOGY Monocytes # 0.4 0.0 - 0.8 04/15/2012 Normal [facility] HEMATOLOGY Eosinophils # 0.2 0.0 - 0.5 04/15/2012 Normal [facility] HEMATOLOGY Segs 60.2 45.0 - 75.0 04/15/2012 Normal [facility] HEMATOLOGY MCHC 34.0 32.0 - 36.0 04/15/2012 Normal [facility] HEMATOLOGY Platelet 124 133 - 450 04/15/2012 LOW [facility] HEMATOLOGY RDW 13.9 11.5 - 14.5 04/15/2012 Normal [facility] HEMATOLOGY MPV 8.2 7.4 - 10.4 04/15/2012 Normal [facility] HEMATOLOGY MCH 32.6 27.0 - 31.0 04/15/2012 HI [facility] HEMATOLOGY MCV 95.7 80.0 - 94.0 04/15/2012 HI [facility] HEMATOLOGY Hgb 14.9 14.0 - 18.0 04/15/2012 Normal [facility] HEMATOLOGY Hct 43.7 42.0 - 54.0 04/15/2012 Normal [facility] HEMATOLOGY WBC 4.5 3.7 - 10.4 04/15/2012 Normal [facility] HEMATOLOGY RBC 4.57 4.70 - 6.10 04/15/2012 LOW [facility] HEMATOLOGY PT 14.0 12.0 - 14.7 04/15/2012 Normal [facility] HEMATOLOGY PTT 32.1 22.9 - 35.8 04/15/2012 Normal <sup>9</sup>Interpretive Data: Heparin Therapeutic Range: 57 - 92 Seconds [facility] HEMATOLOGY INR 1.06 0.85 - 1.17 04/15/2012 Normal <sup>7</sup>Interpretive Data: RECOMMENDED RANGES FOR PROTIME INR:
2.0-3.0 for most medical and surgical thromboembolic states.
2.5-3.5 for artificial heart valves and recurrent embolism.

INR SHOULD BE USED ONLY FOR PATIENTS ON STABLE ANTICOAGULANT THERAPY. [facility] BEDSIDE GLUCOSE TESTING Gluc POC Lifscn 80 70 - 99 04/15/2012 Normal <sup>1</sup>Interpretive Data: Upper Reportable Limit: 200 mg/dL. [facility] BEDSIDE GLUCOSE TESTING Comment1 Notify RN/MD 04/15/2012 NA [facility] CHEMISTRY Alk Phos 122.0 39 - 136 12/07/2010 Normal [facility] CHEMISTRY AST 22.0 0 - 37 12/07/2010 Normal [facility] CHEMISTRY Bili Total 0.6 0.2 - 1.3 12/07/2010 Normal [facility] CHEMISTRY Chloride Lvl 110.0 95 - 109 12/07/2010 HI [facility] CHEMISTRY Potassium Lvl 4.0 3.5 - 5.1 12/07/2010 Normal [facility] CHEMISTRY CO2 23.0 24 - 32 12/07/2010 LOW [facility] CHEMISTRY BUN 12.0 7 - 22 12/07/2010 Normal [facility] CHEMISTRY Total Protein 6.7 6.4 - 8.4 12/07/2010 Normal [facility] CHEMISTRY Calcium Lvl 8.7 8.5 - 10.5 12/07/2010 Normal [facility] CHEMISTRY ALT 42.0 0 - 65 12/07/2010 Normal [facility] CHEMISTRY Albumin Lvl 3.9 3.5 - 5.0 12/07/2010 Normal [facility] CHEMISTRY Glucose Lvl 81.0 12/07/2010 NA <sup>2</sup>Interpretive Data: Reference Ranges : 0 - 7 days : 41 - 90 mg/dL 7 days - 150 yrs : 70 - 99 mg/dL (fasting), based on the clinical recommendations of the [place] [employer]. [facility] CHEMISTRY Creatinine Lvl 0.8 0.5 - 1.4 12/07/2010 Normal [facility] CHEMISTRY Sodium Lvl 142.0 135 - 145 12/07/2010 Normal [facility] CHEMISTRY AGAP 13.0 10.0 - 20.0 12/07/2010 Normal [facility] CHEMISTRY B/C Ratio 15.0 6 - 25 12/07/2010 Normal [facility] CHEMISTRY A/G Ratio 1.4 0.7 - 1.6 12/07/2010 Normal [facility] CHEMISTRY Globulin 2.8 2.0 - 4.0 12/07/2010 Normal [facility] HEMATOLOGY Basophils # 0.0 0.0 - 0.2 12/07/2010 Normal [facility] HEMATOLOGY Monocytes 10.6 2.0 - 12.0 12/07/2010 Normal [facility] HEMATOLOGY Lymphocytes 23.4 20.0 - 40.0 12/07/2010 Normal [facility] HEMATOLOGY Eosinophils 6.4 0.0 - 4.0 12/07/2010 HI [facility] HEMATOLOGY Segs 58.9 45.0 - 75.0 12/07/2010 Normal [facility] HEMATOLOGY Eosinophils # 0.3 0.0 - 0.5 12/07/2010 Normal [facility] HEMATOLOGY Monocytes # 0.5 0.0 - 0.8 12/07/2010 Normal [facility] HEMATOLOGY Basophils 0.7 0.0 - 1.0 12/07/2010 Normal [facility] HEMATOLOGY Lymphocytes # 1.0 1.0 - 5.5 12/07/2010 Normal [facility] HEMATOLOGY Segs-Bands # 2.5 1.5 - 8.1 12/07/2010 Normal [facility] HEMATOLOGY PTT 33.2 22.9 - 35.8 12/07/2010 Normal <sup>4</sup>Interpretive Data: Heparin Therapeutic Range: 57 - 92 Seconds [facility] HEMATOLOGY PT 14.9 12.0 - 14.7 12/07/2010 HI [facility] HEMATOLOGY INR 1.17 0.85 - 1.17 12/07/2010 Normal <sup>3</sup>Interpretive Data: RECOMMENDED RANGES FOR PROTIME INR: 2.0-3.0 for most medical and surgical thromboembolic states. 2.5-3.5 for artificial heart valves and recurrent embolism. INR SHOULD BE USED ONLY FOR PATIENTS ON STABLE ANTICOAGULANT THERAPY. [facility] HEMATOLOGY RBC 3.96 4.70 - 6.10 12/07/2010 LOW [facility] HEMATOLOGY Hct 37.6 42.0 - 54.0 12/07/2010 LOW [facility] HEMATOLOGY MCV 95.0 80.0 - 94.0 12/07/2010 HI [facility] HEMATOLOGY WBC 4.3 3.7 - 10.4 12/07/2010 Normal [facility] HEMATOLOGY Hgb 13.4 14.0 - 18.0 12/07/2010 LOW [facility] HEMATOLOGY MCH 34.0 27.0 - 31.0 12/07/2010 HI [facility] HEMATOLOGY MCHC 35.7 32.0 - 36.0 12/07/2010 Normal [facility] HEMATOLOGY RDW 12.9 11.5 - 14.5 12/07/2010 Normal [facility] HEMATOLOGY Platelet 133.0 133 - 450 12/07/2010 Normal [facility] HEMATOLOGY MPV 8.6 7.4 - 10.4 12/07/2010 Normal [facility] URINALYSIS UA Bili Small 1 *ABN* (12/07/2010 16:09:00) ?? >Negative 12/07/2010 ABN <sup>1</sup>Result Comment: Confirmed by [employer]. [facility] URINALYSIS UA Ketones Trace *ABN* (12/07/2010 16:09:00) ?? >Negative 12/07/2010 ABN [facility] URINALYSIS UA pH 6.0 5.0 - 8.0 12/07/2010 Normal [facility] URINALYSIS UA Glucose Negative (12/07/2010 16:09:00) ?? >Negative 12/07/2010 Normal [facility] URINALYSIS UA Protein >=300 mg/dL *ABN* (12/07/2010 16:09:00) ?? >Negative 12/07/2010 [facility] URINALYSIS UA Color Red *ABN* (12/07/2010 16:09:00) ?? >Yellow 12/07/2010 [facility]N [facility] URINALYSIS UA Turbidity Cloudy *ABN* (12/07/2010 16:09:00) ?? >Clear 12/07/2010 ABN [facility] URINALYSIS UA Spec Grav >=1.030 *ABN* (12/07/2010 16:09:00) ?? <<=1.030 12/07/2010 ABN [facility] URINALYSIS UA Urobilinogen 0.2 0.1 - 1.0 12/07/2010 Normal [facility] URINALYSIS UA Blood Large *ABN* (12/07/2010 16:09:00) ?? >Negative 12/07/2010 ABN [facility] URINALYSIS UA Leuk Est Small *ABN* (12/07/2010 16:09:00) ?? >Negative 12/07/2010 ABN [facility] URINALYSIS UA Nitrite Negative (12/07/2010 16:09:00) ?? >Negative 12/07/2010 Normal [facility] URINALYSIS UA RBC Packed *ABN* (12/07/2010 16:09:00) ?? >0 - 2 12/07/2010 ABN [facility] URINALYSIS UA Bacteria Few /HPF (12/07/2010 16:09:00) ?? >None Seen 12/07/2010 Normal [facility] URINALYSIS UA Sq Epi Few /LPF (12/07/2010 16:09:00) ?? >Few 12/07/2010 Normal [facility] URINALYSIS UA WBC 21-50 /HPF *ABN* (12/07/2010 16:09:00) ?? >None Seen 12/07/2010 [facility] Microbiology Culture: Urine 12/07/2010 [facility] Pathology Reports No Data Provided for This Section Diagnostic Reports Report Value Date Source Chest wo contrast CT Study: Chest wo contrast CT Clinical Indication: ct dlp-313.79 - fall, bilateral rib pain Comparison: None TECHNIQUE: Multiple axial CT images of the chest were acquired without the administration of intravenous contrast. Coronal and sagittal reconstructions were obtained. Dose: LAA=120.79 mGy-cm FINDINGS: Heart is normal in size. [...] rib fractures. 2. Mild bibasilar atelectasis. SL: [facility]- 02/07/2017 [facility] ED Abdomen/Pelvis IV contrast only CT [...] 3. Cirrhotic morphology of the liver. [place] [facility] [place] [facility] Spine cervical wo contrast CT Study: [...] of the cervical spine. SL: BRITT 02/07/2017 [facility] wo contrast CT The images of [...] bilateral frontal parenchymal calcifications. SL: DILLON 02/07/2017 [facility] Ribs bilateral w PA chest DX [...] junction. Otherwise normal exam. END REPORT SL: [id number] 02/07/2017 [facility] Elbow 3 views DX 3 VIEWS OF THE RIGHT ELBOW HISTORY: Right elbow pain. Patient fell yesterday. COMPARISON: No priors available. Bony structures of the elbow are intact. No fracture or dislocation. Adjacent soft tissues normal. IMPRESSION: Normal exam. END REPORT SL: [id number] 02/07/2017 [facility] Humerus 2 views DX AP LATERAL VIEWS OF THE RIGHT HUMERUS HISTORY: Patient fell. Right arm pain. COMPARISON: No priors available. The bony humerus is intact, no fracture. No cortical destruction or periosteal reaction. Adjacent soft tissues normal. IMPRESSION: Normal exam. END REPORT SL: [id number] 02/07/2017 [facility] Shoulder series DX 3 VIEW RIGHT SHOULDER HISTORY: Patient fell. Right upper extremity and shoulder pain. COMPARISON: No priors available. Bony structures of the shoulder are intact. No fracture or dislocation. Subacromial space normal. Adjacent right ribs and clavicle intact. IMPRESSION: Normal exam. END REPORT SL: [id number] 02/07/2017 [facility] Hand 3 views DX Radiographs of [...] No definitive displaced fractures. SL: [id number] 02/07/2017 [facility] Abdomen/Pelvis wo IV contrast CT RENAL [...] coronal reformations were performed. CT radiation dose: CKN=9596 mGy-cm FINDINGS: RENAL: Multiple bilateral calcified renal [...] CT evidence of acute diverticulitis. SL:131 03/16/2016 [facility] Cardiac SPECT multi studies [place] Cardiac SPECT multi studies [place] CLINICAL HISTORY: Chest pain; TECHNIQUE: 30 mCis [...] defect, inferior wall of left ventricle. SL: [id number] 10/27/2015 [facility] Chest 1view DX Study: Chest 1view DX Clinical Indication: Chest pain Comparison: Chest x-ray from 01/27/2014 FINDINGS: The cardiac silhouette is normal in size. The lungs are clear and without consolidation or congestion. Mild left basilar scarring is stable. No pleural effusion or pneumothorax is seen. The osseous structures are unremarkable. IMPRESSION: No acute cardiopulmonary disease. SL: [id number] 10/25/2015 [facility] Brain wo contrast CT Patient Name: ANNE GRANDA : 1945; Age: 70 years Male MR: [id number] Study: Brain wo contrast CT 07/14/2015 8:10 [...] which may be seen with neurocysticercosis. SL: [id number] 07/14/2015 [facility] Abdomen RUQ US Right upper quadrant [...] and common bile duct. SL: 16 01/14/2015 [facility] ED Abdomen/Pelvis IV contrast only CT CT SCAN OF THE ABDOMEN AND PELVIS WITH CONTRAST. HX: Abdominal pain, acute COMPARISON: 12/07/2010 Technique: Helical CT images from domes of the diaphragms to symphysis pubis following 100 cc Omnipaque nonionic iodinated intravenous contrast. Dose: UIV=2494 mGy-cm. ABDOMEN: The lung bases are clear. [...] No acute abnormality noted. SL: 13 01/14/2015 [facility] Chest 2 views Chest 2 views. COMPARISON: 03/13/2013. FINDINGS: Minimal scarring left lung base. The lungs are otherwise clear and well inflated. There are no effusions or other pleural abnormalities. The cardiomediastinal silhouette and the pulmonary vasculature are within normal limits. No significant bony abnormality is noted. IMPRESSION: No acute abnormality is noted in the chest. SL:13 01/27/2014 [facility] Brain wo contrast CT CRANIAL CT [...] Coding: Brain wo contrast CT CPT Code: 48953 SL: 13 Tom Porter M.D. 01/27/2014 [facility] Carotid artery Doppler bilat US BILATERAL [...] evidence of significant carotid stenosis. SL:13 01/27/2014 [facility] Chest 1view PROCEDURE: Chest 1view REASON FOR EXAM: See Clinic Indication CLINICAL INDICATION: Chest pain COMPARISON: 04/15/2012. FINDINGS: No acute process. No focal consolidation, pleural effusion, or pneumothorax. Stable cardiac silhouette and mediastinum. SL: 12 03/13/2013 [facility] Consultation Notes No Data Provided for This Section Discharge Summaries No Data Provided for This Section History and Physicals No Data Provided for This Section Vital Signs Vital Sign Value Date Comments Source Systolic (mm Hg) 146 02/08/2017 [facility] Diastolic (mm Hg) 83 02/08/2017 [facility] Respitory Rate 18 02/08/2017 [facility] Heart Rate 97 02/08/2017 [facility] Temperature Oral (F) 97.5 F 02/08/2017 [facility] Systolic (mm Hg) 154 02/08/2017 [facility] Diastolic (mm Hg) 88 02/08/2017 [facility] Respitory Rate 18 02/08/2017 [facility] Heart Rate 83 02/08/2017 [facility] Temperature Oral (F) 97.9 F 02/08/2017 [facility] Respitory Rate 18 02/08/2017 [facility] Systolic (mm Hg) 153 02/08/2017 [facility] Diastolic (mm Hg) 95 02/08/2017 [facility] Heart Rate 87 02/08/2017 [facility] Temperature Oral (F) 97.9 F 02/08/2017 [facility] Height 182.88 cm 02/08/2017 [facility] Weight 125 02/08/2017 [facility] BMI Calculated 37.37 02/08/2017 [facility] BMI Calculated 33.98 02/07/2017 [facility] Weight 113.636 02/07/2017 [facility] Height 182.88 cm 02/07/2017 [facility] Heart Rate 66 03/17/2016 [facility] Respitory Rate 17 03/17/2016 [facility] Systolic (mm Hg) 119 03/17/2016 [facility] Diastolic (mm Hg) 73 03/17/2016 [facility] Temperature Oral (F) 98.3 F 03/17/2016 [facility] Temperature Oral (F) 98.6 F 03/17/2016 [facility] Heart Rate 81 03/17/2016 [facility] Respitory Rate 18 03/17/2016 [facility] Systolic [...] 117.273 03/16/2016 [facility] BMI Calculated 32.32 03/16/2016 [facility] Height 190.5 cm 03/16/2016 [facility] Systolic (mm Hg) 119 10/27/2015 [facility] Diastolic (mm Hg) 74 10/27/2015 [facility] Temperature Oral (F) 97.7 F 10/27/2015 [facility] Heart Rate 61 10/27/2015 [facility] Respitory Rate 18 10/27/2015 [facility] Temperature Oral (F) 98.3 F 10/27/2015 [facility] Heart Rate 58 10/27/2015 [facility] Systolic (mm Hg) 120 10/27/2015 [facility] Diastolic (mm Hg) 78 10/27/2015 [facility] Respitory Rate 18 10/27/2015 [facility] Respitory Rate 18 10/27/2015 [facility] Systolic (mm Hg) 106 10/27/2015 [facility] Diastolic (mm Hg) 69 10/27/2015 [facility] Heart Rate 66 10/27/2015 [facility] Temperature Oral (F) 98.3 F 10/27/2015 [facility] BMI Calculated 35.77 10/26/2015 [facility] Weight 119.631 10/26/2015 [facility] Height 182.88 cm 10/26/2015 [facility] Weight 118.182 10/25/2015 [facility] Height 182.88 cm 10/25/2015 [facility] BMI Calculated 35.34 10/25/2015 [facility] Respitory Rate 24 07/15/2015 [facility] Temperature Oral (F) 98.2 F 07/15/2015 [...] 01/17/2015 [facility] Diastolic (mm Hg) 80 01/17/2015 [facility] Temperature Oral (F) 98.1 F 01/17/2015 [facility] Heart Rate 90 01/17/2015 [facility] Systolic (mm Hg) 135 01/17/2015 [facility] Diastolic (mm Hg) 79 01/17/2015 [facility] Respitory Rate 16 01/17/2015 [facility] Heart Rate 82 01/17/2015 [facility] Temperature Oral (F) 98.5 F 01/17/2015 [facility] Height 182.88 cm 01/14/2015 [facility] Weight 105.455 01/14/2015 [facility] BMI Calculated 31.53 01/14/2015 [facility] Heart Rate 77 01/28/2014 [facility] Temperature Oral (F) 98.1 F 01/28/2014 [facility] Diastolic (mm Hg) 64 01/28/2014 [facility] Systolic (mm Hg) 103 01/28/2014 [facility] Respitory Rate 16 01/28/2014 [facility] Temperature Oral (F) 97.8 F 01/28/2014 [...] 16 03/14/2013 [facility] Heart Rate 51 03/14/2013 [facility] Temperature Oral (F) 97.4 F 03/14/2013 [facility] Diastolic (mm Hg) 64 03/14/2013 [facility] Systolic (mm Hg) 104 03/14/2013 [facility] Weight 110.909 03/14/2013 [facility] Height 182.88 cm 03/14/2013 [facility] Weight 110.909 03/13/2013 [facility] Height 182.88 cm 03/13/2013 [facility] Systolic (mm Hg) 124 04/17/2012 [facility] Diastolic (mm Hg) 78 04/17/2012 [facility] Heart Rate 89 04/17/2012 [facility] Respitory Rate 20 04/17/2012 [facility] Temperature Oral (F) 98.1 F 04/17/2012 [...] 114.091 12/07/2010 [facility] Height 182.88 cm 12/07/2010 [facility] Temperature Oral (F) 98.1 F 12/07/2010 [facility] Heart Rate 92.0 12/07/2010 [facility] Respitory Rate 20.0 12/07/2010 [facility] Diastolic (mm Hg) 77.0 12/07/2010 [facility] Systolic (mm Hg) 127.0 12/07/2010 [facility] Encounters Location Location Details Encounter Type Encounter Number Reason For Visit Attending Provider ADM Date DC Date Status Source [facility] Emergency [id number] URINATION PROBLEMS MARIANO CESTA 12/07/2010 12/07/2010 Active [facility] Emergency [id number] SUJATHA OROZCO 06/01/2011 06/02/2011 Discharged [facility] OU [id number] NIKOLAI TERMINELLA 04/15/2012 04/17/2012 Discharged [facility] OU [id number] EXERTIONAL CHEST PAIN LUIS A TIRADO 03/13/2013 03/14/2013 Active [facility] OBS Observation Patient [id number] Nikolai Terminella 01/27/2014 01/28/2014 [facility] OBS Observation Patient [id number] Tai Albustami 01/14/2015 01/17/2015 [facility] [id number] Martin Briones 07/15/2015 07/15/2015 [facility] Observation [id number] Tai Albustami 10/25/2015 10/27/2015 [facility] Observation [id number] Jeff Garza 03/16/2016 03/17/2016 [facility] Observation [id number] Manuel Baez 02/07/2017 02/08/2017 [facility] Procedures Procedure Code Date Perfomer Comments Source Back fusion [id number] 02/24/1983 [facility] Back fusion [id number] 02/24/1983 [facility] Lithotripsy [id number] [facility] Cholecystectomy [id number] [facility] Fusion of lumbar spine [id number] [facility] Assessment and Plan Assessment and Plan Date Source Extracted from:Title: Trauma Admission H&P Author: Manuel Baez MD Date: 02/08/17 Impression and Plan Diagnosis Fall from standing ([id number] W19.XXXA, Working, Medical). Closed fracture of multiple ribs ([id number] S22.49XA, Working, Medical). Orders Discussed known rib injuries and treatment/recovery expectations. Discussed risk reduction and responsible alcohol use. Will DC home with prescription for pain medication, instructions for deep breathing exercises, and office contact info for follow-up. 02/08/2017 [facility] Extracted from:Title: Discharge Summary * Author: [...] audible. EXTREMITIES: Intact with trace edema. A/P TX RULED OUT BY ENZYMES ESS NEGATIVE LEXISCAN [...] 10/28/15 09:00] enoxaparin (Lovenox) 40 mg [id number] [eMAR Schedule: (10/27/15) 12:00] [Future Dose: 10/28/15 [...] Document Author: Tai Bowen MD Date: 01/17/15 [id number] Extracted from:Title: Clinical Document Author: Tai Bowen MD Date: 01/15/15 [id number] 01/17/2015 MALACHI Sena Extracted from:Title: Clinical Document Author: Brea Whitfield MD Date: 01/28/14 Progress Note - Daily [facility] Completed: Jan, 10:12 by Brea Whitfield MD [...] - resolved 2. Weakness - resolved. 01/28/2014 [facility] Plan of Care No Data Provided [...] age: 16.0; Stopped at age: 45; 01/15/2015 [facility] Family History No Data Provided for This Section Advance Directives No Data Provided for This Section Functional Status No Data Provided for This Section
[2018-10-02 09:55] VITALS: BP 146/73
--- NOTE | 2018-11-24 04:46 | Operative Report ---
DATE OF PROCEDURE: 10/02/2018 SURGEON: Crow Sotomayor MD PREOPERATIVE DIAGNOSIS: Left nephrolithiasis. POSTOPERATIVE DIAGNOSIS: Left nephrolithiasis. OPERATION PERFORMED: 1. Staged left-sided extracorporeal shockwave lithotripsy. 2. Supervision of fluoroscopy, no radiologist present. ANESTHESIA: General. CLINICAL SUMMARY: Elva Lamar is a 73-year-old male with urolithiasis. He was brought for the above procedures. He is aware of the risks of bleeding, infection, injury to adjacent structures, need for additional procedures, and elected to proceed. OPERATIVE PROCEDURE IN DETAIL: Informed consent verified. Elva Lamar was properly identified, taken to the operating room, and placed on the lithotripsy table in supine position. Anesthesia was uneventfully begun. The patient's left nephrolithiasis was localized with biplanar fluoroscopy. A total of 3000 shocks were delivered distributing them between the 2 stone regions. Fragmentation was noted. Once we delivered 3000 shocks, the patient was uneventfully reversed from anesthesia and taken to recovery in stable condition. There were no complications to the procedure. He tolerated the procedure well. Explicit postop instructions were given. We will follow the patient in the office. Crow Sotomayor MD [place]/MODL /[id number] cc: Karl Magallanes MD
== END | disposition home or self-care (01) ==
LOC: OR 05:00
PROVIDERS: ATTEND Urology
DX: N20.0 Calculus of kidney (principal); G47.33 Obstructive sleep apnea (adult) (pediatric); F32.9 Major depressive disorder, single episode, unspecified; Z01.812 Encounter for preprocedural laboratory examination
CPT/HCPCS: 36415; 50590; 74018; 85025; J0696; J2001 ×2; J2250; J2405; J2704; J3010

== ENCOUNTER 2020-05-19 11:55 | Emergency (ER) | payer OTHER ==
[~2020-05-19] VITALS: Ht 167.6 cm; Wt 116.1 kg
[~2020-05-19 11:55] MED LIST changes: -CEFTRIAXONE SOD 1 GM/NS 50 ML 50 ML IV ONE; -EPHEDRINE SULFATE INJ 50 MG/10 ML SYR ONE; -FENTANYL CITRATE/PF 100MCG/2 ML INJ ONE; -LIDOCAINE HCL 2% JELLY 5 ML TUBE ONE; -LIDOCAINE HCL 2% LOCAL INJ 5 ML SDV VIAL INJ ONE; -MIDAZOLAM HCL 2 MG/2 ML VIAL ONE; -ONDANSETRON HCL INJ 2MG/ML 2ML 2 MG/ML VIAL ONE; -PROPOFOL IV EMULSION 10 MG/ML 20 ML VIAL ONE; -SEVOFLURANE INHAL SOLN 250 ML PEN BTL ONE
[2020-05-19 13:03] LABS: BASOPHILS % 0.9 % (0.0-1.0); EOSINOPHILS # (AUTO) 0.1 (0.0-0.4); EOSINOPHILS % 4.1 % (0.0-6.0); HEMATOCRIT 41.7 % (38.2-49.6); HEMOGLOBIN 13.9 g/dL (14.0-18.0); LYMPHOCYTES # (AUTO) 0.7 (1.0-3.2); LYMPHOCYTES % 23.3 % (18.0-39.1); MEAN CORPUSCULAR HEMOGLOBIN 33.1 pg (28-32); MEAN CORPUSCULAR HGB CONC 33.3 g/dL (31-35); MEAN CORPUSCULAR VOLUME 99.3 fL (81-99); MONOCYTES # (AUTO) 0.4 (0.2-0.8); MONOCYTES % 13.2 % (4.4-11.3); NEUTROPHILS # (AUTO) 1.8 (2.1-6.9); NEUTROPHILS % 57.6 % (38.7-80.0); PLATELET COUNT 94 x10e3/uL (140-360); RED CELL DISTRIBUTION WIDTH 13.7 % (11.7-14.4)
[2020-05-19 13:11] LABS: CLARITY,URINE CLEAR (CLEAR); COLOR,URINE YELLOW (YELLOW); KETONES,URINE NEGATIVE (NEGATIVE); LEUKOCYTE ESTERASE ,URINE NEGATIVE (NEGATIVE); NITRITE,URINE NEGATIVE (NEGATIVE); PROTEIN,URINE DIPSTICK NEGATIVE (NEGATIVE)
[2020-05-19 13:21] LABS: ALANINE AMINOTRANSFERASE 31 IU/L (0-55); ALBUMIN 3.3 g/dL (3.5-5.0); ALBUMIN/GLOBULIN RATIO 1.3 (0.8-2.0); ALKALINE PHOSPHATASE 94 IU/L (40-150); ANION GAP 10.3 mmol/L (8-16); BLOOD UREA NITROGEN 12 mg/dL (7-26); BUN/CREATININE RATIO 16 (6-25); CALCIUM 8.1 mg/dL (8.4-10.2); CARBON DIOXIDE 25 mmol/L (22-29); CHLORIDE 108 mmol/L (98-107); CREATININE, SERUM 0.73 mg/dL (0.72-1.25); EST GLOMERULAR FILTRATION RATE > 60 ML/MIN (60-); GLUCOSE 104 mg/dL (74-118); LIPASE 64 U/L (8-78); POTASSIUM 4.3 mmol/L (3.5-5.1); SODIUM 139 mmol/L (136-145)
[2020-05-19 13:30] LABS: BACTERIA,URINE RARE /HPF; EPITHELIAL CELLS,URINE RARE /LPF; RBC,URINE 0-5 /HPF (0-5); WBC,URINE (MAN) 0-5 /HPF (0-5)
[2020-05-19] MEDS ORDERED: SODIUM CHLORIDE 0.9% 50ML 0 ML ONE (13:49)
[2020-05-19] MEDS ORDERED: IOPAMIDOL 370 MG/ML 200 ML INFUS..BTL INJ ONE (13:50)
== END 2020-05-19 15:30 | disposition home or self-care (01) ==
LOC: ER 12:03
DX: R30.0 Dysuria (principal); R10.30 Lower abdominal pain, unspecified; I10 Essential (primary) hypertension; F41.9 Anxiety disorder, unspecified
CPT/HCPCS: 36415; 74177; 80053; 81001; 83690; 85025; 99284; Q9967

== ENCOUNTER 2021-03-20 09:51 | Emergency (ER) | payer MEDICARE ==
[~2021-03-20] VITALS: Ht 167.6 cm; Wt 116.1 kg
[2021-03-20] MEDS ORDERED: FENTANYL CITRATE/PF 100MCG/2 ML INJ IV PRN (10:15)
[2021-03-20] MEDS ORDERED: KETOROLAC TROMETHAMINE 30 MG/ML VIAL IV STA (10:15)
[2021-03-20] MEDS ORDERED: NAPROXEN250 MG PO (10:42)
[2021-03-20] MEDS ORDERED: LIDOCAINE1 EAC1 EXT (10:43)
[2021-03-20 10:49] LABS: COLOR,URINE YELLOW (YELLOW)
[2021-03-20 10:50] LABS: CLARITY,URINE CLEAR (CLEAR); KETONES,URINE NEGATIVE (NEGATIVE); LEUKOCYTE ESTERASE ,URINE NEGATIVE (NEGATIVE); NITRITE,URINE NEGATIVE (NEGATIVE); PROTEIN,URINE DIPSTICK NEGATIVE (NEGATIVE); URINE UROBILINOGEN 0.2 mg/dL (0.2 - 1)
[2021-03-20 11:08] LABS: BACTERIA,URINE FEW /HPF
[2021-03-20 11:09] LABS: EPITHELIAL CELLS,URINE FEW /LPF
[2021-03-20 11:29] VITALS: BP 119/75
== END 2021-03-20 11:45 | disposition home or self-care (01) ==
LOC: ER 10:00
DX: M54.50 Low back pain, unspecified (principal); R33.9 Retention of urine, unspecified; I10 Essential (primary) hypertension; I25.10 Atherosclerotic heart disease of native coronary artery without angina pectoris; K76.9 Liver disease, unspecified; M54.9 Dorsalgia, unspecified; G89.29 Other chronic pain; Z20.822 Contact with and (suspected) exposure to COVID-19
CPT/HCPCS: 81001; 87086; 99283; J1885; J3010; U0002